=== PATIENT | male | born 1950 | race Caucasian/White ===

== ENCOUNTER 2017-05-01 14:17 | Emergency (ER) | payer MEDICARE ==
[2017-05-01] MEDS ORDERED: SODIUM CHLORIDE 0.9% 1,000 ML IV STA (14:28)
[2017-05-01] MEDS ORDERED: RX INFO: IV CONTRAST WAS GIVEN 1 EACH MISC MISCELLANE PRN (14:28)
[2017-05-01] MEDS ORDERED: DIPH,PERTUS(ACELL)TETVAC-LF 0.5 ML VIAL IM ONE (14:28)
[2017-05-01 14:31] VITALS: RESP 18
[2017-05-01 14:38] LABS: Glucose,Whole Blood 120 mg/dL (75-99)
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
[2017-05-01 14:46] LABS: Basophils # (A) 0.1 k/uL (0-0.2); Basophils % (A) 1 %; CH 29.1; CHCM 33.6; Eosinophils # (A) 0.1 k/uL (0-0.7); Eosinophils % (A) 2 %; HCT 44.5 % (39.0-53.0); HDW 2.56; HGB 14.9 gm/dL (13.0-17.5); Luc # (Auto) 0.24; Luc % (Auto) 3; Lymphocytes # (A) 1.8 k/uL (1.0-4.8); Lymphocytes % (A) 19 %; MCH 29.2 pg (25.0-35.0); MCHC 33.6 g/dL (31.0-37.0); MCV 86.9 fL (80.0-100.0); Mean Platelet Volume 6.6; Monocytes # (A) 0.5 k/uL (0-1.0); Monocytes % (A) 6 %; Neutrophils # (A) 6.7 k/uL (1.3-7.7); Neutrophils % (A) 71 %; RBC 5.12 m/uL (4.30-5.90); RDW 12.9 % (11.5-15.5); WBC 9.4 k/uL (3.8-10.6); WBC (Perox) 9.35
--- NOTE | 2017-05-01 14:51 | XR ---
EXAMINATION TYPE: XR chest 1V portable DATE OF EXAM: 05/01/2017 COMPARISON: NONE HISTORY: Pain TECHNIQUE: Single frontal view of the chest is obtained. FINDINGS: Mediastinum is widened recommend CT of the chest. Technique suboptimal for assessment of o sseous structures. Heart is prominent in size. No obvious pneumothorax. Left costophrenic angle not e ntirely included on exam. ER notified by telephone. IMPRESSION: 1. Limited exam with widened mediastinum recommend stat CT chest.
--- NOTE | 2017-05-01 14:52 | XR ---
EXAMINATION TYPE: XR pelvis AP view DATE OF EXAM: 05/01/2017 COMPARISON: NONE HISTORY: Pain The osseous structures are intact and arthropathy of the portions of the iliac wing are secured by ov erlying artifact. No acute fracture is seen. Visualized bowel gas pattern is nonspecific. IMPRESSION: 1. No acute fracture.
[2017-05-01 14:58] LABS: INR 1.1 (<1.1); Partial Thromboplastin Time 25.9 sec (22.0-30.0); Prothrombin Time 10.8 sec (9.0-12.0)
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
[2017-05-01 15:13] LABS: Creatine Kinase 320 U/L (55-170)
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
[2017-05-01 15:26] LABS: Troponin I <0.012 ng/mL (0.000-0.034)
[2017-05-01 15:33] LABS: Creatine Kinase MB 2.7 ng/mL (0.0-2.4)
[2017-05-01 15:49] LABS: ALT 36 U/L (21-72); AST 32 U/L (17-59); Alcohol <10 mg/dL; Alkaline Phosphatase 90 U/L (38-126); Anion Gap 10 mmol/L; Blood Urea Nitrogen 22 mg/dL (9-20); Calcium 9.7 mg/dL (8.4-10.2); Carbon Dioxide 23 mmol/L (22-30); Chloride 108 mmol/L (98-107); Glucose 123 mg/dL (74-99); Non-African American GFR(MDRD) >60 (>60 ml/min/1.73 sqM); Sodium 141 mmol/L (137-145); Total Bilirubin 0.5 mg/dL (0.2-1.3); Total Protein 7.2 g/dL (6.3-8.2)
--- NOTE | 2017-05-01 15:56 | XR ---
EXAMINATION TYPE: XR shoulder complete LT DATE OF EXAM: 05/01/2017 COMPARISON: NONE HISTORY: Pain TECHNIQUE: Three views are submitted. FINDINGS: The osseous structures are intact. There is no acute fracture or dislocation. AC joint arthropathy n oted.. IMPRESSION: 1. No acute process.
[2017-05-01] MEDS ORDERED: MORPHINE SULFATE 4 MG/ML SYRINGE IVP STA (16:10)
[2017-05-01] MEDS ORDERED: ONDANSETRON 4 MG/2 ML VIAL IVP STA (16:10)
[2017-05-01 16:27] LABS: Appearance,Urine Clear (Clear); Bilirubin,Urine Negative (Negative); Glucose,Urine (UA) Negative (Negative); Ketones,Urine Negative (Negative); Leukocyte Esterase,Urine Negative (Negative); Nitrite,Urine Negative (Negative); PH, Urine 5.5 (5.0-8.0); Protein,Urine Negative (Negative); Specific Gravity,Urine 1.022 (1.001-1.035); UA Billing (MACRO vs. MICRO) CHEM; Urobilinogen,Urine <2.0 mg/dL (<2.0)
[2017-05-01 17:03] VITALS: BP 154/78; PULSE 69; TEMP 99.2
== END 2017-05-01 17:01 | disposition home or self-care (01) ==
LOC: EC 14:17
DX: S06.0X0A Concussion without loss of consciousness, initial encounter (principal); S01.81XA Laceration without foreign body of other part of head, initial encounter; I10 Essential (primary) hypertension; Z79.899 Other long term (current) drug therapy; V94.9XXA Unspecified water transport accident, initial encounter
CPT/HCPCS: 99285; 12011; 90471; 96374; 96375; 96361 ×2; 36415; 93005; 86900; 86901; 80053; 82550; 82553; 84484; 85025; 85610; 85730; 86850; 81003; 80306; 80320; 71010; 72170; 73030; 72125; 70450; 71260; 74177; 90715; J2270; J2405; Q9967

== ENCOUNTER → 2020-10-30 | Outpatient (CLI) | payer MEDICARE ==
--- NOTE | 2020-10-31 00:03 | MR ---
EXAMINATION TYPE: MR knee RT wo con DATE OF EXAM: 10/30/2020 COMPARISON: None HISTORY: Right knee pain Multiplanar multiecho imaging of the right knee was performed with no contrast. There is some mild increased signal on the proton density images in the subchondral medial femoral co ndyle. The collateral ligaments are intact. There is vertical defect through the posterior horn of th e medial meniscus. There is some thinning of the medial meniscus posterior horn. The lateral meniscus is intact. There is a mild to moderate knee joint effusion. The anterior and posterior cruciate ligaments are intact. Patella is intact. There is minor spurring on the patella. There is some narrowing of the medial joint space of the knee. IMPRESSION: Osteoarthritic narrowing of the medial joint space of the left knee. There is complex vertical tear t hrough the posterior horn of the medial meniscus. No fracture seen. Subchondral edema on both sides o f the medial joint space and more involvement of the medial femoral condyle.
== END | disposition home or self-care (01) ==
LOC: RADMRIMAIN 11:08
PROVIDERS: ATTEND Orthopaedic Surgery
DX: M17.12 Unilateral primary osteoarthritis, left knee (principal); M25.862 Other specified joint disorders, left knee; S83.241A Other tear of medial meniscus, current injury, right knee, initial encounter

== ENCOUNTER → 2020-12-02 | Outpatient (CLI) | payer MEDICARE ==
[2020-12-02 12:12] LABS: Basophils # (A) 0.1 k/uL (0-0.2); Basophils % (A) 1 %; Eosinophils # (A) 0.2 k/uL (0-0.7); Eosinophils % (A) 3 %; HCT 43.1 % (39.0-53.0); HGB 14.6 gm/dL (13.0-17.5); Lymphocytes % (A) 28 %; MCH 28.9 pg (25.0-35.0); MCHC 33.8 g/dL (31.0-37.0); MCV 85.7 fL (80.0-100.0); Monocytes # (A) 0.4 k/uL (0-1.0); Monocytes % (A) 6 %; Neutrophils # (A) 4.3 k/uL (1.3-7.7); Neutrophils % (A) 60 %; Platelet Count 234 k/uL (150-450); RBC 5.03 m/uL (4.30-5.90); RDW 13.1 % (11.5-15.5); WBC 7.1 k/uL (3.8-10.6)
[2020-12-02 20:59] LABS: Anion Gap 8.9 mmol/L (4.00-12.00); Carbon Dioxide 25.1 mmol/L (21.6-31.8); Potassium 4.2 mmol/L (3.5-5.5)
== END | disposition home or self-care (01) ==
LOC: LABWHC1 10:35
PROVIDERS: ATTEND Orthopaedic Surgery
DX: Z01.812 Encounter for preprocedural laboratory examination (principal); M23.91 Unspecified internal derangement of right knee
CPT/HCPCS: 36415; 80051; 85025; 93005

== ENCOUNTER 2020-12-17 10:03 | Day surgery (SDC) | payer MEDICARE ==
[2020-12-14 15:54] VITALS: BMI 37.6
--- NOTE | 2020-12-16 20:41 | HP ---
HISTORY AND PHYSICAL DATE OF SURGERY: 12/17/2020 Rylan Cunningham is a 70-year-old gentleman seen with progressive right knee pain. We discussed treatment options with him. He elected to proceed with arthroscopy. Consent regarding procedure was obtained. PAST MEDICAL HISTORY: Hypertension. PAST SURGICAL HISTORY: Noncontributory. DAILY MEDICATIONS: Losartan. ALLERGIES: NONE. SOCIAL HISTORY: He denies tobacco use. PHYSICAL EVALUATION OF THE RIGHT KNEE: Range of motion 0 to 130. Mild effusion. Tenderness medial joint line. Positive medial Raiza's. Ligaments stable. Hip rotation without pain. Distal neurovascular exam is intact. RADIOGRAPHS: Right knee radiographs revealed mild osteoarthritic changes. MRI of right knee revealed medial meniscal tear. IMPRESSION: 1. Internal derangement of right knee with medial meniscal tear. 2. Right knee osteoarthritis. 3. Hypertension. PLAN: Right knee arthroscopy with partial meniscectomy, partial synovectomy and debridement. MMODL / IJN: [id number] /
[~2020-12-17 10:03] MED LIST: DEXAMETHASONE SOD PHOSPHATE 4 MG/ML 1 ML VIAL IV ONE; HYDROmorphone 0.5 MG/0.5 ML SYRINGE IVP PRN; LACTATED RINGERS 1,000 ML IV SCH; LIDOCAINE 1% (10MG/ML) FOR IV START INTRADERMA PRN; ONDANSETRON 4 MG/2 ML VIAL IVP ONE; ceFAZolin 3 GM in SODIUM CHLORIDE 0.9% 100 ML IVPB PRN
[2020-12-17] MEDS ORDERED: METOPROLOL TARTRATE 5 MG/5 ML VIAL IVP ONE (11:38)
[2020-12-17] MEDS ORDERED: LIDOCAINE 1% INJ 10MG/ML (20 ML MDV) ONE (11:38)
[2020-12-17] MEDS ORDERED: PROPOFOL 10 MG/ML 20 ML VIAL IV ONE (11:38)
[2020-12-17] MEDS ORDERED: fentaNYL (PF) 50 MCG/ML 2 ML AMP ONE (11:38)
[2020-12-17] MEDS ORDERED: MIDAZOLAM 2 MG/2 ML VIAL ONE (11:38)
[2020-12-17] MEDS ORDERED: SUCCINYLCHOLINE CHLORIDE VIAL 200 MG/10 ML VIAL IV ONE (11:38)
[2020-12-17] MEDS ORDERED: BUPIVACAINE (PF) 0.25% 30 ML VIAL INTRAARTIC ONE (12:03)
--- NOTE | 2020-12-17 12:47 | P.OP ---
Date of Procedure: 12/17/20 Preoperative Diagnosis: Internal derangement right knee Postoperative Diagnosis: 1. Tear medial meniscus right knee 2. Grade 2 chondromalacia medial femoral condyle right knee 3. Medial plica right knee 4. Reactive synovitis medial, lateral and suprapatellar compartments right knee Procedure(s) Performed: 1. Arthroscopic partial medial meniscectomy right knee 2. Arthroscopic chondroplasty medial femoral condyle right knee 3. Arthroscopic partial synovectomy medial, lateral and suprapatellar compartments right knee 4. Arthroscopic resection medial plica right knee Anesthesia: SALVADORA, local Surgeon: Ramo Johansen Estimated Blood Loss (ml): 7 Pathology: none sent Condition: stable Disposition: PACU Indications for Procedure: 70-year-old gentleman seen with progressive right knee pain. After having treatment options discussed, he elected to proceed with arthroscopy. Operative Findings: See description of procedure Description of Procedure: Patient was taken to the operative suite. Patient underwent a general anesthetic by the department of anesthesia. Patient was given preoperative antibiotics. The right lower extremity was placed in a well-padded arthroscopic leg salas. The right leg was prepped and draped in the normal sterile orthopedic fashion. A lateral parapatellar and suprapatellar incision was made. Trochars were inserted. Arthroscopy was initiated. Suprapatellar pouch revealed diffuse thick reactive synovitis. The patellofemoral joint appeared to articulate congruently. There was grade 1/2 chondromalacia. The scope was guided into the medial gutter. There was a medial plica which did impinge along the medial femoral condyle with range of motion. The scope was then guided into the medial compartment. A medial parapatellar incision was made. Trocar inserted followed by probe. There was a complex tear medial meniscus. There were grade 2 chondromalacia changes of the medial femoral condyle. There was thick reactive synovitis anteriorly. I performed a partial medial meniscectomy down to stable tissue. I performed a chondroplasty of the medial femoral condyle getting down to stable tissue. I performed a partial synovectomy decompressing the reactive synovitis. The residual meniscus was found to be stable. The residual osteochondral surface was stable. There was good decompression of the synovitis. Scope and probe were then guided into the intercondylar notch. Cruciates were identified, probed and found to be stable. The scope and probe were then guided into lateral compartment. To some mild superficial fraying of the midbody lateral meniscus. There was thick reactive synovitis anteriorly. There was no significant chondromalacia present. I introduced a motorized shaver and debrided out that mild fraying of the lateral meniscus. I now performed a partial synovectomy decompressing the reactive synovitis. The shaver was removed. There was good decompression of the synovitis. The scope was in guided back into the suprapatellar compartment. I introduced a motorized shaver into the super compartment. I resected that medial plica. I performed a partial synovectomy. I debrided out any remnants of meniscus I encountered. The shaver was removed. There was complete resection of plica. There was good decompression of synovitis. I took one more look around the entire knee, no residual debris. Instruments were now removed from the joint. The joint was infiltrated with .25% Marcaine. Steri-Strips were applied to the portal sites. Sterile dressings were applied. The patient was placed into a PADMINI hose. No tourniquet was utilized. The patient was awakened, transferred to a bed and taken to recovery stable satisfactory condition.
[2020-12-17 12:54] VITALS: TEMP 97
[2020-12-17] MEDS ORDERED: LACTATED RINGERS 1,000 ML IV ONE (13:00)
[2020-12-17] MEDS ORDERED: HYDROcodone/APAP 5-325MG 1 EACH TAB ONE (14:08)
[2020-12-17] MEDS ORDERED: HYDROcodone/APAP 5-325MG 1 EACH TAB PO ONE (14:09)
[2020-12-17 14:12] VITALS: PULSE 56; RESP 18
[2020-12-17 14:35] VITALS: BP 176/84
== END 2020-12-17 15:04 | disposition home or self-care (01) ==
LOC: OR 10:03
PROVIDERS: ATTEND Orthopaedic Surgery
DX: M23.203 Derangement of unspecified medial meniscus due to old tear or injury, right knee (principal); M94.261 Chondromalacia, right knee; M67.51 Plica syndrome, right knee; M65.861 Other synovitis and tenosynovitis, right lower leg; M17.11 Unilateral primary osteoarthritis, right knee; I10 Essential (primary) hypertension; N40.0 Benign prostatic hyperplasia without lower urinary tract symptoms; Z79.899 Other long term (current) drug therapy; Z79.82 Long term (current) use of aspirin; Z98.890 Other specified postprocedural states
CPT/HCPCS: 29881; J2250; J0330; J1100; J0690; J2405; J2001; J3010; J2704; J1170

== ENCOUNTER 2022-03-24 08:29 | Emergency (ER) | payer MEDICARE ==
[2022-03-24 08:52] VITALS: TEMP 97.7
[2022-03-24] MEDS ORDERED: ONDANSETRON 4 MG/2 ML VIAL IVP STA (09:08)
[2022-03-24] MEDS ORDERED: SODIUM CHLORIDE 0.9% 500 ML 500 ML IV STA (09:08)
[2022-03-24] MEDS ORDERED: METOCLOPRAMIDE 5 MG/ML 2 ML VIAL IVP STA (09:09)
--- NOTE | 2022-03-24 09:12 | ED ---
General Adult HPI - General Chief complaint: Nausea/Vomiting/Diarrhea Stated complaint: NVD Time Seen by Provider: 03/24/22 09:00 Source: patient, RN notes reviewed, old records reviewed Mode of arrival: ambulatory Limitations: no limitations - History of Present Illness Initial comments: 71-year-old male presents to the emergency room with complaints of nausea and vomiting and feeling foggy this morning. Patient states that he had a fitful sleep last night, and did have one episode of vomiting today. His did give him Pepto-Bismol but he states vomited it up. He states did get diaphoretic prior to vomiting. Denies any shortness of breath or chest pain. Denies any back pain. Does have a history of hypertension and [id number] diabetes. -: days(s) (1) Severity scale (1-10): 0 Associated Symptoms: diaphoresis, nausea/vomiting, other (diarrhea) Treatments Prior to Arrival: other (pepto bismol) - Related Data Home Medications Medication Instructions Recorded Confirmed Cholecalciferol [Vitamin D3 (25 25 mcg PO DAILY 12/14/20 03/24/22 Mcg = 1000 Iu)] Tamsulosin [Flomax] 0.4 mg PO HS 12/14/20 03/24/22 Cromium 1 tab PO DAILY 03/24/22 03/24/22 L.acidoph,Paracasei, B.lactis 1 cap PO DAILY 03/24/22 03/24/22 [Probiotic] Losartan Potassium 100 mg PO DAILY 03/24/22 03/24/22 Previous Rx's Medication Instructions Recorded Ondansetron Odt [Zofran Odt] 4 mg PO Q8HR PRN #10 tab 03/24/22 Allergies Allergy/AdvReac Type Severity Reaction Status Date / Time No Known Allergies Allergy Verified 03/24/22 12:10 Review of Systems ROS Statement: Those systems with pertinent positive or pertinent negative responses have been documented in the HPI. ROS Other: All systems not noted in ROS Statement are negative. Past Medical History Past Medical History: Diabetes Mellitus, Hypertension History of Any Multi-Drug Resistant Organisms: None Reported Past Surgical History: Orthopedic Surgery Past Psychological History: No Psychological Hx Reported Smoking Status: Never smoker Past Alcohol Use History: None Reported Past Drug Use History: None Reported General Exam Limitations: no limitations General appearance: alert, in no apparent distress Head exam: Present: atraumatic Eye exam: Absent: scleral icterus, conjunctival injection Neck exam: Present: normal inspection, full ROM. Absent: tenderness, meningism us, lymphadenopathy Respiratory exam: Present: normal lung sounds bilaterally. Absent: respiratory distress, accessory muscle use Cardiovascular Exam: Present: regular rate, normal rhythm, normal heart sounds. Absent: JVD GI/Abdominal exam: Present: soft. Absent: distended Extremities exam: Present: full ROM, normal capillary refill. Absent: pedal edema Back exam: Present: normal inspection, full ROM. Absent: tenderness, CVA tenderness (R), CVA tenderness (L), rash noted Neurological exam: Present: alert, oriented X3 Psychiatric exam: Present: normal affect, normal mood Skin exam: Present: warm, dry, normal color. Absent: cyanosis, diaphoretic, petechiae, pallor Course Vital Signs 03/24/22 03/24/22 03/24/22 08:46 10:51 11:00 Temperature 97.7 F Pulse Rate 63 66 68 Respiratory 18 16 16 Rate Blood Pressure 183/84 159/89 154/92 O2 Sat by Pulse 97 94 L 97 Oximetry 03/24/22 13:36 Temperature Pulse Rate 84 Respiratory 16 Rate Blood Pressure 152/87 O2 Sat by Pulse 98 Oximetry EKG Findings - EKG Results: EKG shows: bradycardia (Ventricular rate of 56, MI interval 0.217, QRS 0.122, QTC 0.431) Medical Decision Making - Medical Decision Making Chest x-ray shows no acute cardiopulmonary process. EKG shows no ST elevation or acute changes. Troponin is negative at 0.012. Labs show no evidence of leukocytosis and hemoglobin and hematocrit are stable. Electrolytes are unremarkable. Influenza coronavirus swab is negative. Patient was given Reglan, Zofran and IV fluids and states feeling much better. He has no abdominal pain. He denies any hematochezia or hematemesis. At this time I am unsure as to what the cause of the patient's nausea and vomiting was however since it is resolved and may be related to a viral illness. He was given strict return parameters to return to the emergency room with any increased abdominal pain, persistent nausea vomiting or fevers. He is agreeable to being discharged home and following up with his primary care doctor here. Case discussed with Dr. Maher - Lab Data Result diagrams: 03/24/22 09:28 03/24/22 09:28 Lab Results 03/24/22 03/24/22 03/24/22 Range/Units 09:28 09: 09:28 WBC 9.5 (3.8-10.6) k/uL RBC 5.25 (4.30-5.90) m/uL Hgb 14.9 (13.0-17.5) gm/dL Hct 46.2 (39.0-53.0) % MCV 87.9 (80.0-100.0) fL MCH 28.3 (25.0-35.0) pg MCHC 32.2 (31.0-37.0) g/dL RDW 12.4 (11.5-15.5) % Plt Count 221 (150-450) k/uL MPV 7.1 Neutrophils % 82 % Lymphocytes % 11 % Monocytes % 4 % Eosinophils % 1 % Basophils % 1 % Neutrophils # 7.8 H (1.3-7.7) k/uL Lymphocytes # 1.1 (1.0-4.8) k/uL Monocytes # 0.4 (0-1.0) k/uL Eosinophils # 0.1 (0-0.7) k/uL Basophils # 0.1 (0-0.2) k/uL Sodium 138 (137-145) mmol/L Potassium 4.6 (3.5-5.1) mmol/L Chloride 104 (98-107) mmol/L Carbon Dioxide 26 (22-30) mmol/L Anion Gap 8 mmol/L BUN 21 H (9-20) mg/dL Creatinine 0.87 (0.66-1.25) mg/dL Est GFR (CKD-EPI)AfAm >90 (>60 ml/min/1.73 sqM) Est GFR (CKD-EPI)NonAf 86 (>60 ml/min/1.73 sqM) Glucose 216 H (74-99) mg/dL Calcium 9.2 (8.4-10.2) mg/dL Total Bilirubin 0.7 (0.2-1.3) mg/dL AST 30 (17-59) U/L ALT 28 (4-49) U/L Alkaline Phosphatase 80 (38-126) U/L Troponin I (0.000-0.034) ng/mL Total Protein 7.8 (6.3-8.2) g/dL Albumin 4.4 (3.5-5.0) g/dL Amylase 78 (30-110) U/L Lipase 53 (23-300) U/L Influenza Type A (PCR) Not Detected (Not Detectd) Influenza Type B (PCR) Not Detected (Not Detectd) RSV (PCR) Not Detected (Not Detectd) SARS-CoV-2 (PCR) Not Detected (Not Detectd) 03/24/22 Range/Units 11:34 WBC (3.8-10.6) k/uL RBC (4.30-5.90) m/uL Hgb (13.0-17.5) gm/dL Hct (39.0-53.0) % MCV (80.0-100.0) fL MCH (25.0-35.0) pg MCHC (31.0-37.0) g/dL RDW (11.5-15.5) % Plt Count (150-450) k/uL MPV Neutrophils % % Lymphocytes % % Monocytes % % Eosinophils % % Basophils % % Neutrophils # (1.3-7.7) k/uL Lymphocytes # (1.0-4.8) k/uL Monocytes # (0-1.0) k/uL Eosinophils # (0-0.7) k/uL Basophils # (0-0.2) k/uL Sodium (137-145) mmol/L Potassium (3.5-5.1) mmol/L Chloride (98-107) mmol/L Carbon Dioxide (22-30) mmol/L Anion Gap mmol/L BUN (9-20) mg/dL Creatinine (0.66-1.25) mg/dL Est GFR (CKD-EPI)AfAm (>60 ml/min/1.73 sqM) Est GFR (CKD-EPI)NonAf (>60 ml/min/1.73 sqM) Glucose (74-99) mg/dL Calcium (8.4-10.2) mg/dL Total Bilirubin (0.2-1.3) mg/dL AST (17-59) U/L ALT (4-49) U/L Alkaline Phosphatase (38-126) U/L Troponin I <0.012 (0.000-0.034) ng/mL Total Protein (6.3-8.2) g/dL Albumin (3.5-5.0) g/dL Amylase (30-110) U/L Lipase (23-300) U/L Influenza Type A (PCR) (Not Detectd) Influenza Type B (PCR) (Not Detectd) RSV (PCR) (Not Detectd) SARS-CoV-2 (PCR) (Not Detectd) Disposition Clinical Impression: Nausea & vomiting Disposition: HOME SELF-CARE Condition: Good Instructions (If sedation given, give patient instructions): Acute Nausea and Vomiting (ED) Additional Instructions: Increase your fluid intake. Follow-up with primary care doctor this week. Return to the emergency room with any new or concerning symptoms including chest pain, difficulty breathing, fevers or persistent nausea vomiting Prescriptions: Ondansetron Odt [Zofran Odt] 4 mg PO Q8HR PRN #10 tab PRN Reason: Nausea Is patient prescribed a controlled substance at d/c from ED?: No Referrals: Saad Rene MD [Primary Care Provider] - 1-2 days
[2022-03-24 09:45] LABS: Basophils # (A) 0.1 k/uL (0-0.2); Basophils % (A) 1 %; Eosinophils # (A) 0.1 k/uL (0-0.7); Eosinophils % (A) 1 %; HCT 46.2 % (39.0-53.0); HGB 14.9 gm/dL (13.0-17.5); Lymphocytes # (A) 1.1 k/uL (1.0-4.8); Lymphocytes % (A) 11 %; MCH 28.3 pg (25.0-35.0); MCHC 32.2 g/dL (31.0-37.0); MCV 87.9 fL (80.0-100.0); Mean Platelet Volume 7.1; Monocytes # (A) 0.4 k/uL (0-1.0); Monocytes % (A) 4 %; Neutrophils # (A) 7.8 k/uL (1.3-7.7); Neutrophils % (A) 82 %; Platelet Count 221 k/uL (150-450); RBC 5.25 m/uL (4.30-5.90); RDW 12.4 % (11.5-15.5); WBC 9.5 k/uL (3.8-10.6)
--- NOTE | 2022-03-24 10:02 | XR ---
EXAMINATION TYPE: XR chest 2V DATE OF EXAM: 03/24/2022 COMPARISON: NONE TECHNIQUE: PA and lateral views submitted. HISTORY: Pain FINDINGS: The lungs are clear and there is no pneumothorax, pleural effusion, or focal pneumonia. Heart size normal. No overt failure. Hypertrophic and degenerative change of the spine. Atherosclerotic change a em. IMPRESSION: 1. No acute process.
[2022-03-24 10:08] LABS: ALT 28 U/L (4-49); AST 30 U/L (17-59); African American GFR (CKD) >90 (>60 ml/min/1.73 sqM); Albumin 4.4 g/dL (3.5-5.0); Alkaline Phosphatase 80 U/L (38-126); Amylase 78 U/L (30-110); Anion Gap 8 mmol/L; Blood Urea Nitrogen 21 mg/dL (9-20); Calcium 9.2 mg/dL (8.4-10.2); Carbon Dioxide 26 mmol/L (22-30); Chloride 104 mmol/L (98-107); Glucose 216 mg/dL (74-99); Lipase 53 U/L (23-300); Non-African American GFR(CKD) 86 (>60 ml/min/1.73 sqM); Potassium 4.6 mmol/L (3.5-5.1); Sodium 138 mmol/L (137-145); Total Bilirubin 0.7 mg/dL (0.2-1.3); Total Protein 7.8 g/dL (6.3-8.2)
[2022-03-24 11:03] VITALS: RESP 16
[2022-03-24 13:37] VITALS: BP 152/87; PULSE 84
== END 2022-03-24 13:37 | disposition home or self-care (01) ==
LOC: EC 08:29
DX: R11.2 Nausea with vomiting, unspecified (principal); E11.9 Type 2 diabetes mellitus without complications; I10 Essential (primary) hypertension; Z20.822 Contact with and (suspected) exposure to COVID-19
CPT/HCPCS: 36415; 93005; 80053; 82150; 83690; 84484; 85025; 87636; 71046; 99284; 96374; 96375; J2765; J2405

== ENCOUNTER 2023-11-20 09:49 | Inpatient (IN) | payer MEDICARE ==
[2023-11-20] MEDS ORDERED: NITROGLYCERIN OINT 1 INCH/GM PACKET TOPICAL STA (09:59)
[2023-11-20] MEDS ORDERED: ASPIRIN 81 MG PO STA (09:59)
--- NOTE | 2023-11-20 10:01 | ED ---
General Adult HPI - General Chief complaint: Chest Pain Stated complaint: Chest Pain Time Seen by Provider: 11/20/23 09:56 Source: patient, family, RN notes reviewed Mode of arrival: ambulatory Limitations: no limitations - History of Present Illness Initial comments: Patient is a pleasant 72-year-old male presenting to the emergency department with concerns of chest discomfort. Onset of symptoms was 2 or 3 weeks ago. Symptoms are exertional. Patient has pressure in his chest currently 3/10. Patient states discomfort sometimes gets up to 5/10. Patient does have associated exertional dyspnea. No nausea. No diaphoresis. No history of similar symptoms previously. No leg pain or leg swelling. - Related Data Home Medications Medication Instructions Recorded Confirmed Cholecalciferol [Vitamin D3 (25 25 mcg PO DAILY 12/14/20 03/24/22 Mcg = 1000 Iu)] Tamsulosin [Flomax] 0.4 mg PO HS 12/14/20 03/24/22 Cromium 1 tab PO DAILY 03/24/22 03/24/22 L.acidoph,Paracasei, B.lactis 1 cap PO DAILY 03/24/22 03/24/22 [Probiotic] Losartan Potassium 100 mg PO DAILY 03/24/22 03/24/22 Previous Rx's Medication Instructions Recorded Ondansetron Odt [Zofran Odt] 4 mg PO Q8HR PRN #10 tab 03/24/22 Allergies Allergy/AdvReac Type Severity Reaction Status Date / Time No Known Allergies Allergy Verified 11/20/23 09:54 Review of Systems ROS Statement: Those systems with pertinent positive or pertinent negative responses have been documented in the HPI. ROS Other: All systems not noted in ROS Statement are negative. Constitutional: Denies: fever Eyes: Denies: eye pain ENT: Denies: ear pain Respiratory: Reports: as per HPI Cardiovascular: Reports: as per HPI, chest pain, dyspnea on exertion Endocrine: Denies: fatigue Gastrointestinal: Denies: abdominal pain Genitourinary: Denies: dysuria Musculoskeletal: Denies: back pain Past Medical History Past Medical History: Diabetes Mellitus, Hypertension History of Any Multi-Drug Resistant Organisms: None Reported Past Surgical History: Orthopedic Surgery Past Psychological History: No Psychological Hx Reported Smoking Status: Never smoker Past Alcohol Use History: None Reported Past Drug Use History: None Reported General Exam Limitations: no limitations General appearance: alert, in no apparent distress Head exam: Present: normocephalic Eye exam: Present: normal appearance Neck exam: Present: normal inspection Respiratory exam: Present: normal lung sounds bilaterally. Absent: chest wall tenderness Cardiovascular Exam: Present: regular rate, normal rhythm Expanded Peripheral pulses: 2+: Radial (R), Radial (L), Dorsalis Pedis (R), Dorsalis Pedis (L) GI/Abdominal exam: Present: soft. Absent: tenderness Extremities exam: Present: normal inspection. Absent: pedal edema, calf tenderness Neurological exam: Present: alert Psychiatric exam: Present: normal affect, normal mood Skin exam: Present: normal color Course Vital Signs 11/20/23 11/20/23 09:52 10:44 Temperature 98 F Pulse Rate 78 82 Respiratory 18 18 Rate Blood Pressure 201/91 167/95 O2 Sat by Pulse 98 95 Oximetry EKG Findings - EKG Results: EKG: interpreted by TANIA ((Cohagen. For screening AV block with a AK of 2:15. Nonspecific intraventricular conduction delay.), sinus rhythm, normal ST/T Medical Decision Making - Medical Decision Making Was pt. sent in by a medical professional or institution (, PA, HEALTH PROMOTION EDUCATOR, urgent care, hospital, or fci...) When possible be specific @ -No Did you speak to anyone other than the patient for history (EMS, parent, family, police, friend...)? What history was obtained from this source @ - is present and helps confirm patient's history of symptoms and onset. Did you review nursing and triage notes (agree or disagree)? Why? @ -I reviewed and agree with nursing and triage notes Were old charts reviewed (outside hosp., previous admission, EMS record, old EKG, old radiological studies, urgent care reports/EKG's, fci records)? Report findings @ -Previous chest x-ray reviewed. Differential Diagnosis (chest pain, altered mental status, abdominal pain women, abdominal pain men, vaginal bleeding, weakness, fever, dyspnea, syncope, headache, dizziness, GI bleed, back pain, seizure, CVA, palpatations, mental health, musculoskeletal)? @ -Differential Chest Pain: Stable Angina, Unstable Angina, STEMI, NSTEMI Aortic Dissection, Pneumothorax, Musculoskeletal, Esophageal Spasm GERD, Cholecystitis, Pancreatitis, Zoster, this is not meant to be an all-inclusive list. EKG interpreted by me (3pts min.). @ -As above X-rays interpreted by me (1pt min.). @ -Chest x-ray shows no acute process CT interpreted by me (1pt min.). @ -None done U/S interpreted by me (1pt. min.). @ -None done What testing was considered but not performed or refused? (CT, X-rays, U/S, labs)? Why? @ -None What meds were considered but not given or refused? Why? @ -None Did you discuss the management of the patient with other professionals (professionals i.e. , PA, HEALTH PROMOTION EDUCATOR, lab, RT, psych nurse, social service agency director, muffle operator, teacher, commissary officer, insurance case manager)? Give summary @ -[facility] physician paged for admission covering Dr. Rene Was smoking cessation discussed for >3mins.? @ -No Was critical care preformed (if so, how long)? @ -No Were there social determinants of health that impacted care today? How? (Homelessness, low income, unemployed, alcoholism, drug addiction, transportation, low edu. Level, literacy, decrease access to med. care, residential, rehab)? @ -No Was there de-escalation of care discussed even if they declined (Discuss DNR or withdrawal of care, Hospice)? DNR status @ -No What co-morbidities impacted this encounter? (DM, HTN, Smoking, COPD, CAD, Cancer, CVA, ARF, Chemo, Hep., AIDS, mental health diagnosis, sleep apnea, morbid obesity)? @ -None Was patient admitted / discharged? Hospital course, mention meds given and route, prescriptions, significant lab abnormalities, going to OR and other pertinent info. @ -Patient reevaluated with minimal improvement with Nitropaste. Patient and family updated on results and plan.. Patient will be admitted with cardiac consult. Admission orders placed. Undiagnosed new problem with uncertain prognosis? @ -No Drug Therapy requiring intensive monitoring for toxicity (Heparin, Nitro, Insulin, Cardizem)? @ -No Were any procedures done? @ -No Diagnosis/symptom? @ -Chest pain Acute, or Chronic, or Acute on Chronic? @ -Acute Uncomplicated (without systemic symptoms) or Complicated (systemic symptoms)? @ -default Side effects of treatment? @ -No Exacerbation, Progression, or Severe Exacerbation? @ -No Poses a threat to life or bodily function? How? (Chest pain, [place], [place], pneumonia, PE, COPD, DKA, ARF, appy, cholecystitis, CVA, Diverticulitis, Homicidal, Suicid al, threat to staff... and all critical care pts) @ -Potential threat to loss of cardiac function - Lab Data Result diagrams: 11/20/23 10:10 11/20/23 10:10 Lab Results 11/20/23 11/20/23 11/20/23 Range/Units 10:10 10:10 10:10 WBC 8.1 (3.8-10.6) k/uL RBC 5.35 (4.30-5.90) m/uL Hgb 15.7 (13.0-17.5) gm/dL Hct 46.4 (39.0-53.0) % MCV 86.8 (80.0-100.0) fL MCH 29.4 (25.0-35.0) pg MCHC 33.8 (31.0-37.0) g/dL RDW 12.9 (11.5-15.5) % Plt Count 211 (150-450) k/uL MPV 7.4 Neutrophils % 65 % Lymphocytes % 23 % Monocytes % 5 % Eosinophils % 3 % Basophils % 1 % Neutrophils # 5.3 (1.3-7.7) k/uL Lymphocytes # 1.9 (1.0-4.8) k/uL Monocytes # 0.4 (0-1.0) k/uL Eosinophils # 0.2 (0-0.7) k/uL Basophils # 0.1 (0-0.2) k/uL PT 11.0 (10.0-12.5) sec INR 1.0 (<1.2) APTT 29.9 (22.0-30.0) sec D-Dimer 0.63 H (<0.60) mg/L FEU Sodium 136 L (137-145) mmol/L Potassium 4.0 (3.5-5.1) mmol/L Chloride 99 (98-107) mmol/L Carbon Dioxide 24 (22-30) mmol/L Anion Gap 13 mmol/L BUN 21 H (9-20) mg/dL Creatinine 0.83 (0.66-1.25) mg/dL Est GFR (CKD-EPI)AfAm >90 (>60 ml/min/1.73 sqM) Est GFR (CKD-EPI)NonAf 87 (>60 ml/min/1.73 sqM) Glucose 348 H (74-99) mg/dL Calcium 9.2 (8.4-10.2) mg/dL Magnesium 1.8 (1.6-2.3) mg/dL Total Bilirubin 0.5 (0.2-1.3) mg/dL AST 29 (17-59) U/L ALT 25 (4-49) U/L Alkaline Phosphatase 114 (38-126) U/L Troponin I (0.000-0.034) ng/mL Total Protein 7.6 (6.3-8.2) g/dL Albumin 4.4 (3.5-5.0) g/dL 11/20/23 Range/Units 10:10 WBC (3.8-10.6) k/uL RBC (4.30-5.90) m/uL Hgb (13.0-17.5) gm/dL Hct (39.0-53.0) % MCV (80.0-100.0) fL MCH (25.0-35.0) pg MCHC (31.0-37.0) g/dL RDW (11.5-15.5) % Plt Count (150-450) k/uL MPV Neutrophils % % Lymphocytes % % Monocytes % % Eosinophils % % Basophils % % Neutrophils # (1.3-7.7) k/uL Lymphocytes # (1.0-4.8) k/uL Monocytes # (0-1.0) k/uL Eosinophils # (0-0.7) k/uL Basophils # (0-0.2) k/uL PT (10.0-12.5) sec INR (<1.2) APTT (22.0-30.0) sec D-Dimer (<0.60) mg/L FEU Sodium (137-145) mmol/L Potassium (3.5-5.1) mmol/L Chloride (98-107) mmol/L Carbon Dioxide (22-30) mmol/L Anion Gap mmol/L BUN (9-20) mg/dL Creatinine (0.66-1.25) mg/dL Est GFR (CKD-EPI)AfAm (>60 ml/min/1.73 sqM) Est GFR (CKD-EPI)NonAf (>60 ml/min/1.73 sqM) Glucose (74-99) mg/dL Calcium (8.4-10.2) mg/dL Magnesium (1.6-2.3) mg/dL Total Bilirubin (0.2-1.3) mg/dL AST (17-59) U/L ALT (4-49) U/L Alkaline Phosphatase (38-126) U/L Troponin I <0.012 (0.000-0.034) ng/mL Total Protein (6.3-8.2) g/dL Albumin (3.5-5.0) g/dL Disposition Clinical Impression: Chest pain Disposition: ADMITTED IP TO THIS HOSP Is patient prescribed a controlled substance at d/c from ED?: No Referrals: Saad Rene [Primary Care Provider] - 1-2 days Time of Disposition: 11:10
[2023-11-20 10:18] LABS: Basophils # (A) 0.1 k/uL (0-0.2); Basophils % (A) 1 %; Eosinophils # (A) 0.2 k/uL (0-0.7); Eosinophils % (A) 3 %; HCT 46.4 % (39.0-53.0); HGB 15.7 gm/dL (13.0-17.5); Lymphocytes # (A) 1.9 k/uL (1.0-4.8); Lymphocytes % (A) 23 %; MCH 29.4 pg (25.0-35.0); MCHC 33.8 g/dL (31.0-37.0); MCV 86.8 fL (80.0-100.0); Mean Platelet Volume 7.4; Monocytes # (A) 0.4 k/uL (0-1.0); Monocytes % (A) 5 %; Neutrophils # (A) 5.3 k/uL (1.3-7.7); Neutrophils % (A) 65 %; Platelet Count 211 k/uL (150-450); RBC 5.35 m/uL (4.30-5.90); RDW 12.9 % (11.5-15.5); WBC 8.1 k/uL (3.8-10.6)
[2023-11-20 10:32] LABS: ALT 25 U/L (4-49); AST 29 U/L (17-59); African American GFR (CKD) >90 (>60 ml/min/1.73 sqM); Albumin 4.4 g/dL (3.5-5.0); Alkaline Phosphatase 114 U/L (38-126); Anion Gap 13 mmol/L; Blood Urea Nitrogen 21 mg/dL (9-20); Calcium 9.2 mg/dL (8.4-10.2); Carbon Dioxide 24 mmol/L (22-30); Chloride 99 mmol/L (98-107); Glucose 348 mg/dL (74-99); Magnesium 1.8 mg/dL (1.6-2.3); Non-African American GFR(CKD) 87 (>60 ml/min/1.73 sqM); Sodium 136 mmol/L (137-145); Total Bilirubin 0.5 mg/dL (0.2-1.3); Total Protein 7.6 g/dL (6.3-8.2)
[2023-11-20 10:36] LABS: Partial Thromboplastin Time 29.9 sec (22.0-30.0)
[2023-11-20] MEDS ORDERED: NITROGLYCERIN SL TABS 0.4 MG TAB SUBLINGUAL PRN (11:10)
--- NOTE | 2023-11-20 11:15 | XR ---
EXAMINATION TYPE: XR chest 2V DATE OF EXAM: 11/20/2023 COMPARISON: 03/24/2022 INDICATION: Chest pain short of breath TECHNIQUE: Frontal and lateral views of the chest are obtained. FINDINGS: The heart size is normal. The pulmonary vasculature is normal. The lungs are clear. IMPRESSION: 1. No acute pulmonary process.
[2023-11-20] MEDS ORDERED: NITROGLYCERIN OINT 1 INCH/GM PACKET TOPICAL SCH (12:00)
--- NOTE | 2023-11-20 12:14 | P.HPIM ---
History of Present Illness This is a pleasant 72 years old male with past medical history of multiple medical problems including hypertension Presents because of chest pain for the last 3 weeks has started when he was helping his friend building his house and he noticed that he got chest pain and more shortness of breath as he come down from the bladder. This was gradually getting worse especially over the last week so he decided to come to the hospital today. His complaining from left side chest pain, nonradiating but sometimes associated with numbness in the left shoulder he rated about 5/10 in severity felt like something sitting on his chest, worse with exertion going on later and decreased by rest to the degree it goes away completely No change in urine or bowel habits, no fever, no headache dizziness weakness or numbness, no coughing. No previous history of heart disease His PCP is Dr. Johnson He denies smoking alcohol or illicit drugs. Blood pressure was elevated 201/91 on admission, currently 124/87 after he was started on nitroglycerin in the emergency room. While this including CBC, BMP LFT and INR were unremarkable D-dimer is slightly elevated at 0.63 but when adjusted for age it is within the reference range Troponin is negative less than 0.012. Chest x-rays negative for acute process Normal sinus rhythm at [address]-T changes and a QTC 408. Review of Systems Review of systems CONSTITUTIONAL: No fever, no malaise, no fatigue. HEENT: No recent visual problems or hearing problems. Denied any sore throat. CARDIOVASCULAR: No orthopnea, PND, no palpitations, no syncope. PULMONARY: No shortness of breath, no cough, no hemoptysis. GASTROINTESTINAL: No diarrhea, no nausea, no vomiting, no abdominal pain. Normoactive bowel sounds. NEUROLOGICAL: No headaches, no weakness, no numbness. HEMATOLOGICAL: Denies any bleeding or petechiae. GENITOURINARY: Denies any burning micturition, frequency, or urgency. MUSCULOSKELETAL/RHEUMATOLOGICAL: Denies any joint pain, swelling, or any muscle pain. ENDOCRINE: Denies any polyuria or polydipsia. Past Medical History Past Medical History: Diabetes Mellitus, Hypertension History of Any Multi-Drug Resistant Organisms: None Reported Past Surgical History: Orthopedic Surgery Past Psychological History: No Psychological Hx Reported Smoking Status: Never smoker Past Alcohol Use History: None Reported Past Drug Use History: None Reported Medications and Allergies Home Medications Medication Instructions Recorded Confirmed Type Tamsulosin [Flomax] 0.4 mg PO BID 12/14/20 11/20/23 History Losartan [Cozaar] 50 mg PO DAILY 11/20/23 11/20/23 History Naproxen Sodium [Aleve] 220 mg PO BID 11/20/23 11/20/23 History diphenhydrAMINE [Benadryl] 50 mg PO HS 11/20/23 11/20/23 History Allergies Allergy/AdvReac Type Severity Reaction Status Date / Time No Known Allergies Allergy Verified 11/20/23 11:32 Physical Exam Vitals: Vital Signs Temp Pulse Resp BP Pulse Ox 11/20/23 11:55 97.9 F 88 18 124/87 97 11/20/23 10:44 82 18 167/95 95 11/20/23 09:52 98 F 78 18 201/91 98 Intake and Output 11/19/23 11/20/23 11/20/23 22:59 06:59 14:59 Other: Weight 113.398 kg GENERAL: The patient is alert and oriented x3, not in any acute distress. Well developed, well nourished. HEENT: Pupils are round and equally reacting to light. EOMI. No scleral icterus. No conjunctival pallor. Normocephalic, atraumatic. No pharyngeal erythema. No thyromegaly. CARDIOVASCULAR: S1 and S2 present. No murmurs, rubs, or gallops. PULMONARY: Chest is clear to auscultation, no wheezing , no crackles. ABDOMEN: Soft, nontender, nondistended, normoactive bowel sounds. No palpable organomegaly. MUSCULOSKELETAL: No joint swelling or deformity. EXTREMITIES: No cyanosis, clubbing, or pedal edema. NEUROLOGICAL: Gross neurological examination did not reveal any focal deficits. SKIN: No rashes. no petechiae. Results CBC & Chem 7: 11/20/23 10:10 11/20/23 10:10 Labs: Abnormal Lab Results - Last 24 Hours (Table) 11/20/23 11/20/23 Range/Units 10:10 10:10 D-Dimer 0.63 H (<0.60) mg/L FEU Sodium 136 L (137-145) mmol/L BUN 21 H (9-20) mg/dL Glucose 348 H (74-99) mg/dL Assessment and Plan Assessment: Chest pain, rule out cardiac causes, could be an unstable angina Uncontrolled hypertension on admission Obesity with BMI of 36.9 Diabetes mellitus, history of Plan: Continue with aspirin Continue with nitroglycerin Check echocardiogram Resume losartan and monitor blood pressure Cardiology consult Labs and medication were reviewed.. Continue same treatment. Continue with symptomatic treatment. Resume home medication. Monitor labs and vitals. DVT and GI prophylaxis. Further recommendations as per clinical course of the p atient DVT prophylaxis: Subcutaneous heparin GI Prophylaxis: Pepcid Prognosis is guarded
[2023-11-20] MEDS ORDERED: HEPARIN SODIUM 1,000 UN/ML (10ML VL) IV ONE (14:28)
[2023-11-20 14:56] LABS: Basophils # (A) 0.1 k/uL (0-0.2); Basophils % (A) 1 %; Eosinophils # (A) 0.2 k/uL (0-0.7); Eosinophils % (A) 2 %; HCT 43.3 % (39.0-53.0); HGB 14.5 gm/dL (13.0-17.5); Lymphocytes # (A) 2.2 k/uL (1.0-4.8); Lymphocytes % (A) 26 %; MCHC 33.5 g/dL (31.0-37.0); MCV 86.5 fL (80.0-100.0); Mean Platelet Volume 7.5; Monocytes # (A) 0.7 k/uL (0-1.0); Monocytes % (A) 9 %; Neutrophils % (A) 59 %; Platelet Count 216 k/uL (150-450); RDW 12.8 % (11.5-15.5); WBC 8.4 k/uL (3.8-10.6)
--- NOTE | 2023-11-20 15:03 | P.CRDCN ---
History of Present Illness Consult date: 11/20/23 History of present illness: HISTORY OF PRESENTING ILLNESS 72-year-old male with no significant past medical history other than hypertension and BPH. He is on losartan and Flomax for this. He reports that for last 2-3 weeks he has been having on and off substernal chest heaviness like sensation along with shortness of breath. This morning he was working in his basement with his arms overhead when he started spitting substernal chest pain w hich was more in intensity and was not getting better with rest. Next He presented to the ER and he received sublingual nitroglycerin. After 1 hour also pneumonitis with this pain eased off. Currently he is pain-free. His initial troponin was negative, repeat troponin elevated at 0.08. His ECG shows normal sinus rhythm with no significant ST-T wave changes His d-dimer was elevated at 0.6. BP on admission 201/91, heart rate 78. Repeat blood pressure 132/76, heart rate 85 REVIEW OF SYSTEMS 14 point review of system is negative except what is mentioned above in HPI. PHYSICAL EXAMINATION Vital signs reviewed. Head: Normocephalic. Eyes: Sclerae nonicteric. Neck: Brisk carotid upstroke, no jugular venous distention. Lungs: Clear to auscultation. Heart: Regular rate and rhythm, S1-S2, no S3, no murmur or rub. Abdomen: Soft nontender, positive bowel sounds no organomegaly. Extremities: No edema, intact distal pulses. Neuro: Alert, oritented, no focal deficits ASSESSMENT Nstemi Substernal chest pain with exertion, relieved with nitroglycerin Essential hypertension BPH No reported smoking or alcohol use Obesity PLAN Start IV heparin drip. Start aspirin 81 mg, atorvastatin 40 mg Continue losartan 25 mg Obtain echocardiogram Obtain CTA PE protocol due to elevated d-dimer If CT negative and troponin trends further up, we will perform cardiac catheterization tomorrow. Nothing by mouth after midnight Past Medical History Past Medical History: Diabetes Mellitus, Hypertension History of Any Multi-Drug Resistant Organisms: None Reported Past Surgical History: Orthopedic Surgery Past Psychological History: No Psychological Hx Reported Smoking Status: Never smoker Past Alcohol Use History: None Reported Past Drug Use History: None Reported Medications and Allergies Home Medications Medication Instructions Recorded Confirmed Type Tamsulosin [Flomax] 0.4 mg PO BID 12/14/20 11/20/23 History Losartan [Cozaar] 50 mg PO DAILY 11/20/23 11/20/23 History Naproxen Sodium [Aleve] 220 mg PO BID 11/20/23 11/20/23 History diphenhydrAMINE [Benadryl] 50 mg PO HS 11/20/23 11/20/23 History Allergies Allergy/AdvReac Type Severity Reaction Status Date / Time No Known Allergies Allergy Verified 11/20/23 11:32 Physical Exam Vitals: Vital Signs Temp Pulse Pulse Resp BP BP Pulse Ox 11/20/23 12:52 99.1 F 85 16 132/76 95 11/20/23 11:55 97.9 F 88 18 124/87 97 11/20/23 10:44 82 18 167/95 95 11/20/23 09:52 98 F 78 18 201/91 98 Intake and Output 11/20/23 11/20/23 11/20/23 06:59 14:59 22:59 Other: Weight 113.398 kg Results 11/20/23 14:33 11/20/23 10:10 Cardiac Enzymes 11/20/23 11/20/23 11/20/23 Range/Units 10:10 10:10 12:37 AST 29 (17-59) U/L Troponin I <0.012 0.081 H* (0.000-0.034) ng/mL Coagulation 11/20/23 Range/Units 10:10 PT 11.0 (10.0-12.5) sec APTT 29.9 (22.0-30.0) sec CBC 11/20/23 11/20/23 Range/Units 10:10 14:33 WBC 8.1 8.4 (3.8-10.6) k/uL RBC 5.35 5.00 (4.30-5.90) m/uL Hgb 15.7 14.5 (13.0-17.5) gm/dL Hct 46.4 43.3 (39.0-53.0) % Plt Count 211 216 (150-450) k/uL Comprehensive Metabolic Panel 11/20/23 Range/Units 10:10 Sodium 136 L (137-145) mmol/L Potassium 4.0 (3.5-5.1) mmol/L Chloride 99 (98-107) mmol/L Carbon Dioxide 24 (22-30) mmol/L BUN 21 H (9-20) mg/dL Creatinine 0.83 (0.66-1.25) mg/dL Glucose 348 H (74-99) mg/dL Calcium 9.2 (8.4-10.2) mg/dL AST 29 (17-59) U/L ALT 25 (4-49) U/L Alkaline Phosphatase 114 (38-126) U/L Total Protein 7.6 (6.3-8.2) g/dL Albumin 4.4 (3.5-5.0) g/dL Current Medications Generic Name Dose Route Start Last Admin Trade Name Freq PRN Reason Stop Dose Admin Aspirin 81 mg 11/20/23 14:30 Aspirin 81 Mg PO DAILY [facility] Atorvastatin Calcium 40 mg 11/20/23 21:00 Atorvastatin 40 Mg Tab PO HS [facility] Famotidine 20 mg 11/20/23 21:00 Famotidine 20 Mg/2 Ml Vial IV Q12HR [facility] Heparin Sodium (Porcine) 0 unit 11/20/23 14:28 Heparin Sodium 1,000 Un/Ml (10ml Vl) IV PER PROTOCOL PRN Low PTT Protocol Heparin Sodium/Sodium Chloride 250 mls @ 10 mls/hr 11/20/23 14:30 25,000 unit/ Sodium Chloride IV .Q24H [facility] Protocol 8.8185 UNITS/KG/HR Losartan Potassium 50 mg 11/21/23 09:00 Losartan 50 Mg Tab PO DAILY [facility] Nitroglycerin 0.4 mg 11/20/23 11:10 Nitroglycerin Sl Tabs 0.4 Mg Tab SUBLINGUAL Q5M PRN Chest Pain Sodium Chloride 10 ml 11/20/23 21:00 Sodium Chloride 0.9% Flush 10 Ml Syringe IV BID [facility] Tamsulosin HCl 0.4 mg 11/20/23 21:00 Tamsulosin 0.4 Mg Cap.Er.24h PO BID [facility] Intake and Output 11/20/23 11/20/23 11/20/23 06:59 14:59 22:59 Other: Weight 113.398 kg Patient Weight 11/21/23 06:59 Weight 113.398 kg 11/20/23 14:33 11/20/23 10:10
[2023-11-20 15:17] LABS: Partial Thromboplastin Time 29.5 sec (22.0-30.0); Prothrombin Time 11.3 sec (10.0-12.5)
[2023-11-20] MEDS: HEPARIN SOD,PORK IN 0.45% NACL 25,000 UNIT in 0.45% NACL 1 250ML.BAG IV SCH (15:31)
[2023-11-20] MEDS: ASPIRIN 81 MG PO SCH (15:51)
[2023-11-20 16:57] LABS: Glucose,Whole Blood 168 mg/dL (70-110)
--- NOTE | 2023-11-20 16:57 | CT ---
EXAMINATION TYPE: CT angio chest CT DLP: 648.6 mGycm, Automated exposure control for dose reduction was used. DATE OF EXAM: 11/20/2023 4:29 PM COMPARISON: Chest radiograph from same day. CLINICAL INDICATION:Male, 72 years old with history of Shortness of breath; sob, high dimer TECHNIQUE/CONTRAST: CTA scan of the thorax is performed with IV Contrast, patient injected with 100 cc mL of Isovue 300, MIP images are created and reviewed these are created on a separate workstation.. FINDINGS: Pulmonary Artery: There is no evidence for a filling defect within the pulmonary vasculature to sugge st acute pulmonary embolism. The pulmonary artery is of normal size. Lungs/Pleura: No evidence of focal consolidation, pleural effusion or pneumothorax. Airway: Large airways are patent. Heart: Heart is within normal limits for size. Vasculature: No evidence of aortic aneurysm. Mediastinum: No gross evidence of adenopathy. 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 Musculoskeletal: Moderate degenerative disc disease changes are present throughout the thoracolumbar spine. Soft Tissues: Unremarkable. Lower neck: No significant findings. Upper Abdomen: No significant findings. IMPRESSION: No evidence of pulmonary embolism.
--- NOTE | 2023-11-20 17:05 | CA ---
Transthoracic Echo Report Name: Rylan Cunningham Age: 72 Gender: M : 1950 Exam Date: 11/20/2023 14:30 Exam Location: [facility] Ht (in): 69 Wt (lb): 250 Ordering Physician: Milton Schulz MD Attending/Referring Phys: [id number], Zeus Certified Orthoptist Teena Garcia, EMMA Procedure CPT: Indications: Rule out heart disease Cardiac Hx: Technical Quality: Good Contrast 1: Total Dose (mL): Contrast 2: Total Dose (mL): MEASUREMENTS (Male / Female) Normal Values 2D ECHO LV Diastolic Diameter PLAX 4.3 cm 4.2 - 5.9 / 3.9 - 5.3 cm LV Systolic Diameter PLAX 3.3 cm IVS Diastolic Thickness 1.5 cm 0.6 - 1.0 / 0.6 - 0.9 cm LVPW Diastolic Thickness 1.6 cm 0.6 - 1.0 / 0.6 - 0.9 cm LV Relative Wall Thickness 0.7 RV Internal Dim ED PLAX 3.8 cm LA Systolic Diameter LX 3.3 cm 3.0 - 4.0 / 2.7 - 3.8 cm LV Diastolic Volume MOD BP 59.3 cm??? 67 - 155 / 56 - 104 cm??? LV Systolic Volume MOD BP 26.8 cm??? / 19 - 49 cm??? LV Ejection Fraction MOD BP 54.8 % >= 55 % LV Cardiac Index MOD BP 1031.3 cm???/min???m??? LV Diastolic Volume MOD 4C 71.3 cm??? LV Systolic Volume MOD 4C 31.3 cm??? LV Ejection Fraction MOD 4C 56.1 % LV Cardiac Index MOD 4C 1268.5 cm???/min???m??? LV Diastolic Length 4C 8.5 cm LV Systolic Length 4C 3.9 cm LV Diastolic Volume MOD 2C 47.6 cm??? LV Systolic Volume MOD 2C 18.2 cm??? LV Ejection Fraction MOD 2C 61.8 % LV Cardiac Index MOD 2C 933.2 cm???/min???m??? LV Diastolic Length 2C 8.0 cm LV Systolic Length 2C 3.0 cm LA Volume 49.6 cm??? 18 - 58 / 22 - 52 cm??? LA Volume Index 20.7 cm???/m??? 16 - 28 cm???/m??? M-MODE Aortic Root Diameter MM 3.7 cm MV E Point Septal Separation 0.7 cm AV Cusp Separation MM 2.4 cm DOPPLER AV Peak Velocity 148.3 cm/s AV Peak Gradient 8.8 mmHg LVOT Peak Velocity 139.8 cm/s LVOT Peak Gradient 7.8 mmHg MV Area PHT 3.0 cm??? Mitral E Point Velocity 56.8 cm/s Mitral A Point Velocity 78.7 cm/s Mitral E to A Ratio 0.7 MV Deceleration Time 249.3 ms TR Peak Velocity 225.6 cm/s TR Peak Gradient 20.4 mmHg Right Ventricular Systolic Press 25.0 mmHg FINDINGS Left Ventricle Left ventricular ejection fraction is estimated at 55-60 %. Severe LVH concentric, complete obliteration of LV cavity with increased intracavity gradients. No obvious evidence of obstruction however. Peak LVOT gradient 8 mmHg. Mild apical hypokinesia. Right Ventricle Normal LV size and systolic function Right Atrium Normal right atrial size. Left Atrium Mildly increased left atrial area. Mitral Valve Structurally normal mitral valve. No mitral stenosis, regurgitation or prolapse. Aortic Valve Trileaflet aortic valve. No aortic valve stenosis or regurgitation. Aortic valve sclerosis. Tricuspid Valve Structurally normal tricuspid valve. Mild tricuspid regurgitation. Pulmonic Valve Structurally normal pulmonic valve. No pulmonic regurgitation. Pericardium No pericardial effusion. Aorta Normal size aortic root and proximal ascending aorta. CONCLUSIONS Normal LV size, severe concentric LVH LVEF estimated at 55% Normal LV size and systolic function. Mild apical hypokinesia Increased intraventricular gradients with no evidence of obstruction No obvious valvular pathology Thickened aortic valve with no stenosis Previewed by: Dr Karel Odom (Electronically Signed) Final Date: 20 November 2023 17:04
[2023-11-20 20:12] LABS: Glucose,Whole Blood 133 mg/dL (70-110)
[2023-11-20] MEDS ORDERED: ALPRAZolam 0.25 MG TAB PO PRN (20:21)
[2023-11-20] MEDS: TAMSULOSIN 0.4 MG CAP.ER.24H PO SCH (20:45)
[2023-11-20] MEDS: ATORVASTATIN 40 MG TAB PO SCH (20:45)
[2023-11-20] MEDS: FAMOTIDINE 20 MG/2 ML VIAL IV SCH (20:45)
[2023-11-20] MEDS ORDERED: HEPARIN SODIUM,PORCINE 5,000 UNIT/ML 1 ML VIAL SQ SCH (21:00)
[2023-11-21] MEDS: HEPARIN SODIUM 1,000 UN/ML (10ML VL) IV PRN (03:39)
[2023-11-21] MEDS ORDERED: SODIUM CHLORIDE 0.9% 1,000 ML in EMPTY BAG 1 BAG IV SCH (05:00)
[2023-11-21] MEDS: ASPIRIN 81 MG PO SCH (05:20)
[2023-11-21] MEDS: LOSARTAN 50 MG TAB PO SCH (05:20)
[2023-11-21] MEDS: FAMOTIDINE 20 MG/2 ML VIAL IV SCH ×2 (05:20→21:33)
[2023-11-21] MEDS: TAMSULOSIN 0.4 MG CAP.ER.24H PO SCH ×2 (05:21→21:32)
[2023-11-21 06:06] LABS: Glucose,Whole Blood 159 mg/dL (70-110)
[2023-11-21] MEDS ORDERED: HEPARIN SODIUM,PORCINE 10,000 UNIT in SODIUM CHLORIDE 0.9% 1,000 ML IRRIGATION PRN (07:00)
[2023-11-21] MEDS ORDERED: HEPARIN SODIUM,PORCINE (1 ML) 2,500 UNIT in SODIUM CHLORIDE 0.9% 250 ML IRRIGATION PRN (07:00)
[2023-11-21] MEDS ORDERED: IV FLUID CONTINUATION 1,000 ML IV ONE (07:20)
[2023-11-21] MEDS ORDERED: VERAPAMIL 2.5 MG/ML 2 ML AMP ONE (07:28)
[2023-11-21] MEDS ORDERED: LIDOCAINE 1% INJ 10MG/ML (20 ML MDV) ONE (07:28)
[2023-11-21 07:31] LABS: Basophils # (A) 0.1 k/uL (0-0.2); Basophils % (A) 1 %; Eosinophils # (A) 0.2 k/uL (0-0.7); Eosinophils % (A) 2 %; HCT 43.7 % (39.0-53.0); HGB 14.6 gm/dL (13.0-17.5); Lymphocytes # (A) 2.1 k/uL (1.0-4.8); Lymphocytes % (A) 21 %; MCH 28.9 pg (25.0-35.0); MCHC 33.3 g/dL (31.0-37.0); MCV 86.5 fL (80.0-100.0); Mean Platelet Volume 7.3; Monocytes # (A) 0.7 k/uL (0-1.0); Monocytes % (A) 8 %; Neutrophils # (A) 6.4 k/uL (1.3-7.7); Neutrophils % (A) 66 %; Platelet Count 207 k/uL (150-450); RBC 5.05 m/uL (4.30-5.90); RDW 12.9 % (11.5-15.5); WBC 9.7 k/uL (3.8-10.6)
[2023-11-21 07:39] LABS: INR 1.1 (<1.2); Prothrombin Time 11.6 sec (10.0-12.5)
[2023-11-21] MEDS ORDERED: fentaNYL (PF) 50 MCG/ML 2 ML AMP ONE (07:42)
[2023-11-21] MEDS ORDERED: MIDAZOLAM 2 MG/2 ML VIAL IVP ONE (07:53)
[2023-11-21] MEDS ORDERED: fentaNYL (PF) 50 MCG/ML 2 ML AMP IVP ONE (07:53)
[2023-11-21] MEDS ORDERED: HEPARIN SODIUM 1,000 UN/ML (10ML VL) ONE (07:54)
[2023-11-21] MEDS ORDERED: LIDOCAINE 1% INJ 10MG/ML (20 ML MDV) SQ ONE (07:54)
[2023-11-21] MEDS ORDERED: VERAPAMIL SYRINGE (5 MG/10 ML) INTRAARTER ONE (07:55)
[2023-11-21] MEDS ORDERED: HEPARIN SODIUM 1,000 UN/ML (10ML VL) IV ONE (07:59)
[2023-11-21] MEDS ORDERED: IOPAMIDOL-370 100ML BTL INJ ONE (08:28)
[2023-11-21] MEDS ORDERED: SODIUM CHLORIDE 0.9% 1,000 ML IV SCH (08:30)
[2023-11-21] MEDS ORDERED: RX INFO: IV CONTRAST WAS GIVEN 1 EACH MISC MISCELLANE PRN (08:30)
--- NOTE | 2023-11-21 08:43 | P.CARDCATH ---
Date of Procedure: 11/21/23 Description of Procedure: DIAGNOSTIC CORONARY ANGIOGRAPHY and LEFT HEART CATH REPORT PROCEDURES PERFORMED: Left heart catheterization Selective coronary angiography Moderate conscious sedation 19 mins Right radial access INDICATION: NSTEMI Patient patient presented to the hospital because of few weeks of substernal chest pressure which would get worse with activity. His symptoms of chest pressure did get better with sublingual nitro glycerin. On admission he had evidence of elevated troponin. His ECG did not show significant ST-T wave changes that are diagnostic for ischemia. His echocardiogram showed a preserved EF of 50% with no obvious regional wall motion abnormality at rest. Because of his elevated troponins, and nstemi, he was scheduled for outpatient catheterization. CONSENT: I have discussed the risks, benefits and alternative therapies for the above-mentioned procedure, sedation/analgesia and necessary blood product administration (if indicated, as they pertain to this patient). The patient has indicated understanding and acceptance of the risks and procedures discussed. Conscious Sedation: Patient's ECG, heart rate, blood pressure, pulse oximetry was monitored throughout the duration of procedure under my direct supervision. [1] mg Versed and [50] mg Fentanyl were used for induction of moderate conscious sedation. Total duration of moderate concious sedation 19 minutes. PROCEDURE: After explaining the risks, benefits and alternatives of the above mentioned procedures in detail to the patient, informed consent was obtained. Patient was taken to the catheterization lab, prepped and draped in usual sterile fashion using universal precuations. Barbow and arianna test were performed to confirm adequate perfusion to fingers. Ultrasound was used to identify the radial artery. 1% lidocaine was infiltrated over the right radial artery. A 6-Grenadian sheath was placed and secured in the right radial artery using modified Seldinger technique. The sheath was flushed and 5 mg verapamil was administered intra-arterially. J tipped wire was advanced under fluoroscopic guidance. Once the wire tip reached aortic root [5000] units of IV heparin was given. Over the wire JL4 diagnostic catheter was advanced. Wire was removed, catheter was flushed and manipulated under fluoroscopy to selectively engaged the left coronary ostium. Left coronary angioplasty was performed in different angiographic projections. This catheter was exchanged for a JR4 diagnostic catheter over the wire. The catheter was flushed and manipulated to cross the aortic valve. LV pressures were obtained. Pullback was performed across aortic valve and catheter was manipulated to selectively engage the right coronary ostium under fluoroscopic guidance. Right coronary angiography was performed in different angiographic projections. Catheter was removed over the wire. Radial sheath was flushed. decision was made to proceed with ifr assessment of LAD. If ifr is negative, we will plan for RCA intervention, if ifr is positive, we will plan for CABG HEMODYNAMICS: Aortic Pressure: 140/70 mmHg. LV pressure:143/7 mmHg. LVEDP 14 mmHg. SELECTIVE CORONARY ARTERIOGRAPHY: LEFT MAIN: The left main is a large caliber vessel which bifurcates into the LAD and circumflex. Left main appears angiographically normal. LEFT ANTERIOR DESCENDING CORONARY ARTERY: Proximal RCA has 70-80% calcific disease. Mid LAD has 60-70% disease. iFR performed by Dr Salinas was positive at 0.3. LEFT CIRCUMFLEX CORONARY ARTERY: It is nondominant vessel. large caliber vessel, 5 mm, gives rise to a large caliber OM1 mild disease 10-20%. LCx continues to form large caliber OM2 20-30% luminal irregularities diffuse . RIGHT CORONARY ARTERY: Dominant vessel. large caliber. Prox RCA 50% diffuse calcific disease Mid RCA has 80-90% caclific disease. KELL 3. Distal RCA mild diffuse disease, bifurcates in PDA and PL branch IMPRESSION: 80% Diffuse calcific Prox LAD disease , IFR positive 80-90% calcific mid RCA disease Type II DM, a1c 7.7 NSTEMI Normal LVEF by echo Normal LVEDP PLAN: surgical consult IV heparin to be resumed at previous rate and protocol after 4 hr Performing Physician Karel Odom MD
[2023-11-21] MEDS ORDERED: ASPIRIN 325 MG TAB PO SCH (09:00)
--- NOTE | 2023-11-21 11:07 | P.GSCN ---
History of Present Illness Consult date: 11/21/23 Reason for Consult: Coronary artery disease Requesting physician: Karel Odom History of present illness: This is a 72-year-old gentleman who follows on an outpatient basis per his primary care service with Dr. Nash. His past medical history significant for hypertension, diabetes mellitus type 2 currently on no diabetic medication with a hemoglobin A1c of 7.7%, he is a lifetime nonsmoker, benign prostatic hype rtrophy, obesity with a BMI of 36.9 kg/m and a family history of early onset coronary artery disease with his mother having a marker L infarction in her late 50s. Recently, the patient has had complaints of chest heaviness associated with shortness of breath over the past 2-3 weeks. He denies any complaints of nausea, vomiting, cough, headache, hemoptysis, hematemesis, diaphoresis, visual disturbances, lightheadedness, presyncope or syncope. He presented to the emergency department here at [facility] on 11/20/2023 with complaints of chest heaviness and shortness of breath which was not relieved with rest. The patient reports his previous episodes of chest heaviness have been relieved with rest. A 12-lead EKG was completed on admission which showed normal sinus rhythm with no significant STT wave changes and a heart rate of 73 bpm. Initial laboratory results showed a WBC count of 8.1, hemoglobin 15.7, hematocrit 46.4, platelets 211, PT 11.0, INR 1.0, PTT 29.9, d-dimer 0.63, sodium 136, potassium 4.0, chloride 99, CO2 24, BUN 21, creatinine 0.83, glucose 348, c alcium 9.2, magnesium 1.8, AST 29, ALT 25, initial troponin was less than 0.012 with 2 subsequent troponin showing 0.081 and 0.247 ruling him in for a non-ST elevated myocardial infarction. Cardiology was consulted and a transthoracic 2- D echocardiogram was completed which demonstrated a normal left ventricular size, severe concentric left ventricular hypertrophy, an ejection fraction estimated at 55%, mild apical hypokinesis, and mild tricuspid valve regurgitation. Due to the patient's d-dimer being elevated a CTA of the chest was completed which showed no evidence for pulmonary embolism. Subsequently, due to the patient's presenting symptoms and elevated troponins he was recommended to undergo a heart catheterization which was completed today by Dr. Odom. The cardiac catheterization revealed proximal LAD with a 70-80% calcific disease, mid LAD 60-70% disease and an iFR positive at 0.3, a 10-20% stenosis to his obtuse marginal #1 coronary artery, a 20-30% stenosis to his obtuse marginal #2 coronary artery, a 50% stenosis to his proximal right coronary artery with diffuse calcific disease, an 80-90% stenosis to his mid right coronary artery with calcific disease, and mild diffuse disease to his PDA and PL branch. Due to the patient's presenting symptoms, and findings on the cardiac catheterization a consult was placed to her to thoracic surgery for further evaluation and tr eatment recommendations including myocardial revascularization surgery. Review of Systems A 14 point review of systems was completed and was negative except as mentioned in the HPI. Past Medical History Past Medical History: Diabetes Mellitus, Hypertension History of Any Multi-Drug Resistant Organisms: None Reported Past Surgical History: Orthopedic Surgery Additional Past Surgical History / Comment(s): Bilateral knee surgeries for foreign meniscus Past Anesthesia/Blood Transfusion Reactions: No Reported Reaction Past Psychological History: No Psychological Hx Reported Smoking Status: Never smoker Past Alcohol Use History: None Reported Past Drug Use History: None Reported - Past Family History Mother Family Medical History: Coronary Artery Disease (CAD), Diabetes Mellitus Additional Family Medical History / Comment(s): Myocardial infarction in her late 50s and coronary artery bypass grafting in her early 60s Father Family Medical History: Cancer (Past away at age 65 due to colon cancer) Medications and Allergies Home Medications Medication Instructions Recorded Confirmed Type Tamsulosin [Flomax] 0.4 mg PO BID 12/14/20 11/20/23 History Losartan [Cozaar] 50 mg PO DAILY 11/20/23 11/20/23 History Naproxen Sodium [Aleve] 220 mg PO BID 11/20/23 11/20/23 History diphenhydrAMINE [Benadryl] 50 mg PO HS 11/20/23 11/20/23 History Allergies Allergy/AdvReac Type Severity Reaction Status Date / Time No Known Allergies Allergy Verified 11/20/23 11:32 Surgical - Exam Vital Signs Temp Pulse Resp BP Pulse Ox 98 F 78 18 201/91 98 11/20/23 09:52 11/20/23 09:52 11/20/23 09:52 11/20/23 09:52 11/20/23 09:52 - General well developed, well nourished, no distress, no pain, obese - Eyes PERRL, normal ocular movement, no pale, no icteric - ENT normal pinna, normal nares, normal mucosa, no hearing loss, no congestion - Neck Neck is supple, no lymphadenopathy. no masses, no bruits, trachea midline, no venous distension - Respiratory Lungs essentially clear throughout, no wheezes, rhonchi or crackles. Respirations are symmetrical and nonlabored. - Cardiovascular Regular rhythm and rate. S1 and S2 present, negative for S3, gallop or murmur. No peripheral edema. - Abdomen Abdomen is soft, nontender and nondistended. Active bowel sounds present in all 4 abdominal quadrants. No guarding or rigidity. No organomegaly appreciated. - Genitourinary Deferred - Rectum Deferred - Integumentary Skin is warm and dry. No clubbing or cyanosis is present. no rash, no growths, no abnormal pigmentation - Neurologic No focal deficits. normal coordination, normal sensation - Musculoskeletal Moves all 4 extremities with equal strength bilateral. normal gait, normal posture - Psychiatric oriented to time, oriented to person, oriented to place, speech is normal, memory intact Results - Labs 11/21/23 07:01 11/20/23 10:10 Abnormal Lab Results - Last 24 Hours (Table) 11/20/23 11/20/23 11/20/23 Range/Units 10:10 10:10 12:37 APTT (22.0-30.0) sec D-Dimer 0.63 H (<0.60) mg/L FEU Sodium 136 L (137-145) mmol/L BUN 21 H (9-20) mg/dL Glucose 348 H (74-99) mg/dL POC Glucose (mg/dL) (70-110) mg/dL Hemoglobin A1c (<=6.0) % Troponin I 0.081 H* (0.000-0.034) ng/mL 11/20/23 11/20/23 11/20/23 Range/Units 12:37 14:33 16:55 APTT (22.0-30.0) sec D-Dimer (<0.60) mg/L FEU Sodium (137-145) mmol/L BUN (9-20) mg/dL Glucose (74-99) mg/dL POC Glucose (mg/dL) 168 H (70-110) mg/dL Hemoglobin A1c 7.7 H (<=6.0) % Troponin I 0.247 H* (0.000-0.034) ng/mL 11/20/23 11/20/23 11/21/23 Range/Units 19:54 20:10 06:04 APTT 38.7 H (22.0-30.0) sec D-Dimer (<0.60) mg/L FEU Sodium (137-145) mmol/L BUN (9-20) mg/dL Glucose (74-99) mg/dL POC Glucose (mg/dL) 133 H 159 H (70-110) mg/dL Hemoglobin A1c (<=6.0) % Troponin I (0.000-0.034) ng/mL Diabetes panel 11/20/23 11/20/23 Range/Units 10:10 12:37 Sodium 136 L (137-145) mmol/L Potassium 4.0 (3.5-5.1) mmol/L Chloride 99 (98-107) mmol/L Carbon Dioxide 24 (22-30) mmol/L BUN 21 H (9-20) mg/dL Creatinine 0.83 (0.66-1.25) mg/dL Glucose 348 H (74-99) mg/dL Hemoglobin A1c 7.7 H (<=6.0) % Calcium 9.2 (8.4-10.2) mg/dL AST 29 (17-59) U/L ALT 25 (4-49) U/L Alkaline Phosphatase 114 (38-126) U/L Total Protein 7.6 (6.3-8.2) g/dL Albumin 4.4 (3.5-5.0) g/dL Calcium panel 11/20/23 Range/Units 10:10 Calcium 9.2 (8.4-10.2) mg/dL Albumin 4.4 (3.5-5.0) g/dL Pituitary panel 11/20/23 Range/Units 10:10 Sodium 136 L (137-145) mmol/L Potassium 4.0 (3.5-5.1) mmol/L Chloride 99 (98-107) mmol/L Carbon Dioxide 24 (22-30) mmol/L BUN 21 H (9-20) mg/dL Creatinine 0.83 (0.66-1.25) mg/dL Glucose 348 H (74-99) mg/dL Calcium 9.2 (8.4-10.2) mg/dL Adrenal panel 11/20/23 Range/Units 10:10 Sodium 136 L (137-145) mmol/L Potassium 4.0 (3.5-5.1) mmol/L Chloride 99 (98-107) mmol/L Carbon Dioxide 24 (22-30) mmol/L BUN 21 H (9-20) mg/dL Creatinine 0.83 (0.66-1.25) mg/dL Glucose 348 H (74-99) mg/dL Calcium 9.2 (8.4-10.2) mg/dL Total Bilirubin 0.5 (0.2-1.3) mg/dL AST 29 (17-59) U/L ALT 25 (4-49) U/L Alkaline Phosphatase 114 (38-126) U/L Total Protein 7.6 (6.3-8.2) g/dL Albumin 4.4 (3.5-5.0) g/dL - Imaging CT scan - chest: report reviewed EKG: image reviewed Assessment and Plan Assessment: Coronary artery disease Hypertension Diabetes mellitus type 2, currently on no treatment and a hemoglobin A1c of 7.7% Benign prostatic hypertrophy Lifetime nonsmoker Obesity with a BMI of 36.9 kg/m Early onset family history of coronary artery disease with his mother having a myocardial infarction in her late 50s Plan: The patient was seen and examined at his bedside with the patient's present at his bedside on the third floor cardiac stepdown unit. His chart diagnostics reviewed. This case was discussed in detail with Dr. Quintanilla from cardiothoracic surgery. The patient is wanting to speak with an gas substation operator and Dr. Quintanilla prior to proceeding with any preoperative testing. The usual course of myocardial revascularization surgery was discussed with the patient. The patient and his family's questions were answered to the best of my ability. Continue to maximize medical management with aspirin, statin and beta jesse. Diabetic management per primary care service, hemoglobin A1c 7.7%. More recommendations to follow based on patient's course, and once Dr. Quintanilla has seen and discussed with the patient treatment recommendations. Thank you Dr. Odom for this consult and we'll look for to working with you in the care of this patient. I have personally seen and examined the patient, performed the documentation and the assessment and plan as written. 30 minutes spent on the visit . Jorge Alberto ARTEAGA Attending Addendum: The patient is a 72 year-old male with a hx htn, hld, dm, bph and strong fam hx of CAD who presents with anginal symptoms that have progressed over the last 2-3 weeks. Coronary angio reveals proximal and diffusely diseased LAD, moderate disease in the Cx and a tight stenosis of his mid RCA. Echo reveals good EF without valvular abnormalities. He is a good cassandra date for OP CABG x 2. We will proceed with surgery this admission. I spent 45 minutes reviewing the data and discussing the findings with the care team and patient. Time with Patient: Greater than 30
[2023-11-21 11:10] LABS: Chol/HDL Ratio 4.68 Ratio
[2023-11-21 12:00] LABS: Glucose,Whole Blood 164 mg/dL (70-110)
[2023-11-21] MEDS: METOPROLOL TARTRATE 25 MG TAB PO SCH ×2 (12:18→21:41)
--- NOTE | 2023-11-21 12:48 | P.PCN ---
Description of Procedure: PROCEDURES PERFORMED: Left coronary angiography, iFR LAD INDICATION: Non-STEMI, multivessel CAD PROCEDURE: After the risks, benefits and alternatives of the above mentioned procedure explained in detail with the patient, informed consent was obtained. Patient was taken to the catheterization lab and prepped and draped in usual fas hion. A 6-Canadian sheath had been placed in the right radial artery. Given multivessel disease and patient is diabetic with proximal LAD stenosis, discussed functional assessment of LAD and if abnormal recommendations for bypass evaluation. Therefore a 6-Canadian CLS 4.0 guide catheter was used to engage the left main. Heparin was given. A 0.014 pressure wire was advanced in the proximal left main and normalize. He was then advanced 1 cm distal to the proximal LAD lesion was grossly abnormal at 0.36. There is no drift with pullback. The right radial sheath was removed and a TR band was placed with hemostasis achieved. The patient tolerated the procedure well. Patient was transported back to the post catheterization holding area in stable condition. Conscious Sedation: Patient was monitored under the direct supervision of myself for conscious sedation using Versed and fentanyl for a total duration of 8 minutes SELECTIVE CORONARY ARTERIOGRAPHY: LEFT MAIN: The left main is a large caliber vessel which bifurcates into the LAD and circumflex. There is no significant stenosis. LEFT ANTERIOR DESCENDING CORONARY ARTERY: LAD is a large caliber vessel which wraps around to the apex. There is a proximal LAD 80% stenosis and otherwise mild disease of the mid and distal LAD. LEFT CIRCUMFLEX CORONARY ARTERY: Left circumflex is a moderate caliber vessel mild luminal irregularities. RIGHT CORONARY ARTERY: The right coronary artery is a large caliber vessel which gives off a PDA and PLV branch and is the dominant vessel. There is a mid RCA 90% stenosis. FINAL IMPRESSION: 1. CAD as described above including 80% proximal LAD and 90% mid RCA stenosis 2. Abnormal iFR LAD at 0.36 PLAN: 1. Aggressive risk factor modification per most recent ACC/AHA guidelines. 2. Given proximal LAD disease and a diabetic recommend surgical evaluation. If deemed high risk or due to patient preference, stenting may be considered.
--- NOTE | 2023-11-21 13:25 | P.PN ---
Subjective Progress Note Date: 11/21/23 HISTORY OF PRESENTING ILLNESS 72-year-old male with no significant past medical history other than hypertension and BPH. He is on losartan and Flomax for this. He reports that for last 2-3 weeks he has been having on and off substernal chest heaviness like sensation along with shortness of breath. This morning he was working in his basement with his arms overhead when he started spitting substernal chest pain which was more in intensity and was not getting better with rest. Next He presented to the ER and he received sublingual nitroglycerin. After 1 hour also pneumonitis with this pain eased off. Currently he is pain-free. His initial troponin was negative, repeat troponin elevated at 0.08. His ECG shows normal sinus rhythm with no significant ST-T wave changes His d-dimer was elevated at 0.6. BP on admission 201/91, heart rate 78. Repeat blood pressure 132/76, heart rate 85 1/2 Today, patient underwent cardiac catheterization with Dr. Odom which revealed 80% proximal LAD, 90% mid RCA stenosis, followed by same with Dr. Brad angulo nding abnormal eye FR of the LAD of 0.36. Patient is to have cardiothoracic evaluation for possible CABG But if patient is deemed to be high risk or due to patient preference, stenting may be considered. Patient denies having any chest pain, no shortness of breath, no headache. Blood pressure elevated at 171/98, heart rate in the 60s, pulse ox 94% on room air. Triglycerides 247, cholesterol 218, LDL 122, HDL 46. CBC normal with hemoglobin of 14.6. Echocardiogram reveals normal LV size, severe concentric left hypertrophy, EF estimated at 55%. Mild apical hypokinesia. No obvious valvular pathology. Thickened aortic valve with no stenosis. PHYSICAL EXAMINATION Vital signs reviewed. Head: Normocephalic. Eyes: Sclerae nonicteric. Lungs: Clear to auscultation. Heart: Regular rate and rhythm, S1-S2, no S3, no murmur or rub. Extremities: No edema, intact distal pulses. Neuro: Alert, oritented, no focal deficits ASSESSMENT Nstemi Substernal chest pain with exertion, relieved with nitroglycerin Essential hypertension BPH No reported smoking or alcohol use Obesity PLAN Continue aspirin 81 mg, atorvastatin 40 mg, losartan 25 mg Add Lopressor 25 mg twice daily Cardiothoracic surgery evaluation for CABG Further recommendations as patient progresses. Nurse practitioner note has been reviewed, I agree with the documented findings and plan of care. Patient was seen and examined. Objective - Vital Signs Vital signs: Vital Signs Temp 98 F 11/21/23 02:00 Pulse 84 11/21/23 05:00 Resp 20 11/21/23 05:00 BP 155/84 11/21/23 05:00 Pulse Ox 96 11/21/23 05:00 FiO2 Intake & Output 11/20/23 11/21/23 11/21/23 18:59 06:59 18:59 Intake Total 240 361.5 50 Balance 240 361.5 50 Weight 113.398 kg Intake: IV 50 Intake, IV Titration 121.5 Amount Heparin Sod,Pork in 0.45% 121.5 NaCl 25,000 unit In 0.45 % NaCl 1 250ml.bag @ 8. 8185 UNITS/KG/HR 10 mls/ hr IV .Q24H JESSI Rx#: [id number] Oral 240 240 Other: # Voids 1 - Labs CBC & Chem 7: 11/21/23 07:01 11/20/23 10:10 Labs: Abnormal Lab Results - Last 24 Hours (Table) 11/20/23 11/20/23 11/20/23 Range/Units 10:10 10:10 12:37 APTT (22.0-30.0) sec D-Dimer 0.63 H (<0.60) mg/L FEU Sodium 136 L (137-145) mmol/L BUN 21 H (9-20) mg/dL Glucose 348 H (74-99) mg/dL POC Glucose (mg/dL) (70-110) mg/dL Hemoglobin A1c (<=6.0) % Troponin I 0.081 H* (0.000-0.034) ng/mL 11/20/23 11/20/23 11/20/23 Range/Units 12:37 14:33 16:55 APTT (22.0-30.0) sec D-Dimer (<0.60) mg/L FEU Sodium (137-145) mmol/L BUN (9-20) mg/dL Glucose (74-99) mg/dL POC Glucose (mg/dL) 168 H (70-110) mg/dL Hemoglobin A1c 7.7 H (<=6.0) % Troponin I 0.247 H* (0.000-0.034) ng/mL 11/20/23 11/20/23 11/21/23 Range/Units 19:54 20:10 06:04 APTT 38.7 H (22.0-30.0) sec D-Dimer (<0.60) mg/L FEU Sodium (137-145) mmol/L BUN (9-20) mg/dL Glucose (74-99) mg/dL POC Glucose (mg/dL) 133 H 159 H (70-110) mg/dL Hemoglobin A1c (<=6.0) % Troponin I (0.000-0.034) ng/mL
[2023-11-21] MEDS: HEPARIN SOD,PORK IN 0.45% NACL 25,000 UNIT in 0.45% NACL 1 250ML.BAG IV SCH (15:43)
[2023-11-21 16:44] LABS: Glucose,Whole Blood 139 mg/dL (70-110)
[2023-11-21 17:38] LABS: Appearance,Urine Clear (Clear); Bilirubin,Urine Negative (Negative); Blood,Urine Negative (Negative); Color,Urine Colorless; Glucose,Urine (UA) Negative (Negative); Ketones,Urine Negative (Negative); Leukocyte Esterase,Urine Negative (Negative); Nitrite,Urine Negative (Negative); Protein,Urine Negative (Negative); Specific Gravity,Urine 1.009 (1.001-1.035); Urobilinogen,Urine <2.0 mg/dL (<2.0)
[2023-11-21 20:22] LABS: Glucose,Whole Blood 176 mg/dL (70-110)
--- NOTE | 2023-11-21 20:24 | US ---
EXAMINATION TYPE: US arterial LE single level DATE OF EXAM: 11/21/2023 8:15 PM CLINICAL INDICATION: Male, 72 years old with history of Ankle Brachial Index (KENROY) ; Open heart cassandra date. History of: Smoker: Never Hypertension: Yes Diabetic: Pre Hyperlipidemia: Yes TIA/CVA: No Previous Vascular Surgery: No CAD: No KS: No Vascular Ulcers: No Claudication: No Gangrene: No Right Brachial Pressure: Deferred due to rt radial approach heart cath this morning Left Brachial Pressure: 168 Ankle-Brachial Indices: Right: 1.22 Left: 1.21 Toe Brachial Indices: Right: 0.68 Left: 0.73 IMPRESSION: 1. Ankle brachial indices within normal limits bilaterally. 2. Toe brachial indices suggest moderate disease.
--- NOTE | 2023-11-21 20:30 | US ---
EXAMINATION TYPE: US vein mapping BILAT DATE OF EXAM: 11/21/2023 4:45 PM COMPARISON: NONE CLINICAL INDICATION: Male, 72 years old with history of PreOp Cardiac Surgery; Pre op cardiac surgery SIDE PERFORMED: Bilateral TECHNIQUE: Lower extremity saphenous vein is examined and measured utilizing real time linear array sonography. Patient History: Smoker: no Previous DVT: no Hypertension: yes Diabetes: yes Paralysis: no Varicosities: no Edema: no DUPLEX FINDINGS: Greater Saphenous: Color flow seen Lesser Saphenous: Color flow seen Measurements in mm: Right Greater Saphenous: Groin: 7.2 x 7.2 mm High Thigh: 3.1 x 3.8 mm Mid Thigh: 3.4 x 4.4 mm Above Knee: 3.8 x 4.2 mm Knee: 4.3 x 4.5 mm Below Knee: 2.4 x 3.2 mm Mid Calf: 2.4 x 2.7 mm At Ankle: 1.8 x 2.1 mm Left Greater Saphenous: Groin: 5.8 x 5.7 mm High Thigh: 4.8 x 4.6 mm Mid Thigh: 3.4 x 4.3 mm Above Knee: 3.4 x 4.3 mm Knee: 3.6 x 4.5 mm Below Knee: 2.4 x 3.0 mm Mid Calf: 2.5 x 3.0 mm At Ankle: 3.2 x 4.1 mm IMPRESSION: 1. Bilateral GSV measurements listed above. 2. Performing surgeon to determine viability as conduit.
--- NOTE | 2023-11-21 20:31 | US ---
EXAMINATION TYPE: US carotid duplex BILAT DATE OF EXAM: 11/21/2023 COMPARISON: NONE CLINICAL INDICATION: Male, 72 years old with history of PreOp Cardiac Surgery; Pre op cardiac surgery TECHNIQUE: Carotid duplex ultrasound examination. Indirect Doppler criteria was utilized. FINDINGS: EXAM MEASUREMENTS: RIGHT: Peak Systolic Velocity (PSV) cm/sec ----- Right CCA: 75.7 ----- Right ICA: 85.6 ----- Right ECA: 124.2 ICA/CCA ratio: 1.1 RIGHT: End Diastole cm/sec ----- Right CCA: 18.6 ----- Right ICA: 31.8 ----- Right ECA: 9.5 LEFT: Peak Systolic Velocity (PSV) cm/sec ----- Left CCA: 125.8 ----- Left ICA: 122.6 ----- Left ECA: 91.8 ICA/CCA ratio: 1.0 LEFT: End Diastole cm/sec ----- Left CCA: 19.2 ----- Left ICA: 17.6 ----- Left ECA: 11.5 VERTEBRALS (direction of flow): Right Vertebral: unable to visualize Left Vertebral: Antegrade Rhythm: Normal [facility] NOTES: Mild plaque bilateral bifurcations. no evidence of increased velocities IMPRESSION: Less than 50% stenosis of the bilateral carotid bifurcations. Criteria for Assigning % of Stenosis / Diameter reduction (Estimation based on the indirect measurements of the internal carotid artery velocities (ICA PSV). 1. Normal (no stenosis)=ICA PSV < 125 cm/s: ratio < 2.0: ICA EDV<40 cm/s. 2. Less than 50% stenosis=ICA PSV < 125 cm/s: ratio < 2.0: ICA EDV<40 cm/s. 3. 50 to 69% stenosis=ICA PSV of 125 to 230 cm/s: ration 2.0 ? 4.0: ICA EDV 40-100 cm/s. 4. Greater than 70% stenosis to near occlusion= ICA PSV > 230 cm/s: ratio > 4.0: ICA EDV > 100 cm/s. 5. Near occlusion= ICA PSV velocities may be low or undetectable: variable ratio and ICA EDV. 6. Total occlusion=unable to detect flow.
[2023-11-21] MEDS ORDERED: TEMAZEPAM 7.5 MG CAP PO PRN (21:04)
[2023-11-21] MEDS: MUPIROCIN 2% OINT 22 GM TUBE NASAL SCH (21:32)
[2023-11-21] MEDS: ATORVASTATIN 40 MG TAB PO SCH (21:32)
--- NOTE | 2023-11-22 00:37 | P.PN ---
Subjective This is a pleasant 72 years old male with past medical history of multiple medical problems including hypertension Presents because of chest pain for the last 3 weeks has started when he was helping his friend building his house and he noticed that he got chest pain and more shortness of breath as he come down from the bladder. This was gradually getting worse especially over the last week so he decided to come to the hospital today. His complaining from left side chest pain, nonradiating but sometimes associated with numbness in the left shoulder he rated about 5/10 in severity felt like something sitting on his chest, worse with exertion going on later and decreased by rest to the degree it goes away completely No change in urine or bowel habits, no fever, no headache dizziness weakness or numbness, no coughing. No previous history of heart disease His PCP is Dr. Johnson He denies smoking alcohol or illicit drugs. Blood pressure was elevated 201/91 on admission, currently 124/87 after he was started on nitroglycerin in the emergency room. While this including CBC, BMP LFT and INR were unremarkable D-dimer is slightly elevated at 0.63 but when adjusted for age it is within the reference range Troponin is negative less than 0.012. Chest x-rays negative for acute process Normal sinus rhythm at [address]-T changes and a QTC 408. 11/21/2023 Patient with no chest pain. He is status post cardiac cath today showing 80% blockage of LAD and 90% of the RCA Patient continued on aspirin and cardiothoracic surgery were consulted for possible bypass surgery Patient looks anxious. Medication provided for him to help him relaxed and asleep. Workup in progress. Objective - Vital Signs Vital signs: Vital Signs Temp 97.9 F 11/21/23 08:55 Pulse 71 11/21/23 12:35 Resp 16 11/21/23 12:35 BP 173/91 11/21/23 12:35 Pulse Ox 96 11/21/23 12:35 FiO2 Intake & Output 11/20/23 11/21/23 11/21/23 18:59 06:59 18:59 Intake Total 240 361.5 50 Balance 240 361.5 50 Weight 113.398 kg Intake: IV 50 Intake, IV Titration 121.5 Amount Heparin Sod,Pork in 0.45% 121.5 NaCl 25,000 unit In 0.45 % NaCl 1 250ml.bag @ 8. 8185 UNITS/KG/HR 10 mls/ hr IV .Q24H JESSI Rx#: [id number] Oral 240 240 Other: # Voids 1 - Exam -GENERAL: The patient is alert and oriented x3, not in any acute distress. obese. HEENT: Pupils are round and equally reacting to light. EOMI. No scleral icterus. No conjunctival pallor. Normocephalic, atraumatic. No pharyngeal erythema. No thyromegaly. CARDIOVASCULAR: S1 and S2 present. No murmurs, rubs, or gallops. PULMONARY: Chest is clear to auscultation, no wheezing , no crackles. ABDOMEN: Soft, nontender, nondistended, normoactive bowel sounds. No palpable organomegaly. MUSCULOSKELETAL: No joint swelling or deformity. EXTREMITIES: No cyanosis, clubbing, or pedal edema. NEUROLOGICAL: Gross neurological examination did not reveal any focal deficits. SKIN: No rashes. no petechiae. - Labs CBC & Chem 7: 11/21/23 07:01 11/20/23 10:10 Labs: Abnormal Lab Results - Last 24 Hours (Table) 11/20/23 11/20/23 11/20/23 Range/Units 12:37 14:33 16:55 APTT (22.0-30.0) sec POC Glucose (mg/dL) 168 H (70-110) mg/dL Hemoglobin A1c 7.7 H (<=6.0) % Troponin I 0.247 H* (0.000-0.034) ng/mL Triglycerides (0.00-149.00) mg/dL Cholesterol (0.00-200.00) mg/dL VLDL Cholesterol, Calc (5.00-40.00) mg/dL 11/20/23 11/20/23 11/21/23 Range/Units 19:54 20:10 06:04 APTT 38.7 H (22.0-30.0) sec POC Glucose (mg/dL) 133 H 159 H (70-110) mg/dL Hemoglobin A1c (<=6.0) % Troponin I (0.000-0.034) ng/mL Triglycerides (0.00-149.00) mg/dL Cholesterol (0.00-200.00) mg/dL VLDL Cholesterol, Calc (5.00-40.00) mg/dL 11/21/23 11/21/23 Range/Units 07:01 11:59 APTT (22.0-30.0) sec POC Glucose (mg/dL) 164 H (70-110) mg/dL Hemoglobin A1c (<=6.0) % Troponin I (0.000-0.034) ng/mL Triglycerides 247.00 H (0.00-149.00) mg/dL Cholesterol 218.00 H (0.00-200.00) mg/dL VLDL Cholesterol, Calc 49.40 H (5.00-40.00) mg/dL Assessment and Plan Assessment: Significant coronary artery disease with 80% stenosis of LAD and 90% of RCA been evaluated for possible CABG Uncontrolled hypertension on admission Obesity with BMI of 36.9 Diabetes mellitus, history of Plan: Continue with aspirin Continue with nitroglycerin Check echocardiogram Resume losartan and monitor blood pressure Cardiology consult Cardiothoracic surgery team consult Labs and medication were reviewed.. Continue same treatment. Continue with symptomatic treatment. Resume home medication. Monitor labs and vitals. DVT and GI prophylaxis. Further recommendations as per clinical course of the patient DVT prophylaxis: Subcutaneous heparin GI Prophylaxis: Pepcid Prognosis is guarded
[2023-11-22] MEDS: HEPARIN SODIUM 1,000 UN/ML (10ML VL) IV PRN (01:17)
[2023-11-22 06:01] LABS: Glucose,Whole Blood 151 mg/dL (70-110)
[2023-11-22 06:34] LABS: Basophils # (A) 0.1 k/uL (0-0.2); Basophils % (A) 1 %; Eosinophils # (A) 0.2 k/uL (0-0.7); Eosinophils % (A) 3 %; HCT 42.6 % (39.0-53.0); HGB 14.2 gm/dL (13.0-17.5); Lymphocytes % (A) 26 %; MCH 28.9 pg (25.0-35.0); MCHC 33.3 g/dL (31.0-37.0); MCV 86.9 fL (80.0-100.0); Mean Platelet Volume 6.8; Monocytes # (A) 0.5 k/uL (0-1.0); Monocytes % (A) 6 %; Neutrophils # (A) 4.8 k/uL (1.3-7.7); Neutrophils % (A) 62 %; Platelet Count 198 k/uL (150-450); RDW 12.6 % (11.5-15.5); WBC 7.8 k/uL (3.8-10.6)
[2023-11-22 06:59] LABS: ALT 23 U/L (4-49); AST 29 U/L (17-59); African American GFR (CKD) >90 (>60 ml/min/1.73 sqM); Albumin 4.1 g/dL (3.5-5.0); Alkaline Phosphatase 78 U/L (38-126); Anion Gap 10 mmol/L; Blood Urea Nitrogen 17 mg/dL (9-20); Calcium 9.4 mg/dL (8.4-10.2); Carbon Dioxide 25 mmol/L (22-30); Chloride 104 mmol/L (98-107); Glucose 170 mg/dL (74-99); Non-African American GFR(CKD) 89 (>60 ml/min/1.73 sqM); Potassium 4.2 mmol/L (3.5-5.1); Sodium 139 mmol/L (137-145); Total Bilirubin 0.8 mg/dL (0.2-1.3); Total Protein 7.1 g/dL (6.3-8.2)
[2023-11-22] MEDS ORDERED: DEXTROSE 50% SYRINGE 50 ML IVP PRN ×2 (07:58)
--- NOTE | 2023-11-22 08:40 | P.PN ---
Subjective Progress Note Date: 11/22/23 Principal diagnosis: Coronary artery disease, non-ST elevated myocardial infarction this admission. Past medical history significant for hypertension, diabetes mellitus type 2 cur rently on no diabetic treatment with a hemoglobin A1c of 7.7%, he is a lifetime nonsmoker, benign prostatic hypertrophy, obesity with a BMI of 36.9 kg/m and a family history of early onset coronary artery disease with his mother having a myocardial infarction in her late 50s. The patient was seen and examined in follow-up today 11/22/2023 at his bedside on the third floor cardiac stepdown unit. He is currently sitting up to bedside edge, and eating his breakfast, he is awake, alert, oriented 3 and is in no acute apparent distress. He denies any further complaints of chest pressure or shortness of breath. He also denies any nausea or vomiting. He remains on heparin drip per protocol. A 5 m walk test was completed last evening by cardiac rehab, time 1: 6.07 seconds, time 2: 4.99 seconds, time 3: 5.15 seconds. A bedside FEV1 was completed last evening by respiratory therapy which d emonstrated a predicted value of 86% with a base volume of 2.53 L. Oxygen saturation are 95% on room air and he is achieving 3500 mL on his incentive spirometry with encouragement. As part of his preoperative testing is hemoglobin A1c was 7.7% and his blood sugars have been ranging from 139-176 in the last 24 hours. A carotid duplex study was completed yesterday which showed less than 50% stenosis of his bilateral carotid bifurcations. An STS risk score was calculated in discussed with the patient. The patient is tentatively scheduled for myocardial revascularization surgery on 11/24/2023 with left internal mammary artery, endoscopic vein harvest, exclusion left atrial appendage and intraoperative transesophageal echocardiogram be completed by Dr. Quintanilla. Preoperative testing is in progress and preoperative teaching has been reinforced with the patient. Repeat troponin was completed this morning which shows the troponin trending down and is 0.149. Objective - Vital Signs Vital signs: Vital Signs Temp 97.8 F 11/22/23 04:00 Pulse 68 11/22/23 04:00 Resp 16 11/22/23 04:00 BP 164/82 11/22/23 04:00 Pulse Ox 94 L 11/22/23 04:00 FiO2 Intake & Output 11/21/23 11/22/23 11/22/23 18:59 06:59 18:59 Intake Total 400.5 117.367 Output Total 200 401 Balance 200.5 -283.633 Intake: IV 50 Intake, IV Titration 128.5 117.367 Amount Heparin Sod,Pork in 0.45% 128.5 117.367 NaCl 25,000 unit In 0.45 % NaCl 1 250ml.bag @ 8. 8185 UNITS/KG/HR 10 mls/ hr IV .Q24H JESSI Rx#: [id number] Oral 222 Output: Urine 200 400 Stool 1 Other: # Voids 1 - Exam CONSTITUTIONAL: Sitting up to the bedside chair in the intensive care unit, appears comfortable, cooperative, no apparent acute distress. HEENT: Neck is supple, no JVD, no lymphadenopathy. RESPIRATORY: Lungs sounds essentially clear throughout, diminished to his bilateral bases. Respirations are symmetrical and nonlabored. Currently on room air with oxygen saturations 95%. Able to achieve 3500 mL on his incentive spirometry. Strong cough. CARDIOVASCULAR: Regular rhythm and rate. S1 and S2 present, negative for S3, gallop or murmur. Palpable peripheral pulses bilaterally. GASTROINTESTINAL: Abdomen soft, nontender, nondistended. Obese. Active bowel sounds present 4 quadrants. Tolerating diet. Passing flatus. No guarding or rigidity. GENITOURINARY: Continues to void. INTEGUMENTARY: Skin is warm and dry with no evidence of clubbing or cyanosis. NEUROLOGIC: Cranial nerves II through XII intact. No focal deficits. MUSKULOSKELETAL: Able to move all extremities, strength equal bilaterally. PSYCHIATRIC: Alert and oriented to person place and time, appropriate affect, intact judgment and insight. - Allied health notes Allied health notes reviewed: nursing - Labs CBC & Chem 7: 11/22/23 06:18 11/22/23 06:18 Labs: Abnormal Lab Results - Last 24 Hours (Table) 11/21/23 11/21/23 11/21/23 Range/Units 07:01 11:59 16:42 APTT (22.0-30.0) sec Glucose (74-99) mg/dL POC Glucose (mg/dL) 164 H 139 H (70-110) mg/dL Troponin I (0.000-0.034) ng/mL Triglycerides 247.00 H (0.00-149.00) mg/dL Cholesterol 218.00 H (0.00-200.00) mg/dL VLDL Cholesterol, Calc 49.40 H (5.00-40.00) mg/dL 11/21/23 11/21/23 11/22/23 Range/Units 20:21 21:23 05:59 APTT 38.1 H (22.0-30.0) sec Glucose (74-99) mg/dL POC Glucose (mg/dL) 176 H 151 H (70-110) mg/dL Troponin I (0.000-0.034) ng/mL Triglycerides (0.00-149.00) mg/dL Cholesterol (0.00-200.00) mg/dL VLDL Cholesterol, Calc (5.00-40.00) mg/dL 11/22/23 11/22/23 11/22/23 Range/Units 06:18 06:18 06:18 APTT 56.9 H (22.0-30.0) sec Glucose 170 H (74-99) mg/dL POC Glucose (mg/dL) (70-110) mg/dL Troponin I 0.149 H* (0.000-0.034) ng/mL Triglycerides (0.00-149.00) mg/dL Cholesterol (0.00-200.00) mg/dL VLDL Cholesterol, Calc (5.00-40.00) mg/dL 11/22/23 Range/Units 07:20 APTT 54.9 H (22.0-30.0) sec Glucose (74-99) mg/dL POC Glucose (mg/dL) (70-110) mg/dL Troponin I (0.000-0.034) ng/mL Triglycerides (0.00-149.00) mg/dL Cholesterol (0.00-200.00) mg/dL VLDL Cholesterol, Calc (5.00-40.00) mg/dL Assessment and Plan Assessment: Coronary artery disease Hypertension Hyperlipidemia, cholesterol 218 and triglycerides 247 Diabetes mellitus type 2, currently on no treatment and a hemoglobin A1c of 7.7% Benign prostatic hypertrophy Lifetime nonsmoker Obesity with a BMI of 36.9 kg/m Early onset family history of coronary artery disease with his mother having a myocardial infarction in her late 50s Plan: Preoperative teaching has been reinforced with the patient. A 5 m walk test was completed last evening by cardiac rehab, time 1: 6.07 seconds, time 2: 4.99 seconds, time 3: 5.15 seconds. An STS risk score has been calculated and discussed with the patient. The patient was started on a insulin sliding scale with Accu-Cheks before meals and at bedtime. Preoperative hemoglobin A1c 7.7%. Continue to maximize medical management with aspirin, statin and beta jesse. Medical management and other comorbidities per primary care service and cardiology service. The patient is currently scheduled for myocardial revascularization surgery on 11/24/2023 with left internal mammary artery, endoscopic vein harvest, exclusion left atrial appendage and intraoperative transesophageal echocardiogram be completed by Dr. Leonard Quintanilla. Heparin drip management per cardiology recommendations. More recommendations to follow based on patient's clinical course. Time with Patient: Greater than 30
[2023-11-22] MEDS: TAMSULOSIN 0.4 MG CAP.ER.24H PO SCH ×2 (09:14→19:30)
[2023-11-22] MEDS: FAMOTIDINE 20 MG/2 ML VIAL IV SCH ×2 (09:14→20:28)
[2023-11-22] MEDS: MUPIROCIN 2% OINT 22 GM TUBE NASAL SCH ×2 (09:14→20:28)
[2023-11-22] MEDS: METOPROLOL TARTRATE 25 MG TAB PO SCH (09:14)
[2023-11-22] MEDS: LOSARTAN 50 MG TAB PO SCH ×2 (09:14→19:30)
[2023-11-22] MEDS: ASPIRIN 81 MG PO SCH (09:18)
[2023-11-22 10:03] LABS: Hepatitis A Antibody IgM Nonreactive; Hepatitis B Core IgM Nonreactive; Hepatitis B Surface Antigen Nonreactive; Hepatitis C IgG Antibody Nonreactive
[2023-11-22 11:25] LABS: Glucose,Whole Blood 296 mg/dL (70-110)
[2023-11-22] MEDS ORDERED: MD COMMUNICATION TO PHARMACY 1 EACH MISC PO ONE (12:04)
[2023-11-22 12:51] LABS: Chol/HDL Ratio 3.92 Ratio; LDL Cholesterol,Calculated 105.8 mg/dL (0.0-131.0)
[2023-11-22] MEDS: INSULIN ASPART (NovoLOG) 100 UNIT/ML VIAL SQ SCH ×3 (13:47→20:22)
[2023-11-22] MEDS: HEPARIN SOD,PORK IN 0.45% NACL 25,000 UNIT in 0.45% NACL 1 250ML.BAG IV SCH (13:48)
--- NOTE | 2023-11-22 14:20 | P.PN ---
Subjective Progress Note Date: 11/22/23 HISTORY OF PRESENTING ILLNESS 72-year-old male with no significant past medical history other than hypertension and BPH. He is on losartan and Flomax for this. He reports that for last 2-3 weeks he has been having on and off substernal chest heaviness like sensation along with shortness of breath. This morning he was working in his basement with his arms overhead when he started spitting substernal chest pain which was more in intensity and was not getting better with rest. Next He presented to the ER and he received sublingual nitroglycerin. After 1 hour also pneumonitis with this pain eased off. Currently he is pain-free. His initial troponin was negative, repeat troponin elevated at 0.08. His ECG shows normal sinus rhythm with no significant ST-T wave changes His d-dimer was elevated at 0.6. BP on admission 201/91, heart rate 78. Repeat blood pressure 132/76, heart rate 85 1 Today, patient underwent cardiac catheterization with Dr. Odom which revealed 80% proximal LAD, 90% mid RCA stenosis, followed by same with Dr. Brad angulo nding abnormal eye FR of the LAD of 0.36. Patient is to have cardiothoracic evaluation for possible CABG But if patient is deemed to be high risk or due to patient preference, stenting may be considered. Patient denies having any chest pain, no shortness of breath, no headache. Blood pressure elevated at 171/98, heart rate in the 60s, pulse ox 94% on room air. Triglycerides 247, cholesterol 218, LDL 122, HDL 46. CBC normal with hemoglobin of 14.6. Echocardiogram reveals normal LV size, severe concentric left hypertrophy, EF estimated at 55%. Mild apical hypokinesia. No obvious valvular pathology. Thickened aortic valve with no stenosis. 1/3 The patient has been seen by cardiothoracic surgery and Which is scheduled for Monday. Patient is quite anxious about undergoing procedure. He states he did have a little bit of left-sided chest tightness this morning. Heart rate is in the 60s and 70s, blood pressure 151/83. PHYSICAL EXAMINATION Vital signs reviewed. Head: Normocephalic. Eyes: Sclerae nonicteric. Lungs: Clear to auscultation. Heart: Regular rate and rhythm, S1-S2, no S3, no murmur or rub. Extremities: No edema, intact distal pulses. Neuro: Alert, oritented, no focal deficits ASSESSMENT Nstemi Substernal chest pain with exertion, relieved with nitroglycerin Essential hypertension BPH No reported smoking or alcohol use Obesity PLAN Continue aspirin 81 mg, atorvastatin 40 mg Increase frequency of losartan to 50 mg twice daily Increase Lopressor to 50 mg twice daily CABG scheduled for Monday Further recommendations as patient progresses. Nurse practitioner note has been reviewed, I agree with the documented findings and plan of care. Patient was seen and examined. Objective - Vital Signs Vital signs: Vital Signs Temp 97.9 F 11/22/23 08:00 Pulse 72 11/22/23 08:00 Resp 16 11/22/23 08:00 BP 151/83 11/22/23 08:00 Pulse Ox 94 L 11/22/23 08:00 FiO2 Intake & Output 11/21/23 11/22/23 11/22/23 18:59 06:59 18:59 Intake Total 400.5 117.367 118 Output Total 200 401 Balance 200.5 -283.633 118 Intake: IV 50 Intake, IV Titration 128.5 117.367 Amount Heparin Sod,Pork in 0.45% 128.5 117.367 NaCl 25,000 unit In 0.45 % NaCl 1 250ml.bag @ 8. 8185 UNITS/KG/HR 10 mls/ hr IV .Q24H [facility] Rx#: [id number] Oral 222 118 Output: Urine 200 400 Stool 1 Other: # Voids 1 - Labs CBC & Chem 7: 11/22/23 06:18 11/22/23 06:18 Labs: Abnormal Lab Results - Last 24 Hours (Table) 11/21/23 11/21/23 11/21/23 Range/Units 07:01 11:59 16:42 APTT (22.0-30.0) sec Glucose (74-99) mg/dL POC Glucose (mg/dL) 164 H 139 H (70-110) mg/dL Troponin I (0.000-0.034) ng/mL Triglycerides 247.00 H (0.00-149.00) mg/dL Cholesterol 218.00 H (0.00-200.00) mg/dL VLDL Cholesterol, Calc 49.40 H (5.00-40.00) mg/dL 11/21/23 11/21/23 11/22/23 Range/Units 20:21 21:23 05:59 APTT 38.1 H (22.0-30.0) sec Glucose (74-99) mg/dL POC Glucose (mg/dL) 176 H 151 H (70-110) mg/dL Troponin I (0.000-0.034) ng/mL Triglycerides (0.00-149.00) mg/dL Cholesterol (0.00-200.00) mg/dL VLDL Cholesterol, Calc (5.00-40.00) mg/dL 11/22/23 11/22/23 11/22/23 Range/Units 06:18 06:18 06:18 APTT 56.9 H (22.0-30.0) sec Glucose 170 H (74-99) mg/dL POC Glucose (mg/dL) (70-110) mg/dL Troponin I 0.149 H* (0.000-0.034) ng/mL Triglycerides (0.00-149.00) mg/dL Cholesterol (0.00-200.00) mg/dL VLDL Cholesterol, Calc (5.00-40.00) mg/dL 11/22/23 Range/Units 07:20 APTT 54.9 H (22.0-30.0) sec Glucose (74-99) mg/dL POC Glucose (mg/dL) (70-110) mg/dL Troponin I (0.000-0.034) ng/mL Triglycerides (0.00-149.00) mg/dL Cholesterol (0.00-200.00) mg/dL VLDL Cholesterol, Calc (5.00-40.00) mg/dL
--- NOTE | 2023-11-22 15:04 | P.CNPUL ---
History of Present Illness Consult date: 11/22/23 Requesting physician: Leonard Quintanilla Reason for consult: other (Mechanical ventilator/critical care management) Chief complaint: Chest pain History of present illness: This is a very pleasant 72-year-old male patient with history of diabetes mellitus, hypertension who presented here to the emergency room on 11/20/2023 with complaints of chest discomfort. He had been having symptoms on and off 2-3 weeks prior. Mostly exertional. EGD revealed some mild ST segment abnormalities. Initial troponin was negative subsequent troponins were 0.08, 0.24, 0.14. Chest x-ray revealed no acute pulmonary process. Echocardiogram revealed preserved left ventricular systolic function with ejection fraction 55- 60%. CT angiogram revealed no evidence of pulmonary embolism. Lung noble were clear. He did undergo cardiac catheterization on 11/21/2023 which revealed 80% diffuse calcified proximal LAD disease and 80-90% calcified mid RCA disease. He was recommended coronary artery bypass grafting. We are seeing the patient today in consultation. He is a lifelong nonsmoker. Pulmonary function testing reveals an FEV1 value 2.53 L or 86% of predicted. He currently denies any shortness of breath, cough or congestion. Maintaining good O2 saturations in the mid 90s on room air. I count 7.8. Hemoglobin 14.2. Platelets 198. Sodium 139. Potassium 4.2. Bicarb 25. BUN 17. Creatinine 0.78. Glucose 170. Cholesterol 188. Triglycerides 171. LDL 106. HDL 48. Hepatitis screen negative. He's been afebrile. Hemodynamically stable. He is able to pull 3 L on the incentive spirometer. He has remained quite active throughout his career and into shelter. He is up ambulating in his room. He denies any chest discomfort currently. The plan is for bypass grafting on 11/24/2023. He re marco antonio on a heparin drip. Review of Systems REVIEW OF SYSTEMS: CONSTITUTIONAL: Denies any recent significant weight loss or weight gain. EYES: Denies change in vision. EARS, NOSE, MOUTH, THROAT: Denies headaches, denies sore throat. CARDIOVASCULAR: Positive for chest pain, palpitations or syncopal episodes. RESPIRATORY: Denies shortness of breath, cough, congestion or hemoptysis. GASTROINTESTINAL: Denies change in appetite, denies abdominal pain GENITOURINARY: Denies hematuria, denies infections. MUSKULOSKELETAL: Denies pain, denies swelling. INTEGUMENTARY: Denies rash, denies eczema. NEUROLOGICAL: Denies recent memory loss, no recent seizure activity. PSYCHIATRIC: Denies anxiety, denies depression. HEMATOLOGIC/LYMPHATIC: Denies anemia, denies enlarged lymph nodes. Past Medical History Past Medical History: Diabetes Mellitus, Hypertension History of Any Multi-Drug Resistant Organisms: None Reported Past Surgical History: Orthopedic Surgery Additional Past Surgical History / Comment(s): Bilateral knee surgeries for foreign meniscus Past Anesthesia/Blood Transfusion Reactions: No Reported Reaction Past Psychological History: No Psychological Hx Reported Smoking Status: Never smoker Past Alcohol Use History: None Reported Past Drug Use History: None Reported - Past Family History Mother Family Medical History: Coronary Artery Disease (CAD), Diabetes Mellitus Additional Family Medical History / Comment(s): Myocardial infarction in her late 50s and coronary artery bypass grafting in her early 60s Father Family Medical History: Cancer (Past away at age 65 due to colon cancer) Medications and Allergies Home Medications Medication Instructions Recorded Confirmed Type Tamsulosin [Flomax] 0.4 mg PO BID 12/14/20 11/20/23 History Losartan [Cozaar] 50 mg PO DAILY 11/20/23 11/20/23 History Naproxen Sodium [Aleve] 220 mg PO BID 11/20/23 11/20/23 History diphenhydrAMINE [Benadryl] 50 mg PO HS 11/20/23 11/20/23 History Allergies Allergy/AdvReac Type Severity Reaction Status Date / Time No Known Allergies Allergy Verified 11/20/23 11:32 Physical Exam Vitals: Vital Signs Temp Pulse Resp BP Pulse Ox 11/22/23 14:00 76 11/22/23 12:00 76 18 138/73 95 11/22/23 08:00 97.9 F 72 16 151/83 94 L 11/22/23 04:00 97.8 F 68 16 164/82 94 L 11/22/23 00:00 63 16 167/85 95 11/21/23 20:40 97.5 F L 66 16 177/89 96 11/21/23 15:00 60 16 163/93 96 Intake and Output 11/21/23 11/22/23 11/22/23 22:59 06:59 14:59 Intake Total 222 117.367 236 Output Total 201 400 Balance 21 -282.633 236 Intake: Intake, IV Titration 117.367 Amount Heparin Sod,Pork in 0.45% 117.367 NaCl 25,000 unit In 0.45 % NaCl 1 250ml.bag @ 8. 8185 UNITS/KG/HR 10 mls/ hr IV .Q24H [facility] Rx#: [id number] Oral 222 236 Output: Urine 200 400 Stool 1 Other: # Voids 1 GENERAL EXAM: Alert, active, very pleasant 72-year-old male, on room air, currently comfortable in no apparent distress. HEAD: Normocephalic. EYES: Normal reaction of pupils, equal size. NOSE: Clear with pink turbinates. THROAT: No erythema or exudates. NECK: No masses, no JVD. CHEST: No chest wall deformity. LUNGS: Equal air entry with no crackles, wheeze, rhonchi or dullness. CVS: S1 and S2 normal with no audible murmur, regular rhythm. ABDOMEN: No hepatosplenomegaly, normal bowel sounds, no guarding or rigidity. SPINE: No scoliosis or deformity SKIN: No rashes CENTRAL NERVOUS SYSTEM: No focal deficits, tone is normal in all 4 extremities. EXTREMITIES: There is no peripheral edema. No clubbing, no cyanosis. Peripheral pulses are intact. Results - Laboratory Findings CBC and BMP: 11/22/23 06:18 11/22/23 06:18 PT/INR, D-dimer PT 11.6 sec (10.0-12.5) 11/21/23 07:01 INR 1.1 (<1.2) 11/21/23 07:01 D-Dimer 0.63 mg/L FEU (<0.60) H 11/20/23 10:10 Abnormal lab findings: Abnormal Labs 11/20/23 11/20/23 11/20/23 10:10 10:10 12:37 APTT D-Dimer 0.63 H Sodium 136 L BUN 21 H Glucose 348 H POC Glucose (mg/dL) Hemoglobin A1c Troponin I 0.081 H* Triglycerides Cholesterol VLDL Cholesterol, Calc 11/20/23 11/20/23 11/20/23 12:37 14:33 16:55 APTT D-Dimer Sodium BUN Glucose POC Glucose (mg/dL) 168 H Hemoglobin A1c 7.7 H Troponin I 0.247 H* Triglycerides Cholesterol VLDL Cholesterol, Calc 11/20/23 11/20/23 11/21/23 19:54 20:10 06:04 APTT 38.7 H D-Dimer Sodium BUN Glucose POC Glucose (mg/dL) 133 H 159 H Hemoglobin A1c Troponin I Triglycerides Cholesterol VLDL Cholesterol, Calc 11/21/23 11/21/23 11/21/23 07:01 11:59 16:42 APTT D-Dimer Sodium BUN Glucose POC Glucose (mg/dL) 164 H 139 H Hemoglobin A1c Troponin I Triglycerides 247.00 H Cholesterol 218.00 H VLDL Cholesterol, Calc 49.40 H 11/21/23 11/21/23 11/22/23 20:21 21:23 05:59 APTT 38.1 H D-Dimer Sodium BUN Glucose POC Glucose (mg/dL) 176 H 151 H Hemoglobin A1c Troponin I Triglycerides Cholesterol VLDL Cholesterol, Calc 11/22/23 11/22/23 11/22/23 06:18 06:18 06:18 APTT 56.9 H D-Dimer Sodium BUN Glucose 170 H POC Glucose (mg/dL) Hemoglobin A1c Troponin I 0.149 H* Triglycerides 171.00 H Cholesterol VLDL Cholesterol, Calc 11/22/23 11/22/23 07:20 11:23 APTT 54.9 H D-Dimer Sodium BUN Glucose POC Glucose (mg/dL) 296 H Hemoglobin A1c Troponin I Triglycerides Cholesterol VLDL Cholesterol, Calc - Diagnostic Findings Chest x-ray: image reviewed CT scan - chest: image reviewed Assessment and Plan Assessment: Non-ST segment elevation myocardial infarction in a patient found to have 80% di ffuse proximal LAD disease and 80-90% mid RCA disease. Plan is for revascularization on 11/24/2023 History of diabetes mellitus History of hypertension Hyperlipidemia Benign prostatic hyperplasia Obesity with a BMI of 36.9 kg per metered squared Family history of early coronary artery disease Lifelong nonsmoker Plan: The patient was seen and evaluated Chest x-ray, CT angiogram, labs and medications reviewed Patient is a lifelong nonsmoker FEV1 value 2.53 L or 86% of predicted Working very well with the incentive spirometer pulling 3 L Continues on a heparin drip, low-dose aspirin, statin Plan is for revascularization surgery on 11/24/2023 We will plan for early extubation protocol as tolerated We will continue to follow and make further recommendations based on his clinical status I have personally seen and examined the patient, performed the documentation and the assessment and plan as written. Number of minutes spent on the visit: 20.
[2023-11-22 16:34] LABS: Glucose,Whole Blood 127 mg/dL (70-110)
[2023-11-22] MEDS: METOPROLOL TARTRATE 50 MG TAB PO SCH (19:30)
[2023-11-22] MEDS: ATORVASTATIN 40 MG TAB PO SCH (19:31)
[2023-11-22 20:09] LABS: Glucose,Whole Blood 134 mg/dL (70-110)
[2023-11-22] MEDS: ALPRAZolam 0.5 MG TAB PO PRN (20:27)
[2023-11-22] MEDS ORDERED: TEMAZEPAM 7.5 MG CAP PO ONE (22:44)
--- NOTE | 2023-11-22 22:45 | P.PN ---
Subjective This is a pleasant 72 years old male with past medical history of multiple medical problems including hypertension Presents because of chest pain for the last 3 weeks has started when he was helping his friend building his house and he noticed that he got chest pain and more shortness of breath as he come down from the bladder. This was gradually getting worse especially over the last week so he decided to come to the hospital today. His complaining from left side chest pain, nonradiating but sometimes associated with numbness in the left shoulder he rated about 5/10 in severity felt like something sitting on his chest, worse with exertion going on later and decreased by rest to the degree it goes away completely No change in urine or bowel habits, no fever, no headache dizziness weakness or numbness, no coughing. No previous history of heart disease His PCP is Dr. Johnson He denies smoking alcohol or illicit drugs. Blood pressure was elevated 201/91 on admission, currently 124/87 after he was started on nitroglycerin in the emergency room. While this including CBC, BMP LFT and INR were unremarkable D-dimer is slightly elevated at 0.63 but when adjusted for age it is within the reference range Troponin is negative less than 0.012. Chest x-rays negative for acute process Normal sinus rhythm at [address]-T changes and a QTC 408. 11/21/2023 Patient with no chest pain. He is status post cardiac cath today showing 80% blockage of LAD and 90% of the RCA Patient continued on aspirin and cardiothoracic surgery were consulted for possible bypass surgery Patient looks anxious. Medication provided for him to help him relaxed and asleep. Workup in progress. 11/22/2023 Cardiothoracic surgery team were consulted for severe coronary artery disease Patient with no active chest pain currently Here looks anxious for, through surgery Patient questions were answered to his satisfaction. He requests more Restoril for insomnia Objective - Vital Signs Vital signs: Vital Signs Temp 97.9 F 11/22/23 08:00 Pulse 76 11/22/23 14:00 Resp 18 11/22/23 12:00 BP 138/73 11/22/23 12:00 Pulse Ox 96 11/22/23 16:03 FiO2 Intake & Output 11/21/23 11/22/23 11/22/23 18:59 06:59 18:59 Intake Total 400.5 117.367 236 Output Total 200 401 Balance 200.5 -283.633 236 Intake: IV 50 Intake, IV Titration 128.5 117.367 Amount Heparin Sod,Pork in 0.45% 128.5 117.367 NaCl 25,000 unit In 0.45 % NaCl 1 250ml.bag @ 8. 8185 UNITS/KG/HR 10 mls/ hr IV .Q24H [facility] Rx#: [id number] Oral 222 236 Output: Urine 200 400 Stool 1 Other: # Voids 1 - Exam -GENERAL: The patient is alert and oriented x3, not in any acute distress. obese. HEENT: Pupils are round and equally reacting to light. EOMI. No scleral icterus. No conjunctival pallor. Normocephalic, atraumatic. No pharyngeal erythema. No thyromegaly. CARDIOVASCULAR: S1 and S2 present. No murmurs, rubs, or gallops. PULMONARY: Chest is clear to auscultation, no wheezing , no crackles. ABDOMEN: Soft, nontender, nondistended, normoactive bowel sounds. No palpable organomegaly. MUSCULOSKELETAL: No joint swelling or deformity. EXTREMITIES: No cyanosis, clubbing, or pedal edema. NEUROLOGICAL: Gross neurological examination did not reveal any focal deficits. SKIN: No rashes. no petechiae. - Labs CBC & Chem 7: 11/22/23 06:18 11/22/23 06:18 Labs: Abnormal Lab Results - Last 24 Hours (Table) 11/21/23 11/21/23 11/21/23 Range/Units 16:42 20:21 21:23 APTT 38.1 H (22.0-30.0) sec Glucose (74-99) mg/dL POC Glucose (mg/dL) 139 H 176 H (70-110) mg/dL Troponin I (0.000-0.034) ng/mL Triglycerides (0.00-149.00) mg/dL 11/22/23 11/22/23 11/22/23 Range/Units 05:59 06:18 06:18 APTT 56.9 H (22.0-30.0) sec Glucose 170 H (74-99) mg/dL POC Glucose (mg/dL) 151 H (70-110) mg/dL Troponin I (0.000-0.034) ng/mL Triglycerides 171.00 H (0.00-149.00) mg/dL 11/22/23 11/22/23 11/22/23 Range/Units 06:18 07:20 11:23 APTT 54.9 H (22.0-30.0) sec Glucose (74-99) mg/dL POC Glucose (mg/dL) 296 H (70-110) mg/dL Troponin I 0.149 H* (0.000-0.034) ng/mL Triglycerides (0.00-149.00) mg/dL Assessment and Plan Assessment: Significant coronary artery disease with 80% stenosis of LAD and 90% of RCA been evaluated for possible CABG Uncontrolled hypertension on admission Obesity with BMI of 36.9 Diabetes mellitus, history of Plan: Continue with aspirin Continue with nitroglycerin Continue monitoring blood pressure Cardiology consult Cardiothoracic surgery team consult Labs and medication were reviewed.. Continue same treatment. Continue with symptomatic treatment. Resume home medication. Monitor labs and vitals. DVT and GI prophylaxis. Further recommendations as per clinical course of the patient DVT prophylaxis: Subcutaneous heparin GI Prophylaxis: Pepcid Prognosis is guarded
[2023-11-23] MEDS ORDERED: TEMAZEPAM 7.5 MG CAP PO PRN (01:00)
[2023-11-23 06:07] LABS: Glucose,Whole Blood 154 mg/dL (70-110)
[2023-11-23] MEDS: INSULIN ASPART (NovoLOG) 100 UNIT/ML VIAL SQ SCH ×4 (06:15→20:40)
[2023-11-23] MEDS: METOPROLOL TARTRATE 50 MG TAB PO SCH (08:36)
[2023-11-23] MEDS: TAMSULOSIN 0.4 MG CAP.ER.24H PO SCH ×2 (08:36→21:04)
[2023-11-23] MEDS: MUPIROCIN 2% OINT 22 GM TUBE NASAL SCH ×2 (08:36→21:05)
[2023-11-23] MEDS: LOSARTAN 50 MG TAB PO SCH ×2 (08:36→21:04)
[2023-11-23] MEDS: FAMOTIDINE 20 MG/2 ML VIAL IV SCH ×2 (08:36→21:04)
[2023-11-23] MEDS: ASPIRIN 81 MG PO SCH (08:38)
[2023-11-23 08:55] LABS: Basophils # (A) 0.1 k/uL (0-0.2); Basophils % (A) 1 %; Eosinophils # (A) 0.2 k/uL (0-0.7); Eosinophils % (A) 3 %; HCT 44.5 % (39.0-53.0); Lymphocytes % (A) 25 %; MCH 28.9 pg (25.0-35.0); MCHC 33.7 g/dL (31.0-37.0); MCV 85.8 fL (80.0-100.0); Mean Platelet Volume 7.5; Monocytes # (A) 0.6 k/uL (0-1.0); Monocytes % (A) 7 %; Neutrophils # (A) 4.9 k/uL (1.3-7.7); Neutrophils % (A) 61 %; Platelet Count 194 k/uL (150-450); RBC 5.19 m/uL (4.30-5.90); RDW 12.8 % (11.5-15.5); WBC 7.9 k/uL (3.8-10.6)
[2023-11-23 09:00] LABS: INR 1.1 (<1.2); Partial Thromboplastin Time 47.1 sec (22.0-30.0); Prothrombin Time 11.6 sec (10.0-12.5)
[2023-11-23] MEDS ORDERED: METOPROLOL TARTRATE 25 MG TAB PO STA (09:05)
[2023-11-23 09:15] LABS: ALT 24 U/L (4-49); AST 29 U/L (17-59); African American GFR (CKD) >90 (>60 ml/min/1.73 sqM); Albumin 4.4 g/dL (3.5-5.0); Alkaline Phosphatase 85 U/L (38-126); Anion Gap 10 mmol/L; Blood Urea Nitrogen 18 mg/dL (9-20); Calcium 9.9 mg/dL (8.4-10.2); Carbon Dioxide 27 mmol/L (22-30); Chloride 103 mmol/L (98-107); Glucose 168 mg/dL (74-99); Non-African American GFR(CKD) 83 (>60 ml/min/1.73 sqM); Potassium 4.1 mmol/L (3.5-5.1); Sodium 140 mmol/L (137-145); Total Bilirubin 0.9 mg/dL (0.2-1.3); Total Protein 7.7 g/dL (6.3-8.2)
[2023-11-23] MEDS ORDERED: DEXTROSE 50% SYRINGE 50 ML IVP PRN ×2 (09:18)
--- NOTE | 2023-11-23 09:45 | P.PN ---
Subjective Progress Note Date: 11/23/23 Principal diagnosis: Coronary artery disease, non-ST elevated myocardial infarction this admission. Past medical history significant for hypertension, diabetes mellitus type 2 cur rently on no diabetic treatment with a hemoglobin A1c of 7.7%, he is a lifetime nonsmoker, benign prostatic hypertrophy, obesity with a BMI of 36.9 kg/m and a family history of early onset coronary artery disease with his mother having a myocardial infarction in her late 50s. The patient was seen and examined in follow-up today 11/23/2023 at his bedside on the third floor cardiac stepdown unit. Patient is currently sitting up to bedside chair, is eating his breakfast, is awake, alert, oriented 3 and is in no acute apparent distress. He denies any complaints of shortness of breath at this time, although is stating that he has had some slight chest heaviness this morning. Heparin drip remains infusing per protocol. Remote telemetry is showing normal sinus rhythm heart rate 70 bpm. Oxygen saturations are 97% on room air and he is achieving around 3500 mL on his incentive spirometry with encouragement. The patient reports he has been up ambulating in the cardiac step down in the hallway and tolerating well. He is scheduled for off-pump myocardial revascularization surgery with left internal mammary artery, endoscopic vein harvest, intraoperative transesophageal echocardiogram and exclusion of left atrial appendage to be completed by Dr. Quintanilla tomorrow 11/24/2023. Preoperative teaching has been reinforced with the patient. STS risk score has been discussed with the patient. Laboratory results were reviewed. Objective - Vital Signs Vital signs: Vital Signs Temp 98.0 F 11/23/23 08:00 Pulse 80 11/23/23 08:00 Resp 14 11/23/23 08:00 BP 164/83 11/23/23 08:00 Pulse Ox 97 11/23/23 08:00 FiO2 Intake & Output 11/22/23 11/23/23 11/23/23 18:59 06:59 18:59 Intake Total 354 720 Output Total 500 Balance 354 220 Intake: Oral 354 720 Output: Urine 500 Other: # Voids 2 - Exam CONSTITUTIONAL: Sitting up to the bedside chair on the third floor cardiac stepdown unit, appears comfortable, cooperative, no apparent acute distress. HEENT: Neck is supple, no JVD, no lymphadenopathy. RESPIRATORY: Lungs sounds essentially clear throughout, diminished to his bilateral bases. Respirations are symmetrical and nonlabored. Currently on room air with oxygen saturations 97%. Able to achieve 3500 mL on his incentive spirometry. Strong cough. CARDIOVASCULAR: Regular rhythm and rate. S1 and S2 present, negative for S3, gallop or murmur. Palpable peripheral pulses bilaterally. GASTROINTESTINAL: Abdomen soft, nontender, nondistended. Obese. Active bowel sounds present 4 quadrants. Tolerating diet. Passing flatus. No guarding or rigidity. GENITOURINARY: Continues to void. INTEGUMENTARY: Skin is warm and dry with no evidence of clubbing or cyanosis. NEUROLOGIC: Cranial nerves II through XII intact. No focal deficits. MUSKULOSKELETAL: Able to move all extremities, strength equal bilaterally. PSYCHIATRIC: Alert and oriented to person place and time, appropriate affect, intact judgment and insight. - Allied health notes Allied health notes reviewed: nursing - Labs CBC & Chem 7: 11/23/23 08:11 11/22/23 06:18 Labs: Abnormal Lab Results - Last 24 Hours (Table) 11/22/23 11/22/23 11/22/23 Range/Units 06:18 11:23 16:32 APTT (22.0-30.0) sec POC Glucose (mg/dL) 296 H 127 H (70-110) mg/dL Triglycerides 171.00 H (0.00-149.00) mg/dL 11/22/23 11/23/23 11/23/23 Range/Units 20:08 06:06 08:11 APTT 47.1 H (22.0-30.0) sec POC Glucose (mg/dL) 134 H 154 H (70-110) mg/dL Triglycerides (0.00-149.00) mg/dL Assessment and Plan Assessment: Coronary artery disease Hypertension Hyperlipidemia, cholesterol 218 and triglycerides 247 Diabetes mellitus type 2, currently on no treatment as an outpatient, preoperative hemoglobin A1c of 7.7% Benign prostatic hypertrophy Lifetime nonsmoker Obesity with a BMI of 36.9 kg/m Early onset family history of coronary artery disease with his mother having a myocardial infarction in her late 50s Plan: Continue to reinforce preoperative teaching. A 5 m walk test has been completed with the patient by cardiac rehab, time 1: 6.07 seconds, time 2: 4.99 seconds, time 3: 5.15 seconds. An STS risk score has been calculated and discussed with the patient. Continue insulin sliding scale with Accu-Cheks before meals and at bedtime. Preoperative hemoglobin A1c 7.7%. Internal medicine to manage diabetes. Continue to maximize medical management with aspirin, statin and beta jesse. Medical management and other comorbidities per primary care service and cardiology service. The patient is currently scheduled for myocardial revascularization surgery tomorrow 11/24/2023 with left internal mammary artery, endoscopic vein harvest, exclusion left atrial appendage and intraoperative transesophageal echocardiogram be completed by Dr. Leonard Quintanilla. Heparin drip management per cardiology recommendations. Nothing by mouth after midnight. More recommendations to follow based on patient's clinical course. Time with Patient: Greater than 30
[2023-11-23 11:27] VITALS: BMI 36.9
[2023-11-23 11:35] LABS: Glucose,Whole Blood 172 mg/dL (70-110)
--- NOTE | 2023-11-23 12:49 | P.PN ---
Subjective Progress Note Date: 11/23/23 HISTORY OF PRESENTING ILLNESS 72-year-old male with no significant past medical history other than hypertension and BPH. He is on losartan and Flomax for this. He reports that for last 2-3 weeks he has been having on and off substernal chest heaviness like sensation along with shortness of breath. This morning he was working in his basement with his arms overhead when he started spitting substernal chest pain which was more in intensity and was not getting better with rest. Next He presented to the ER and he received sublingual nitroglycerin. After 1 hour also pneumonitis with this pain eased off. Currently he is pain-free. His initial troponin was negative, repeat troponin elevated at 0.08. His ECG shows normal sinus rhythm with no significant ST-T wave changes His d-dimer was elevated at 0.6. BP on admission 201/91, heart rate 78. Repeat blood pressure 132/76, heart rate 85 11/21 Today, patient underwent cardiac catheterization with Dr. Odom which revealed 80% proximal LAD, 90% mid RCA stenosis, followed by same with Dr. Brad angulo nding abnormal eye FR of the LAD of 0.36. Patient is to have cardiothoracic evaluation for possible CABG But if patient is deemed to be high risk or due to patient preference, stenting may be considered. Patient denies having any chest pain, no shortness of breath, no headache. Blood pressure elevated at 171/98, heart rate in the 60s, pulse ox 94% on room air. Triglycerides 247, cholesterol 218, LDL 122, HDL 46. CBC normal with hemoglobin of 14.6. Echocardiogram reveals normal LV size, severe concentric left hypertrophy, EF estimated at 55%. Mild apical hypokinesia. No obvious valvular pathology. Thickened aortic valve with no stenosis. 1/ The patient has been seen by cardiothoracic surgery and CABG is scheduled for Monday. Patient is quite anxious about undergoing procedure. He states he did have a little bit of left-sided chest tightness this morning. Heart rate is in the 60s and 70s, blood pressure 151/83. 11/23 CBC unremarkable. Electrolytes and renal function normal. Liver function tests are normal. Blood pressure readings remain elevated 164/83, heart rate in the 80s. PHYSICAL EXAMINATION Vital signs reviewed. Head: Normocephalic. Eyes: Sclerae nonicteric. Lungs: Clear to auscultation. Heart: Regular rate and rhythm, S1-S2, no S3, no murmur or rub. Extremities: No edema, intact distal pulses. Neuro: Alert, oritented, no focal deficits ASSESSMENT Nstemi Substernal chest pain with exertion, relieved with nitroglycerin Essential hypertension BPH No reported smoking or alcohol use Obesity PLAN Continue aspirin 81 mg, atorvastatin 40 mg Continued losartan 50 mg twice daily Increase Lopressor to 50 mg twice daily CABG scheduled for Monday Nurse practitioner note has been reviewed, I agree with the documented findings and plan of care. Patient was seen and examined. Objective - Vital Signs Vital signs: Vital Signs Temp 98.0 F 11/23/23 08:00 Pulse 80 11/23/23 08:00 Resp 14 11/23/23 08:00 BP 164/83 11/23/23 08:00 Pulse Ox 97 11/23/23 08:00 FiO2 Intake & Output 11/22/23 11/23/23 11/23/23 18:59 06:59 18:59 Intake Total 354 720 Output Total 500 Balance 354 220 Intake: Oral 354 720 Output: Urine 500 Other: # Voids 2 - Labs CBC & Chem 7: 11/23/23 08:11 11/23/23 08:11 Labs: Abnormal Lab Results - Last 24 Hours (Table) 11/22/23 11/22/23 11/22/23 Range/Units 06:18 11:23 16:32 APTT (22.0-30.0) sec POC Glucose (mg/dL) 296 H 127 H (70-110) mg/dL Triglycerides 171.00 H (0.00-149.00) mg/dL 11/22/23 11/23/23 11/23/23 Range/Units 20:08 06:06 08:11 APTT 47.1 H (22.0-30.0) sec POC Glucose (mg/dL) 134 H 154 H (70-110) mg/dL Triglycerides (0.00-149.00) mg/dL
--- NOTE | 2023-11-23 14:47 | P.PN ---
Subjective Progress Note Date: 11/23/23 Principal diagnosis: Acute non-ST elevation myocardial infarction and coronary arteriosclerosis This is a very pleasant 72-year-old male patient with history of diabetes mellitus, hypertension who presented here to the emergency room on 11/20/2023 with complaints of chest discomfort. He had been having symptoms on and off 2-3 weeks prior. Mostly exertional. EGD revealed some mild ST segment abnormalities. Initial troponin was negative subsequent troponins were 0.08, 0.24, 0.14. Chest x-ray revealed no acute pulmonary process. Echocardiogram revealed preserved left ventricular systolic function with ejection fraction 55- 60%. CT angiogram revealed no evidence of pulmonary embolism. Lung noble were clear. He did undergo cardiac catheterization on 11/21/2023 which revealed 80% diffuse calcified proximal LAD disease and 80-90% calcified mid RCA disease. He was recommended coronary artery bypass grafting. We are seeing the patient today in consultation. He is a lifelong nonsmoker. Pulmonary function testing reveals an FEV1 value 2.53 L or 86% of predicted. He currently denies any shortness of breath, cough or congestion. Maintaining good O2 saturations in the mid 90s on room air. I count 7.8. Hemoglobin 14.2. Platelets 198. Sodium 139. Potassium 4.2. Bicarb 25. BUN 17. Creatinine 0.78. Glucose 170. Cholesterol 188. Triglycerides 171. LDL 106. HDL 48. Hepatitis screen negative. He's been afebrile. Hemodynamically stable. He is able to pull 3 L on the incentive spirometer. He has remained quite active throughout his career and into [employer]. He is up ambulating in his room. He denies any chest discomfort currently. The plan is for bypass grafting on 11/24/2023. He remains on a heparin drip. Reevaluated today on 11/23/23, patient is doing great, asymptomatic, patient is ambulating in his own room, he is on room air, denies any shortness of breath or chest pain, remains on heparin, he is in sinus rhythm, hemodynamically stable, not in any distress and he is scheduled for off-pump myocardial revascularization surgery with left internal mammary artery, endoscopic vein harvest, intraoperative transesophageal echocardiogram and exclusion of left atrial appendage to be completed by Dr. Quintanilla tomorrow 11/24/2023. Objective - Vital Signs Vital signs: Vital Signs Temp 98.0 F 11/23/23 08:00 Pulse 80 11/23/23 08:00 Resp 14 11/23/23 08:00 BP 164/83 11/23/23 08:00 Pulse Ox 97 11/23/23 08:00 FiO2 Intake & Output 11/22/23 11/23/23 11/23/23 18:59 06:59 18:59 Intake Total 354 720 590 Output Total 500 1 Balance 354 220 589 Weight 113.398 kg Intake: Oral 354 720 590 Output: Urine 500 Stool 1 Other: Voiding Method Toilet # Voids 2 - Exam Physical Exam: Revealed 72-year-old white male extremely pleasant in no distress Head: Atraumatic, normocephalic. HEENT:[Neck is supple.] [No neck masses.] [No thyromegaly.] [No JVD.] Chest: [Clear throughout, no crackles, no rhonchi, no wheezes.] Cardiac Exam: [Normal S1 and S2, no S3 gallop, no murmur.] Abdomen: [Soft, nontender, no megaly, no rebound, no guarding, normal bowel s ounds.] Extremities: [No clubbing, no edema, no cyanosis.] Neurological Exam: [No focal neurologic deficit.] Alert and oriented 3. Psychiatric: Normal mood affect and normal mental status examination. Skin: No rashes - Labs CBC & Chem 7: 11/23/23 08:11 11/23/23 08:11 Labs: Abnormal Lab Results - Last 24 Hours (Table) 11/22/23 11/22/23 11/23/23 Range/Units 16:32 20:08 06:06 APTT (22.0-30.0) sec Glucose (74-99) mg/dL POC Glucose (mg/dL) 127 H 134 H 154 H (70-110) mg/dL Crossmatch 11/23/23 11/23/23 11/23/23 Range/Units 08:11 08:11 08:11 APTT 47.1 H (22.0-30.0) sec Glucose 168 H (74-99) mg/dL POC Glucose (mg/dL) (70-110) mg/dL Crossmatch See Detail 11/23/23 Range/Units 11:25 APTT (22.0-30.0) sec Glucose (74-99) mg/dL POC Glucose (mg/dL) 172 H (70-110) mg/dL Crossmatch Microbiology - Last 24 Hours (Table) 11/21/23 15:49 Nasal Screen MRSA/MSSA - Final Nasal Swab Assessment and Plan Assessment: Impression: Coronary artery disease, scheduled for myocardial revascularization in a.m. Benign essential hypertension Lifetime nonsmoker, nondrinker Type 2 diabetes without complications Family history of early onset coronary artery disease Recommendation: Continue incentive spirometry Continue ambulation Continue heparin drip for now Continue cardiac meds as ordered by cardiology We will reevaluate tomorrow after surgery. Time with Patient: Less than 30
--- NOTE | 2023-11-23 15:27 | P.PN ---
Subjective Progress Note Date: 11/23/23 Patient evaluated today standing at the bedside. No reports of chest pain or shortness of breath. He is scheduled to undergo coronary bypass tomorrow. Discussed with patient hemoglobin A1C of 7.7. states he has been told he was prediabetic in the past and has been on metformin in the past which caused alot of GI symptoms additonally he was started on a different oral medication which caused urinary frequency. He states he has been controlling his sugar with dietary changes. For now he will be continued on accuchecks ACHS will add in 2 am and scheduled insulin and monitor blood glucose closely. Will made adjustments as needed. All questions answered and reinforced using the IS. Today his CBC is unremarkable and his renal function and electrolytes are WNL. Review of Systems Constitutional: Denied any fatigue denied any fever. Cardio vascular: denied any chest pain, palpitations Gastrointestinal: denied any nausea, vomiting, diarrhea Pulmonary: Denied any shortness of breath cough Neurologic denied any new focal deficits All inpatient medications were reviewed and appropriate changes in these medications as dictated in the interval history and assessment and plan PHYSICAL EXAMINATION: GENERAL: The patient is alert and oriented x3, not in any acute distress. Well developed, well nourished. HEENT: Pupils are round and equally reacting to light. EOMI. No scleral icterus. No conjunctival pallor. Normocephalic, atraumatic. No pharyngeal erythema. No thyromegaly. CARDIOVASCULAR: S1 and S2 present. No murmurs, rubs, or gallops. PULMONARY: Chest is clear to auscultation, no wheezing or crackles. ABDOMEN: Soft, nontender, nondistended, normoactive bowel sounds. No palpable organomegaly. Obese. MUSCULOSKELETAL: No joint swelling or deformity. EXTREMITIES: No cyanosis, clubbing, or pedal edema. NEUROLOGICAL: Gross neurological examination did not reveal any focal deficits. SKIN: No rashes. Assessment Significant coronary artery disease with 80% stenosis of LAD and 90% of RCA patient scheduled to undergo coronary artery bypass grafting tomorrow on 11/24/2023 Uncontrolled hypertension on admission Hx hypertension Hx BPH Non smoker Obesity with BMI of 36.9 Diabetes Mellitus type 2 with hyperglycemia previously told he was pre diabetic GI prophylaxis DVT prophylaxis Full Code Plan Continues accuchecks ACHS 2am and scheduled insulin will adjust as needed once postoperative and tolerating diet consider adding levemir if blood glucose r emains elevated Continue aspirin, lipitor, losartan, lopressor and flomax Monitor labs PT/OT consultation postoperatively The impression and plan of care has been dictated by Deborah Yates, Nurse Practitioner as directed. Dr. Orlando MD I have performed a history and physical examination and medical decision making of this patient, discussed the same with the dictator, and agree with the dictators assessment and plan as written, documented as a scribe. Based on total visit time, I have performed more than 50% of this visit. Objective - Vital Signs Vital signs: Vital Signs Temp 98.0 F 11/23/23 08:00 Pulse 80 11/23/23 08:00 Resp 14 11/23/23 08:00 BP 164/83 11/23/23 08:00 Pulse Ox 97 11/23/23 08:00 FiO2 Intake & Output 11/22/23 11/23/23 11/23/23 18:59 06:59 18:59 Intake Total 354 720 590 Output Total 500 1 Balance 354 220 589 Weight 113.398 kg Intake: Oral 354 720 590 Output: Urine 500 Stool 1 Other: Voiding Method Toilet # Voids 2 - Labs CBC & Chem 7: 11/23/23 08:11 11/23/23 08:11 Labs: Abnormal Lab Results - Last 24 Hours (Table) 11/22/23 11/22/23 11/23/23 Range/Units 16:32 20:08 06:06 APTT (22.0-30.0) sec Glucose (74-99) mg/dL POC Glucose (mg/dL) 127 H 134 H 154 H (70-110) mg/dL Crossmatch 11/23/23 11/23/23 11/23/23 Range/Units 08:11 08:11 08:11 APTT 47.1 H (22.0-30.0) sec Glucose 168 H (74-99) mg/dL POC Glucose (mg/dL) (70-110) mg/dL Crossmatch See Detail 11/23/23 Range/Units 11:25 APTT (22.0-30.0) sec Glucose (74-99) mg/dL POC Glucose (mg/dL) 172 H (70-110) mg/dL Crossmatch Microbiology - Last 24 Hours (Table) 11/21/23 15:49 Nasal Screen MRSA/MSSA - Final Nasal Swab Assessment and Plan Time with Patient: Less than 30
[2023-11-23 16:33] LABS: Glucose,Whole Blood 123 mg/dL (70-110)
[2023-11-23] MEDS ORDERED: INSULIN ASPART (NovoLOG) 100 UNIT/ML VIAL SQ SCH (17:30)
[2023-11-23 20:05] LABS: Glucose,Whole Blood 134 mg/dL (70-110)
[2023-11-23] MEDS ORDERED: METOPROLOL TARTRATE 25 MG TAB PO SCH (21:00)
[2023-11-23] MEDS: HEPARIN SOD,PORK IN 0.45% NACL 25,000 UNIT in 0.45% NACL 1 250ML.BAG IV SCH (21:03)
[2023-11-23] MEDS: ATORVASTATIN 40 MG TAB PO SCH (21:04)
[2023-11-23] MEDS: ALPRAZolam 0.5 MG TAB PO PRN (21:04)
[2023-11-24 02:57] LABS: Glucose,Whole Blood 132 mg/dL (70-110)
[2023-11-24] MEDS: INSULIN ASPART (NovoLOG) 100 UNIT/ML VIAL SQ SCH (02:58)
[2023-11-24] MEDS ORDERED: ELECTROLYTE-A SOLUTION 1,000 ML with POTASSIUM CHLORIDE 40 MEQ, MAGNESIUM SULFATE 16 ME... IV ONE ×5 (05:00)
[2023-11-24] MEDS ORDERED: TRANEXAMIC ACID 2,000 MG in SODIUM CHLORIDE 0.9% 80 ML IV ONE (05:00)
[2023-11-24] MEDS ORDERED: METOPROLOL TARTRATE 12.5 MG TAB PO ONE (05:00)
[2023-11-24] MEDS ORDERED: NOREPINEPHRINE 4 MG in SODIUM CHLORIDE 0.9% 250 ML IV SCH (05:00)
[2023-11-24] MEDS ORDERED: CALCIUM CHLORIDE 100 MG/ML 10 ML SYRINGE IVP ONE (05:00)
[2023-11-24] MEDS ORDERED: MAGNESIUM SULFATE 16.24 MEQ in EMPTY SYRINGE 1 SYR IV ONE (05:00)
[2023-11-24] MEDS ORDERED: MANNITOL 25% 12.5 GM/50 ML VIAL IV ONE ×2 (05:00)
[2023-11-24] MEDS ORDERED: CHLORHEXIDINE GLUCONATE 15 ML CUP MUCOUS MEM ONE (05:00)
[2023-11-24] MEDS ORDERED: PROTAMINE SULFATE 10 MG/ML 25 ML VIAL IV ONE ×2 (05:00→07:28)
[2023-11-24] MEDS ORDERED: LACTATED RINGERS 1,000 ML IV SCH (05:00)
[2023-11-24] MEDS ORDERED: PHENYLEPHRINE 40 MG in SODIUM CHLORIDE 0.9% 250 ML IV ONE (05:00)
[2023-11-24] MEDS ORDERED: PAPAVERINE 360 MG in SODIUM CHLORIDE 0.9% 90 ML IV ONE ×2 (05:00→09:46)
[2023-11-24] MEDS ORDERED: PHENYLEPHRINE 10 MG/ML VIAL IV ONE (05:00)
[2023-11-24] MEDS ORDERED: INSULIN REGULAR 100 UNIT in SODIUM CHLORIDE 0.9% 100 ML IV SCH (05:00)
[2023-11-24] MEDS ORDERED: SODIUM BICARB 8.4% 50 ML SYR (1 MEQ/ML) IV ONE (05:00)
[2023-11-24] MEDS ORDERED: ATORVASTATIN 10 MG TAB PO ONE (05:00)
[2023-11-24] MEDS ORDERED: HEPARIN SODIUM 1,000 UN/ML (10ML VL) IV ONE (05:00)
[2023-11-24] MEDS ORDERED: CLEVIDIPINE BUTYRATE 25 MG in EMPTY BAG 1 BAG IV SCH (05:00)
[2023-11-24] MEDS ORDERED: ASPIRIN 325 MG TAB PO ONE (05:00)
[2023-11-24] MEDS ORDERED: HEPARIN SODIUM,PORCINE (1 ML) 5,000 UNIT in SODIUM CHLORIDE 0.9% 500 ML 500 ML IV ONE (05:00)
[2023-11-24] MEDS ORDERED: PROTAMINE SULFATE 250 MG in EMPTY BAG 1 BAG IV ONE (05:00)
[2023-11-24] MEDS ORDERED: ELECTROLYTE-A SOLUTION 1,000 ML with POTASSIUM CHLORIDE 100 MEQ, MAGNESIUM SULFATE 16 M... IV ONE ×5 (05:00)
[2023-11-24] MEDS ORDERED: ALBUMIN HUMAN 5% 500 ML in EMPTY BAG 1 BAG IVPB ONE ×6 (05:00)
[2023-11-24] MEDS ORDERED: ALBUMIN HUMAN 25% 50 ML in EMPTY BAG 1 BAG IVPB ONE (05:00)
[2023-11-24] MEDS ORDERED: NITROGLYCERIN-D5W PMX 50 MG in DEXTROSE/WATER 1 250ML.BAG IV SCH ×2 (05:00→11:56)
[2023-11-24] MEDS ORDERED: NITROGLYCERIN-D5W PMX 25 MG/250 ML BTL IV ONE (05:00)
[2023-11-24] MEDS ORDERED: ceFAZolin 1,000 MG in SODIUM CHLORIDE 0.9% IRRIGATIO 1,000 ML IRRIGATION ONE (05:00)
[2023-11-24] MEDS: FAMOTIDINE 20 MG/2 ML VIAL IV SCH (05:05)
[2023-11-24] MEDS: TAMSULOSIN 0.4 MG CAP.ER.24H PO SCH (05:05)
[2023-11-24] MEDS: LOSARTAN 50 MG TAB PO SCH (05:05)
[2023-11-24] MEDS: MUPIROCIN 2% OINT 22 GM TUBE NASAL SCH (05:07)
[2023-11-24 05:31] LABS: Glucose,Whole Blood 148 mg/dL (70-110)
[2023-11-24 06:12] LABS: Glucose,Whole Blood 143 mg/dL (70-110)
[2023-11-24] MEDS ORDERED: IV FLUID CONTINUATION 800 ML IV ONE (06:12)
[2023-11-24] MEDS ORDERED: fentaNYL (PF) 50 MCG/ML 50 ML VIAL ONE (07:28)
[2023-11-24] MEDS ORDERED: POTASSIUM CHLORIDE OPEN HEART 20 MEQ/50 ML BAG IVPB ONE (07:28)
[2023-11-24] MEDS ORDERED: VECURONIUM 10 MG VIAL IV ONE (07:28)
[2023-11-24] MEDS ORDERED: SUCCINYLCHOLINE CHLORIDE 200 MG/10 ML VIAL IV ONE (07:28)
[2023-11-24] MEDS ORDERED: MIDAZOLAM HCL 10 MG/10 ML VIAL ONE (07:28)
[2023-11-24] MEDS ORDERED: GLYCOPYRROLATE 0.2 MG/ML 2 ML VIAL ONE (07:28)
[2023-11-24] MEDS ORDERED: PHENYLEPHRINE-0.9% NACL SYG 1,000 MCG/10 ML SYRINGE ONE (07:28)
[2023-11-24] MEDS ORDERED: PROPOFOL 10 MG/ML 20 ML VIAL IV ONE (07:28)
[2023-11-24] MEDS ORDERED: HEPARIN SODIUM,PORCINE 10,000 UNIT/ML 1 ML VIAL ONE (07:28)
[2023-11-24] MEDS ORDERED: ALBUMIN HUMAN 5% (25gm) 500 ML VIAL IVPB ONE (07:28)
--- NOTE | 2023-11-24 07:45 | P.ANPRN ---
Procedure Note - Anesthesia - Invasive Line Right Arterial Line Time Out Performed: Yes Date of Procedure: 11/24/23 Time of Procedure: 07:09 Location of Patient: PreOp Preparation: Sterile Prep, Sterile Dressing Arterial Line Location: Radial Ultrasound Used: No Needle Guage: 20 Narrative: Right radial arterial line placed by SRNA Right Central Line Time Out Performed: Yes Date of Procedure: 11/24/23 Time of Procedure: 07:20 Location of Patient: PreOp Preparation: Sterile Prep, Sterile Dressing Central Line Location: Internal Jugular Ultrasound Used: Yes Purpose - Visualization and Identification of Vasculature: Yes Needle Guage: 18 Image Stored and Saved: Yes Narrative: RIJ cordis placed using Seldinger technique Right [place] Sean Time Out Performed: Yes Date of Procedure: 11/24/23 Time of Procedure: 07:29 Location of Patient: PreOp Preparation: Sterile Prep, Sterile Dressing [place] Sean Line Location: Internal Jugular Narrative: [place] had ports flushed and balloon tested. [place] advanced until RV and then PA waveforms obtained. Balloon deflated and catheter secured at 44 cm.
[2023-11-24] MEDS ORDERED: SODIUM CHLORIDE 0.9% 500 ML 500 ML with HEPARIN SODIUM,PORCINE (1 ML) 5,000 UNIT IV ONE ×2 (09:45)
[2023-11-24] MEDS ORDERED: ceFAZolin 1,000 MG in SODIUM CHLORIDE 0.9% 1,000 ML IRRIGATION ONE (09:47)
[2023-11-24] MEDS ORDERED: BENZOCAINE/MENTHOL LOZENG 1 EACH LOZENGE MUCOUS MEM PRN (11:56)
[2023-11-24] MEDS ORDERED: ONDANSETRON 4 MG/2 ML VIAL IVP PRN (11:56)
[2023-11-24] MEDS ORDERED: Potassium Replacement Protocol 1 EACH MISC MISCELLANE PRN (11:56)
[2023-11-24] MEDS ORDERED: Magnesium Replacement Protocol 1 EACH MISC MISCELLANE PRN (11:56)
[2023-11-24] MEDS ORDERED: DEXMEDETOMIDINE/0.9% NACL(PMX) 400 MCG in EMPTY BAG 1 BAG IV SCH (11:56)
[2023-11-24] MEDS ORDERED: AMIODARONE 360 MG in DEXTROSE 5% IN WATER 200 ML IV ONE ×2 (11:56)
[2023-11-24] MEDS ORDERED: IPRATROPIUM-ALBUTEROL 3 ML NEB INHALATION PRN (11:56)
[2023-11-24] MEDS ORDERED: hydrALAZINE HCL 20 MG/ML 1 ML VIAL IVP PRN ×2 (11:56→13:10)
[2023-11-24] MEDS ORDERED: METOCLOPRAMIDE 5 MG/ML 2 ML VIAL IVP PRN (11:56)
[2023-11-24] MEDS ORDERED: DEXTROSE 50% SYRINGE 50 ML IVP PRN ×2 (11:56)
[2023-11-24] MEDS ORDERED: CALCIUM GLUCONATE IN NACL 2 GM in SALINE 1 100ML.BAG IVPB PRN (11:56)
[2023-11-24] MEDS ORDERED: DEXTROSE 5% IN WATER 100 ML with AMIODARONE 150 MG IV PRN (11:56)
--- NOTE | 2023-11-24 12:26 | P.ANPRN ---
Procedure Note - Anesthesia - JUSTINA Intraop Pre Bypass JUSTINA Intraop - Anesthesia Indication: CAD Date of Procedure: 11/24/23 Pre-operative Diagnosis: CAD Post-operative Diagnosis: Same + PFO Surgeon: Leonard Quintanilla Left Ventricle: EF 60 Ejection Fraction: Normal Regional Wall Motion Abnormalities: None Left Ventricle Hypertrophy: No R. Ventricle Function: Normal Anatomy: Trileaflet Aortic Stenosis: None Aortic Regurgitation: None Mitral Stenosis: None Mitral Regurgitation: Mild Tricuspid Stenosis: None Tricuspid Regurgitation: None R. Atrial PFO: Yes (small PFO w/ L to R shunt) L. Atrial Dilation: No Aortic Dissection: No Aortic Calcification: None Plural Effusion: None - JUSTINA Intraop Post Bypass JUSTINA Intraop Post Bypass Procedure Performed: OP CABG x 2 Left Ventricle: EF 60% Ejection Fraction: Normal Regional Wall Motion Abnormalities: None R. Ventricle Function: Normal Aortic Valve: Unchanged Mitral Valve: Unchanged Tricuspid: Unchanged Pulmonic: Unchanged Aortic Dissection: No
[2023-11-24] MEDS: IPRATROPIUM-ALBUTEROL 3 ML NEB INHALATION SCH ×3 (12:28→21:37)
--- NOTE | 2023-11-24 12:31 | P.OP ---
Date of Procedure: 11/24/23 Preoperative Diagnosis: NSTEMI 2V CAD DM HTN HLD Postoperative Diagnosis: Same Procedure(s) Performed: 1. Off pump coronary artery bypass grafting x 2. Left internal thoracic artery (in-situ) to left anterior descending artery. Saphenous vein from aorta to distal right coronary artery. 2. Left atrial appendage ligation with #35mm AtriClip 3. Endoscopic left greater saphenous vein harvest 4. Graft flow measurements using the Medi-Stim flow meter system 5. Trans-esophageal echo Implants: #35 AtriClip Anesthesia: FLAUQITA Surgeon: Leonard Quintanilla Hair Machine Operator #1: Seymour Schofield Hair Machine Operator #2: Abhi Haines Estimated Blood Loss (ml): 250 IV fluids (ml): 1,000 Pathology: none sent Condition: stable Disposition: ICU Indications for Procedure: This patient is a 72 year-old male who presented with a two weeks history of progressive anginal symptoms. He underwent coronary cath which revealed severe proximal LAD disease along with diffusely diseased vessel down stream, and severe disease in the RCA/PDA with some mild to moderate disease in the Cx system. The patient was diagnosed with NSTEMI and CABG was recommended. His STS risk of morbidity and mortality was discussed with the patient and he was in agreement to proceed. Operative Findings: LAD 2.0mm good target distally. ALBERTO 2.2mm good conduit. ALBERTO to LAD Flow 32ml/min, P.I. 3.2 GSV 2.5mm good conduit. PDA too small for bypass. Distal RCA 2.0mm diseased but good target. SVG-RCA Flow 11ml/min, P.I. 7.9 Description of Procedure: The patient underwent central line, arterial line, and [place] catheter placement in the pre-operative suite by the anesthesia team. The patient was then brought to the operating room and placed in the supine position. General anesthesia was induced and the patient was prepped from the chin to the ankles in the usual sterile fashion. A time-out was performed and antibiotics were given. A midline incision was made on the chest and carried down to bone. A median sternotomy was performed. Hemostasis on the bone was achieved using electrocautery. The left pleura was entered and the left internal thoracic artery was harvested in a skeletonized fashion. Simultaneously a physician billing assistant harvested the left greater saphenous vein in an endoscopic fashion. The patient was systemically heparinized and the ZOEY was transected and placed in a papaverine jacuzzi. A left sided chest tube was placed. The pericardium was incised in a reverse T-fashion and a pericardial cradle was created. The right pleura was opened. Stay sutures were placed. #35mm AtriClip was placed on the left atrial appendage. With ACT > 250, the octopus sabilizer was placed on the distal LAD which was a good target. An ateriorotomy was made and 2.0mm shunt inserted. An end to side anastomosis between the ZOEY and LAD was performed using a running 7-0 prolene. The shunt was removed prior to tieing down the suture. Next stay sutures were placed on the diaphragm near the IVC and oblique sinus. The inferior wall was exposed and the posterior descending artery was too small for bypass. The distal right coronary artery was then stabilized and appeared to be diseased but a good target. Arteriorotomy was made and 2.0mm shunt was inserted. An end to side anastomosis between the saphenous vein and RCA was performed using a running 7-0 prolene again removing the shunt prior to tieing down the suture. Next, the heartstring device was used to create aortotomy. The saphenous vein was fastened to the ascending aorta using a running 5-0 prolene suture. The heartstring device was removed in its entirety. At this point, graft flows were measured which were excellent. There was some competitive flow noted in the RCA graft. At this point, protamine was given and hemostasis was secured. A 32F chest tube and 19F jazlyn were placed in the mediastinum and right pleura respectively. The pericardium was reapproximated partially and the sternum was closed with pioneer cables and layers of suture. The leg was closed in layers as well. The patient tolerated the procedure without any significant hypotension and was transferred to CVICU in critical condition on only nitro gtt.
[2023-11-24 12:44] LABS: Glucose,Whole Blood 129 mg/dL (70-110)
[2023-11-24 12:53] LABS: Basophils % (A) 0 %; Eosinophils # (A) 0.2 k/uL (0-0.7); Eosinophils % (A) 2 %; HCT 36.6 % (39.0-53.0); HGB 12.5 gm/dL (13.0-17.5); Lymphocytes # (A) 1.6 k/uL (1.0-4.8); Lymphocytes % (A) 14 %; MCH 29.3 pg (25.0-35.0); MCHC 34.1 g/dL (31.0-37.0); Monocytes # (A) 0.6 k/uL (0-1.0); Monocytes % (A) 5 %; Neutrophils # (A) 8.9 k/uL (1.3-7.7); Neutrophils % (A) 78 %; Platelet Count 148 k/uL (150-450); RBC 4.26 m/uL (4.30-5.90); RDW 12.6 % (11.5-15.5); WBC 11.4 k/uL (3.8-10.6)
[2023-11-24 13:06] LABS: INR 1.3 (<1.2); Partial Thromboplastin Time 30.1 sec (22.0-30.0); Prothrombin Time 13.3 sec (10.0-12.5)
--- NOTE | 2023-11-24 13:07 | XR ---
EXAMINATION TYPE: XR chest 1V portable DATE OF EXAM: 11/24/2023 COMPARISON: 11/20/2023 INDICATION: Postop cardiac surgery TECHNIQUE: Single frontal view of the chest is obtained. FINDINGS: The heart size is normal. The pulmonary vasculature is normal. The lungs are clear. Sternotomy wires are present from cardiac surgery. Endotracheal tube tip is above the thanh. Nasogastric tube tip is within the left upper quadrant of the abdomen. Left-sided chest tube is present. No pneumothorax is evident. [place]-Sean catheter is pres ent tip in the main pulmonary artery region. Mediastinal tube is present. There may be a right basila r chest tube present. IMPRESSION: 1. No acute pulmonary process. Multiple lines and catheters discussed above
[2023-11-24 13:08] LABS: Ionized Calcium 5.1 mg/dL (4.5-5.3)
[2023-11-24] MEDS: LACTATED RINGERS 1,000 ML IV SCH (13:08)
[2023-11-24] MEDS: INSULIN REGULAR 100 UNIT in SODIUM CHLORIDE 0.9% 100 ML IV SCH (13:09)
[2023-11-24 13:14] LABS: ABG Base Excess 0.7 mmol/L; ABG HCO3 26 mmol/L (21-25); ABG Oxygen Saturation 99.3 % (94-97); ABG PCO2 45 mmHg (35-45); ABG PH 7.37 (7.35-7.45); ABG PO2 193 mmHg (83-108); ABG TCO2 27 mmol/L (19-24)
[2023-11-24] MEDS: CLEVIDIPINE BUTYRATE 25 MG in EMPTY BAG 1 BAG IV SCH ×5 (13:14→21:30)
[2023-11-24 13:16] LABS: Allen Test Performed? no
[2023-11-24 13:18] LABS: ALT 20 U/L (4-49); AST 26 U/L (17-59); African American GFR (CKD) >90 (>60 ml/min/1.73 sqM); Albumin 3.4 g/dL (3.5-5.0); Alkaline Phosphatase 49 U/L (38-126); Anion Gap 9 mmol/L; Blood Urea Nitrogen 19 mg/dL (9-20); Calcium 8.8 mg/dL (8.4-10.2); Carbon Dioxide 24 mmol/L (22-30); Chloride 105 mmol/L (98-107); Glucose 122 mg/dL (74-99); Magnesium 1.7 mg/dL (1.6-2.3); Non-African American GFR(CKD) 88 (>60 ml/min/1.73 sqM); Potassium 3.7 mmol/L (3.5-5.1); Sodium 138 mmol/L (137-145); Total Bilirubin 0.8 mg/dL (0.2-1.3); Total Protein 5.8 g/dL (6.3-8.2)
[2023-11-24] MEDS ORDERED: POTASSIUM CHLORIDE 20 MEQ in WATER FOR INJECTION 1 100ML.BAG IVPB STA (13:23)
[2023-11-24] MEDS: AMIODARONE 450 MG in DEXTROSE 5% IN WATER 250 ML IV SCH ×2 (13:25)
--- NOTE | 2023-11-24 13:41 | P.PN ---
Subjective Progress Note Date: 11/24/23 Patient evaluated today standing at the bedside. No reports of chest pain or shortness of breath. He is scheduled to undergo coronary bypass tomorrow. Discussed with patient hemoglobin A1C of 7.7. states he has been told he was prediabetic in the past and has been on metformin in the past which caused alot of GI symptoms additonally he was started on a different oral medication which caused urinary frequency. He states he has been controlling his sugar with dietary changes. For now he will be continued on accuchecks ACHS will add in 2 am and scheduled insulin and monitor blood glucose closely. Will made adjustments as needed. All questions answered and reinforced using the IS. Today his CBC is unremarkable and his renal function and electrolytes are WNL. 11/24/2023 Patient scheduled to undergo coronary artery bypass today. On sliding scale and scheduled insulin. His blood glucose has trended down slightly overnight to the 130-140s. He will be monitored in the ICU post procedure today. Review of Systems Constitutional: Denied any fatigue denied any fever. Cardio vascular: denied any chest pain, palpitations Gastrointestinal: denied any nausea, vomiting, diarrhea Pulmonary: Denied any shortness of breath cough Neurologic denied any new focal deficits All inpatient medications were reviewed and appropriate changes in these medications as dictated in the interval history and assessment and plan PHYSICAL EXAMINATION: GENERAL: The patient is alert and oriented x3, not in any acute distress. Well developed, well nourished. HEENT: Pupils are round and equally reacting to light. EOMI. No scleral icterus. No conjunctival pallor. Normocephalic, atraumatic. No pharyngeal erythema. No thyromegaly. CARDIOVASCULAR: S1 and S2 present. No murmurs, rubs, or gallops. PULMONARY: Chest is clear to auscultation, no wheezing or crackles. ABDOMEN: Soft, nontender, nondistended, normoactive bowel sounds. No palpable organomegaly. Obese. MUSCULOSKELETAL: No joint swelling or deformity. EXTREMITIES: No cyanosis, clubbing, or pedal edema. NEUROLOGICAL: Gross neurological examination did not reveal any focal deficits. SKIN: No rashes. Assessment Significant coronary artery disease with 80% stenosis of LAD and 90% of RCA patient scheduled to undergo coronary artery bypass grafting today Uncontrolled hypertension on admission Hx hypertension Hx BPH Non smoker Obesity with BMI of 36.9 Diabetes Mellitus type 2 with hyperglycemia previously told he was pre diabetic GI prophylaxis DVT prophylaxis Full Code Plan Continues accuchecks ACHS 2am and scheduled insulin will adjust as needed once postoperative and tolerating diet consider adding levemir if blood glucose remains elevated Continue aspirin, lipitor, losartan, lopressor and flomax Monitor labs PT/OT consultation postoperatively The impression and plan of care has been dictated by Deborah Yates, Nurse Practitioner as directed. Dr. Orlando MD I have performed a history and physical examination and medical decision making of this patient, discussed the same with the dictator, and agree with the dictators assessment and plan as written, documented as a scribe. Based on total visit time, I have performed more than 50% of this visit. Objective - Vital Signs Vital signs: Vital Signs Temp 97.4 F L 11/24/23 06:08 Pulse 56 L 11/24/23 13:15 Resp 14 11/24/23 13:15 BP 144/80 11/24/23 06:08 Pulse Ox 100 11/24/23 13:15 FiO2 80 11/24/23 13:16 Intake & Output 11/23/23 11/24/23 11/24/23 18:59 06:59 18:59 Intake Total 590 200 3.966 Output Total 2 Balance 588 200 3.966 Weight 113.398 kg Intake: IV 200 3 Intake, IV Titration 0.966 Amount Clevidipine Butyrate 25 0.966 mg In Empty Bag 1 bag @ 1 MG/HR 2 mls/hr IV .Q24H JESSI Rx#:[id number] Oral 590 Output: Stool 2 Other: Voiding Method Toilet Toilet # Voids 4 1 ABP, PAP, CO, CI - Last Documented Arterial Blood Pressure 128/53 Pulmonary Artery Pressure 31/15 Cardiac Output 4.4 Cardiac Index 2 - Labs CBC & Chem 7: 11/24/23 12:41 11/24/23 12:41 Labs: Abnormal Lab Results - Last 24 Hours (Table) 11/23/23 11/23/23 11/23/23 Range/Units 08:11 16:31 20:04 WBC (3.8-10.6) k/uL RBC (4.30-5.90) m/uL Hgb (13.0-17.5) gm/dL Hct (39.0-53.0) % Plt Count (150-450) k/uL Neutrophils # (1.3-7.7) k/uL PT (10.0-12.5) sec INR (<1.2) APTT (22.0-30.0) sec ABG pO2 (83-108) mmHg ABG HCO3 (21-25) mmol/L ABG Total CO2 (19-24) mmol/L ABG O2 Saturation (94-97) % Glucose (74-99) mg/dL POC Glucose (mg/dL) 123 H 134 H (70-110) mg/dL Total Protein (6.3-8.2) g/dL Albumin (3.5-5.0) g/dL Crossmatch See Detail 11/24/23 11/24/23 11/24/23 Range/Units 02:55 05:30 06:11 WBC (3.8-10.6) k/uL RBC (4.30-5.90) m/uL Hgb (13.0-17.5) gm/dL Hct (39.0-53.0) % Plt Count (150-450) k/uL Neutrophils # (1.3-7.7) k/uL PT (10.0-12.5) sec INR (<1.2) APTT (22.0-30.0) sec ABG pO2 (83-108) mmHg ABG HCO3 (21-25) mmol/L ABG Total CO2 (19-24) mmol/L ABG O2 Saturation (94-97) % Glucose (74-99) mg/dL POC Glucose (mg/dL) 132 H 148 H 143 H (70-110) mg/dL Total Protein (6.3-8.2) g/dL Albumin (3.5-5.0) g/dL Crossmatch 11/24/23 11/24/23 11/24/23 Range/Units 12:41 12:41 12:41 WBC 11.4 H (3.8-10.6) k/uL RBC 4.26 L (4.30-5.90) m/uL Hgb 12.5 L (13.0-17.5) gm/dL Hct 36.6 L (39.0-53.0) % Plt Count 148 L (150-450) k/uL Neutrophils # 8.9 H (1.3-7.7) k/uL PT 13.3 H (10.0-12.5) sec INR 1.3 H (<1.2) APTT 30.1 H (22.0-30.0) sec ABG pO2 (83-108) mmHg ABG HCO3 (21-25) mmol/L ABG Total CO2 (19-24) mmol/L ABG O2 Saturation (94-97) % Glucose 122 H (74-99) mg/dL POC Glucose (mg/dL) (70-110) mg/dL Total Protein 5.8 L (6.3-8.2) g/dL Albumin 3.4 L (3.5-5.0) g/dL Crossmatch 11/24/23 11/24/23 Range/Units 12:42 13:13 WBC (3.8-10.6) k/uL RBC (4.30-5.90) m/uL Hgb (13.0-17.5) gm/dL Hct (39.0-53.0) % Plt Count (150-450) k/uL Neutrophils # (1.3-7.7) k/uL PT (10.0-12.5) sec INR (<1.2) APTT (22.0-30.0) sec ABG pO2 193 H (83-108) mmHg ABG HCO3 26 H (21-25) mmol/L ABG Total CO2 27 H (19-24) mmol/L ABG O2 Saturation 99.3 H (94-97) % Glucose (74-99) mg/dL POC Glucose (mg/dL) 129 H (70-110) mg/dL Total Protein (6.3-8.2) g/dL Albumin (3.5-5.0) g/dL Crossmatch Microbiology - Last 24 Hours (Table) 11/21/23 15:49 Nasal Screen MRSA/MSSA - Final Nasal Swab Assessment and Plan Time with Patient: Less than 30
[2023-11-24 14:03] LABS: Glucose,Whole Blood 130 mg/dL (70-110)
[2023-11-24] MEDS: ACETAMINOPHEN IV (For NPO) 1,000 MG in EMPTY BAG 1 BAG IVPB SCH ×2 (14:03→17:46)
[2023-11-24 15:00] LABS: Glucose,Whole Blood 147 mg/dL (70-110)
[2023-11-24 15:21] LABS: Basophils # (A) 0.1 k/uL (0-0.2); Basophils % (A) 0 %; Eosinophils # (A) 0.2 k/uL (0-0.7); Eosinophils % (A) 1 %; HCT 38.8 % (39.0-53.0); HGB 13.4 gm/dL (13.0-17.5); Lymphocytes % (A) 14 %; MCH 29.8 pg (25.0-35.0); MCHC 34.6 g/dL (31.0-37.0); MCV 86.2 fL (80.0-100.0); Mean Platelet Volume 7.1; Monocytes # (A) 0.8 k/uL (0-1.0); Monocytes % (A) 5 %; Neutrophils # (A) 11.1 k/uL (1.3-7.7); Neutrophils % (A) 78 %; Platelet Count 179 k/uL (150-450); RDW 12.8 % (11.5-15.5); WBC 14.3 k/uL (3.8-10.6)
[2023-11-24] MEDS: HEPARIN SODIUM,PORCINE 5,000 UNIT/ML 1 ML VIAL SQ SCH ×2 (15:51→23:52)
[2023-11-24 16:17] LABS: Glucose,Whole Blood 131 mg/dL (70-110)
[2023-11-24 16:56] LABS: Glucose,Whole Blood 156 mg/dL (70-110)
--- NOTE | 2023-11-24 16:59 | P.PN ---
Subjective Progress Note Date: 11/24/23 Principal diagnosis: Acute non-ST elevation myocardial infarction and coronary arteriosclerosis This is a very pleasant 72-year-old male patient with history of diabetes mellitus, hypertension who presented here to the emergency room on 11/20/2023 with complaints of chest discomfort. He had been having symptoms on and off 2-3 weeks prior. Mostly exertional. EGD revealed some mild ST segment abnormalities. Initial troponin was negative subsequent troponins were 0.08, 0.24, 0.14. Chest x-ray revealed no acute pulmonary process. Echocardiogram revealed preserved left ventricular systolic function with ejection fraction 55- 60%. CT angiogram revealed no evidence of pulmonary embolism. Lung noble were clear. He did undergo cardiac catheterization on 11/21/2023 which revealed 80% diffuse calcified proximal LAD disease and 80-90% calcified mid RCA disease. He was recommended coronary artery bypass grafting. We are seeing the patient today in consultation. He is a lifelong nonsmoker. Pulmonary function testing reveals an FEV1 value 2.53 L or 86% of predicted. He currently denies any shortness of breath, cough or congestion. Maintaining good O2 saturations in the mid 90s on room air. I count 7.8. Hemoglobin 14.2. Platelets 198. Sodium 139. Potassium 4.2. Bicarb 25. BUN 17. Creatinine 0.78. Glucose 170. Cholesterol 188. Triglycerides 171. LDL 106. HDL 48. Hepatitis screen negative. He's been afebrile. Hemodynamically stable. He is able to pull 3 L on the incentive spirometer. He has remained quite active throughout his career and into intermediate. He is up ambulating in his room. He denies any chest discomfort currently. The plan is for bypass grafting on 11/24/2023. He remains on a heparin drip. Reevaluated today on 11/23/23, patient is doing great, asymptomatic, patient is ambulating in his own room, he is on room air, denies any shortness of breath or chest pain, remains on heparin, he is in sinus rhythm, hemodynamically stable, not in any distress and he is scheduled for off-pump myocardial revascularization surgery with left internal mammary artery, endoscopic vein harvest, intraoperative transesophageal echocardiogram and exclusion of left atrial appendage to be completed by Dr. Quintanilla tomorrow 11/24/2023. Patient was seen today on 11/24/2023, patient is now status post off-pump coronary artery bypass grafting 2Left internal thoracic artery (in-situ) to left anterior descending artery. Saphenous vein from aorta to distal right coronary artery. , Patient also had left atrial appendage ligation, postoperatively patient was sent to the ICU he is now on mechanical ventilation, intubated, mechanically ventilated. Patient was on assist control rate of 14 tidal volume 550 FiO2 on the percent and PEEP of 10 ABG showed a pO2 of 193 pCO2 45 pH of 7.39. Since then his FiO2 was titrated down to 50%, and his PEEP is now down to 5, and he is on a pressure support of 8 with CPAP. Drips-merchant the patient is on clevidipine X at 4 mg/h he is on insulin 1 unit per hour patient is also on Precedex at 0.4 mcg/kg/h, and nitroglycerin at 10 units per minute patient seems to be calm, not in any distress, hemodynamics-merchant his cardiac output is 8.7 cardiac index is 3.9 blood pressure is 139/63. Chest x-ray showed mostly postoperative changes, endotracheal tube is above the thanh, [place]-Sean catheter is present in the main pulmonary artery region, left sided chest tube seems to be in proper positioning. Orogastric tube is also in proper position. Objective - Vital Signs Vital signs: Vital Signs Temp 98.6 F 11/24/23 16:00 Pulse 80 11/24/23 16:15 Resp 20 11/24/23 16:15 BP 144/80 11/24/23 06:08 Pulse Ox 96 11/24/23 16:15 FiO2 50 11/24/23 16:18 Intake & Output 11/23/23 11/24/23 11/24/23 18:59 06:59 18:59 Intake Total 590 200 558.450 Output Total 2 895 Balance 588 200 -336.550 Weight 113.398 kg Intake: IV 200 449 ACETAMINOPHEN IV (For NPO 100 ) 1,000 mg In Empty Bag 1 bag @ 400 mls/hr IVPB Q6HR JESSI Rx#:[id number] CO/CI 110 Lactated Ringers 1,000 ml 200 @ 50 mls/hr IV .Q20H JESSI Rx#:[id number] Pressure 36 Intake, IV Titration 109.450 Amount Clevidipine Butyrate 25 74.966 mg In Empty Bag 1 bag @ 1 MG/HR 2 mls/hr IV .Q24H JESSI Rx#:[id number] Dexmedetomidine/0.9% NaCl 9.828 (Pmx) 400 mcg In Empty Bag 1 bag @ Titrate IV . Q0M JESSI Rx#:[id number] Insulin Regular 100 unit 4.393 In Sodium Chloride 0.9% 100 ml @ Per Protocol IV .Q0M JESSI Rx#:[id number] Nitroglycerin-D5w Pmx 50 1.325 mg In Dextrose/Water 1 250ml.bag @ 5 MCG/MIN 1.5 mls/hr IV .Q24H JESSI Rx#: [id number] propofoL 1,000 mg In 18.938 Empty Bag 1 bag @ Titrate IV .Q0M JESSI Rx#: [id number] Oral 590 Output: Chest Tube Drainage 435 Bilateral Pleurals 360 Mediastinal 75 Urine 460 Stool 2 Other: Voiding Method Toilet Toilet Indwelling Catheter # Voids 4 1 ABP, PAP, CO, CI - Last Documented Arterial Blood Pressure 154/64 Pulmonary Artery Pressure 33/23 Cardiac Output 8.7 Cardiac Index 3.9 - Exam Physical Exam: Revealed 72-year-old white male intubated and mechanically ventilated. Head: Atraumatic, normocephalic. HEENT:[Neck is supple.] [No neck masses.] [No thyromegaly.] [No JVD.] Endotracheal tube, orogastric tube are intact. Chest: [Diminished breath sounds at the bases no crackles or rhonchi or wheezes Cardiac Exam: [Normal S1 and S2, no S3 gallop, no murmur.] Positive pericardial rub Abdomen: [Soft, nontender, no megaly, no rebound, no guarding, normal bowel sounds.] Extremities: [No clubbing, no edema, no cyanosis.] Neurological Exam: Patient is drowsy, he is on Precedex, Psychiatric: Patient is drowsy, he is on Precedex, following simple instructions only. Skin: No rashes - Labs CBC & Chem 7: 11/24/23 15:00 11/24/23 12:41 Labs: Abnormal Lab Results - Last 24 Hours (Table) 11/23/23 11/23/23 11/24/23 Range/Units 08:11 20:04 02:55 WBC (3.8-10.6) k/uL RBC (4.30-5.90) m/uL Hgb (13.0-17.5) gm/dL Hct (39.0-53.0) % Plt Count (150-450) k/uL Neutrophils # (1.3-7.7) k/uL PT (10.0-12.5) sec INR (<1.2) APTT (22.0-30.0) sec ABG pO2 (83-108) mmHg ABG HCO3 (21-25) mmol/L ABG Total CO2 (19-24) mmol/L ABG O2 Saturation (94-97) % Glucose (74-99) mg/dL POC Glucose (mg/dL) 134 H 132 H (70-110) mg/dL Total Protein (6.3-8.2) g/dL Albumin (3.5-5.0) g/dL Crossmatch See Detail 11/24/23 11/24/23 11/24/23 Range/Units 05:30 06:11 12:41 WBC 11.4 H (3.8-10.6) k/uL RBC 4.26 L (4.30-5.90) m/uL Hgb 12.5 L (13.0-17.5) gm/dL Hct 36.6 L (39.0-53.0) % Plt Count 148 L (150-450) k/uL Neutrophils # 8.9 H (1.3-7.7) k/uL PT (10.0-12.5) sec INR (<1.2) APTT (22.0-30.0) sec ABG pO2 (83-108) mmHg ABG HCO3 (21-25) mmol/L ABG Total CO2 (19-24) mmol/L ABG O2 Saturation (94-97) % Glucose (74-99) mg/dL POC Glucose (mg/dL) 148 H 143 H (70-110) mg/dL Total Protein (6.3-8.2) g/dL Albumin (3.5-5.0) g/dL Crossmatch 11/24/23 11/24/23 11/24/23 Range/Units 12:41 12:41 12:42 WBC (3.8-10.6) k/uL RBC (4.30-5.90) m/uL Hgb (13.0-17.5) gm/dL Hct (39.0-53.0) % Plt Count (150-450) k/uL Neutrophils # (1.3-7.7) k/uL PT 13.3 H (10.0-12.5) sec INR 1.3 H (<1.2) APTT 30.1 H (22.0-30.0) sec ABG pO2 (83-108) mmHg ABG HCO3 (21-25) mmol/L ABG Total CO2 (19-24) mmol/L ABG O2 Saturation (94-97) % Glucose 122 H (74-99) mg/dL POC Glucose (mg/dL) 129 H (70-110) mg/dL Total Protein 5.8 L (6.3-8.2) g/dL Albumin 3.4 L (3.5-5.0) g/dL Crossmatch 11/24/23 11/24/23 11/24/23 Range/Units 13:13 14:02 14:58 WBC (3.8-10.6) k/uL RBC (4.30-5.90) m/uL Hgb (13.0-17.5) gm/dL Hct (39.0-53.0) % Plt Count (150-450) k/uL Neutrophils # (1.3-7.7) k/uL PT (10.0-12.5) sec INR (<1.2) APTT (22.0-30.0) sec ABG pO2 193 H (83-108) mmHg ABG HCO3 26 H (21-25) mmol/L ABG Total CO2 27 H (19-24) mmol/L ABG O2 Saturation 99.3 H (94-97) % Glucose (74-99) mg/dL POC Glucose (mg/dL) 130 H 147 H (70-110) mg/dL Total Protein (6.3-8.2) g/dL Albumin (3.5-5.0) g/dL Crossmatch 11/24/23 11/24/23 Range/Units 15:00 16:16 WBC 14.3 H (3.8-10.6) k/uL RBC (4.30-5.90) m/uL Hgb (13.0-17.5) gm/dL Hct 38.8 L (39.0-53.0) % Plt Count (150-450) k/uL Neutrophils # 11.1 H (1.3-7.7) k/uL PT (10.0-12.5) sec INR (<1.2) APTT (22.0-30.0) sec ABG pO2 (83-108) mmHg ABG HCO3 (21-25) mmol/L ABG Total CO2 (19-24) mmol/L ABG O2 Saturation (94-97) % Glucose (74-99) mg/dL POC Glucose (mg/dL) 131 H (70-110) mg/dL Total Protein (6.3-8.2) g/dL Albumin (3.5-5.0) g/dL Crossmatch Assessment and Plan Assessment: Impression: Status post Off pump coronary artery bypass grafting x 2. Left internal thoracic artery (in-situ) to left anterior descending artery. Saphenous vein from aorta to distal right coronary artery. Postoperative day #0 Coronary artery disease Benign essential hypertension Lifetime nonsmoker, nondrinker Type 2 diabetes without complications Family history of early onset coronary artery disease Recommendation: Continue ventilatory support Continue drips as noted including Precedex, clevidipine, nitroglycerin, insulin, Check weaning parameters here shortly and possibly wean and extubate him in the 2 hours. Chest x-ray was reviewed ABG was reviewed Hemodynamics were all reviewed Different lines and catheters were noted We will continue to follow Critical care time is over 30 Time with Patient: Greater than 30
[2023-11-24 17:03] LABS: ABG Base Excess -1.2 mmol/L; ABG HCO3 24 mmol/L (21-25); ABG Oxygen Saturation 96.8 % (94-97); ABG PCO2 42 mmHg (35-45); ABG PH 7.37 (7.35-7.45); ABG PO2 84 mmHg (83-108); ABG TCO2 25 mmol/L (19-24)
[2023-11-24 17:04] LABS: Allen Test Performed? no
[2023-11-24 18:12] LABS: Glucose,Whole Blood 147 mg/dL (70-110)
[2023-11-24] MEDS: KETOROLAC 15 MG/ML 1 ML VIAL IVP SCH ×2 (18:20→23:53)
[2023-11-24 18:27] LABS: Basophils # (A) 0.1 k/uL (0-0.2); Basophils % (A) 0 %; Eosinophils # (A) 0.1 k/uL (0-0.7); Eosinophils % (A) 0 %; HCT 40.4 % (39.0-53.0); HGB 13.9 gm/dL (13.0-17.5); Lymphocytes # (A) 0.8 k/uL (1.0-4.8); Lymphocytes % (A) 4 %; MCH 29.7 pg (25.0-35.0); MCHC 34.5 g/dL (31.0-37.0); MCV 86.2 fL (80.0-100.0); Mean Platelet Volume 7.3; Monocytes % (A) 6 %; Neutrophils # (A) 15.9 k/uL (1.3-7.7); Neutrophils % (A) 89 %; Platelet Count 187 k/uL (150-450); RBC 4.68 m/uL (4.30-5.90); RDW 12.6 % (11.5-15.5)
[2023-11-24] MEDS ORDERED: MAGNESIUM SULFATE-D5W PMX 1 GM in DEXTROSE/WATER 1 100ML.BAG IVPB ONE (19:00)
[2023-11-24 19:06] LABS: Glucose,Whole Blood 155 mg/dL (70-110)
[2023-11-24] MEDS: ATORVASTATIN 40 MG TAB PO SCH (19:54)
[2023-11-24 20:07] LABS: Glucose,Whole Blood 167 mg/dL (70-110)
[2023-11-24 20:59] LABS: Glucose,Whole Blood 170 mg/dL (70-110)
[2023-11-24] MEDS ORDERED: METOPROLOL TARTRATE 12.5 MG TAB PO STA (21:13)
[2023-11-24] MEDS ORDERED: HYDROmorphone 1 MG/ML 1 ML SYRINGE IVP STA (21:13)
[2023-11-24 22:00] LABS: Glucose,Whole Blood 157 mg/dL (70-110)
[2023-11-24 23:01] LABS: Glucose,Whole Blood 147 mg/dL (70-110)
[2023-11-24 23:53] LABS: Glucose,Whole Blood 138 mg/dL (70-110)
[2023-11-25] MEDS: CLEVIDIPINE BUTYRATE 25 MG in EMPTY BAG 1 BAG IV SCH ×2 (00:07→03:01)
[2023-11-25 00:54] LABS: Glucose,Whole Blood 138 mg/dL (70-110)
[2023-11-25 02:00] LABS: Glucose,Whole Blood 149 mg/dL (70-110)
[2023-11-25] MEDS: AMIODARONE 450 MG in DEXTROSE 5% IN WATER 250 ML IV SCH ×2 (02:10)
[2023-11-25 02:59] LABS: Glucose,Whole Blood 132 mg/dL (70-110)
[2023-11-25 04:03] LABS: Glucose,Whole Blood 137 mg/dL (70-110)
[2023-11-25 04:21] LABS: Basophils % (A) 0 %; Eosinophils # (A) 0.1 k/uL (0-0.7); Eosinophils % (A) 1 %; HGB 13.4 gm/dL (13.0-17.5); Lymphocytes # (A) 1.4 k/uL (1.0-4.8); Lymphocytes % (A) 10 %; MCH 29.6 pg (25.0-35.0); MCHC 34.5 g/dL (31.0-37.0); Mean Platelet Volume 7.3; Monocytes % (A) 7 %; Neutrophils # (A) 11.2 k/uL (1.3-7.7); Neutrophils % (A) 80 %; Platelet Count 181 k/uL (150-450); RBC 4.53 m/uL (4.30-5.90); RDW 12.8 % (11.5-15.5)
[2023-11-25 04:45] LABS: Ionized Calcium 4.9 mg/dL (4.5-5.3)
[2023-11-25 05:02] LABS: Glucose,Whole Blood 135 mg/dL (70-110)
[2023-11-25 05:07] LABS: AST 38 U/L (17-59); African American GFR (CKD) >90 (>60 ml/min/1.73 sqM); Albumin 3.4 g/dL (3.5-5.0); Anion Gap 10 mmol/L; Blood Urea Nitrogen 14 mg/dL (9-20); Calcium 8.5 mg/dL (8.4-10.2); Carbon Dioxide 23 mmol/L (22-30); Chloride 100 mmol/L (98-107); Glucose 132 mg/dL (74-99); Magnesium 1.7 mg/dL (1.6-2.3); Non-African American GFR(CKD) 87 (>60 ml/min/1.73 sqM); Potassium 4.1 mmol/L (3.5-5.1); Sodium 133 mmol/L (137-145); Total Bilirubin 0.7 mg/dL (0.2-1.3); Total Protein 5.9 g/dL (6.3-8.2)
[2023-11-25 05:08] LABS: ALT 20 U/L (4-49); Alkaline Phosphatase 54 U/L (38-126)
[2023-11-25] MEDS: ALBUMIN HUMAN 5% 250 ML in EMPTY BAG 1 BAG IVPB PRN ×2 (05:59→06:44)
[2023-11-25] MEDS: KETOROLAC 15 MG/ML 1 ML VIAL IVP SCH ×4 (06:00→23:50)
[2023-11-25 06:08] LABS: Glucose,Whole Blood 148 mg/dL (70-110)
[2023-11-25] MEDS ORDERED: MAGNESIUM SULFATE-D5W PMX 1 GM in DEXTROSE/WATER 1 100ML.BAG IVPB ONE (06:19)
[2023-11-25] MEDS: LACTATED RINGERS 1,000 ML IV SCH (06:26)
[2023-11-25 07:05] LABS: Glucose,Whole Blood 155 mg/dL (70-110)
[2023-11-25] MEDS ORDERED: ACETAMINOPHEN IV (For NPO) 1,000 MG in EMPTY BAG 1 BAG IVPB STA (07:27)
[2023-11-25] MEDS: HEPARIN SODIUM,PORCINE 5,000 UNIT/ML 1 ML VIAL SQ SCH ×3 (07:43→23:49)
[2023-11-25] MEDS: METOPROLOL TARTRATE 25 MG TAB PO SCH ×2 (08:04→19:59)
[2023-11-25 08:18] LABS: Glucose,Whole Blood 147 mg/dL (70-110)
[2023-11-25] MEDS: IPRATROPIUM-ALBUTEROL 3 ML NEB INHALATION SCH ×4 (08:18→20:50)
[2023-11-25] MEDS: ASPIRIN 325 MG TAB PO SCH (08:20)
[2023-11-25] MEDS: CLOPIDOGREL 75 MG TAB PO SCH (08:21)
[2023-11-25] MEDS ORDERED: MAGNESIUM HYDROXIDE 2,400 MG/30 ML CUP PO PRN (09:00)
[2023-11-25] MEDS ORDERED: METOPROLOL TARTRATE 12.5 MG TAB PO SCH (09:00)
[2023-11-25] MEDS ORDERED: PANTOPRAZOLE 40 MG/10 ML VIAL IVP SCH (09:00)
[2023-11-25] MEDS ORDERED: LOSARTAN 50 MG TAB PO SCH (09:00)
[2023-11-25 09:12] LABS: Glucose,Whole Blood 138 mg/dL (70-110)
--- NOTE | 2023-11-25 09:15 | XR ---
EXAMINATION TYPE: XR chest 1V portable DATE OF EXAM: 11/25/2023 Comparison: 11/24/2023 Clinical History: 72-year-old male Post Operative Cardiac Surgery Findings: Median sternotomy wires are present. Post-CABG clips. Bilateral chest tubes are noted. There is a sma ll pneumothorax on the right measuring 1.4 cm at the apex, not previously seen. Right IJ [place]-Sean ca theter tip at the main pulmonary outflow tract. Mediastinal drain. Retained epicardial pacer leads. H eart remains mildly enlarged. Worsening aeration at the left base and retrocardiac region. Interval r emoval of ET and NG tubes. Impression: 1. Bilateral chest tubes in place. There is a 1.4 cm small right apical pneumothorax now present. 2. Increasing small left pleural effusion with increasing prominent postoperative atelectasis at the retrocardiac left base.
--- NOTE | 2023-11-25 09:22 | P.PN ---
Subjective Progress Note Date: 11/25/23 Principal diagnosis: Coronary artery disease, non-ST elevated myocardial infarction this admission. Past medical history significant for hypertension, diabetes mellitus type 2 cur rently on no diabetic treatment with a hemoglobin A1c of 7.7%, he is a lifetime nonsmoker, benign prostatic hypertrophy, obesity with a BMI of 36.9 kg/m and a family history of early onset coronary artery disease with his mother having a myocardial infarction in her late 50s. POD #1 Off pump coronary artery bypass grafting x 2. Left internal thoracic artery (in-situ) to left anterior descending artery. Saphenous vein from aorta to distal right coronary artery, Left atrial appendage ligation with #35mm AtriClip, Endoscopic left greater saphenous vein harvest, Graft flow measurements using the [employer] flow meter system, Trans-esophageal echocardiogram performed by anesthesia The patient was seen and examined in follow-up today 11/25/2023 at his bedside in the intensive care unit. He was successfully extubated at 6:25 PM last evening, is currently sitting up to the bedside chair, is awake, alert, oriented 3 and is in no acute apparent distress. Oxygen saturation are 97% on room air and he is achieving 1500 mL on his incentive spirometry with encouragement. Bedside telemetry showing normal sinus rhythm heart rate 83 BPM. He remains hemodynamically stable and is currently on no inotropic or pressor support. Right IJ Cordis and Wharton-Sean catheter remains in place with current hemodynamic showing a cardiac output 6.2, cardiac index 2.8, PA pressures 23/8 and CVP 3 mmHg. Mediastinal and right/left pleural chest tubes remain in place to low continuous wall suction -20 cm H2O. No air leak is present. Draining thin serosanguineous drainage. Mediastinal chest tube drained 95 mL output in the last 8 hours and 190 mL output since surgery. Left and right pleural chest tu bes draining thin serosanguineous drainage with 80 mL output in the last 8 hours and 700 mL output since surgery. Laboratory and chest x-ray results reviewed. Ventricular epicardial pacemaker wire remains in place and connected backup bedside pacemaker generator on a VVI of 50 BPM. Objective - Vital Signs Vital signs: Vital Signs Temp 99.3 F 11/24/23 18:00 Pulse 84 11/25/23 08:31 Resp 17 11/25/23 07:00 BP 114/73 11/25/23 07:00 Pulse Ox 97 01/06/24 07:00 FiO2 50 11/24/23 18:00 Intake & Output 11/24/23 11/25/23 11/25/23 18:59 06:59 18:59 Intake Total 591.615 0132.290 855.663 Output Total 1120 1850 180 Balance -897.108 6356.290 675.663 Weight 116.7 kg Intake: IV 607 998 248 ACETAMINOPHEN IV (For NPO 100 100 100 ) 1,000 mg In Empty Bag 1 bag @ 400 mls/hr IVPB Q6HR JESSI Rx#:[id number] CO/CI 150 140 60 Lactated Ringers 1,000 ml 300 600 70 @ 20 mls/hr IV .Q24H JESSI Rx#:[id number] Pressure 54 108 18 ceFAZolin 2 gm In Sodium 50 Chloride 0.9% 50 ml @ 100 mls/hr IVPB ONCE ONE Rx# :[id number] Intake, IV Titration 147.735 346.290 107.663 Amount Clevidipine Butyrate 25 108.899 215.267 mg In Empty Bag 1 bag @ 1 MG/HR 2 mls/hr IV .Q24H JESSI Rx#:[id number] Dexmedetomidine/0.9% NaCl 13.507 (Pmx) 400 mcg In Empty Bag 1 bag @ Titrate IV . Q0M JESSI Rx#:[id number] Insulin Regular 100 unit 5.066 31.023 5.513 In Sodium Chloride 0.9% 100 ml @ Per Protocol IV .Q0M JESSI Rx#:[id number] Magnesium Sulfate-D5w Pmx 100 1 gm In Dextrose/Water 1 100ml.bag @ 100 mls/hr IVPB ONCE ONE Rx#: [id number] Nitroglycerin-D5w Pmx 50 1.325 52.15 mg In Dextrose/Water 1 250ml.bag @ 5 MCG/MIN 1.5 mls/hr IV .Q24H JESSI Rx#: [id number] ceFAZolin 2 gm In Sodium 50 Chloride 0.9% 50 ml @ 100 mls/hr IVPB Q8HR JESSI Rx# :[id number] propofoL 1,000 mg In 18.938 Empty Bag 1 bag @ Titrate IV .Q0M JESSI Rx#: [id number] Oral 3500 500 Output: Chest Tube Drainage 475 335 60 Bilateral Pleurals 400 230 50 Mediastinal 75 105 10 Urine 645 1515 120 Other: Voiding Method Indwelling Catheter Indwelling Catheter ABP, PAP, CO, CI - Last Documented Arterial Blood Pressure 119/52 Pulmonary Artery Pressure 23/8 Cardiac Output 6.2 Cardiac Index 2.8 - Exam CONSTITUTIONAL: Sitting up to the bedside chair in the intensive care unit, appears comfortable, cooperative, no apparent acute distress. HEENT: Neck is supple, no JVD, no lymphadenopathy. Right IJ Cordis and Wharton- Sean catheter in place and functioning. RESPIRATORY: Lungs sounds essentially clear throughout, diminished to his bilateral bases. Respirations are symmetrical and nonlabored. Currently on room air with oxygen saturations 97%. Able to achieve 1500 mL on his incentive spirometry. Strong cough. CARDIOVASCULAR: Regular rhythm and rate. S1 and S2 present, negative for S3, gallop or murmur. Sternum is stable. Palpable peripheral pulses bilaterally, no calf pain or tenderness noted. Heart hugger in place with patient demonstrating appropriate use. Knee-high PADMINI hose and sequential compression devices in place to his bilateral lower extremities. GASTROINTESTINAL: Abdomen soft, nontender, nondistended. Hypoactive bowel sounds present 4 quadrants. Tolerating diet. Passing flatus. No guarding or rigidity. GENITOURINARY: Dennis present draining clear, yellow urine. Urine output 970 mL in the last 8 hours. INTEGUMENTARY: Skin is warm and dry with no evidence of clubbing or cyanosis. Midline sternal incision clean dry and well approximated, covered with dry intact dressing. Left lower extremity EVH sites well approximated without redness or drainage. NEUROLOGIC: Cranial nerves II through XII intact. No focal deficits. MUSKULOSKELETAL: Able to move all extremities, strength equal bilaterally, generalized weakness. PSYCHIATRIC: Alert and oriented to person place and time, appropriate affect, intact judgment and insight. INVASIVE LINES AND TUBES: Mediastinal/left/right pleural chest tubes present and connected to low continuous wall suction, no air leaks present. Mediastinal tube with 95 mL of thin serosanguineous drainage overnight, 190 mL output in the last 24 hours. Left/right pleural chest tubes with 80 mL of thin serosanguineous drainage overnight, 700 mL output in the last 24 hours. Ventricular epicardial pacemaker wires present, connected to generator, VVI backup rate 50 bpm. Right internal jugular Wharton/Cordis, right radial arterial line present. Last CO 6.2, CI 2.8, PA 23/8 and CVP 3 mmHg. - Allied health notes Allied health notes reviewed: nursing - Labs CBC & Chem 7: 11/25/23 04:05 11/25/23 04:05 Labs: Abnormal Lab Results - Last 24 Hours (Table) 11/23/23 11/24/23 11/24/23 Range/Units 08:11 12:41 12:41 WBC 11.4 H (3.8-10.6) k/uL RBC 4.26 L (4.30-5.90) m/uL Hgb 12.5 L (13.0-17.5) gm/dL Hct 36.6 L (39.0-53.0) % Plt Count 148 L (150-450) k/uL Neutrophils # 8.9 H (1.3-7.7) k/uL Lymphocytes # (1.0-4.8) k/uL PT 13.3 H (10.0-12.5) sec INR 1.3 H (<1.2) APTT 30.1 H (22.0-30.0) sec ABG pO2 (83-108) mmHg ABG HCO3 (21-25) mmol/L ABG Total CO2 (19-24) mmol/L ABG O2 Saturation (94-97) % Sodium (137-145) mmol/L Glucose (74-99) mg/dL POC Glucose (mg/dL) (70-110) mg/dL Total Protein (6.3-8.2) g/dL Albumin (3.5-5.0) g/dL Crossmatch See Detail 11/24/23 11/24/23 11/24/23 Range/Units 12:41 12:42 13:13 WBC (3.8-10.6) k/uL RBC (4.30-5.90) m/uL Hgb (13.0-17.5) gm/dL Hct (39.0-53.0) % Plt Count (150-450) k/uL Neutrophils # (1.3-7.7) k/uL Lymphocytes # (1.0-4.8) k/uL PT (10.0-12.5) sec INR (<1.2) APTT (22.0-30.0) sec ABG pO2 193 H (83-108) mmHg ABG HCO3 26 H (21-25) mmol/L ABG Total CO2 27 H (19-24) mmol/L ABG O2 Saturation 99.3 H (94-97) % Sodium (137-145) mmol/L Glucose 122 H (74-99) mg/dL POC Glucose (mg/dL) 129 H (70-110) mg/dL Total Protein 5.8 L (6.3-8.2) g/dL Albumin 3.4 L (3.5-5.0) g/dL Crossmatch 11/24/23 11/24/23 11/24/23 Range/Units 14:02 14:58 15:00 WBC 14.3 H (3.8-10.6) k/uL RBC (4.30-5.90) m/uL Hgb (13.0-17.5) gm/dL Hct 38.8 L (39.0-53.0) % Plt Count (150-450) k/uL Neutrophils # 11.1 H (1.3-7.7) k/uL Lymphocytes # (1.0-4.8) k/uL PT (10.0-12.5) sec INR (<1.2) APTT (22.0-30.0) sec ABG pO2 (83-108) mmHg ABG HCO3 (21-25) mmol/L ABG Total CO2 (19-24) mmol/L ABG O2 Saturation (94-97) % Sodium (137-145) mmol/L Glucose (74-99) mg/dL POC Glucose (mg/dL) 130 H 147 H (70-110) mg/dL Total Protein (6.3-8.2) g/dL Albumin (3.5-5.0) g/dL Crossmatch 11/24/23 11/24/23 11/24/23 Range/Units 16:16 16:55 17:02 WBC (3.8-10.6) k/uL RBC (4.30-5.90) m/uL Hgb (13.0-17.5) gm/dL Hct (39.0-53.0) % Plt Count (150-450) k/uL Neutrophils # (1.3-7.7) k/uL Lymphocytes # (1.0-4.8) k/uL PT (10.0-12.5) sec INR (<1.2) APTT (22.0-30.0) sec ABG pO2 (83-108) mmHg ABG HCO3 (21-25) mmol/L ABG Total CO2 25 H (19-24) mmol/L ABG O2 Saturation (94-97) % Sodium (137-145) mmol/L Glucose (74-99) mg/dL POC Glucose (mg/dL) 131 H 156 H (70-110) mg/dL Total Protein (6.3-8.2) g/dL Albumin (3.5-5.0) g/dL Crossmatch 11/24/23 11/24/23 11/24/23 Range/Units 18:09 18:10 19:03 WBC 18.0 H (3.8-10.6) k/uL RBC (4.30-5.90) m/uL Hgb (13.0-17.5) gm/dL Hct (39.0-53.0) % Plt Count (150-450) k/uL Neutrophils # 15.9 H (1.3-7.7) k/uL Lymphocytes # 0.8 L (1.0-4.8) k/uL PT (10.0-12.5) sec INR (<1.2) APTT (22.0-30.0) sec ABG pO2 (83-108) mmHg ABG HCO3 (21-25) mmol/L ABG Total CO2 (19-24) mmol/L ABG O2 Saturation (94-97) % Sodium (137-145) mmol/L Glucose (74-99) mg/dL POC Glucose (mg/dL) 147 H 155 H (70-110) mg/dL Total Protein (6.3-8.2) g/dL Albumin (3.5-5.0) g/dL Crossmatch 11/24/23 11/24/23 11/24/23 Range/Units 20:05 20:58 21:59 WBC (3.8-10.6) k/uL RBC (4.30-5.90) m/uL Hgb (13.0-17.5) gm/dL Hct (39.0-53.0) % Plt Count (150-450) k/uL Neutrophils # (1.3-7.7) k/uL Lymphocytes # (1.0-4.8) k/uL PT (10.0-12.5) sec INR (<1.2) APTT (22.0-30.0) sec ABG pO2 (83-108) mmHg ABG HCO3 (21-25) mmol/L ABG Total CO2 (19-24) mmol/L ABG O2 Saturation (94-97) % Sodium (137-145) mmol/L Glucose (74-99) mg/dL POC Glucose (mg/dL) 167 H 170 H 157 H (70-110) mg/dL Total Protein (6.3-8.2) g/dL Albumin (3.5-5.0) g/dL Crossmatch 11/24/23 11/24/23 11/25/23 Range/Units 23:00 23:51 00:52 WBC (3.8-10.6) k/uL RBC (4.30-5.90) m/uL Hgb (13.0-17.5) gm/dL Hct (39.0-53.0) % Plt Count (150-450) k/uL Neutrophils # (1.3-7.7) k/uL Lymphocytes # (1.0-4.8) k/uL PT (10.0-12.5) sec INR (<1.2) APTT (22.0-30.0) sec ABG pO2 (83-108) mmHg ABG HCO3 (21-25) mmol/L ABG Total CO2 (19-24) mmol/L ABG O2 Saturation (94-97) % Sodium (137-145) mmol/L Glucose (74-99) mg/dL POC Glucose (mg/dL) 147 H 138 H 138 H (70-110) mg/dL Total Protein (6.3-8.2) g/dL Albumin (3.5-5.0) g/dL Crossmatch 11/25/23 11/25/23 11/25/23 Range/Units 01:59 02:58 04:02 WBC (3.8-10.6) k/uL RBC (4.30-5.90) m/uL Hgb (13.0-17.5) gm/dL Hct (39.0-53.0) % Plt Count (150-450) k/uL Neutrophils # (1.3-7.7) k/uL Lymphocytes # (1.0-4.8) k/uL PT (10.0-12.5) sec INR (<1.2) APTT (22.0-30.0) sec ABG pO2 (83-108) mmHg ABG HCO3 (21-25) mmol/L ABG Total CO2 (19-24) mmol/L ABG O2 Saturation (94-97) % Sodium (137-145) mmol/L Glucose (74-99) mg/dL POC Glucose (mg/dL) 149 H 132 H 137 H (70-110) mg/dL Total Protein (6.3-8.2) g/dL Albumin (3.5-5.0) g/dL Crossmatch 11/25/23 11/25/23 11/25/23 Range/Units 04:05 04:05 05:00 WBC 14.0 H (3.8-10.6) k/uL RBC (4.30-5.90) m/uL Hgb (13.0-17.5) gm/dL Hct (39.0-53.0) % Plt Count (150-450) k/uL Neutrophils # 11.2 H (1.3-7.7) k/uL Lymphocytes # (1.0-4.8) k/uL PT (10.0-12.5) sec INR (<1.2) APTT (22.0-30.0) sec ABG pO2 (83-108) mmHg ABG HCO3 (21-25) mmol/L ABG Total CO2 (19-24) mmol/L ABG O2 Saturation (94-97) % Sodium 133 L (137-145) mmol/L Glucose 132 H (74-99) mg/dL POC Glucose (mg/dL) 135 H (70-110) mg/dL Total Protein 5.9 L (6.3-8.2) g/dL Albumin 3.4 L (3.5-5.0) g/dL Crossmatch 11/25/23 11/25/23 11/25/23 Range/Units 06:06 07:04 08:17 WBC (3.8-10.6) k/uL RBC (4.30-5.90) m/uL Hgb (13.0-17.5) gm/dL Hct (39.0-53.0) % Plt Count (150-450) k/uL Neutrophils # (1.3-7.7) k/uL Lymphocytes # (1.0-4.8) k/uL PT (10.0-12.5) sec INR (<1.2) APTT (22.0-30.0) sec ABG pO2 (83-108) mmHg ABG HCO3 (21-25) mmol/L ABG Total CO2 (19-24) mmol/L ABG O2 Saturation (94-97) % Sodium (137-145) mmol/L Glucose (74-99) mg/dL POC Glucose (mg/dL) 148 H 155 H 147 H (70-110) mg/dL Total Protein (6.3-8.2) g/dL Albumin (3.5-5.0) g/dL Crossmatch - Imaging and Cardiology Chest x-ray: report reviewed, image reviewed Assessment and Plan Assessment: Coronary artery disease, status post CABG 2 Hypertension Hyperlipidemia, cholesterol 218 and triglycerides 247 Diabetes mellitus type 2, currently on no treatment as an outpatient, preoperative hemoglobin A1c of 7.7% Benign prostatic hypertrophy Lifetime nonsmoker Obesity with a BMI of 36.9 kg/m Early onset family history of coronary artery disease with his mother having a myocardial infarction in her late 50s Plan: Continue to maximize medical therapy with aspirin, statin, plavix, and beta jesse. Will increase metoprolol tartrate 25 mg by mouth twice a day with hold parameters. Discontinue nitroglycerin drip. Continue amiodarone 400 mg by mouth twice a day for atrial fibrillation prophylaxis. Encourage incentive spirometry use 10 times every hour while awake. Bronchodilators per pulmonology. Will monitor daily labs and chest x-rays, electrolyte replacement protocol. Increase activity as tolerated. PT/OT/cardiac rehab consulted. GI/DVT prophylaxis. Pain control with current medication regimen. We will add acetaminophen 1000 mg by mouth every 6 hours when necessary pain Ofirmev 1000 mg IV piggyback 1 now. Insulin management per internal medicine. Preoperative hemoglobin A1c 7.7%. Patient should remain on insulin drip for 48 hours, then may transition to sliding scale coverage per protocol. Discontinue Wharton. Connect Cordis to continuous CVP monitoring. Continue mediastinal/left/right pleural chest tubes for another 24 hours, monitor output. Continue dennis catheter for another 24 hours, continue to record strict accurate intake and output. Daily weights. More recommendations to follow based on patient's clinical course. Time with Patient: Greater than 30
[2023-11-25 10:07] LABS: Glucose,Whole Blood 140 mg/dL (70-110)
[2023-11-25] MEDS: AMIODARONE 200 MG TAB PO SCH ×2 (10:47→19:59)
[2023-11-25] MEDS ORDERED: POTASSIUM CHLORIDE ER 10 MEQ TAB.ER.PRT PO STA (10:56)
[2023-11-25] MEDS ORDERED: FUROSEMIDE 10 MG/ML 2 ML VIAL IV STA (10:56)
[2023-11-25 11:04] LABS: Glucose,Whole Blood 129 mg/dL (70-110)
[2023-11-25 12:09] LABS: Glucose,Whole Blood 130 mg/dL (70-110)
--- NOTE | 2023-11-25 13:00 | P.PN ---
Subjective Progress Note Date: 11/25/23 This is Anthony Frederick NP, I'm dictating on behalf of Dr. Fuentes's H&P and A&P. Patient was interviewed and examined. Patient is a pleasant 72-year-old male who presented to the hospital with an NSTEMI, and underwent coronary artery bypass grafting of left internal thoracic artery to left anterior descending artery, and aorta to distal right coronary artery. Patient is doing well today. He reports that he is breathing okay. He has expected midsternal chest pain secondary to the surgery. Patient is artery been up and walking hallways. Vital signs are stable. Patient is in normal sinus rhythm with a heart rate 74. GENERAL: Well-appearing, well-nourished and in no acute distress. NECK: Supple without JVD or thyromegaly. LUNGS: Breath sounds clear to auscultation bilaterally. Respiration equal and unlabored. No wheezes, rales or rhonchi. HEART: Regular rate and rhythm without murmurs, rubs or gallops. S1 and S2 heard. EXTREMITIES: Normal range of motion, no edema. No clubbing or cyanosis. Peripheral pulses intact and strong. VITALS: Temp 100.4, pulse 81, respirations 13, blood pressure 141/57, O2 saturation 97% on 4 L via nasal cannula TELEMETRY: Normal sinus rhythm LABS: White count 14, hemoglobin 13.4, platelets 181, sodium 133, potassium 4.1, B1 14, creatinine 0.82, magnesium 1.7 IMPRESSION: 1. N STEMI 2. Substernal chest pain with exertion, relieved with nitro 3. Essential hypertension 4. BPH 5. Obesity PLAN: Continue current management. No medication changes at this time. Patient is status post CABG 2. Continue management via cardiothoracic surgery. Further recommendations based on patient's clinical course. Objective - Vital Signs Vital signs: Vital Signs Temp 100.4 F H 11/25/23 08:00 Pulse 75 11/25/23 11:45 Resp 17 11/25/23 11:30 BP 105/59 11/25/23 09:00 Pulse Ox 97 11/25/23 10:30 FiO2 50 11/24/23 18:00 Intake & Output 11/24/23 11/25/23 11/25/23 18:59 06:59 18:59 Intake Total 120.753 4769.290 962.481 Output Total 1120 1850 350 Balance -892.381 9368.290 612.481 Weight 116.7 kg Intake: IV 607 998 353 ACETAMINOPHEN IV (For NPO 100 100 100 ) 1,000 mg In Empty Bag 1 bag @ 400 mls/hr IVPB Q6HR JESSI Rx#:[id number] CO/CI 150 140 60 Lactated Ringers 1,000 ml 300 600 160 @ 20 mls/hr IV .Q24H JESSI Rx#:[id number] Pressure 54 108 33 ceFAZolin 2 gm In Sodium 50 Chloride 0.9% 50 ml @ 100 mls/hr IVPB ONCE ONE Rx# :[id number] Intake, IV Titration 147.735 346.290 109.481 Amount Clevidipine Butyrate 25 108.899 215.267 mg In Empty Bag 1 bag @ 1 MG/HR 2 mls/hr IV .Q24H JESSI Rx#:[id number] Dexmedetomidine/0.9% NaCl 13.507 (Pmx) 400 mcg In Empty Bag 1 bag @ Titrate IV . Q0M JESSI Rx#:[id number] Insulin Regular 100 unit 5.066 31.023 7.331 In Sodium Chloride 0.9% 100 ml @ Per Protocol IV .Q0M JESSI Rx#:[id number] Magnesium Sulfate-D5w Pmx 100 1 gm In Dextrose/Water 1 100ml.bag @ 100 mls/hr IVPB ONCE ONE Rx#: [id number] Nitroglycerin-D5w Pmx 50 1.325 52.15 mg In Dextrose/Water 1 250ml.bag @ 5 MCG/MIN 1.5 mls/hr IV .Q24H JESSI Rx#: [id number] ceFAZolin 2 gm In Sodium 50 Chloride 0.9% 50 ml @ 100 mls/hr IVPB Q8HR JESSI Rx# :[id number] propofoL 1,000 mg In 18.938 Empty Bag 1 bag @ Titrate IV .Q0M JESSI Rx#: [id number] Oral 3500 500 Output: Chest Tube Drainage 475 335 100 Bilateral Pleurals 400 230 70 Mediastinal 75 105 30 Urine 645 1515 250 Other: Voiding Method Indwelling Catheter Indwelling Catheter ABP, PAP, CO, CI - Last Documented Arterial Blood Pressure 112/51 Pulmonary Artery Pressure 29/10 Cardiac Output 6.4 Cardiac Index 2.8 - Labs CBC & Chem 7: 11/25/23 04:05 11/25/23 04:05 Labs: Abnormal Lab Results - Last 24 Hours (Table) 11/23/23 11/24/23 11/24/23 Range/Units 08:11 12:41 12:41 WBC (3.8-10.6) k/uL Hct (39.0-53.0) % Neutrophils # (1.3-7.7) k/uL Lymphocytes # (1.0-4.8) k/uL PT 13.3 H (10.0-12.5) sec INR 1.3 H (<1.2) APTT 30.1 H (22.0-30.0) sec ABG pO2 (83-108) mmHg ABG HCO3 (21-25) mmol/L ABG Total CO2 (19-24) mmol/L ABG O2 Saturation (94-97) % Sodium (137-145) mmol/L Glucose 122 H (74-99) mg/dL POC Glucose (mg/dL) (70-110) mg/dL Total Protein 5.8 L (6.3-8.2) g/dL Albumin 3.4 L (3.5-5.0) g/dL Crossmatch See Detail 11/24/23 11/24/23 11/24/23 Range/Units 13:13 14:02 14:58 WBC (3.8-10.6) k/uL Hct (39.0-53.0) % Neutrophils # (1.3-7.7) k/uL Lymphocytes # (1.0-4.8) k/uL PT (10.0-12.5) sec INR (<1.2) APTT (22.0-30.0) sec ABG pO2 193 H (83-108) mmHg ABG HCO3 26 H (21-25) mmol/L ABG Total CO2 27 H (19-24) mmol/L ABG O2 Saturation 99.3 H (94-97) % Sodium (137-145) mmol/L Glucose (74-99) mg/dL POC Glucose (mg/dL) 130 H 147 H (70-110) mg/dL Total Protein (6.3-8.2) g/dL Albumin (3.5-5.0) g/dL Crossmatch 11/24/23 11/24/23 11/24/23 Range/Units 15:00 16:16 16:55 WBC 14.3 H (3.8-10.6) k/uL Hct 38.8 L (39.0-53.0) % Neutrophils # 11.1 H (1.3-7.7) k/uL Lymphocytes # (1.0-4.8) k/uL PT (10.0-12.5) sec INR (<1.2) APTT (22.0-30.0) sec ABG pO2 (83-108) mmHg ABG HCO3 (21-25) mmol/L ABG Total CO2 (19-24) mmol/L ABG O2 Saturation (94-97) % Sodium (137-145) mmol/L Glucose (74-99) mg/dL POC Glucose (mg/dL) 131 H 156 H (70-110) mg/dL Total Protein (6.3-8.2) g/dL Albumin (3.5-5.0) g/dL Crossmatch 11/24/23 11/24/23 11/24/23 Range/Units 17:02 18:09 18:10 WBC 18.0 H (3.8-10.6) k/uL Hct (39.0-53.0) % Neutrophils # 15.9 H (1.3-7.7) k/uL Lymphocytes # 0.8 L (1.0-4.8) k/uL PT (10.0-12.5) sec INR (<1.2) APTT (22.0-30.0) sec ABG pO2 (83-108) mmHg ABG HCO3 (21-25) mmol/L ABG Total CO2 25 H (19-24) mmol/L ABG O2 Saturation (94-97) % Sodium (137-145) mmol/L Glucose (74-99) mg/dL POC Glucose (mg/dL) 147 H (70-110) mg/dL Total Protein (6.3-8.2) g/dL Albumin (3.5-5.0) g/dL Crossmatch 11/24/23 11/24/23 11/24/23 Range/Units 19:03 20:05 20:58 WBC (3.8-10.6) k/uL Hct (39.0-53.0) % Neutrophils # (1.3-7.7) k/uL Lymphocytes # (1.0-4.8) k/uL PT (10.0-12.5) sec INR (<1.2) APTT (22.0-30.0) sec ABG pO2 (83-108) mmHg ABG HCO3 (21-25) mmol/L ABG Total CO2 (19-24) mmol/L ABG O2 Saturation (94-97) % Sodium (137-145) mmol/L Glucose (74-99) mg/dL POC Glucose (mg/dL) 155 H 167 H 170 H (70-110) mg/dL Total Protein (6.3-8.2) g/dL Albumin (3.5-5.0) g/dL Crossmatch 11/24/23 11/24/23 11/24/23 Range/Units 21:59 23:00 23:51 WBC (3.8-10.6) k/uL Hct (39.0-53.0) % Neutrophils # (1.3-7.7) k/uL Lymphocytes # (1.0-4.8) k/uL PT (10.0-12.5) sec INR (<1.2) APTT (22.0-30.0) sec ABG pO2 (83-108) mmHg ABG HCO3 (21-25) mmol/L ABG Total CO2 (19-24) mmol/L ABG O2 Saturation (94-97) % Sodium (137-145) mmol/L Glucose (74-99) mg/dL POC Glucose (mg/dL) 157 H 147 H 138 H (70-110) mg/dL Total Protein (6.3-8.2) g/dL Albumin (3.5-5.0) g/dL Crossmatch 11/25/23 11/25/23 11/25/23 Range/Units 00:52 01:59 02:58 WBC (3.8-10.6) k/uL Hct (39.0-53.0) % Neutrophils # (1.3-7.7) k/uL Lymphocytes # (1.0-4.8) k/uL PT (10.0-12.5) sec INR (<1.2) APTT (22.0-30.0) sec ABG pO2 (83-108) mmHg ABG HCO3 (21-25) mmol/L ABG Total CO2 (19-24) mmol/L ABG O2 Saturation (94-97) % Sodium (137-145) mmol/L Glucose (74-99) mg/dL POC Glucose (mg/dL) 138 H 149 H 132 H (70-110) mg/dL Total Protein (6.3-8.2) g/dL Albumin (3.5-5.0) g/dL Crossmatch 11/25/23 11/25/23 11/25/23 Range/Units 04:02 04:05 04:05 WBC 14.0 H (3.8-10.6) k/uL Hct (39.0-53.0) % Neutrophils # 11.2 H (1.3-7.7) k/uL Lymphocytes # (1.0-4.8) k/uL PT (10.0-12.5) sec INR (<1.2) APTT (22.0-30.0) sec ABG pO2 (83-108) mmHg ABG HCO3 (21-25) mmol/L ABG Total CO2 (19-24) mmol/L ABG O2 Saturation (94-97) % Sodium 133 L (137-145) mmol/L Glucose 132 H (74-99) mg/dL POC Glucose (mg/dL) 137 H (70-110) mg/dL Total Protein 5.9 L (6.3-8.2) g/dL Albumin 3.4 L (3.5-5.0) g/dL Crossmatch 11/25/23 11/25/23 11/25/23 Range/Units 05:00 06:06 07:04 WBC (3.8-10.6) k/uL Hct (39.0-53.0) % Neutrophils # (1.3-7.7) k/uL Lymphocytes # (1.0-4.8) k/uL PT (10.0-12.5) sec INR (<1.2) APTT (22.0-30.0) sec ABG pO2 (83-108) mmHg ABG HCO3 (21-25) mmol/L ABG Total CO2 (19-24) mmol/L ABG O2 Saturation (94-97) % Sodium (137-145) mmol/L Glucose (74-99) mg/dL POC Glucose (mg/dL) 135 H 148 H 155 H (70-110) mg/dL Total Protein (6.3-8.2) g/dL Albumin (3.5-5.0) g/dL Crossmatch 11/25/23 11/25/23 11/25/23 Range/Units 08:17 09:10 10:06 WBC (3.8-10.6) k/uL Hct (39.0-53.0) % Neutrophils # (1.3-7.7) k/uL Lymphocytes # (1.0-4.8) k/uL PT (10.0-12.5) sec INR (<1.2) APTT (22.0-30.0) sec ABG pO2 (83-108) mmHg ABG HCO3 (21-25) mmol/L ABG Total CO2 (19-24) mmol/L ABG O2 Saturation (94-97) % Sodium (137-145) mmol/L Glucose (74-99) mg/dL POC Glucose (mg/dL) 147 H 138 H 140 H (70-110) mg/dL Total Protein (6.3-8.2) g/dL Albumin (3.5-5.0) g/dL Crossmatch 11/25/23 11/25/23 Range/Units 11:02 11:59 WBC (3.8-10.6) k/uL Hct (39.0-53.0) % Neutrophils # (1.3-7.7) k/uL Lymphocytes # (1.0-4.8) k/uL PT (10.0-12.5) sec INR (<1.2) APTT (22.0-30.0) sec ABG pO2 (83-108) mmHg ABG HCO3 (21-25) mmol/L ABG Total CO2 (19-24) mmol/L ABG O2 Saturation (94-97) % Sodium (137-145) mmol/L Glucose (74-99) mg/dL POC Glucose (mg/dL) 129 H 130 H (70-110) mg/dL Total Protein (6.3-8.2) g/dL Albumin (3.5-5.0) g/dL Crossmatch
[2023-11-25 13:14] LABS: Glucose,Whole Blood 161 mg/dL (70-110)
--- NOTE | 2023-11-25 13:39 | P.PN ---
Subjective Progress Note Date: 11/25/23 Principal diagnosis: Acute non-ST elevation myocardial infarction and coronary arteriosclerosis This is a very pleasant 72-year-old male patient with history of diabetes mellitus, hypertension who presented here to the emergency room on 11/20/2023 with complaints of chest discomfort. He had been having symptoms on and off 2-3 weeks prior. Mostly exertional. EGD revealed some mild ST segment abnormalities. Initial troponin was negative subsequent troponins were 0.08, 0.24, 0.14. Chest x-ray revealed no acute pulmonary process. Echocardiogram revealed preserved left ventricular systolic function with ejection fraction 55- 60%. CT angiogram revealed no evidence of pulmonary embolism. Lung noble were clear. He did undergo cardiac catheterization on 11/21/2023 which revealed 80% diffuse calcified proximal LAD disease and 80-90% calcified mid RCA disease. He was recommended coronary artery bypass grafting. We are seeing the patient today in consultation. He is a lifelong nonsmoker. Pulmonary function testing reveals an FEV1 value 2.53 L or 86% of predicted. He currently denies any shortness of breath, cough or congestion. Maintaining good O2 saturations in the mid 90s on room air. I count 7.8. Hemoglobin 14.2. Platelets 198. Sodium 139. Potassium 4.2. Bicarb 25. BUN 17. Creatinine 0.78. Glucose 170. Cholesterol 188. Triglycerides 171. LDL 106. HDL 48. Hepatitis screen negative. He's been afebrile. Hemodynamically stable. He is able to pull 3 L on the incentive spirometer. He has remained quite active throughout his career and into custodial. He is up ambulating in his room. He denies any chest discomfort currently. The plan is for bypass grafting on 11/24/2023. He remains on a heparin drip. Reevaluated today on 11/23/23, patient is doing great, asymptomatic, patient is ambulating in his own room, he is on room air, denies any shortness of breath or chest pain, remains on heparin, he is in sinus rhythm, hemodynamically stable, not in any distress and he is scheduled for off-pump myocardial revascularization surgery with left internal mammary artery, endoscopic vein harvest, intraoperative transesophageal echocardiogram and exclusion of left atrial appendage to be completed by Dr. Quintanilla tomorrow 11/24/2023. Patient was seen today on 11/24/2023, patient is now status post off-pump coronary artery bypass grafting 2Left internal thoracic artery (in-situ) to left anterior descending artery. Saphenous vein from aorta to distal right coronary artery. , Patient also had left atrial appendage ligation, postoperatively patient was sent to the ICU he is now on mechanical ventilation, intubated, mechanically ventilated. Patient was on assist control rate of 14 tidal volume 550 FiO2 on the percent and PEEP of 10 ABG showed a pO2 of 193 pCO2 45 pH of 7.39. Since then his FiO2 was titrated down to 50%, and his PEEP is now down to 5, and he is on a pressure support of 8 with CPAP. Drips-merchant the patient is on clevidipine X at 4 mg/h he is on insulin 1 unit per hour patient is also on Precedex at 0.4 mcg/kg/h, and nitroglycerin at 10 units per minute patient seems to be calm, not in any distress, hemodynamics-merchant his cardiac output is 8.7 cardiac index is 3.9 blood pressure is 139/63. Chest x-ray showed mostly postoperative changes, endotracheal tube is above the thanh, [place]-Sean catheter is present in the main pulmonary artery region, left sided chest tube seems to be in proper positioning. Orogastric tube is also in proper position. Patient was reevaluated today on 11/25/2023, patient was extubated today uneventfully, he is now postoperative day #1Off pump coronary artery bypass grafting x 2. Left internal thoracic artery (in-situ) to left anterior descending artery. Saphenous vein from aorta to distal right coronary artery, Left atrial appendage ligation with #35mm AtriClip, Endoscopic left greater saphenous vein harvest, Graft flow measurements using the Medi-Stim flow meter system, Trans-esophageal echocardiogram performed by anesthesia patient was extubated last night at 6:25 PM, patient is resting in bed, alert oriented 3, O2 saturation is 97% however he is on 5 L nasal cannula. Remains on insulin drip at 2.5 units per hour, he has lactated Ringer's running at 50 mL per hour. Cardiac output is 6.4 cardiac index is 2.8, patient is also receiving albumin, pulmonary pressure is 23/8. CVP is 3. Mediastinal and right left pleural chest tubes remain in place, no air leak. Chest x-ray showed left basilar atelectasis and possibly a small pleural effusion. Radiologists is raising the possibility of small right-sided pleural effusion, it is minimal and very atypical. Not clinically significant at this point. Objective - Vital Signs Vital signs: Vital Signs Temp 100.4 F H 11/25/23 08:00 Pulse 79 11/25/23 12:30 Resp 20 11/25/23 12:30 BP 114/62 11/25/23 12:30 Pulse Ox 93 L 11/25/23 12:30 FiO2 50 11/24/23 18:00 Intake & Output 11/24/23 11/25/23 11/25/23 18:59 06:59 18:59 Intake Total 753.571 3817.290 1060.465 Output Total 1120 1850 515 Balance -371.514 5645.290 545.465 Weight 116.7 kg Intake: IV 607 998 445 ACETAMINOPHEN IV (For NPO 100 100 100 ) 1,000 mg In Empty Bag 1 bag @ 400 mls/hr IVPB Q6HR JESSI Rx#:[id number] CO/CI 150 140 60 Lactated Ringers 1,000 ml 300 600 240 @ 20 mls/hr IV .Q24H JESSI Rx#:[id number] Pressure 54 108 45 ceFAZolin 2 gm In Sodium 50 Chloride 0.9% 50 ml @ 100 mls/hr IVPB ONCE ONE Rx# :[id number] Intake, IV Titration 147.735 346.290 115.465 Amount Clevidipine Butyrate 25 108.899 215.267 mg In Empty Bag 1 bag @ 1 MG/HR 2 mls/hr IV .Q24H JESSI Rx#:[id number] Dexmedetomidine/0.9% NaCl 13.507 (Pmx) 400 mcg In Empty Bag 1 bag @ Titrate IV . Q0M JESSI Rx#:[id number] Insulin Regular 100 unit 5.066 31.023 13.315 In Sodium Chloride 0.9% 100 ml @ Per Protocol IV .Q0M JESSI Rx#:[id number] Magnesium Sulfate-D5w Pmx 100 1 gm In Dextrose/Water 1 100ml.bag @ 100 mls/hr IVPB ONCE ONE Rx#: [id number] Nitroglycerin-D5w Pmx 50 1.325 52.15 mg In Dextrose/Water 1 250ml.bag @ 5 MCG/MIN 1.5 mls/hr IV .Q24H JESSI Rx#: [id number] ceFAZolin 2 gm In Sodium 50 Chloride 0.9% 50 ml @ 100 mls/hr IVPB Q8HR JESSI Rx# :[id number] propofoL 1,000 mg In 18.938 Empty Bag 1 bag @ Titrate IV .Q0M JESSI Rx#: [id number] Oral 3500 500 Output: Chest Tube Drainage 475 335 140 Bilateral Pleurals 400 230 70 Mediastinal 75 105 70 Urine 645 1515 375 Other: Voiding Method Indwelling Catheter Indwelling Catheter ABP, PAP, CO, CI - Last Documented Arterial Blood Pressure 114/53 Pulmonary Artery Pressure 29/10 Cardiac Output 6.4 Cardiac Index 2.8 - Exam Physical Exam: Revealed 72-year-old white male , in no distress on nasal cannula Head: Atraumatic, normocephalic. HEENT:[Neck is supple.] [No neck masses.] [No thyromegaly.] [No JVD.] Right IJ Cord[place] and [place]-Sean catheter noted Chest: [Diminished breath sounds at the bases no crackles or rhonchi or wheezes , chest tubes noted. Cardiac Exam: [Normal S1 and S2, no S3 gallop, no murmur.] Positive pericardial rub Abdomen: [Soft, nontender, no megaly, no rebound, no guarding, normal bowel sounds.] Extremities: [No clubbing, no edema, no cyanosis.] Neurological Exam: Awake alert oriented 3 no gross focal deficit Psychiatric: Normal mood, affect and normal mental status examination Skin: No rashes. Musculoskeletal: No deformities and no limitation in range of motion - Labs CBC & Chem 7: 11/25/23 04:05 11/25/23 04:05 Labs: Abnormal Lab Results - Last 24 Hours (Table) 11/23/23 11/24/23 11/24/23 Range/Units 08:11 14:02 14:58 WBC (3.8-10.6) k/uL Hct (39.0-53.0) % Neutrophils # (1.3-7.7) k/uL Lymphocytes # (1.0-4.8) k/uL ABG Total CO2 (19-24) mmol/L Sodium (137-145) mmol/L Glucose (74-99) mg/dL POC Glucose (mg/dL) 130 H 147 H (70-110) mg/dL Total Protein (6.3-8.2) g/dL Albumin (3.5-5.0) g/dL Crossmatch See Detail 11/24/23 11/24/23 11/24/23 Range/Units 15:00 16:16 16:55 WBC 14.3 H (3.8-10.6) k/uL Hct 38.8 L (39.0-53.0) % Neutrophils # 11.1 H (1.3-7.7) k/uL Lymphocytes # (1.0-4.8) k/uL ABG Total CO2 (19-24) mmol/L Sodium (137-145) mmol/L Glucose (74-99) mg/dL POC Glucose (mg/dL) 131 H 156 H (70-110) mg/dL Total Protein (6.3-8.2) g/dL Albumin (3.5-5.0) g/dL Crossmatch 11/24/23 11/24/23 11/24/23 Range/Units 17:02 18:09 18:10 WBC 18.0 H (3.8-10.6) k/uL Hct (39.0-53.0) % Neutrophils # 15.9 H (1.3-7.7) k/uL Lymphocytes # 0.8 L (1.0-4.8) k/uL ABG Total CO2 25 H (19-24) mmol/L Sodium (137-145) mmol/L Glucose (74-99) mg/dL POC Glucose (mg/dL) 147 H (70-110) mg/dL Total Protein (6.3-8.2) g/dL Albumin (3.5-5.0) g/dL Crossmatch 11/24/23 11/24/23 11/24/23 Range/Units 19:03 20:05 20:58 WBC (3.8-10.6) k/uL Hct (39.0-53.0) % Neutrophils # (1.3-7.7) k/uL Lymphocytes # (1.0-4.8) k/uL ABG Total CO2 (19-24) mmol/L Sodium (137-145) mmol/L Glucose (74-99) mg/dL POC Glucose (mg/dL) 155 H 167 H 170 H (70-110) mg/dL Total Protein (6.3-8.2) g/dL Albumin (3.5-5.0) g/dL Crossmatch 11/24/23 11/24/23 11/24/23 Range/Units 21:59 23:00 23:51 WBC (3.8-10.6) k/uL Hct (39.0-53.0) % Neutrophils # (1.3-7.7) k/uL Lymphocytes # (1.0-4.8) k/uL ABG Total CO2 (19-24) mmol/L Sodium (137-145) mmol/L Glucose (74-99) mg/dL POC Glucose (mg/dL) 157 H 147 H 138 H (70-110) mg/dL Total Protein (6.3-8.2) g/dL Albumin (3.5-5.0) g/dL Crossmatch 11/25/23 11/25/23 11/25/23 Range/Units 00:52 01:59 02:58 WBC (3.8-10.6) k/uL Hct (39.0-53.0) % Neutrophils # (1.3-7.7) k/uL Lymphocytes # (1.0-4.8) k/uL ABG Total CO2 (19-24) mmol/L Sodium (137-145) mmol/L Glucose (74-99) mg/dL POC Glucose (mg/dL) 138 H 149 H 132 H (70-110) mg/dL Total Protein (6.3-8.2) g/dL Albumin (3.5-5.0) g/dL Crossmatch 11/25/23 11/25/23 11/25/23 Range/Units 04:02 04:05 04:05 WBC 14.0 H (3.8-10.6) k/uL Hct (39.0-53.0) % Neutrophils # 11.2 H (1.3-7.7) k/uL Lymphocytes # (1.0-4.8) k/uL ABG Total CO2 (19-24) mmol/L Sodium 133 L (137-145) mmol/L Glucose 132 H (74-99) mg/dL POC Glucose (mg/dL) 137 H (70-110) mg/dL Total Protein 5.9 L (6.3-8.2) g/dL Albumin 3.4 L (3.5-5.0) g/dL Crossmatch 11/25/23 11/25/23 11/25/23 Range/Units 05:00 06:06 07:04 WBC (3.8-10.6) k/uL Hct (39.0-53.0) % Neutrophils # (1.3-7.7) k/uL Lymphocytes # (1.0-4.8) k/uL ABG Total CO2 (19-24) mmol/L Sodium (137-145) mmol/L Glucose (74-99) mg/dL POC Glucose (mg/dL) 135 H 148 H 155 H (70-110) mg/dL Total Protein (6.3-8.2) g/dL Albumin (3.5-5.0) g/dL Crossmatch 11/25/23 11/25/23 11/25/23 Range/Units 08:17 09:10 10:06 WBC (3.8-10.6) k/uL Hct (39.0-53.0) % Neutrophils # (1.3-7.7) k/uL Lymphocytes # (1.0-4.8) k/uL ABG Total CO2 (19-24) mmol/L Sodium (137-145) mmol/L Glucose (74-99) mg/dL POC Glucose (mg/dL) 147 H 138 H 140 H (70-110) mg/dL Total Protein (6.3-8.2) g/dL Albumin (3.5-5.0) g/dL Crossmatch 11/25/23 11/25/23 11/25/23 Range/Units 11:02 11:59 13:10 WBC (3.8-10.6) k/uL Hct (39.0-53.0) % Neutrophils # (1.3-7.7) k/uL Lymphocytes # (1.0-4.8) k/uL ABG Total CO2 (19-24) mmol/L Sodium (137-145) mmol/L Glucose (74-99) mg/dL POC Glucose (mg/dL) 129 H 130 H 161 H (70-110) mg/dL Total Protein (6.3-8.2) g/dL Albumin (3.5-5.0) g/dL Crossmatch Assessment and Plan Assessment: Impression: Status post Off pump coronary artery bypass grafting x 2. Left internal thoracic artery (in-situ) to left anterior descending artery. Saphenous vein from aorta to distal right coronary artery. Postoperative day #1 Coronary artery disease Benign essential hypertension Lifetime nonsmoker, nondrinker Type 2 diabetes without complications Family history of early onset coronary artery disease Recommendation: Maximal medical therapy including aspirin statins and Plavix and beta blockers Continue GI and DVT prophylaxis Incentive spirometry Early ambulation Continue bronchodilators Continue insulin and transition to subcu insulin Discontinue unnecessary lines and catheters Daily weights Hemodynamics were all reviewed We'll continue to fall Time with Patient: Less than 30
[2023-11-25 14:18] LABS: Glucose,Whole Blood 174 mg/dL (70-110)
--- NOTE | 2023-11-25 14:46 | P.PN ---
Subjective Progress Note Date: 11/25/23 Patient evaluated today standing at the bedside. No reports of chest pain or shortness of breath. He is scheduled to undergo coronary bypass tomorrow. Discussed with patient hemoglobin A1C of 7.7. states he has been told he was prediabetic in the past and has been on metformin in the past which caused alot of GI symptoms additonally he was started on a different oral medication which caused urinary frequency. He states he has been controlling his sugar with dietary changes. For now he will be continued on accuchecks ACHS will add in 2 am and scheduled insulin and monitor blood glucose closely. Will made adjustments as needed. All questions answered and reinforced using the IS. Today his CBC is unremarkable and his renal function and electrolytes are WNL. 11/24/2023 Patient scheduled to undergo coronary artery bypass today. On sliding scale and scheduled insulin. His blood glucose has trended down slightly overnight to the 130-140s. He will be monitored in the ICU post procedure today. 11/25/2023 Patient evaluated today in the intensive care unit. He is status post 2 vessel cabg. He has been extubated and currently on 3L of of oxygen. Awake and alert x 3. He is on insulin gtt blood sugar in the 140s. Chest xray showing 1.4 cm small right apical pneumothorax with increasing small left pleural effusion with increasing prominent postoperative atelectasis at the retrocardiac left base. Chest tube x3 in place. Epicardial pacemaker wires in place. On nitro gtt and received a dose of IV lasix x 1 today. He will be getting up with physical therapy. Review of Systems Constitutional: Denied any fatigue denied any fever. Cardio vascular: denied any chest pain, palpitations Gastrointestinal: denied any nausea, vomiting, diarrhea Pulmonary: Denied any shortness of breath cough Neurologic denied any new focal deficits All inpatient medications were reviewed and appropriate changes in these medications as dictated in the interval history and assessment and plan PHYSICAL EXAMINATION: GENERAL: The patient is alert and oriented x3, not in any acute distress. Well developed, well nourished. HEENT: Pupils are round and equally reacting to light. EOMI. No scleral icterus. No conjunctival pallor. Normocephalic, atraumatic. No pharyngeal erythema. No thyromegaly. CARDIOVASCULAR: S1 and S2 present. No murmurs, rubs, or gallops. PULMONARY: Chest is clear to auscultation, no wheezing or crackles. ABDOMEN: Soft, nontender, nondistended, normoactive bowel sounds. No palpable or ganomegaly. Obese. MUSCULOSKELETAL: No joint swelling or deformity. EXTREMITIES: No cyanosis, clubbing, or pedal edema. NEUROLOGICAL: Gross neurological examination did not reveal any focal deficits. SKIN: No rashes. Assessment Significant coronary artery disease with 80% stenosis of LAD and 90% of RCA patient is status post 2 vessel CABG Uncontrolled hypertension on admission improved now 90-100s systolic postoperatively Hx hypertension Dysplipidemia Hx BPH Non smoker Obesity with BMI of 36.9 Diabetes Mellitus type 2 with hyperglycemia previously told he was pre diabetic; hemoglobin A1C 7.7. GI prophylaxis DVT prophylaxis Full Code Plan Continues accuchecks ACHS 2am and scheduled insulin will adjust as needed once postoperative and tolerating diet consider adding levemir if blood glucose remains elevated Continue aspirin, lipitor, losartan, lopressor and flomax. lopressor was increased today by CT surgery Nitroglycerin gtt being discontinued PT/OT consultation in place. Chest tubes ton continue for another 24 hours Patient is on insulin gtt for another 24 hours and than will transition back to sliding scale insulin and will titrate for elevated blood glucose if needed. Monitor labs The impression and plan of care has been dictated by Deborah Yates, Nurse Practitioner as directed. Dr. Orlando MD I have performed a history and physical examination and medical decision making of this patient, discussed the same with the dictator, and agree with the dictators assessment and plan as written, documented as a scribe. Based on total visit time, I have performed more than 50% of this visit. Objective - Vital Signs Vital signs: Vital Signs Temp 99.3 F 11/24/23 18:00 Pulse 84 11/25/23 08:31 Resp 17 11/25/23 07:00 BP 114/73 11/25/23 07:00 Pulse Ox 97 11/25/23 07:00 FiO2 50 11/24/23 18:00 Intake & Output 11/24/23 11/25/23 11/25/23 18:59 06:59 18:59 Intake Total 718.151 8828.290 855.663 Output Total 1120 1850 180 Balance -791.446 1588.290 675.663 Weight 116.7 kg Intake: IV 607 998 248 ACETAMINOPHEN IV (For NPO 100 100 100 ) 1,000 mg In Empty Bag 1 bag @ 400 mls/hr IVPB Q6HR JESSI Rx#:[id number] CO/CI 150 140 60 Lactated Ringers 1,000 ml 300 600 70 @ 20 mls/hr IV .Q24H JESSI Rx#:[id number] Pressure 54 108 18 ceFAZolin 2 gm In Sodium 50 Chloride 0.9% 50 ml @ 100 mls/hr IVPB ONCE ONE Rx# :[id number] Intake, IV Titration 147.735 346.290 107.663 Amount Clevidipine Butyrate 25 108.899 215.267 mg In Empty Bag 1 bag @ 1 MG/HR 2 mls/hr IV .Q24H JESSI Rx#:[id number] Dexmedetomidine/0.9% NaCl 13.507 (Pmx) 400 mcg In Empty Bag 1 bag @ Titrate IV . Q0M JESSI Rx#:[id number] Insulin Regular 100 unit 5.066 31.023 5.513 In Sodium Chloride 0.9% 100 ml @ Per Protocol IV .Q0M JESSI Rx#:[id number] Magnesium Sulfate-D5w Pmx 100 1 gm In Dextrose/Water 1 100ml.bag @ 100 mls/hr IVPB ONCE ONE Rx#: [id number] Nitroglycerin-D5w Pmx 50 1.325 52.15 mg In Dextrose/Water 1 250ml.bag @ 5 MCG/MIN 1.5 mls/hr IV .Q24H JESSI Rx#: [id number] ceFAZolin 2 gm In Sodium 50 Chloride 0.9% 50 ml @ 100 mls/hr IVPB Q8HR JESSI Rx# :[id number] propofoL 1,000 mg In 18.938 Empty Bag 1 bag @ Titrate IV .Q0M JESSI Rx#: [id number] Oral 3500 500 Output: Chest Tube Drainage 475 335 60 Bilateral Pleurals 400 230 50 Mediastinal 75 105 10 Urine 645 1515 120 Other: Voiding Method Indwelling Catheter Indwelling Catheter ABP, PAP, CO, CI - Last Documented Arterial Blood Pressure 119/52 Pulmonary Artery Pressure 23/8 Cardiac Output 6.2 Cardiac Index 2.8 - Labs CBC & Chem 7: 11/25/23 04:05 11/25/23 04:05 Labs: Abnormal Lab Results - Last 24 Hours (Table) 11/23/23 11/24/23 11/24/23 Range/Units 08:11 12:41 12:41 WBC 11.4 H (3.8-10.6) k/uL RBC 4.26 L (4.30-5.90) m/uL Hgb 12.5 L (13.0-17.5) gm/dL Hct 36.6 L (39.0-53.0) % Plt Count 148 L (150-450) k/uL Neutrophils # 8.9 H (1.3-7.7) k/uL Lymphocytes # (1.0-4.8) k/uL PT 13.3 H (10.0-12.5) sec INR 1.3 H (<1.2) APTT 30.1 H (22.0-30.0) sec ABG pO2 (83-108) mmHg ABG HCO3 (21-25) mmol/L ABG Total CO2 (19-24) mmol/L ABG O2 Saturation (94-97) % Sodium (137-145) mmol/L Glucose (74-99) mg/dL POC Glucose (mg/dL) (70-110) mg/dL Total Protein (6.3-8.2) g/dL Albumin (3.5-5.0) g/dL Crossmatch See Detail 11/24/23 11/24/23 11/24/23 Range/Units 12:41 12:42 13:13 WBC (3.8-10.6) k/uL RBC (4.30-5.90) m/uL Hgb (13.0-17.5) gm/dL Hct (39.0-53.0) % Plt Count (150-450) k/uL Neutrophils # (1.3-7.7) k/uL Lymphocytes # (1.0-4.8) k/uL PT (10.0-12.5) sec INR (<1.2) APTT (22.0-30.0) sec ABG pO2 193 H (83-108) mmHg ABG HCO3 26 H (21-25) mmol/L ABG Total CO2 27 H (19-24) mmol/L ABG O2 Saturation 99.3 H (94-97) % Sodium (137-145) mmol/L Glucose 122 H (74-99) mg/dL POC Glucose (mg/dL) 129 H (70-110) mg/dL Total Protein 5.8 L (6.3-8.2) g/dL Albumin 3.4 L (3.5-5.0) g/dL Crossmatch 11/24/23 11/24/23 11/24/23 Range/Units 14:02 14:58 15:00 WBC 14.3 H (3.8-10.6) k/uL RBC (4.30-5.90) m/uL Hgb (13.0-17.5) gm/dL Hct 38.8 L (39.0-53.0) % Plt Count (150-450) k/uL Neutrophils # 11.1 H (1.3-7.7) k/uL Lymphocytes # (1.0-4.8) k/uL PT (10.0-12.5) sec INR (<1.2) APTT (22.0-30.0) sec ABG pO2 (83-108) mmHg ABG HCO3 (21-25) mmol/L ABG Total CO2 (19-24) mmol/L ABG O2 Saturation (94-97) % Sodium (137-145) mmol/L Glucose (74-99) mg/dL POC Glucose (mg/dL) 130 H 147 H (70-110) mg/dL Total Protein (6.3-8.2) g/dL Albumin (3.5-5.0) g/dL Crossmatch 11/24/23 11/24/23 11/24/23 Range/Units 16:16 16:55 17:02 WBC (3.8-10.6) k/uL RBC (4.30-5.90) m/uL Hgb (13.0-17.5) gm/dL Hct (39.0-53.0) % Plt Count (150-450) k/uL Neutrophils # (1.3-7.7) k/uL Lymphocytes # (1.0-4.8) k/uL PT (10.0-12.5) sec INR (<1.2) APTT (22.0-30.0) sec ABG pO2 (83-108) mmHg ABG HCO3 (21-25) mmol/L ABG Total CO2 25 H (19-24) mmol/L ABG O2 Saturation (94-97) % Sodium (137-145) mmol/L Glucose (74-99) mg/dL POC Glucose (mg/dL) 131 H 156 H (70-110) mg/dL Total Protein (6.3-8.2) g/dL Albumin (3.5-5.0) g/dL Crossmatch 11/24/23 11/24/23 11/24/23 Range/Units 18:09 18:10 19:03 WBC 18.0 H (3.8-10.6) k/uL RBC (4.30-5.90) m/uL Hgb (13.0-17.5) gm/dL Hct (39.0-53.0) % Plt Count (150-450) k/uL Neutrophils # 15.9 H (1.3-7.7) k/uL Lymphocytes # 0.8 L (1.0-4.8) k/uL PT (10.0-12.5) sec INR (<1.2) APTT (22.0-30.0) sec ABG pO2 (83-108) mmHg ABG HCO3 (21-25) mmol/L ABG Total CO2 (19-24) mmol/L ABG O2 Saturation (94-97) % Sodium (137-145) mmol/L Glucose (74-99) mg/dL POC Glucose (mg/dL) 147 H 155 H (70-110) mg/dL Total Protein (6.3-8.2) g/dL Albumin (3.5-5.0) g/dL Crossmatch 11/24/23 11/24/23 11/24/23 Range/Units 20:05 20:58 21:59 WBC (3.8-10.6) k/uL RBC (4.30-5.90) m/uL Hgb (13.0-17.5) gm/dL Hct (39.0-53.0) % Plt Count (150-450) k/uL Neutrophils # (1.3-7.7) k/uL Lymphocytes # (1.0-4.8) k/uL PT (10.0-12.5) sec INR (<1.2) APTT (22.0-30.0) sec ABG pO2 (83-108) mmHg ABG HCO3 (21-25) mmol/L ABG Total CO2 (19-24) mmol/L ABG O2 Saturation (94-97) % Sodium (137-145) mmol/L Glucose (74-99) mg/dL POC Glucose (mg/dL) 167 H 170 H 157 H (70-110) mg/dL Total Protein (6.3-8.2) g/dL Albumin (3.5-5.0) g/dL Crossmatch 11/24/23 11/24/23 11/25/23 Range/Units 23:00 23:51 00:52 WBC (3.8-10.6) k/uL RBC (4.30-5.90) m/uL Hgb (13.0-17.5) gm/dL Hct (39.0-53.0) % Plt Count (150-450) k/uL Neutrophils # (1.3-7.7) k/uL Lymphocytes # (1.0-4.8) k/uL PT (10.0-12.5) sec INR (<1.2) APTT (22.0-30.0) sec ABG pO2 (83-108) mmHg ABG HCO3 (21-25) mmol/L ABG Total CO2 (19-24) mmol/L ABG O2 Saturation (94-97) % Sodium (137-145) mmol/L Glucose (74-99) mg/dL POC Glucose (mg/dL) 147 H 138 H 138 H (70-110) mg/dL Total Protein (6.3-8.2) g/dL Albumin (3.5-5.0) g/dL Crossmatch 11/25/23 11/25/23 11/25/23 Range/Units 01:59 02:58 04:02 WBC (3.8-10.6) k/uL RBC (4.30-5.90) m/uL Hgb (13.0-17.5) gm/dL Hct (39.0-53.0) % Plt Count (150-450) k/uL Neutrophils # (1.3-7.7) k/uL Lymphocytes # (1.0-4.8) k/uL PT (10.0-12.5) sec INR (<1.2) APTT (22.0-30.0) sec ABG pO2 (83-108) mmHg ABG HCO3 (21-25) mmol/L ABG Total CO2 (19-24) mmol/L ABG O2 Saturation (94-97) % Sodium (137-145) mmol/L Glucose (74-99) mg/dL POC Glucose (mg/dL) 149 H 132 H 137 H (70-110) mg/dL Total Protein (6.3-8.2) g/dL Albumin (3.5-5.0) g/dL Crossmatch 11/25/23 11/25/23 11/25/23 Range/Units 04:05 04:05 05:00 WBC 14.0 H (3.8-10.6) k/uL RBC (4.30-5.90) m/uL Hgb (13.0-17.5) gm/dL Hct (39.0-53.0) % Plt Count (150-450) k/uL Neutrophils # 11.2 H (1.3-7.7) k/uL Lymphocytes # (1.0-4.8) k/uL PT (10.0-12.5) sec INR (<1.2) APTT (22.0-30.0) sec ABG pO2 (83-108) mmHg ABG HCO3 (21-25) mmol/L ABG Total CO2 (19-24) mmol/L ABG O2 Saturation (94-97) % Sodium 133 L (137-145) mmol/L Glucose 132 H (74-99) mg/dL POC Glucose (mg/dL) 135 H (70-110) mg/dL Total Protein 5.9 L (6.3-8.2) g/dL Albumin 3.4 L (3.5-5.0) g/dL Crossmatch 11/25/23 11/25/23 11/25/23 Range/Units 06:06 07:04 08:17 WBC (3.8-10.6) k/uL RBC (4.30-5.90) m/uL Hgb (13.0-17.5) gm/dL Hct (39.0-53.0) % Plt Count (150-450) k/uL Neutrophils # (1.3-7.7) k/uL Lymphocytes # (1.0-4.8) k/uL PT (10.0-12.5) sec INR (<1.2) APTT (22.0-30.0) sec ABG pO2 (83-108) mmHg ABG HCO3 (21-25) mmol/L ABG Total CO2 (19-24) mmol/L ABG O2 Saturation (94-97) % Sodium (137-145) mmol/L Glucose (74-99) mg/dL POC Glucose (mg/dL) 148 H 155 H 147 H (70-110) mg/dL Total Protein (6.3-8.2) g/dL Albumin (3.5-5.0) g/dL Crossmatch Assessment and Plan Time with Patient: Less than 30
[2023-11-25 15:07] LABS: Glucose,Whole Blood 148 mg/dL (70-110)
[2023-11-25 16:13] LABS: Glucose,Whole Blood 182 mg/dL (70-110)
[2023-11-25 16:47] LABS: Appearance,Urine Clear (Clear); Bilirubin,Urine Negative (Negative); Blood,Urine Large (Negative); Color,Urine Light Yellow; Glucose,Urine (UA) Negative (Negative); Ketones,Urine Negative (Negative); Leukocyte Esterase,Urine Small (Negative); Mucus,Urine Rare /hpf; Nitrite,Urine Negative (Negative); Protein,Urine Negative (Negative); RBC,Urine 64 /hpf (0-5); Specific Gravity,Urine 1.012 (1.001-1.035); Squamous Epithelial Cell,Urine 1 /hpf (0-4); Urobilinogen,Urine <2.0 mg/dL (<2.0); WBC,Urine 4 /hpf (0-5)
[2023-11-25 17:09] LABS: Glucose,Whole Blood 139 mg/dL (70-110)
[2023-11-25 18:24] LABS: Glucose,Whole Blood 155 mg/dL (70-110)
[2023-11-25 19:05] LABS: Glucose,Whole Blood 126 mg/dL (70-110)
[2023-11-25] MEDS: INSULIN REGULAR 100 UNIT in SODIUM CHLORIDE 0.9% 100 ML IV SCH (19:05)
[2023-11-25 19:55] LABS: Glucose,Whole Blood 167 mg/dL (70-110)
[2023-11-25] MEDS: SENNOSIDES-DOCUSATE SODIUM 1 EACH TAB PO SCH (19:59)
[2023-11-25] MEDS: ATORVASTATIN 40 MG TAB PO SCH (19:59)
[2023-11-25 21:04] LABS: Glucose,Whole Blood 148 mg/dL (70-110)
[2023-11-25 22:06] LABS: Glucose,Whole Blood 146 mg/dL (70-110)
[2023-11-25 23:56] LABS: Glucose,Whole Blood 134 mg/dL (70-110)
[2023-11-26 01:52] LABS: Glucose,Whole Blood 146 mg/dL (70-110)
[2023-11-26] MEDS: ACETAMINOPHEN TAB 500 MG TAB PO PRN (03:25)
[2023-11-26] MEDS: LACTATED RINGERS 1,000 ML IV SCH (03:53)
[2023-11-26 04:04] LABS: Glucose,Whole Blood 157 mg/dL (70-110)
[2023-11-26 04:12] LABS: Basophils % (A) 0 %; Eosinophils # (A) 0.1 k/uL (0-0.7); Eosinophils % (A) 1 %; HCT 35.3 % (39.0-53.0); HGB 12.2 gm/dL (13.0-17.5); Lymphocytes # (A) 1.4 k/uL (1.0-4.8); Lymphocytes % (A) 9 %; MCH 29.7 pg (25.0-35.0); MCHC 34.6 g/dL (31.0-37.0); MCV 85.9 fL (80.0-100.0); Monocytes # (A) 1.2 k/uL (0-1.0); Monocytes % (A) 8 %; Neutrophils # (A) 12.2 k/uL (1.3-7.7); Neutrophils % (A) 80 %; Platelet Count 143 k/uL (150-450); RBC 4.11 m/uL (4.30-5.90); RDW 12.9 % (11.5-15.5); WBC 15.2 k/uL (3.8-10.6)
[2023-11-26 04:28] LABS: Ionized Calcium 4.9 mg/dL (4.5-5.3)
[2023-11-26 04:38] LABS: ALT 18 U/L (4-49); AST 42 U/L (17-59); African American GFR (CKD) 85 (>60 ml/min/1.73 sqM); Albumin 3.1 g/dL (3.5-5.0); Alkaline Phosphatase 56 U/L (38-126); Anion Gap 9 mmol/L; Blood Urea Nitrogen 16 mg/dL (9-20); Calcium 8.4 mg/dL (8.4-10.2); Carbon Dioxide 23 mmol/L (22-30); Chloride 98 mmol/L (98-107); Glucose 147 mg/dL (74-99); Magnesium 1.8 mg/dL (1.6-2.3); Non-African American GFR(CKD) 74 (>60 ml/min/1.73 sqM); Potassium 4.3 mmol/L (3.5-5.1); Sodium 130 mmol/L (137-145); Total Bilirubin 1.1 mg/dL (0.2-1.3); Total Protein 5.7 g/dL (6.3-8.2)
[2023-11-26] MEDS ORDERED: MAGNESIUM SULFATE-D5W PMX 1 GM in DEXTROSE/WATER 1 100ML.BAG IVPB ONE (05:53)
[2023-11-26] MEDS: PANTOPRAZOLE 40 MG TABLET PO SCH (05:56)
[2023-11-26] MEDS: KETOROLAC 15 MG/ML 1 ML VIAL IVP SCH ×4 (05:56→23:42)
[2023-11-26 05:59] LABS: Glucose,Whole Blood 142 mg/dL (70-110)
[2023-11-26 06:58] LABS: Glucose,Whole Blood 149 mg/dL (70-110)
--- NOTE | 2023-11-26 07:46 | P.PN ---
Subjective Progress Note Date: 11/26/23 Principal diagnosis: Coronary artery disease, non-ST elevated myocardial infarction this admission. Past medical history significant for hypertension, diabetes mellitus type 2 cur rently on no diabetic treatment with a hemoglobin A1c of 7.7%, he is a lifetime nonsmoker, benign prostatic hypertrophy, obesity with a BMI of 36.9 kg/m and a family history of early onset coronary artery disease with his mother having a myocardial infarction in her late 50s. POD #2 Off pump coronary artery bypass grafting x 2. Left internal thoracic artery (in-situ) to left anterior descending artery. Saphenous vein from aorta to distal right coronary artery, Left atrial appendage ligation with #35mm AtriClip, Endoscopic left greater saphenous vein harvest, Graft flow measurements using the [employer] flow meter system, Trans-esophageal echocardiogram performed by anesthesia The patient was seen and examined in follow-up today 11/26/2023 at his bedside in the intensive care unit. He is currently sitting up to the bedside chair, is awake, alert, oriented 3 and is in no acute apparent distress. Denies any complaints of shortness of breath although was complaining of some surgical type pain to his chest tube insertion sites and with taking a deep breath. Oxygen saturations are 98% on 2 L nasal cannula and he is achieving 1500 mL on his incentive spirometry with encouragement. Right IJ Bow[place]s-Sean catheter was removed yesterday without incident, right IJ Cordis remains in place with continuous CVP monitoring, current CVP Pressure 7 mmHg. He remains hemodynamically stable and is currently on no on typical pressure support. Bedside telemetry showing normal sinus rhythm heart rate 72 BPM. Mediastinal, right/left pleural chest tubes remain in place to low continuous wall suction - 20 cm H2O. No air leak is present. Draining thin serosanguineous drainage. Mediastinal chest tube drained 90 mL output in the last 8 hours and 270 mL output in the last 24 hours. Left/right pleural chest tubes draining thin serosanguineous drainage with 150 mL output in the last 8 hours and 300 mL in the last 24 hours. T-max temperature the last 24 hours was 100.4F, and the patient has been encouraged to continue to ambulate and use his incentive spirometry as instructed. Laboratory and chest x-ray results reviewed. Objective - Vital Signs Vital signs: Vital Signs Temp 98.5 F 11/26/23 06:30 Pulse 70 11/26/23 07:00 Resp 25 H 11/26/23 07:00 BP 113/63 11/26/23 07:00 Pulse Ox 97 11/26/23 07:00 FiO2 50 11/24/23 18:00 Intake & Output 11/25/23 11/26/23 11/26/23 18:59 06:59 18:59 Intake Total 1752.306 666.650 Output Total 1580 1575 Balance 172.306 -908.350 Weight 118.6 kg Intake: IV 721 628 ACETAMINOPHEN IV (For NPO 100 ) 1,000 mg In Empty Bag 1 bag @ 400 mls/hr IVPB Q6HR [facility] Rx#:[id number] CO/CI 60 Lactated Ringers 1,000 ml 480 450 @ 20 mls/hr IV .Q24H [facility] Rx#:[id number] Magnesium Sulfate-D5w Pmx 100 1 gm In Dextrose/Water 1 100ml.bag @ 100 mls/hr IVPB ONCE ONE Rx#: [id number] Pressure 81 78 Intake, IV Titration 131.306 38.650 Amount Insulin Regular 100 unit 29.156 38.650 In Sodium Chloride 0.9% 100 ml @ Per Protocol IV .Q0M [facility] Rx#:[id number] Nitroglycerin-D5w Pmx 50 52.15 mg In Dextrose/Water 1 250ml.bag @ 5 MCG/MIN 1.5 mls/hr IV .Q24H [facility] Rx#: [id number] ceFAZolin 2 gm In Sodium 50 Chloride 0.9% 50 ml @ 100 mls/hr IVPB Q8HR [facility] Rx# :[id number] Oral 900 Output: Chest Tube Drainage 250 390 Bilateral Pleurals 160 210 Mediastinal 90 180 Urine 1330 1185 Other: Voiding Method Indwelling Catheter Indwelling Catheter ABP, PAP, CO, CI - Last Documented Arterial Blood Pressure 121/50 Pulmonary Artery Pressure 29/10 Cardiac Output 6.4 Cardiac Index 2.8 - Exam CONSTITUTIONAL: Sitting up to the bedside chair in the intensive care unit, appears comfortable, cooperative, no apparent acute distress. HEENT: Neck is supple, no JVD, no lymphadenopathy. Right IJ Cordis in place and functioning. RESPIRATORY: Lungs sounds essentially clear throughout, diminished to his bilateral bases. Respirations are symmetrical and nonlabored. Currently on 2 L nasal cannula with oxygen saturations 98%. Able to achieve 1500 mL on his incentive spirometry. Strong cough. CARDIOVASCULAR: Regular rhythm and rate. S1 and S2 present, negative for S3, gallop or murmur. Bedside telemetry showing normal sinus rhythm heart rate 72 BPM. Sternum is stable. Palpable peripheral pulses bilaterally, no calf pain or tenderness noted. Heart hugger in place with patient demonstrating appropriate use. Knee-high PADMINI hose and sequential compression devices in place to his bilateral lower extremities. GASTROINTESTINAL: Abdomen soft, nontender, nondistended. Active bowel sounds present 4 quadrants. Tolerating diet. Passing flatus. No guarding or rigidity. GENITOURINARY: Dennis present draining clear, yellow urine. Urine output 750 mL in the last 8 hours. INTEGUMENTARY: Skin is warm and dry with no evidence of clubbing or cyanosis. Midline sternal incision clean dry and well approximated, covered with dry intact dressing. Left lower extremity EVH sites well approximated without redness or drainage. NEUROLOGIC: Cranial nerves II through XII intact. No focal deficits. MUSKULOSKELETAL: Able to move all extremities, strength equal bilaterally, generalized weakness. PSYCHIATRIC: Alert and oriented to person place and time, appropriate affect, intact judgment and insight. INVASIVE LINES AND TUBES: Mediastinal/left/right pleural chest tubes present and connected to low continuous wall suction, no air leaks present. Mediastinal tube with 90 mL of thin serosanguineous drainage overnight, 270 mL output in the last 24 hours. Left/right pleural chest tubes with 150 mL of thin serosanguineous drainage overnight, 300 mL output in the last 24 hours. Ventricular epicardial pacemaker wires present, connected to generator, VVI backup rate 50 bpm. Right internal jugular Cordis, right radial arterial line present. Current CVP 7 mmHg. - Allied health notes Allied health notes reviewed: nursing - Labs CBC & Chem 7: 11/26/23 04:05 11/26/23 04:05 Labs: Abnormal Lab Results - Last 24 Hours (Table) 11/25/23 11/25/23 11/25/23 Range/Units 08:17 09:10 10:06 WBC (3.8-10.6) k/uL RBC (4.30-5.90) m/uL Hgb (13.0-17.5) gm/dL Hct (39.0-53.0) % Plt Count (150-450) k/uL Neutrophils # (1.3-7.7) k/uL Monocytes # (0-1.0) k/uL Sodium (137-145) mmol/L Glucose (74-99) mg/dL POC Glucose (mg/dL) 147 H 138 H 140 H (70-110) mg/dL Total Protein (6.3-8.2) g/dL Albumin (3.5-5.0) g/dL Urine Blood (Negative) Ur Leukocyte Esterase (Negative) Urine RBC (0-5) /hpf Urine Mucus (None) /hpf 11/25/23 11/25/23 11/25/23 Range/Units 11:02 11:59 13:10 WBC (3.8-10.6) k/uL RBC (4.30-5.90) m/uL Hgb (13.0-17.5) gm/dL Hct (39.0-53.0) % Plt Count (150-450) k/uL Neutrophils # (1.3-7.7) k/uL Monocytes # (0-1.0) k/uL Sodium (137-145) mmol/L Glucose (74-99) mg/dL POC Glucose (mg/dL) 129 H 130 H 161 H (70-110) mg/dL Total Protein (6.3-8.2) g/dL Albumin (3.5-5.0) g/dL Urine Blood (Negative) Ur Leukocyte Esterase (Negative) Urine RBC (0-5) /hpf Urine Mucus (None) /hpf 11/25/23 11/25/23 11/25/23 Range/Units 14:16 15:06 16:10 WBC (3.8-10.6) k/uL RBC (4.30-5.90) m/uL Hgb (13.0-17.5) gm/dL Hct (39.0-53.0) % Plt Count (150-450) k/uL Neutrophils # (1.3-7.7) k/uL Monocytes # (0-1.0) k/uL Sodium (137-145) mmol/L Glucose (74-99) mg/dL POC Glucose (mg/dL) 174 H 148 H 182 H (70-110) mg/dL Total Protein (6.3-8.2) g/dL Albumin (3.5-5.0) g/dL Urine Blood (Negative) Ur Leukocyte Esterase (Negative) Urine RBC (0-5) /hpf Urine Mucus (None) /hpf 11/25/23 11/25/23 11/25/23 Range/Units 16:20 17:07 18:22 WBC (3.8-10.6) k/uL RBC (4.30-5.90) m/uL Hgb (13.0-17.5) gm/dL Hct (39.0-53.0) % Plt Count (150-450) k/uL Neutrophils # (1.3-7.7) k/uL Monocytes # (0-1.0) k/uL Sodium (137-145) mmol/L Glucose (74-99) mg/dL POC Glucose (mg/dL) 139 H 155 H (70-110) mg/dL Total Protein (6.3-8.2) g/dL Albumin (3.5-5.0) g/dL Urine Blood Large H (Negative) Ur Leukocyte Esterase Small H (Negative) Urine RBC 64 H (0-5) /hpf Urine Mucus Rare H (None) /hpf 11/25/23 11/25/23 11/25/23 Range/Units 19:03 19:54 21:03 WBC (3.8-10.6) k/uL RBC (4.30-5.90) m/uL Hgb (13.0-17.5) gm/dL Hct (39.0-53.0) % Plt Count (150-450) k/uL Neutrophils # (1.3-7.7) k/uL Monocytes # (0-1.0) k/uL Sodium (137-145) mmol/L Glucose (74-99) mg/dL POC Glucose (mg/dL) 126 H 167 H 148 H (70-110) mg/dL Total Protein (6.3-8.2) g/dL Albumin (3.5-5.0) g/dL Urine Blood (Negative) Ur Leukocyte Esterase (Negative) Urine RBC (0-5) /hpf Urine Mucus (None) /hpf 11/25/23 11/25/23 11/26/23 Range/Units 22:04 23:55 01:50 WBC (3.8-10.6) k/uL RBC (4.30-5.90) m/uL Hgb (13.0-17.5) gm/dL Hct (39.0-53.0) % Plt Count (150-450) k/uL Neutrophils # (1.3-7.7) k/uL Monocytes # (0-1.0) k/uL Sodium (137-145) mmol/L Glucose (74-99) mg/dL POC Glucose (mg/dL) 146 H 134 H 146 H (70-110) mg/dL Total Protein (6.3-8.2) g/dL Albumin (3.5-5.0) g/dL Urine Blood (Negative) Ur Leukocyte Esterase (Negative) Urine RBC (0-5) /hpf Urine Mucus (None) /hpf 11/26/23 11/26/23 11/26/23 Range/Units 04:03 04:05 04:05 WBC 15.2 H (3.8-10.6) k/uL RBC 4.11 L (4.30-5.90) m/uL Hgb 12.2 L (13.0-17.5) gm/dL Hct 35.3 L (39.0-53.0) % Plt Count 143 L (150-450) k/uL Neutrophils # 12.2 H (1.3-7.7) k/uL Monocytes # 1.2 H (0-1.0) k/uL Sodium 130 L (137-145) mmol/L Glucose 147 H (74-99) mg/dL POC Glucose (mg/dL) 157 H (70-110) mg/dL Total Protein 5.7 L (6.3-8.2) g/dL Albumin 3.1 L (3.5-5.0) g/dL Urine Blood (Negative) Ur Leukocyte Esterase (Negative) Urine RBC (0-5) /hpf Urine Mucus (None) /hpf 11/26/23 11/26/23 Range/Units 05:57 06:55 WBC (3.8-10.6) k/uL RBC (4.30-5.90) m/uL Hgb (13.0-17.5) gm/dL Hct (39.0-53.0) % Plt Count (150-450) k/uL Neutrophils # (1.3-7.7) k/uL Monocytes # (0-1.0) k/uL Sodium (137-145) mmol/L Glucose (74-99) mg/dL POC Glucose (mg/dL) 142 H 149 H (70-110) mg/dL Total Protein (6.3-8.2) g/dL Albumin (3.5-5.0) g/dL Urine Blood (Negative) Ur Leukocyte Esterase (Negative) Urine RBC (0-5) /hpf Urine Mucus (None) /hpf - Imaging and Cardiology Chest x-ray: report reviewed, image reviewed Assessment and Plan Assessment: Coronary artery disease, status post CABG 2 Non-ST elevated myocardial infarction this admission Hypertension Hyperlipidemia, cholesterol 218 and triglycerides 247 Diabetes mellitus type 2, currently on no treatment as an outpatient, preoperative hemoglobin A1c of 7.7% Benign prostatic hypertrophy Lifetime nonsmoker Obesity with a BMI of 36.9 kg/m Early onset family history of coronary artery disease with his mother having a myocardial infarction in her late 50s Plan: Continue to maximize medical therapy with aspirin, statin, plavix, and beta jesse. Will increase metoprolol tartrate 25 mg by mouth twice a day with hold parameters. Continue amiodarone 400 mg by mouth twice a day for atrial fibrillation prophylaxis. Encourage incentive spirometry use 10 times every hour while awake. Bronchodilators per pulmonology. Will monitor daily labs and chest x-rays, electrolyte replacement protocol. Increase activity as tolerated. PT/OT/cardiac rehab following. GI/DVT prophylaxis. Pain control with current medication regimen. Once his chest tubes have been removed we will discontinue the oxycodone. Insulin management per internal medicine. Preoperative hemoglobin A1c 7.7%. Patient should remain on insulin drip for 48 hours, then may transition to sliding scale coverage per protocol. Discontinue right IJ Cordis. We will move his mediastinal/left and right pleural chest tubes. Remove dennis catheter for another 24 hours, continue to record strict accurate intake and output. A bladder scan every 6 hours and when necessary postvoid residual, if greater than 300 mL of urine may straight cath. Daily weights. Continue ventricular epicardial pacemaker wires, may ground wires. Transfer orders will be placed to the third floor cardiac stepdown unit when bed available. Discharge planning is in place, plan is for discharge home with home health care. More recommendations to follow based on patient's clinical course. Time with Patient: Greater than 30
[2023-11-26 08:08] LABS: Glucose,Whole Blood 169 mg/dL (70-110)
[2023-11-26] MEDS: IPRATROPIUM-ALBUTEROL 3 ML NEB INHALATION SCH ×4 (08:16→20:43)
[2023-11-26] MEDS: HEPARIN SODIUM,PORCINE 5,000 UNIT/ML 1 ML VIAL SQ SCH ×4 (08:26→23:42)
[2023-11-26] MEDS: CLOPIDOGREL 75 MG TAB PO SCH ×2 (08:27→09:27)
[2023-11-26] MEDS: METOPROLOL TARTRATE 25 MG TAB PO SCH ×3 (08:27→20:13)
[2023-11-26] MEDS: ASPIRIN 325 MG TAB PO SCH ×2 (08:27→09:27)
[2023-11-26 09:11] LABS: Glucose,Whole Blood 149 mg/dL (70-110)
--- NOTE | 2023-11-26 09:16 | XR ---
EXAMINATION TYPE: XR chest 1V portable DATE OF EXAM: 11/26/2023 Comparison: 11/25/2023 Clinical History: 72-year-old male Post Operative Cardiac Surgery Findings: Right IJ sheath, [place]-Sean catheter removed. Left-sided chest tube. Right basilar chest tube. Mediast inal drain. Heart remains enlarged. Diffuse interstitial density. Ongoing retrocardiac opacity. Impression: 1. Developing pulmonary vascular congestion, worsened in the interval. 2. Ongoing left pleural effusion and retrocardiac atelectasis. 3. Bilateral chest tubes. The previous right pneumothorax is no longer seen. A small left apical pneu mothorax measuring 1.4 cm is new.
[2023-11-26] MEDS ORDERED: BENZOCAINE/MENTHOL LOZENG 1 EACH LOZENGE MUCOUS MEM PRN (10:34)
[2023-11-26 11:19] LABS: Glucose,Whole Blood 145 mg/dL (70-110)
[2023-11-26] MEDS: INSULIN ASPART (NovoLOG) 100 UNIT/ML VIAL SQ SCH ×5 (12:07→20:12)
--- NOTE | 2023-11-26 12:30 | P.PN ---
Subjective Progress Note Date: 11/26/23 Principal diagnosis: Acute non-ST elevation myocardial infarction and coronary arteriosclerosis This is a very pleasant 72-year-old male patient with history of diabetes mellitus, hypertension who presented here to the emergency room on 11/20/2023 with complaints of chest discomfort. He had been having symptoms on and off 2-3 weeks prior. Mostly exertional. EGD revealed some mild ST segment abnormalities. Initial troponin was negative subsequent troponins were 0.08, 0.24, 0.14. Chest x-ray revealed no acute pulmonary process. Echocardiogram revealed preserved left ventricular systolic function with ejection fraction 55- 60%. CT angiogram revealed no evidence of pulmonary embolism. Lung noble were clear. He did undergo cardiac catheterization on 11/21/2023 which revealed 80% diffuse calcified proximal LAD disease and 80-90% calcified mid RCA disease. He was recommended coronary artery bypass grafting. We are seeing the patient today in consultation. He is a lifelong nonsmoker. Pulmonary function testing reveals an FEV1 value 2.53 L or 86% of predicted. He currently denies any shortness of breath, cough or congestion. Maintaining good O2 saturations in the mid 90s on room air. I count 7.8. Hemoglobin 14.2. Platelets 198. Sodium 139. Potassium 4.2. Bicarb 25. BUN 17. Creatinine 0.78. Glucose 170. Cholesterol 188. Triglycerides 171. LDL 106. HDL 48. Hepatitis screen negative. He's been afebrile. Hemodynamically stable. He is able to pull 3 L on the incentive spirometer. 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 He is up ambulating in his room. He denies any chest discomfort currently. The plan is for bypass grafting on 11/24/2023. He remains on a heparin drip. Reevaluated today on 11/23/23, patient is doing great, asymptomatic, patient is ambulating in his own room, he is on room air, denies any shortness of breath or chest pain, remains on heparin, he is in sinus rhythm, hemodynamically stable, not in any distress and he is scheduled for off-pump myocardial revascularization surgery with left internal mammary artery, endoscopic vein harvest, intraoperative transesophageal echocardiogram and exclusion of left atrial appendage to be completed by Dr. Quintanilla tomorrow 11/24/2023. Patient was seen today on 11/24/2023, patient is now status post off-pump coronary artery bypass grafting 2Left internal thoracic artery (in-situ) to left anterior descending artery. Saphenous vein from aorta to distal right coronary artery. , Patient also had left atrial appendage ligation, postoperatively patient was sent to the ICU he is now on mechanical ventilation, intubated, mechanically ventilated. Patient was on assist control rate of 14 tidal volume 550 FiO2 on the percent and PEEP of 10 ABG showed a pO2 of 193 pCO2 45 pH of 7.39. Since then his FiO2 was titrated down to 50%, and his PEEP is now down to 5, and he is on a pressure support of 8 with CPAP. Drips-merchant the patient is on clevidipine X at 4 mg/h he is on insulin 1 unit per hour patient is also on Precedex at 0.4 mcg/kg/h, and nitroglycerin at 10 units per minute patient seems to be calm, not in any distress, hemodynamics-merchant his cardiac output is 8.7 cardiac index is 3.9 blood pressure is 139/63. Chest x-ray showed mostly postoperative changes, endotracheal tube is above the thanh, [place]-Sean catheter is present in the main pulmonary artery region, left sided chest tube seems to be in proper positioning. Orogastric tube is also in proper position. Patient was reevaluated today on 11/25/2023, patient was extubated today uneventfully, he is now postoperative day #1Off pump coronary artery bypass grafting x 2. Left internal thoracic artery (in-situ) to left anterior descending artery. Saphenous vein from aorta to distal right coronary artery, Left atrial appendage ligation with #35mm AtriClip, Endoscopic left greater saphenous vein harvest, Graft flow measurements using the Medi-Stim flow meter system, Trans-esophageal echocardiogram performed by anesthesia patient was extubated last night at 6:25 PM, patient is resting in bed, alert oriented 3, O2 saturation is 97% however he is on 5 L nasal cannula. Remains on insulin drip at 2.5 units per hour, he has lactated Ringer's running at 50 mL per hour. Cardiac output is 6.4 cardiac index is 2.8, patient is also receiving albumin, pulmonary pressure is 23/8. CVP is 3. Mediastinal and right left pleural chest tubes remain in place, no air leak. Chest x-ray showed left basilar atelectasis and possibly a small pleural effusion. Radiologists is raising the possibility of small right-sided pleural effusion, it is minimal and very atypical. Not clinically significant at this point. Reevaluated today on 11/26/2023, patient remains in the ICU, he is now postoperative day #2.Off pump coronary artery bypass grafting x 2. Left internal thoracic artery (in-situ) to left anterior descending artery. Saphenous vein from aorta to distal right coronary artery, Left atrial appendage ligation with #35mm AtriClip, Endoscopic left greater saphenous vein harvest, Graft flow measurements using the [employer]-Stim flow meter system, Trans-esophageal echo cardiogram performed by anesthesia. Patient is doing well, he is sitting in bed, awake alert oriented 3, not in any distress, his chest tubes have been removed, his right IJ Cordis and [place]-Sean catheter has been removed, Nam catheter has been removed, patient feels much better today, breathing a lot easier, and he is doing much better with incentive spirometry achieving over 1500 mL. Patient already ambulated today on the hallway with assistance. CBC is relatively normal WBC of 15.2 hemoglobin is 12.2 basic metabolic profile is normal, renal profile is normal chest x-ray showed minimal pulmonary vascular congestion, small left pleural effusion and atelectasis, complete resolution of the right-sided pneumothorax, there is a small tiny possible left apical pneumothorax noted on chest x-ray today Objective - Vital Signs Vital signs: Vital Signs Temp 98.5 F 11/26/23 06:30 Pulse 74 11/26/23 11:35 Resp 21 11/26/23 11:00 BP 120/67 11/26/23 10:30 Pulse Ox 92 L 11/26/23 11:00 FiO2 50 11/24/23 18:00 Intake & Output 11/25/23 11/26/23 11/26/23 18:59 06:59 18:59 Intake Total 1752.306 666.650 576.862 Output Total 1580 1575 150 Balance 172.306 -908.350 426.862 Weight 118.6 kg Intake: IV 721 628 69 ACETAMINOPHEN IV (For NPO 100 ) 1,000 mg In Empty Bag 1 bag @ 400 mls/hr IVPB Q6HR [facility] Rx#:[id number] CO/CI 60 Lactated Ringers 1,000 ml 480 450 60 @ 20 mls/hr IV .Q24H [facility] Rx#:[id number] Magnesium Sulfate-D5w Pmx 100 1 gm In Dextrose/Water 1 100ml.bag @ 100 mls/hr IVPB ONCE ONE Rx#: [id number] Pressure 81 78 9 Intake, IV Titration 131.306 38.650 7.862 Amount Insulin Regular 100 unit 29.156 38.650 7.862 In Sodium Chloride 0.9% 100 ml @ Per Protocol IV .Q0M [facility] Rx#:[id number] Nitroglycerin-D5w Pmx 50 52.15 mg In Dextrose/Water 1 250ml.bag @ 5 MCG/MIN 1.5 mls/hr IV .Q24H [facility] Rx#: [id number] ceFAZolin 2 gm In Sodium 50 Chloride 0.9% 50 ml @ 100 mls/hr IVPB Q8HR [facility] Rx# :[id number] Oral 900 500 Output: Chest Tube Drainage 250 390 40 Bilateral Pleurals 160 210 40 Mediastinal 90 180 0 Urine 1330 1185 110 Other: Voiding Method Indwelling Catheter Indwelling Catheter ABP, PAP, CO, CI - Last Documented Arterial Blood Pressure 121/50 Pulmonary Artery Pressure 29/10 Cardiac Output 6.4 Cardiac Index 2.8 - Exam Physical Exam: Revealed 72-year-old white male , in no distress on room air Head: Atraumatic, normocephalic. HEENT:[Neck is supple.] [No neck masses.] [No thyromegaly.] [No JVD.] Chest: [Diminished breath sounds at the bases no crackles or rhonchi or wheezes Cardiac Exam: [Normal S1 and S2, no S3 gallop, no murmur.] Positive pericardial rub Abdomen: [Soft, nontender, no megaly, no rebound, no guarding, normal bowel sounds.] Extremities: [No clubbing, no edema, no cyanosis.] Neurological Exam: Awake alert oriented 3 no gross focal deficit Psychiatric: Normal mood, affect and normal mental status examination Skin: No rashes. Musculoskeletal: No deformities and no limitation in range of motion - Labs CBC & Chem 7: 11/26/23 04:05 11/26/23 04:05 Labs: Abnormal Lab Results - Last 24 Hours (Table) 11/25/23 11/25/23 11/25/23 Range/Units 13:10 14:16 15:06 WBC (3.8-10.6) k/uL RBC (4.30-5.90) m/uL Hgb (13.0-17.5) gm/dL Hct (39.0-53.0) % Plt Count (150-450) k/uL Neutrophils # (1.3-7.7) k/uL Monocytes # (0-1.0) k/uL Sodium (137-145) mmol/L Glucose (74-99) mg/dL POC Glucose (mg/dL) 161 H 174 H 148 H (70-110) mg/dL Total Protein (6.3-8.2) g/dL Albumin (3.5-5.0) g/dL Urine Blood (Negative) Ur Leukocyte Esterase (Negative) Urine RBC (0-5) /hpf Urine Mucus (None) /hpf 11/25/23 11/25/23 11/25/23 Range/Units 16:10 16:20 17:07 WBC (3.8-10.6) k/uL RBC (4.30-5.90) m/uL Hgb (13.0-17.5) gm/dL Hct (39.0-53.0) % Plt Count (150-450) k/uL Neutrophils # (1.3-7.7) k/uL Monocytes # (0-1.0) k/uL Sodium (137-145) mmol/L Glucose (74-99) mg/dL POC Glucose (mg/dL) 182 H 139 H (70-110) mg/dL Total Protein (6.3-8.2) g/dL Albumin (3.5-5.0) g/dL Urine Blood Large H (Negative) Ur Leukocyte Esterase Small H (Negative) Urine RBC 64 H (0-5) /hpf Urine Mucus Rare H (None) /hpf 11/25/23 11/25/23 11/25/23 Range/Units 18:22 19:03 19:54 WBC (3.8-10.6) k/uL RBC (4.30-5.90) m/uL Hgb (13.0-17.5) gm/dL Hct (39.0-53.0) % Plt Count (150-450) k/uL Neutrophils # (1.3-7.7) k/uL Monocytes # (0-1.0) k/uL Sodium (137-145) mmol/L Glucose (74-99) mg/dL POC Glucose (mg/dL) 155 H 126 H 167 H (70-110) mg/dL Total Protein (6.3-8.2) g/dL Albumin (3.5-5.0) g/dL Urine Blood (Negative) Ur Leukocyte Esterase (Negative) Urine RBC (0-5) /hpf Urine Mucus (None) /hpf 11/25/23 11/25/23 11/25/23 Range/Units 21:03 22:04 23:55 WBC (3.8-10.6) k/uL RBC (4.30-5.90) m/uL Hgb (13.0-17.5) gm/dL Hct (39.0-53.0) % Plt Count (150-450) k/uL Neutrophils # (1.3-7.7) k/uL Monocytes # (0-1.0) k/uL Sodium (137-145) mmol/L Glucose (74-99) mg/dL POC Glucose (mg/dL) 148 H 146 H 134 H (70-110) mg/dL Total Protein (6.3-8.2) g/dL Albumin (3.5-5.0) g/dL Urine Blood (Negative) Ur Leukocyte Esterase (Negative) Urine RBC (0-5) /hpf Urine Mucus (None) /hpf 11/26/23 11/26/23 11/26/23 Range/Units 01:50 04:03 04:05 WBC 15.2 H (3.8-10.6) k/uL RBC 4.11 L (4.30-5.90) m/uL Hgb 12.2 L (13.0-17.5) gm/dL Hct 35.3 L (39.0-53.0) % Plt Count 143 L (150-450) k/uL Neutrophils # 12.2 H (1.3-7.7) k/uL Monocytes # 1.2 H (0-1.0) k/uL Sodium (137-145) mmol/L Glucose (74-99) mg/dL POC Glucose (mg/dL) 146 H 157 H (70-110) mg/dL Total Protein (6.3-8.2) g/dL Albumin (3.5-5.0) g/dL Urine Blood (Negative) Ur Leukocyte Esterase (Negative) Urine RBC (0-5) /hpf Urine Mucus (None) /hpf 11/26/23 11/26/23 11/26/23 Range/Units 04:05 05:57 06:55 WBC (3.8-10.6) k/uL RBC (4.30-5.90) m/uL Hgb (13.0-17.5) gm/dL Hct (39.0-53.0) % Plt Count (150-450) k/uL Neutrophils # (1.3-7.7) k/uL Monocytes # (0-1.0) k/uL Sodium 130 L (137-145) mmol/L Glucose 147 H (74-99) mg/dL POC Glucose (mg/dL) 142 H 149 H (70-110) mg/dL Total Protein 5.7 L (6.3-8.2) g/dL Albumin 3.1 L (3.5-5.0) g/dL Urine Blood (Negative) Ur Leukocyte Esterase (Negative) Urine RBC (0-5) /hpf Urine Mucus (None) /hpf 11/26/23 11/26/23 11/26/23 Range/Units 08:07 09:10 11:19 WBC (3.8-10.6) k/uL RBC (4.30-5.90) m/uL Hgb (13.0-17.5) gm/dL Hct (39.0-53.0) % Plt Count (150-450) k/uL Neutrophils # (1.3-7.7) k/uL Monocytes # (0-1.0) k/uL Sodium (137-145) mmol/L Glucose (74-99) mg/dL POC Glucose (mg/dL) 169 H 149 H 145 H (70-110) mg/dL Total Protein (6.3-8.2) g/dL Albumin (3.5-5.0) g/dL Urine Blood (Negative) Ur Leukocyte Esterase (Negative) Urine RBC (0-5) /hpf Urine Mucus (None) /hpf Assessment and Plan Assessment: Impression: Status post Off pump coronary artery bypass grafting x 2. Left internal thoracic artery (in-situ) to left anterior descending artery. Saphenous vein from aorta to distal right coronary artery. Postoperative day #2 Coronary artery disease Benign essential hypertension Lifetime nonsmoker, nondrinker Type 2 diabetes without complications Family history of early onset coronary artery disease Small tiny apical Pneumothorax, expected after surgery Recommendation: Continue medical therapy including aspirin statins and Plavix and beta blockers Continue GI and DVT prophylaxis Incentive spirometry Continue ambulation daily Continue bronchodilators All lines catheters have been removed and chest tubes have been removed Daily weights Will follow. Time with Patient: Less than 30
--- NOTE | 2023-11-26 12:42 | P.PN ---
Subjective Progress Note Date: 11/26/23 Patient evaluated today standing at the bedside. No reports of chest pain or shortness of breath. He is scheduled to undergo coronary bypass tomorrow. Discussed with patient hemoglobin A1C of 7.7. states he has been told he was prediabetic in the past and has been on metformin in the past which caused alot of GI symptoms additonally he was started on a different oral medication which caused urinary frequency. He states he has been controlling his sugar with dietary changes. For now he will be continued on accuchecks ACHS will add in 2 am and scheduled insulin and monitor blood glucose closely. Will made adjustments as needed. All questions answered and reinforced using the IS. Today his CBC is unremarkable and his renal function and electrolytes are WNL. 11/24/2023 Patient scheduled to undergo coronary artery bypass today. On sliding scale and scheduled insulin. His blood glucose has trended down slightly overnight to the 130-140s. He will be monitored in the ICU post procedure today. 11/25/2023 Patient evaluated today in the intensive care unit. He is status post 2 vessel cabg. He has been extubated and currently on 3L of of oxygen. Awake and alert x 3. He is on insulin gtt blood sugar in the 140s. Chest xray showing 1.4 cm small right apical pneumothorax with increasing small left pleural effusion with increasing prominent postoperative atelectasis at the retrocardiac left base. Chest tube x3 in place. Epicardial pacemaker wires in place. On nitro gtt and received a dose of IV lasix x 1 today. He will be getting up with physical therapy. 11/26/2023 Patient evaluated today in the ICU he is postoperative day #2, CABG x 2 vessel. Currently all chest tubes and pacemaker wires have been removed. He had chest xray today showing developing pulmonary vascular congestion, worsened in the interval. Ongoing left pleural effusion and retrocardiac atelectasis. Right pneumothorax is no longer seen. A small left apical pneumothorax measuring 1.4 cm is new. Sodium 130, blood glucose 145. Patient received a dose of IV lasix yesterday. Did have increasing white count and temperature yesterday for this reason blood culture was requested as well as urinalysis. Suspect patient needs encouragement to use the IS he does states he has incisional pain which makes it hard to take a deep breath. Encouraged to continue with pain management. Review of Systems Constitutional: Denied any fatigue denied any fever. Cardio vascular: denied any chest pain, palpitations Gastrointestinal: denied any nausea, vomiting, diarrhea Pulmonary: Denied any shortness of breath cough Neurologic denied any new focal deficits All inpatient medications were reviewed and appropriate changes in these medications as dictated in the interval history and assessment and plan PHYSICAL EXAMINATION: GENERAL: The patient is alert and oriented x3, not in any acute distress. Well developed, well nourished. HEENT: Pupils are round and equally reacting to light. EOMI. No scleral icterus. No conjunctival pallor. Normocephalic, atraumatic. No pharyngeal erythema. No thyromegaly. CARDIOVASCULAR: S1 and S2 present. No murmurs, rubs, or gallops. PULMONARY: Chest is clear to auscultation, no wheezing or crackles. Diminished. ABDOMEN: Soft, nontender, nondistended, normoactive bowel sounds. No palpable organomegaly. Obese. Chest tube sites in tact. MUSCULOSKELETAL: No joint swelling or deformity. EXTREMITIES: No cyanosis, clubbing, or pedal edema. NEUROLOGICAL: Gross neurological examination did not reveal any focal deficits. SKIN: No rashes. Assessment Significant coronary artery disease with 80% stenosis of LAD and 90% of RCA patient is status post 2 vessel CABG Uncontrolled hypertension on admission improved now 90-100s systolic postoperatively Hyponatremia hypervolemic received a dose of IV lasix yesterday sodium 130 today. Hx hypertension Dysplipidemia Hx BPH Non smoker Obesity with BMI of 36.9 Diabetes Mellitus type 2 with hyperglycemia previously told he was pre diabetic; hemoglobin A1C 7.7. He has tried multiple oral agents in the past with side effects. GI prophylaxis DVT prophylaxis Full Code Plan Continues accuchecks ACHS 2am and scheduled insulin add small amt of levemir at HS and continue to monitor blood glucose closely. Continue aspirin, lipitor, losartan, lopressor. Lopressor was increased today by CT surgery Nitroglycerin gtt being discontinued PT/OT consultation in place. Chest tubes have been removed as well as pacer wires. Patient is being downgraded to the ICU Needs encouragement to continue with IS 10 x an hour and continue with pain management for the incisional pain. Monitor labs The impression and plan of care has been dictated by Deborah Yates, Nurse Practitioner as directed. Dr. Orlando MD I have performed a history and physical examination and medical decision making of this patient, discussed the same with the dictator, and agree with the dictators assessment and plan as written, documented as a scribe. Based on total visit time, I have performed more than 50% of this visit. Objective - Vital Signs Vital signs: Vital Signs Temp 98.5 F 11/26/23 06:30 Pulse 70 11/26/23 07:00 Resp 25 H 11/26/23 07:00 BP 113/63 11/26/23 07:00 Pulse Ox 97 11/26/23 07:00 FiO2 50 11/24/23 18:00 Intake & Output 11/25/23 11/26/23 11/26/23 18:59 06:59 18:59 Intake Total 1752.306 666.650 29.687 Output Total 1580 1575 80 Balance 172.306 -908.350 -50.313 Weight 118.6 kg Intake: IV 721 628 26 ACETAMINOPHEN IV (For NPO 100 ) 1,000 mg In Empty Bag 1 bag @ 400 mls/hr IVPB Q6HR [facility] Rx#:[id number] CO/CI 60 Lactated Ringers 1,000 ml 480 450 20 @ 20 mls/hr IV .Q24H [facility] Rx#:[id number] Magnesium Sulfate-D5w Pmx 100 1 gm In Dextrose/Water 1 100ml.bag @ 100 mls/hr IVPB ONCE ONE Rx#: [id number] Pressure 81 78 6 Intake, IV Titration 131.306 38.650 3.687 Amount Insulin Regular 100 unit 29.156 38.650 3.687 In Sodium Chloride 0.9% 100 ml @ Per Protocol IV .Q0M [facility] Rx#:[id number] Nitroglycerin-D5w Pmx 50 52.15 mg In Dextrose/Water 1 250ml.bag @ 5 MCG/MIN 1.5 mls/hr IV .Q24H [facility] Rx#: [id number] ceFAZolin 2 gm In Sodium 50 Chloride 0.9% 50 ml @ 100 mls/hr IVPB Q8HR [facility] Rx# :[id number] Oral 900 Output: Chest Tube Drainage 250 390 40 Bilateral Pleurals 160 210 40 Mediastinal 90 180 0 Urine 1330 1185 40 Other: Voiding Method Indwelling Catheter Indwelling Catheter ABP, PAP, CO, CI - Last Documented Arterial Blood Pressure 121/50 Pulmonary Artery Pressure 29/10 Cardiac Output 6.4 Cardiac Index 2.8 - Labs CBC & Chem 7: 11/26/23 04:05 11/26/23 04:05 Labs: Abnormal Lab Results - Last 24 Hours (Table) 11/25/23 11/25/23 11/25/23 Range/Units 09:10 10:06 11:02 WBC (3.8-10.6) k/uL RBC (4.30-5.90) m/uL Hgb (13.0-17.5) gm/dL Hct (39.0-53.0) % Plt Count (150-450) k/uL Neutrophils # (1.3-7.7) k/uL Monocytes # (0-1.0) k/uL Sodium (137-145) mmol/L Glucose (74-99) mg/dL POC Glucose (mg/dL) 138 H 140 H 129 H (70-110) mg/dL Total Protein (6.3-8.2) g/dL Albumin (3.5-5.0) g/dL Urine Blood (Negative) Ur Leukocyte Esterase (Negative) Urine RBC (0-5) /hpf Urine Mucus (None) /hpf 11/25/23 11/25/23 11/25/23 Range/Units 11:59 13:10 14:16 WBC (3.8-10.6) k/uL RBC (4.30-5.90) m/uL Hgb (13.0-17.5) gm/dL Hct (39.0-53.0) % Plt Count (150-450) k/uL Neutrophils # (1.3-7.7) k/uL Monocytes # (0-1.0) k/uL Sodium (137-145) mmol/L Glucose (74-99) mg/dL POC Glucose (mg/dL) 130 H 161 H 174 H (70-110) mg/dL Total Protein (6.3-8.2) g/dL Albumin (3.5-5.0) g/dL Urine Blood (Negative) Ur Leukocyte Esterase (Negative) Urine RBC (0-5) /hpf Urine Mucus (None) /hpf 11/25/23 11/25/23 11/25/23 Range/Units 15:06 16:10 16:20 WBC (3.8-10.6) k/uL RBC (4.30-5.90) m/uL Hgb (13.0-17.5) gm/dL Hct (39.0-53.0) % Plt Count (150-450) k/uL Neutrophils # (1.3-7.7) k/uL Monocytes # (0-1.0) k/uL Sodium (137-145) mmol/L Glucose (74-99) mg/dL POC Glucose (mg/dL) 148 H 182 H (70-110) mg/dL Total Protein (6.3-8.2) g/dL Albumin (3.5-5.0) g/dL Urine Blood Large H (Negative) Ur Leukocyte Esterase Small H (Negative) Urine RBC 64 H (0-5) /hpf Urine Mucus Rare H (None) /hpf 11/25/23 11/25/23 11/25/23 Range/Units 17:07 18:22 19:03 WBC (3.8-10.6) k/uL RBC (4.30-5.90) m/uL Hgb (13.0-17.5) gm/dL Hct (39.0-53.0) % Plt Count (150-450) k/uL Neutrophils # (1.3-7.7) k/uL Monocytes # (0-1.0) k/uL Sodium (137-145) mmol/L Glucose (74-99) mg/dL POC Glucose (mg/dL) 139 H 155 H 126 H (70-110) mg/dL Total Protein (6.3-8.2) g/dL Albumin (3.5-5.0) g/dL Urine Blood (Negative) Ur Leukocyte Esterase (Negative) Urine RBC (0-5) /hpf Urine Mucus (None) /hpf 11/25/23 11/25/23 11/25/23 Range/Units 19:54 21:03 22:04 WBC (3.8-10.6) k/uL RBC (4.30-5.90) m/uL Hgb (13.0-17.5) gm/dL Hct (39.0-53.0) % Plt Count (150-450) k/uL Neutrophils # (1.3-7.7) k/uL Monocytes # (0-1.0) k/uL Sodium (137-145) mmol/L Glucose (74-99) mg/dL POC Glucose (mg/dL) 167 H 148 H 146 H (70-110) mg/dL Total Protein (6.3-8.2) g/dL Albumin (3.5-5.0) g/dL Urine Blood (Negative) Ur Leukocyte Esterase (Negative) Urine RBC (0-5) /hpf Urine Mucus (None) /hpf 11/25/23 11/26/23 11/26/23 Range/Units 23:55 01:50 04:03 WBC (3.8-10.6) k/uL RBC (4.30-5.90) m/uL Hgb (13.0-17.5) gm/dL Hct (39.0-53.0) % Plt Count (150-450) k/uL Neutrophils # (1.3-7.7) k/uL Monocytes # (0-1.0) k/uL Sodium (137-145) mmol/L Glucose (74-99) mg/dL POC Glucose (mg/dL) 134 H 146 H 157 H (70-110) mg/dL Total Protein (6.3-8.2) g/dL Albumin (3.5-5.0) g/dL Urine Blood (Negative) Ur Leukocyte Esterase (Negative) Urine RBC (0-5) /hpf Urine Mucus (None) /hpf 11/26/23 11/26/23 11/26/23 Range/Units 04:05 04:05 05:57 WBC 15.2 H (3.8-10.6) k/uL RBC 4.11 L (4.30-5.90) m/uL Hgb 12.2 L (13.0-17.5) gm/dL Hct 35.3 L (39.0-53.0) % Plt Count 143 L (150-450) k/uL Neutrophils # 12.2 H (1.3-7.7) k/uL Monocytes # 1.2 H (0-1.0) k/uL Sodium 130 L (137-145) mmol/L Glucose 147 H (74-99) mg/dL POC Glucose (mg/dL) 142 H (70-110) mg/dL Total Protein 5.7 L (6.3-8.2) g/dL Albumin 3.1 L (3.5-5.0) g/dL Urine Blood (Negative) Ur Leukocyte Esterase (Negative) Urine RBC (0-5) /hpf Urine Mucus (None) /hpf 11/26/23 11/26/23 Range/Units 06:55 08:07 WBC (3.8-10.6) k/uL RBC (4.30-5.90) m/uL Hgb (13.0-17.5) gm/dL Hct (39.0-53.0) % Plt Count (150-450) k/uL Neutrophils # (1.3-7.7) k/uL Monocytes # (0-1.0) k/uL Sodium (137-145) mmol/L Glucose (74-99) mg/dL POC Glucose (mg/dL) 149 H 169 H (70-110) mg/dL Total Protein (6.3-8.2) g/dL Albumin (3.5-5.0) g/dL Urine Blood (Negative) Ur Leukocyte Esterase (Negative) Urine RBC (0-5) /hpf Urine Mucus (None) /hpf Assessment and Plan Time with Patient: Less than 30
--- NOTE | 2023-11-26 14:11 | P.PN ---
Subjective Progress Note Date: 11/26/23 This is Anthony Frederick NP, I'm dictating on behalf of Dr. Fuentes's H&P and A&P. Patient was interviewed and examined. Patient is a pleasant 72-year-old male who presented to the hospital with an end STEMI and underwent coronary artery bypass grafting of left internal thoracic to left anterior descending, and aorta to distal right coronary artery. Patient is doing well. He reports that he is feeling a lot better since having his chest tubes removed. He continues to complain of midsternal chest discomfort which is expected post cardiothoracic surgery. Patient's biggest complaint today is having a dry mouth. GENERAL: Well-appearing, well-nourished and in no acute distress. NECK: Supple without JVD or thyromegaly. LUNGS: Breath sounds clear to auscultation bilaterally. Respiration equal and unlabored. No wheezes, rales or rhonchi. HEART: Regular rate and rhythm without murmurs, rubs or gallops. S1 and S2 heard. EXTREMITIES: Normal range of motion, no edema. No clubbing or cyanosis. P eripheral pulses intact and strong. VITALS: Temp 98.7, pulse 73, respirations 16, blood pressure 121/70, O2 saturation 93% on room air TELEMETRY: Normal sinus rhythm LABS: White count 15.2, hemoglobin 12.2, platelets 143, sodium 1:30, potassium 4.3, BUN 16, creatinine 1.0, calcium 8.4, magnesium 1.8 IMPRESSION: 1. NSTEMI 2. Substernal chest pain with exertion, relieved with nitro 3. Essential hypertension 4. BPH 5. Obesity PLAN: Continue current medical management. Patient may have hard candies, popsicles, or suckers as needed for dry mouth. Further recommendations based on patient's clinical course. Objective - Vital Signs Vital signs: Vital Signs Temp 98.7 F 11/26/23 12:00 Pulse 72 11/26/23 13:00 Resp 19 11/26/23 13:00 BP 121/70 11/26/23 13:00 Pulse Ox 97 11/26/23 13:00 FiO2 50 11/24/23 18:00 Intake & Output 11/25/23 11/26/23 11/26/23 18:59 06:59 18:59 Intake Total 1752.306 666.650 576.862 Output Total 1580 1575 150 Balance 172.306 -908.350 426.862 Weight 118.6 kg Intake: IV 721 628 69 ACETAMINOPHEN IV (For NPO 100 ) 1,000 mg In Empty Bag 1 bag @ 400 mls/hr IVPB Q6HR [facility] Rx#:[id number] CO/CI 60 Lactated Ringers 1,000 ml 480 450 60 @ 20 mls/hr IV .Q24H [facility] Rx#:[id number] Magnesium Sulfate-D5w Pmx 100 1 gm In Dextrose/Water 1 100ml.bag @ 100 mls/hr IVPB ONCE ONE Rx#: [id number] Pressure 81 78 9 Intake, IV Titration 131.306 38.650 7.862 Amount Insulin Regular 100 unit 29.156 38.650 7.862 In Sodium Chloride 0.9% 100 ml @ Per Protocol IV .Q0M [facility] Rx#:[id number] Nitroglycerin-D5w Pmx 50 52.15 mg In Dextrose/Water 1 250ml.bag @ 5 MCG/MIN 1.5 mls/hr IV .Q24H [facility] Rx#: [id number] ceFAZolin 2 gm In Sodium 50 Chloride 0.9% 50 ml @ 100 mls/hr IVPB Q8HR [facility] Rx# :[id number] Oral 900 500 Output: Chest Tube Drainage 250 390 40 Bilateral Pleurals 160 210 40 Mediastinal 90 180 0 Urine 1330 1185 110 Other: Voiding Method Indwelling Catheter Indwelling Catheter Indwelling Catheter ABP, PAP, CO, CI - Last Documented Arterial Blood Pressure 121/50 Pulmonary Artery Pressure 29/10 Cardiac Output 6.4 Cardiac Index 2.8 - Labs CBC & Chem 7: 11/26/23 04:05 11/26/23 04:05 Labs: Abnormal Lab Results - Last 24 Hours (Table) 11/25/23 11/25/23 11/25/23 Range/Units 14:16 15:06 16:10 WBC (3.8-10.6) k/uL RBC (4.30-5.90) m/uL Hgb (13.0-17.5) gm/dL Hct (39.0-53.0) % Plt Count (150-450) k/uL Neutrophils # (1.3-7.7) k/uL Monocytes # (0-1.0) k/uL Sodium (137-145) mmol/L Glucose (74-99) mg/dL POC Glucose (mg/dL) 174 H 148 H 182 H (70-110) mg/dL Total Protein (6.3-8.2) g/dL Albumin (3.5-5.0) g/dL Urine Blood (Negative) Ur Leukocyte Esterase (Negative) Urine RBC (0-5) /hpf Urine Mucus (None) /hpf 11/25/23 11/25/23 11/25/23 Range/Units 16:20 17:07 18:22 WBC (3.8-10.6) k/uL RBC (4.30-5.90) m/uL Hgb (13.0-17.5) gm/dL Hct (39.0-53.0) % Plt Count (150-450) k/uL Neutrophils # (1.3-7.7) k/uL Monocytes # (0-1.0) k/uL Sodium (137-145) mmol/L Glucose (74-99) mg/dL POC Glucose (mg/dL) 139 H 155 H (70-110) mg/dL Total Protein (6.3-8.2) g/dL Albumin (3.5-5.0) g/dL Urine Blood Large H (Negative) Ur Leukocyte Esterase Small H (Negative) Urine RBC 64 H (0-5) /hpf Urine Mucus Rare H (None) /hpf 11/25/23 11/25/23 11/25/23 Range/Units 19:03 19:54 21:03 WBC (3.8-10.6) k/uL RBC (4.30-5.90) m/uL Hgb (13.0-17.5) gm/dL Hct (39.0-53.0) % Plt Count (150-450) k/uL Neutrophils # (1.3-7.7) k/uL Monocytes # (0-1.0) k/uL Sodium (137-145) mmol/L Glucose (74-99) mg/dL POC Glucose (mg/dL) 126 H 167 H 148 H (70-110) mg/dL Total Protein (6.3-8.2) g/dL Albumin (3.5-5.0) g/dL Urine Blood (Negative) Ur Leukocyte Esterase (Negative) Urine RBC (0-5) /hpf Urine Mucus (None) /hpf 11/25/23 11/25/23 11/26/23 Range/Units 22:04 23:55 01:50 WBC (3.8-10.6) k/uL RBC (4.30-5.90) m/uL Hgb (13.0-17.5) gm/dL Hct (39.0-53.0) % Plt Count (150-450) k/uL Neutrophils # (1.3-7.7) k/uL Monocytes # (0-1.0) k/uL Sodium (137-145) mmol/L Glucose (74-99) mg/dL POC Glucose (mg/dL) 146 H 134 H 146 H (70-110) mg/dL Total Protein (6.3-8.2) g/dL Albumin (3.5-5.0) g/dL Urine Blood (Negative) Ur Leukocyte Esterase (Negative) Urine RBC (0-5) /hpf Urine Mucus (None) /hpf 11/26/23 11/26/23 11/26/23 Range/Units 04:03 04:05 04:05 WBC 15.2 H (3.8-10.6) k/uL RBC 4.11 L (4.30-5.90) m/uL Hgb 12.2 L (13.0-17.5) gm/dL Hct 35.3 L (39.0-53.0) % Plt Count 143 L (150-450) k/uL Neutrophils # 12.2 H (1.3-7.7) k/uL Monocytes # 1.2 H (0-1.0) k/uL Sodium 130 L (137-145) mmol/L Glucose 147 H (74-99) mg/dL POC Glucose (mg/dL) 157 H (70-110) mg/dL Total Protein 5.7 L (6.3-8.2) g/dL Albumin 3.1 L (3.5-5.0) g/dL Urine Blood (Negative) Ur Leukocyte Esterase (Negative) Urine RBC (0-5) /hpf Urine Mucus (None) /hpf 11/26/23 11/26/23 11/26/23 Range/Units 05:57 06:55 08:07 WBC (3.8-10.6) k/uL RBC (4.30-5.90) m/uL Hgb (13.0-17.5) gm/dL Hct (39.0-53.0) % Plt Count (150-450) k/uL Neutrophils # (1.3-7.7) k/uL Monocytes # (0-1.0) k/uL Sodium (137-145) mmol/L Glucose (74-99) mg/dL POC Glucose (mg/dL) 142 H 149 H 169 H (70-110) mg/dL Total Protein (6.3-8.2) g/dL Albumin (3.5-5.0) g/dL Urine Blood (Negative) Ur Leukocyte Esterase (Negative) Urine RBC (0-5) /hpf Urine Mucus (None) /hpf 11/26/23 11/26/23 Range/Units 09:10 11:19 WBC (3.8-10.6) k/uL RBC (4.30-5.90) m/uL Hgb (13.0-17.5) gm/dL Hct (39.0-53.0) % Plt Count (150-450) k/uL Neutrophils # (1.3-7.7) k/uL Monocytes # (0-1.0) k/uL Sodium (137-145) mmol/L Glucose (74-99) mg/dL POC Glucose (mg/dL) 149 H 145 H (70-110) mg/dL Total Protein (6.3-8.2) g/dL Albumin (3.5-5.0) g/dL Urine Blood (Negative) Ur Leukocyte Esterase (Negative) Urine RBC (0-5) /hpf Urine Mucus (None) /hpf
[2023-11-26 15:02] LABS: Basophils % (A) 0 %; Eosinophils # (A) 0.2 k/uL (0-0.7); Eosinophils % (A) 1 %; HCT 37.6 % (39.0-53.0); HGB 12.6 gm/dL (13.0-17.5); Lymphocytes % (A) 7 %; MCH 29.4 pg (25.0-35.0); MCHC 33.5 g/dL (31.0-37.0); MCV 87.7 fL (80.0-100.0); Mean Platelet Volume 7.6; Monocytes % (A) 7 %; Neutrophils # (A) 12.1 k/uL (1.3-7.7); Neutrophils % (A) 84 %; Platelet Count 147 k/uL (150-450); RBC 4.29 m/uL (4.30-5.90); RDW 12.7 % (11.5-15.5); WBC 14.4 k/uL (3.8-10.6)
[2023-11-26 16:47] LABS: Glucose,Whole Blood 185 mg/dL (70-110)
[2023-11-26] MEDS: bisacodyL 10 MG SUPP RECTAL PRN (16:47)
[2023-11-26] MEDS: TAMSULOSIN 0.4 MG CAP.ER.24H PO SCH (17:26)
[2023-11-26 20:02] LABS: Glucose,Whole Blood 219 mg/dL (70-110)
[2023-11-26] MEDS: SENNOSIDES-DOCUSATE SODIUM 1 EACH TAB PO SCH (20:13)
[2023-11-26] MEDS: ATORVASTATIN 40 MG TAB PO SCH (20:13)
[2023-11-26] MEDS ORDERED: INSULIN DETEMIR (LEVEMIR) 100 UNIT/ML SYR SQ SCH (21:00)
[2023-11-27] MEDS: ACETAMINOPHEN TAB 500 MG TAB PO PRN (04:19)
[2023-11-27 04:31] LABS: Basophils % (A) 0 %; Eosinophils # (A) 0.2 k/uL (0-0.7); Eosinophils % (A) 2 %; HCT 34.6 % (39.0-53.0); HGB 11.5 gm/dL (13.0-17.5); Lymphocytes # (A) 1.4 k/uL (1.0-4.8); Lymphocytes % (A) 11 %; MCH 28.8 pg (25.0-35.0); MCHC 33.3 g/dL (31.0-37.0); MCV 86.5 fL (80.0-100.0); Mean Platelet Volume 8.5; Monocytes # (A) 1.1 k/uL (0-1.0); Monocytes % (A) 9 %; Neutrophils # (A) 9.8 k/uL (1.3-7.7); Neutrophils % (A) 76 %; Platelet Count 140 k/uL (150-450); RDW 12.9 % (11.5-15.5); WBC 12.9 k/uL (3.8-10.6)
[2023-11-27 05:28] LABS: African American GFR (CKD) >90 (>60 ml/min/1.73 sqM); Anion Gap 9 mmol/L; Blood Urea Nitrogen 22 mg/dL (9-20); Calcium 8.3 mg/dL (8.4-10.2); Carbon Dioxide 23 mmol/L (22-30); Chloride 98 mmol/L (98-107); Glucose 173 mg/dL (74-99); Non-African American GFR(CKD) 83 (>60 ml/min/1.73 sqM); Potassium 4.4 mmol/L (3.5-5.1); Sodium 130 mmol/L (137-145)
[2023-11-27 05:54] LABS: Glucose,Whole Blood 220 mg/dL (70-110)
[2023-11-27] MEDS: KETOROLAC 15 MG/ML 1 ML VIAL IVP SCH ×3 (06:19→18:19)
[2023-11-27] MEDS: PANTOPRAZOLE 40 MG TABLET PO SCH (06:19)
[2023-11-27] MEDS: INSULIN ASPART (NovoLOG) 100 UNIT/ML VIAL SQ SCH ×7 (06:19→22:16)
--- NOTE | 2023-11-27 07:42 | P.PN ---
Subjective Progress Note Date: 11/27/23 Principal diagnosis: Coronary artery disease The patient is a pleasant 72-year-old gentleman who was admitted to the hospital with acute coronary syndrome and he underwent a heart catheterization and was diagnosed with severe triple-vessel coronary artery disease where he was re ferred for open heart surgery and underwent CABG 11/27/2023 The patient was seen and evaluated this morning. He is stable. He is asymptomatic. He is on maximize medical treatment. He has been maintaining normal sinus mechanism. The examination is remarkable for stable vital signs with a regular rhythm and imaged breathing sounds bilaterally and no lower extremity edema noted Assessment Acute non-ST elevation myocardial infarction Severe triple-vessel coronary artery disease Preserved LV systolic function Morbid obesity Plan Continue current medical regimen Follow-up with the patient Objective - Vital Signs Vital signs: Vital Signs Temp 99.5 F 11/27/23 04:00 Pulse 78 11/27/23 00:00 Resp 14 11/27/23 04:00 BP 119/75 11/27/23 04:00 Pulse Ox 93 L 11/27/23 04:00 FiO2 50 11/24/23 18:00 Intake & Output 11/26/23 11/27/23 11/27/23 18:59 06:59 18:59 Intake Total 1176.862 Output Total 992 1200 Balance 184.862 -1200 Weight 117.9 kg Intake: IV 69 Lactated Ringers 1,000 ml 60 @ 20 mls/hr IV .Q24H [facility] Rx#:[id number] Pressure 9 Intake, IV Titration 7.862 Amount Insulin Regular 100 unit 7.862 In Sodium Chloride 0.9% 100 ml @ Per Protocol IV .Q0M [facility] Rx#:[id number] Oral 1100 Output: Chest Tube Drainage 40 Bilateral Pleurals 40 Mediastinal 0 Urine 785 1200 Post Void Residual 167 Other: Voiding Method Indwelling Catheter Toilet ABP, PAP, CO, CI - Last Documented Arterial Blood Pressure 121/50 Pulmonary Artery Pressure 29/10 Cardiac Output 6.4 Cardiac Index 2.8 - Labs CBC & Chem 7: 11/27/23 04:18 11/27/23 04:18 Labs: Abnormal Lab Results - Last 24 Hours (Table) 11/26/23 11/26/23 11/26/23 Range/Units 08:07 09:10 11:19 WBC (3.8-10.6) k/uL RBC (4.30-5.90) m/uL Hgb (13.0-17.5) gm/dL Hct (39.0-53.0) % Plt Count (150-450) k/uL Neutrophils # (1.3-7.7) k/uL Monocytes # (0-1.0) k/uL Sodium (137-145) mmol/L BUN (9-20) mg/dL Glucose (74-99) mg/dL POC Glucose (mg/dL) 169 H 149 H 145 H (70-110) mg/dL Calcium (8.4-10.2) mg/dL 11/26/23 11/26/23 11/26/23 Range/Units 14:44 16:45 20:01 WBC 14.4 H (3.8-10.6) k/uL RBC 4.29 L (4.30-5.90) m/uL Hgb 12.6 L (13.0-17.5) gm/dL Hct 37.6 L (39.0-53.0) % Plt Count 147 L (150-450) k/uL Neutrophils # 12.1 H (1.3-7.7) k/uL Monocytes # (0-1.0) k/uL Sodium (137-145) mmol/L BUN (9-20) mg/dL Glucose (74-99) mg/dL POC Glucose (mg/dL) 185 H 219 H (70-110) mg/dL Calcium (8.4-10.2) mg/dL 11/27/23 11/27/23 11/27/23 Range/Units 04:18 04:18 05:53 WBC 12.9 H (3.8-10.6) k/uL RBC 4.00 L (4.30-5.90) m/uL Hgb 11.5 L (13.0-17.5) gm/dL Hct 34.6 L (39.0-53.0) % Plt Count 140 L (150-450) k/uL Neutrophils # 9.8 H (1.3-7.7) k/uL Monocytes # 1.1 H (0-1.0) k/uL Sodium 130 L (137-145) mmol/L BUN 22 H (9-20) mg/dL Glucose 173 H (74-99) mg/dL POC Glucose (mg/dL) 220 H (70-110) mg/dL Calcium 8.3 L (8.4-10.2) mg/dL Microbiology - Last 24 Hours (Table) 11/25/23 16:10 Blood Culture - Preliminary Blood
--- NOTE | 2023-11-27 07:54 | P.PN ---
Subjective Progress Note Date: 11/27/23 Principal diagnosis: Status post bypass surgery. Acute non-ST elevation myocardial infarction and coronary arteriosclerosis This is a very pleasant 72-year-old male patient with history of diabetes mellitus, hypertension who presented here to the emergency room on 11/20/2023 w ith complaints of chest discomfort. He had been having symptoms on and off 2-3 weeks prior. Mostly exertional. EGD revealed some mild ST segment abnormalities. Initial troponin was negative subsequent troponins were 0.08, 0.24, 0.14. Chest x-ray revealed no acute pulmonary process. Echocardiogram revealed preserved left ventricular systolic function with ejection fraction 55- 60%. CT angiogram revealed no evidence of pulmonary embolism. Lung noble were clear. He did undergo cardiac catheterization on 11/21/2023 which revealed 80% diffuse calcified proximal LAD disease and 80-90% calcified mid RCA disease. He was recommended coronary artery bypass grafting. We are seeing the patient today in consultation. He is a lifelong nonsmoker. Pulmonary function testing reveals an FEV1 value 2.53 L or 86% of predicted. He currently denies any shortness of breath, cough or congestion. Maintaining good O2 saturations in the mid 90s on room air. I count 7.8. Hemoglobin 14.2. Platelets 198. Sodium 139. Potassium 4.2. Bicarb 25. BUN 17. Creatinine 0.78. Glucose 170. Cholesterol 188. Triglycerides 171. LDL 106. HDL 48. Hepatitis screen negative. He's been afebrile. Hemodynamically stable. He is able to pull 3 L on the incentive spirometer. 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 He is up ambulating in his room. He denies any chest discomfort currently. The plan is for bypass grafting on 11/24/2023. He remains on a heparin drip. Reevaluated today on 11/23/23, patient is doing great, asymptomatic, patient is ambulating in his own room, he is on room air, denies any shortness of breath or chest pain, remains on heparin, he is in sinus rhythm, hemodynamically stable, not in any distress and he is scheduled for off-pump myocardial revascularization surgery with left internal mammary artery, endoscopic vein harvest, intraoperative transesophageal echocardiogram and exclusion of left atrial appendage to be completed by Dr. Quintanilla tomorrow 11/24/2023. Patient was seen today on 11/24/2023, patient is now status post off-pump coronary artery bypass grafting 2Left internal thoracic artery (in-situ) to left anterior descending artery. Saphenous vein from aorta to distal right coronary artery. , Patient also had left atrial appendage ligation, postoperatively patient was sent to the ICU he is now on mechanical ventilation, intubated, mechanically ventilated. Patient was on assist control rate of 14 tidal volume 550 FiO2 on the percent and PEEP of 10 ABG showed a pO2 of 193 pCO2 45 pH of 7.39. Since then his FiO2 was titrated down to 50%, and his PEEP is now down to 5, and he is on a pressure support of 8 with CPAP. Drips-merchant the patient is on clevidipine X at 4 mg/h he is on insulin 1 unit per hour patient is also on Precedex at 0.4 mcg/kg/h, and nitroglycerin at 10 units per minute patient seems to be calm, not in any distress, hemodynamics-merchant his cardiac output is 8.7 cardiac index is 3.9 blood pressure is 139/63. Chest x-ray showed mostly postoperative changes, endotracheal tube is above the thanh, [place]-Sean catheter is present in the main pulmonary artery region, left sided chest tube seems to be in proper positioning. Orogastric tube is also in proper position. Patient was reevaluated today on 11/25/2023, patient was extubated today uneventfully, he is now postoperative day #1Off pump coronary artery bypass grafting x 2. Left internal thoracic artery (in-situ) to left anterior descendin g artery. Saphenous vein from aorta to distal right coronary artery, Left atrial appendage ligation with #35mm AtriClip, Endoscopic left greater saphenous vein harvest, Graft flow measurements using the kubo financiero-Stim flow meter system, Trans- esophageal echocardiogram performed by anesthesia patient was extubated last night at 6:25 PM, patient is resting in bed, alert oriented 3, O2 saturation is 97% however he is on 5 L nasal cannula. Remains on insulin drip at 2.5 units per hour, he has lactated Ringer's running at 50 mL per hour. Cardiac output is 6.4 cardiac index is 2.8, patient is also receiving albumin, pulmonary pressure is 23/8. CVP is 3. Mediastinal and right left pleural chest tubes remain in place, no air leak. Chest x-ray showed left basilar atelectasis and possibly a small pleural effusion. Radiologists is raising the possibility of small right- sided pleural effusion, it is minimal and very atypical. Not clinically significant at this point. Reevaluated today on 11/26/2023, patient remains in the ICU, he is now postoperative day #2.Off pump coronary artery bypass grafting x 2. Left internal thoracic artery (in-situ) to left anterior descending artery. Saphenous vein from aorta to distal right coronary artery, Left atrial appendage ligation with #35mm AtriClip, Endoscopic left greater saphenous vein harvest, Graft flow measurements using the kubo financiero-Stim flow meter system, Trans-esophageal echocardiogram performed by anesthesia. Patient is doing well, he is sitting in bed, awake alert oriented 3, not in any distress, his chest tubes have been removed, his right IJ Cordis and [place]-Sean catheter has been removed, Nam catheter has been removed, patient feels much better today, breathing a lot easier, and he is doing much better with incentive spirometry achieving over 1500 mL. Patient already ambulated today on the hallway with assistance. CBC is relatively normal WBC of 15.2 hemoglobin is 12.2 basic metabolic profile is normal, renal profile is normal chest x-ray showed minimal pulmonary vascular congestion, small left pleural effusion and atelectasis, complete resolution of the right-sided pneumothorax, there is a small tiny possible left apical pneumothorax noted on chest x-ray today Progress note dated 11/27/2023. This is a 72-year-old male postoperative day #3, status post off pump two-vessel bypass grafting. The patient also underwent a left atrial appendage ligation endoscopic left greater saphenous vein harvest, graft flow measurements. The patient also had a transesophageal echocardiogram. He is currently seen today in room 265, intensive care unit. Surgery was done by Dr. Quintanilla. The patient's currently on room air. No IV fluids. He sitting in a chair next to his hospital bed. He denies any respiratory difficulty or distress. The patient is doing very well on his incentive spirometer. White count 12.9, he lobe 11.5, hematocrit 34.6, and platelet count 140,000. Sodium 130, potassium 4.4, chlorides 98, CO2 23, BUN 22, creatinine 0.91. Calcium is 8.3. Chest x-ray shows some cardiomegaly, postsurgical changes, and atelectasis and effusion, at the left lung base. Objective - Vital Signs Vital signs: Vital Signs Temp 99.5 F 11/27/23 04:00 Pulse 78 11/27/23 00:00 Resp 14 11/27/23 04:00 BP 119/75 11/27/23 04:00 Pulse Ox 93 L 11/27/23 04:00 FiO2 50 11/24/23 18:00 Intake & Output 11/26/23 11/27/23 11/27/23 18:59 06:59 18:59 Intake Total 1176.862 Output Total 992 1200 Balance 184.862 -1200 Weight 117.9 kg Intake: IV 69 Lactated Ringers 1,000 ml 60 @ 20 mls/hr IV .Q24H [facility] Rx#:[id number] Pressure 9 Intake, IV Titration 7.862 Amount Insulin Regular 100 unit 7.862 In Sodium Chloride 0.9% 100 ml @ Per Protocol IV .Q0M [facility] Rx#:[id number] Oral 1100 Output: Chest Tube Drainage 40 Bilateral Pleurals 40 Mediastinal 0 Urine 785 1200 Post Void Residual 167 Other: Voiding Method Indwelling Catheter Toilet ABP, PAP, CO, CI - Last Documented Arterial Blood Pressure 121/50 Pulmonary Artery Pressure 29/10 Cardiac Output 6.4 Cardiac Index 2.8 - Exam No acute distress, oriented 3. Currently on room air. HEENT examination is grossly unremarkable. Neck supple. Full range of motion. No adenopathy thyromegaly or neck vein distention. Cardiovascular examination reveals regular rhythm rate. S1-S2 normal. No S3 or S4. No discernible murmur noted. Heart rate 78 bpm. Lungs reveal minimal basilar crackles. No wheezes or rhonchi. Breath sounds are equal. Saturations are 93% on room air. Abdomen soft bowel sounds are heard. No masses or tenderness. Extremities are intact. No cyanosis clubbing or edema. Skin is without rash or lesion. Neurologic examination is brief but nonfocal. - Labs CBC & Chem 7: 11/27/23 04:18 11/27/23 04:18 Labs: Abnormal Lab Results - Last 24 Hours (Table) 11/26/23 11/26/23 11/26/23 Range/Units 08:07 09:10 11:19 WBC (3.8-10.6) k/uL RBC (4.30-5.90) m/uL Hgb (13.0-17.5) gm/dL Hct (39.0-53.0) % Plt Count (150-450) k/uL Neutrophils # (1.3-7.7) k/uL Monocytes # (0-1.0) k/uL Sodium (137-145) mmol/L BUN (9-20) mg/dL Glucose (74-99) mg/dL POC Glucose (mg/dL) 169 H 149 H 145 H (70-110) mg/dL Calcium (8.4-10.2) mg/dL 11/26/23 11/26/23 11/26/23 Range/Units 14:44 16:45 20:01 WBC 14.4 H (3.8-10.6) k/uL RBC 4.29 L (4.30-5.90) m/uL Hgb 12.6 L (13.0-17.5) gm/dL Hct 37.6 L (39.0-53.0) % Plt Count 147 L (150-450) k/uL Neutrophils # 12.1 H (1.3-7.7) k/uL Monocytes # (0-1.0) k/uL Sodium (137-145) mmol/L BUN (9-20) mg/dL Glucose (74-99) mg/dL POC Glucose (mg/dL) 185 H 219 H (70-110) mg/dL Calcium (8.4-10.2) mg/dL 11/27/23 11/27/23 11/27/23 Range/Units 04:18 04:18 05:53 WBC 12.9 H (3.8-10.6) k/uL RBC 4.00 L (4.30-5.90) m/uL Hgb 11.5 L (13.0-17.5) gm/dL Hct 34.6 L (39.0-53.0) % Plt Count 140 L (150-450) k/uL Neutrophils # 9.8 H (1.3-7.7) k/uL Monocytes # 1.1 H (0-1.0) k/uL Sodium 130 L (137-145) mmol/L BUN 22 H (9-20) mg/dL Glucose 173 H (74-99) mg/dL POC Glucose (mg/dL) 220 H (70-110) mg/dL Calcium 8.3 L (8.4-10.2) mg/dL Microbiology - Last 24 Hours (Table) 11/25/23 16:10 Blood Culture - Preliminary Blood Assessment and Plan Assessment: Status post off pump two-vessel bypass grafting, postop day #3. Routine postoperative ventilator management. History of coronary artery disease. Benign essential hypertension. Lifetime nonsmoker, nondrinker. Type 2 diabetes without complication. Family history of early-onset CAD. Small apical pneumothorax, expected. Plan: Plan dated 11/27/2023. The patient is postop day #3. The patient sitting in the chair, next to his hospital bed. The patient is not requiring any supplemental oxygen. The patient is not receiving any IV fluids. Labs, x-rays, medications are reviewed. The patient's doing very well on his incentive spirometer. We will continue to follow make recommendations along the way. The patient may be transferred out of the intensive care unit, in the next day or so. No additional recomme ndations are made. We will continue to follow the patient, and make recommendations where necessary. Time with Patient: Less than 30
--- NOTE | 2023-11-27 07:55 | P.PN ---
Subjective Progress Note Date: 11/27/23 Principal diagnosis: Coronary artery disease, non-ST elevated myocardial infarction this admission. Past medical history significant for hypertension, diabetes mellitus type 2 cur rently on no diabetic treatment with a hemoglobin A1c of 7.7%, he is a lifetime nonsmoker, benign prostatic hypertrophy, obesity with a BMI of 36.9 kg/m and a family history of early onset coronary artery disease with his mother having a myocardial infarction in her late 50s. POD #3 Off pump coronary artery bypass grafting x 2. Left internal thoracic artery (in-situ) to left anterior descending artery. Saphenous vein from aorta to distal right coronary artery, Left atrial appendage ligation with #35mm AtriClip, Endoscopic left greater saphenous vein harvest, Graft flow measurements using the [employer] flow meter system, Trans-esophageal echocardiogram performed by anesthesia The patient was seen and examined in follow-up today 11/27/2023 at his bedside in the intensive care unit. He is currently sitting up to the bedside chair, is awake, alert, oriented 3 and is in no acute distress. Oxygen saturation are 93% on 2 L nasal cannula and he is achieving 1500 mL on his incentive spirometry with encouragement. Bedside telemetry showing normal sinus rhythm heart rate 78 BPM. He remains hemodynamically stable and is currently on no inotropic or pressor support. His mediastinal, left and right pleural chest tubes were removed yesterday without incident. His ventricular epicardial pacemaker wires were removed yesterday without incident. He is transfer orders for the third floor cardiac stepdown unit, although due lack of bed availability on the third floor cardiac stepdown unit he remains in the intensive care unit. He reports he has been up ambulating in the intensive care unit hallway with standby assistance of nursing therapy staff and tolerating well. His T-max temperature in the last 24 hours was 99.5F. Laboratory and chest x-ray results reviewed. Objective - Vital Signs Vital signs: Vital Signs Temp 99.5 F 11/27/23 04:00 Pulse 78 11/27/23 00:00 Resp 14 11/27/23 04:00 BP 119/75 11/27/23 04:00 Pulse Ox 93 L 11/27/23 04:00 FiO2 50 11/24/23 18:00 Intake & Output 11/26/23 11/27/23 11/27/23 18:59 06:59 18:59 Intake Total 1176.862 Output Total 992 1200 Balance 184.862 -1200 Weight 117.9 kg Intake: IV 69 Lactated Ringers 1,000 ml 60 @ 20 mls/hr IV .Q24H JESSI Rx#:[id number] Pressure 9 Intake, IV Titration 7.862 Amount Insulin Regular 100 unit 7.862 In Sodium Chloride 0.9% 100 ml @ Per Protocol IV .Q0M JESSI Rx#:[id number] Oral 1100 Output: Chest Tube Drainage 40 Bilateral Pleurals 40 Mediastinal 0 Urine 785 1200 Post Void Residual 167 Other: Voiding Method Indwelling Catheter Toilet ABP, PAP, CO, CI - Last Documented Arterial Blood Pressure 121/50 Pulmonary Artery Pressure 29/10 Cardiac Output 6.4 Cardiac Index 2.8 - Exam CONSTITUTIONAL: Sitting up to the bedside chair in the intensive care unit, appears comfortable, cooperative, no apparent acute distress. HEENT: Neck is supple, no JVD, no lymphadenopathy. RESPIRATORY: Lungs sounds essentially clear throughout, diminished to his bilateral bases. Respirations are symmetrical and nonlabored. Currently on 2 L nasal cannula with oxygen saturations 93%. Able to achieve 1500 mL on his incentive spirometry. Strong cough. CARDIOVASCULAR: Regular rhythm and rate. S1 and S2 present, negative for S3, gallop or murmur. Bedside telemetry showing normal sinus rhythm heart rate 78 BPM. Sternum is stable. Palpable peripheral pulses bilaterally, no calf pain or tenderness noted. Heart hugger in place with patient demonstrating appropriate use. Knee-high PADMINI hose and sequential compression devices in place to his bilateral lower extremities. GASTROINTESTINAL: Abdomen soft, nontender, nondistended. Active bowel sounds present 4 quadrants. Tolerating diet. Passing flatus. No guarding or rigidity. GENITOURINARY: Continues to void. 1050 mL of urine output in the last 8 hours. INTEGUMENTARY: Skin is warm and dry with no evidence of clubbing or cyanosis. Midline sternal incision clean dry and well approximated, covered with dry intact dressing. Left lower extremity EVH sites well approximated without redness or drainage. NEUROLOGIC: Cranial nerves II through XII intact. No focal deficits. MUSKULOSKELETAL: Able to move all extremities, strength equal bilaterally, generalized weakness. PSYCHIATRIC: Alert and oriented to person place and time, appropriate affect, intact judgment and insight. - Allied health notes Allied health notes reviewed: nursing - Labs CBC & Chem 7: 11/27/23 04:18 11/27/23 04:18 Labs: Abnormal Lab Results - Last 24 Hours (Table) 11/26/23 11/26/23 11/26/23 Range/Units 08:07 09:10 11:19 WBC (3.8-10.6) k/uL RBC (4.30-5.90) m/uL Hgb (13.0-17.5) gm/dL Hct (39.0-53.0) % Plt Count (150-450) k/uL Neutrophils # (1.3-7.7) k/uL Monocytes # (0-1.0) k/uL Sodium (137-145) mmol/L BUN (9-20) mg/dL Glucose (74-99) mg/dL POC Glucose (mg/dL) 169 H 149 H 145 H (70-110) mg/dL Calcium (8.4-10.2) mg/dL 11/26/23 11/26/23 11/26/23 Range/Units 14:44 16:45 20:01 WBC 14.4 H (3.8-10.6) k/uL RBC 4.29 L (4.30-5.90) m/uL Hgb 12.6 L (13.0-17.5) gm/dL Hct 37.6 L (39.0-53.0) % Plt Count 147 L (150-450) k/uL Neutrophils # 12.1 H (1.3-7.7) k/uL Monocytes # (0-1.0) k/uL Sodium (137-145) mmol/L BUN (9-20) mg/dL Glucose (74-99) mg/dL POC Glucose (mg/dL) 185 H 219 H (70-110) mg/dL Calcium (8.4-10.2) mg/dL 11/27/23 11/27/23 11/27/23 Range/Units 04:18 04:18 05:53 WBC 12.9 H (3.8-10.6) k/uL RBC 4.00 L (4.30-5.90) m/uL Hgb 11.5 L (13.0-17.5) gm/dL Hct 34.6 L (39.0-53.0) % Plt Count 140 L (150-450) k/uL Neutrophils # 9.8 H (1.3-7.7) k/uL Monocytes # 1.1 H (0-1.0) k/uL Sodium 130 L (137-145) mmol/L BUN 22 H (9-20) mg/dL Glucose 173 H (74-99) mg/dL POC Glucose (mg/dL) 220 H (70-110) mg/dL Calcium 8.3 L (8.4-10.2) mg/dL Microbiology - Last 24 Hours (Table) 11/25/23 16:10 Blood Culture - Preliminary Blood - Imaging and Cardiology Chest x-ray: report reviewed, image reviewed Assessment and Plan Assessment: Coronary artery disease, status post CABG 2 Non-ST elevated myocardial infarction this admission Hypertension Hyperlipidemia, cholesterol 218 and triglycerides 247 Diabetes mellitus type 2, currently on no treatment as an outpatient, preoperative hemoglobin A1c of 7.7% Benign prostatic hypertrophy Lifetime nonsmoker Obesity with a BMI of 36.9 kg/m Early onset family history of coronary artery disease with his mother having a myocardial infarction in her late 50s Plan: Continue to maximize medical therapy with aspirin, statin, plavix, and beta jesse. Will increase metoprolol tartrate as tolerated with hold parameters. Encourage incentive spirometry use 10 times every hour while awake. Bronchodilators per pulmonology. Will monitor daily labs and chest x-rays, electrolyte replacement protocol. Increase activity as tolerated. PT/OT/cardiac rehab following. GI/DVT prophylaxis. Pain control with current medication regimen. Insulin management per internal medicine. Preoperative hemoglobin A1c 7.7%. Continue to record strict accurate intake and output. May bladder scan every 6 hours and when necessary postvoid residual, if greater than 300 mL of urine may straight cath. Daily weights. Shower daily. Transfer to the third floor cardiac stepdown unit when bed available. Discharge planning is in place, anticipate discharge home with home health care in the next 24 hours. More recommendations to follow based on patient's clinical course. Time with Patient: Greater than 30
[2023-11-27] MEDS: IPRATROPIUM-ALBUTEROL 3 ML NEB INHALATION SCH ×4 (08:12→20:49)
[2023-11-27] MEDS: HEPARIN SODIUM,PORCINE 5,000 UNIT/ML 1 ML VIAL SQ SCH ×2 (09:02→18:19)
[2023-11-27] MEDS: INSULIN DETEMIR (LEVEMIR) 100 UNIT/ML SYR SQ SCH ×2 (09:02→22:15)
[2023-11-27] MEDS: ASPIRIN 325 MG TAB PO SCH (09:02)
[2023-11-27] MEDS: bisacodyL 10 MG SUPP RECTAL PRN (09:02)
[2023-11-27] MEDS: CLOPIDOGREL 75 MG TAB PO SCH (09:02)
[2023-11-27] MEDS: METOPROLOL TARTRATE 25 MG TAB PO SCH ×2 (09:03→22:15)
[2023-11-27] MEDS ORDERED: FUROSEMIDE 10 MG/ML 2 ML VIAL IV STA (09:16)
[2023-11-27] MEDS ORDERED: POTASSIUM CHLORIDE ER 10 MEQ TAB.ER.PRT PO STA (09:55)
--- NOTE | 2023-11-27 10:03 | XR ---
EXAMINATION TYPE: XR chest 2V DATE OF EXAM: 11/27/2023 COMPARISON: 11/26/2023 HISTORY: 72-year-old male postop CABG TECHNIQUE: PA and lateral views FINDINGS: Median sternotomy wires and post-CABG clips. Heart mildly enlarged. Diffuse interstitial density pers ists. Interval removal of the patient's chest tubes. No appreciable pneumothorax. Ongoing small left pleural effusion with retrocardiac and left basilar density, slightly improved. IMPRESSION: 1. Removal of the chest tubes. No residual pneumothorax seen. 2. Ongoing mild pulmonary vascular congestion. 3. Small left pleural effusion with retrocardiac and left basilar atelectasis slightly improved.
--- NOTE | 2023-11-27 10:24 | US ---
EXAMINATION TYPE: US chest DATE OF EXAM: 11/27/2023 COMPARISON: CLINICAL INDICATION: Male, 72 years old with history of US left chest with markings; TECHNIQUE: Targeted ultrasound of the posterior lower left hemithorax EXAM MEASUREMENTS: Left Pleural Effusion pocket to lung size: 1.8 cm Left side NOT marked for possible thoracentesis outside the dept. due to small fluid pocket and lung location. Pulmonologists are able to review the images in the patient?s EMR. IMPRESSIONS: 1. Small left pleural effusion
[2023-11-27 11:23] LABS: Glucose,Whole Blood 224 mg/dL (70-110)
[2023-11-27 12:16] LABS: Glucose,Whole Blood 174 mg/dL (70-110)
[2023-11-27 16:25] LABS: Glucose,Whole Blood 151 mg/dL (70-110)
[2023-11-27] MEDS: TAMSULOSIN 0.4 MG CAP.ER.24H PO SCH (18:19)
[2023-11-27 21:07] LABS: Glucose,Whole Blood 180 mg/dL (70-110)
[2023-11-27] MEDS: SENNOSIDES-DOCUSATE SODIUM 1 EACH TAB PO SCH (22:15)
[2023-11-27] MEDS: ATORVASTATIN 40 MG TAB PO SCH (22:15)
[2023-11-28] MEDS: HEPARIN SODIUM,PORCINE 5,000 UNIT/ML 1 ML VIAL SQ SCH ×3 (00:51→17:57)
[2023-11-28] MEDS: KETOROLAC 15 MG/ML 1 ML VIAL IVP SCH ×4 (00:52→17:57)
[2023-11-28 02:06] LABS: Glucose,Whole Blood 240 mg/dL (70-110)
[2023-11-28 05:49] LABS: Glucose,Whole Blood 253 mg/dL (70-110)
[2023-11-28] MEDS: PANTOPRAZOLE 40 MG TABLET PO SCH (07:01)
[2023-11-28] MEDS: INSULIN ASPART (NovoLOG) 100 UNIT/ML VIAL SQ SCH ×8 (07:02→21:03)
[2023-11-28] MEDS: INSULIN DETEMIR (LEVEMIR) 100 UNIT/ML SYR SQ SCH ×2 (07:02→10:20)
--- NOTE | 2023-11-28 09:10 | XR ---
EXAMINATION TYPE: XR chest 2V DATE OF EXAM: 11/28/2023 COMPARISON: 11/27/2023 HISTORY: 72-year-old male postop CABG TECHNIQUE: PA and lateral views FINDINGS: Median sternotomy wires are present with post-CABG clips. Heart mildly enlarged. Diffuse interstitial density. Ongoing small left pleural effusion with adjacent left basilar opacity. Additional trace ri ght effusion on the lateral view. IMPRESSION: Overall similar exam with mild pulmonary vascular congestion. Ongoing small left and trace right pleu ral effusions with adjacent atelectasis and/or consolidation.
[2023-11-28] MEDS: IPRATROPIUM-ALBUTEROL 3 ML NEB INHALATION SCH ×4 (09:36→21:13)
[2023-11-28] MEDS: LOSARTAN 25 MG TAB PO SCH (10:17)
[2023-11-28] MEDS: CLOPIDOGREL 75 MG TAB PO SCH (10:17)
[2023-11-28] MEDS: ASPIRIN 325 MG TAB PO SCH (10:17)
[2023-11-28] MEDS: METOPROLOL TARTRATE 50 MG TAB PO SCH ×2 (10:17→21:26)
[2023-11-28 11:19] LABS: Basophils % (A) 0 %; Eosinophils # (A) 0.2 k/uL (0-0.7); Eosinophils % (A) 2 %; HCT 37.1 % (39.0-53.0); HGB 12.4 gm/dL (13.0-17.5); Lymphocytes # (A) 1.4 k/uL (1.0-4.8); Lymphocytes % (A) 12 %; MCH 29.3 pg (25.0-35.0); MCHC 33.5 g/dL (31.0-37.0); MCV 87.6 fL (80.0-100.0); Mean Platelet Volume 7.8; Monocytes # (A) 1.1 k/uL (0-1.0); Monocytes % (A) 10 %; Neutrophils # (A) 8.1 k/uL (1.3-7.7); Neutrophils % (A) 72 %; Platelet Count 237 k/uL (150-450); RBC 4.24 m/uL (4.30-5.90); RDW 12.9 % (11.5-15.5); WBC 11.2 k/uL (3.8-10.6)
[2023-11-28 11:42] LABS: African American GFR (CKD) 81 (>60 ml/min/1.73 sqM); Anion Gap 12 mmol/L; Blood Urea Nitrogen 28 mg/dL (9-20); Calcium 9.2 mg/dL (8.4-10.2); Carbon Dioxide 28 mmol/L (22-30); Chloride 95 mmol/L (98-107); Glucose 169 mg/dL (74-99); Non-African American GFR(CKD) 70 (>60 ml/min/1.73 sqM); Potassium 4.1 mmol/L (3.5-5.1); Sodium 135 mmol/L (137-145)
[2023-11-28 12:06] LABS: Glucose,Whole Blood 154 mg/dL (70-110)
[2023-11-28] MEDS: LINAGLIPTIN 5 MG TABLET PO SCH (13:04)
--- NOTE | 2023-11-28 14:00 | P.PN ---
Subjective HISTORY OF PRESENT ILLNESS: Patient is status post CABG 2 vessels. Postop day #4. Patient examined this morning at the bedside. Patient currently denies chest pain or pressure. He denies shortness of breath. Patient has been using his incentive spirometer and pulling 1500 mL. He has been up ambulating in the hallway without difficulty. Telemetry reveals sinus mechanism. Vital signs are stable. He is hoping to be discharged home this afternoon. PHYSICAL EXAM: VITAL SIGNS: Reviewed. GENERAL: Well-developed in no acute distress. NECK: Supple. No JVD or thyromegaly LUNGS: Respirations even and unlabored. Lungs essentially clear to auscultation bilaterally. HEART: Regular rate and rhythm. S1 and S2 heard. Heart hugger noted. EXTREMITIES: Normal range of motion. No clubbing or cyanosis. Peripheral pulses intact. No lower extremity edema ASSESSMENT: Coronary artery disease, status post two-vessel CABG Non-STEMI Hypertension Hyperlipidemia Diabetes PLAN: Continue postoperative management per CT surgery Encourage use of incentive spirometer Increase activity as tolerated Patient is currently stable for discharge home today from a cardiac standpoint He is to follow up in the office post discharge Nurse practitioner note has been reviewed by physician. Signing provider agrees with the documented findings, assessment, and plan of care. Objective - Vital Signs Vital signs: Vital Signs Temp 98.0 F 11/28/23 08:00 Pulse 100 11/28/23 13:20 Resp 18 11/28/23 12:00 BP 124/78 11/28/23 12:00 Pulse Ox 94 L 11/28/23 12:00 FiO2 50 11/24/23 18:00 Intake & Output 11/27/23 11/28/23 11/28/23 18:59 06:59 18:59 Intake Total 540 Output Total 800 750 1 Balance -800 -210 -1 Weight 116.6 kg Intake: Oral 540 Output: Urine 800 750 Stool 1 Other: Voiding Method Urinal Urinal # Voids 1 ABP, PAP, CO, CI - Last Documented Arterial Blood Pressure 121/50 Pulmonary Artery Pressure 29/10 Cardiac Output 6.4 Cardiac Index 2.8 - Labs CBC & Chem 7: 11/28/23 10:50 11/28/23 10:50 Labs: Abnormal Lab Results - Last 24 Hours (Table) 11/27/23 11/27/23 11/28/23 Range/Units 16:24 21:05 02:04 WBC (3.8-10.6) k/uL RBC (4.30-5.90) m/uL Hgb (13.0-17.5) gm/dL Hct (39.0-53.0) % Neutrophils # (1.3-7.7) k/uL Monocytes # (0-1.0) k/uL Sodium (137-145) mmol/L Chloride (98-107) mmol/L BUN (9-20) mg/dL Glucose (74-99) mg/dL POC Glucose (mg/dL) 151 H 180 H 240 H (70-110) mg/dL 11/28/23 11/28/23 11/28/23 Range/Units 05:46 10:50 10:50 WBC 11.2 H (3.8-10.6) k/uL RBC 4.24 L (4.30-5.90) m/uL Hgb 12.4 L (13.0-17.5) gm/dL Hct 37.1 L (39.0-53.0) % Neutrophils # 8.1 H (1.3-7.7) k/uL Monocytes # 1.1 H (0-1.0) k/uL Sodium 135 L (137-145) mmol/L Chloride 95 L (98-107) mmol/L BUN 28 H (9-20) mg/dL Glucose 169 H (74-99) mg/dL POC Glucose (mg/dL) 253 H (70-110) mg/dL 11/28/23 Range/Units 12:00 WBC (3.8-10.6) k/uL RBC (4.30-5.90) m/uL Hgb (13.0-17.5) gm/dL Hct (39.0-53.0) % Neutrophils # (1.3-7.7) k/uL Monocytes # (0-1.0) k/uL Sodium (137-145) mmol/L Chloride (98-107) mmol/L BUN (9-20) mg/dL Glucose (74-99) mg/dL POC Glucose (mg/dL) 154 H (70-110) mg/dL Microbiology - Last 24 Hours (Table) 11/25/23 16:10 Blood Culture - Preliminary Blood
--- NOTE | 2023-11-28 15:36 | P.PN ---
Subjective Progress Note Date: 11/28/23 Principal diagnosis: Coronary artery disease, non-ST elevated myocardial infarction this admission. Past medical history significant for hypertension, diabetes mellitus type 2 cur rently on no diabetic treatment with a hemoglobin A1c of 7.7%, he is a lifetime nonsmoker, benign prostatic hypertrophy, obesity with a BMI of 36.9 kg/m and a family history of early onset coronary artery disease with his mother having a myocardial infarction in her late 50s. POD #4 Off pump coronary artery bypass grafting x 2. Left internal thoracic artery (in-situ) to left anterior descending artery. Saphenous vein from aorta to distal right coronary artery, Left atrial appendage ligation with #35mm AtriClip, Endoscopic left greater saphenous vein harvest, Graft flow measurements using the [employer] flow meter system, Trans-esophageal echocardiogram performed by anesthesia The patient was seen and examined in follow-up today in December 08 at his bedside on the third floor cardiac stepdown unit. He is currently sitting up to the bedside chair, is awake, alert, oriented 3 and is in no acute apparent distress. Oxygen saturation are 94% on room air and he is achieving 1500 mL on his incentive spirometry with encouragement. Remote telemetry showing normal sinus rhythm heart rate 95 BPM. He remained hemodynamically stable and is currently on no inotropic pressor support. Primary care service has been adjusting his insulins in preparation for discharge home. The patient has been checking his own blood sugars and drawing up and injecting his insulin with instruction from nursing staff. He is been ambulating in the cardiac stepdown unit hallway with standby assistance from nursing and therapy staff and tolerating well. Discharge planning is in place. An ultrasound of his left chest was completed yesterday with a 1.8 cm left pleural effusion pocket demonstrated and the chest was not marked. Laboratory and chest x-ray results reviewed. Objective - Vital Signs Vital signs: Vital Signs Temp 98.7 F 11/28/23 04:21 Pulse 81 11/28/23 04:21 Resp 20 11/28/23 04:21 BP 140/81 11/28/23 04:21 Pulse Ox 94 L 11/28/23 04:21 FiO2 50 11/24/23 18:00 Intake & Output 11/27/23 11/28/23 11/28/23 18:59 06:59 18:59 Intake Total 540 Output Total 800 750 Balance -800 -210 Weight 116.6 kg Intake: Oral 540 Output: Urine 800 750 Other: Voiding Method Urinal Urinal # Voids 1 ABP, PAP, CO, CI - Last Documented Arterial Blood Pressure 121/50 Pulmonary Artery Pressure 29/10 Cardiac Output 6.4 Cardiac Index 2.8 - Exam CONSTITUTIONAL: Sitting up to the bedside chair on the third floor cardiac stepdown unit, appears comfortable, cooperative, no apparent acute distress. HEENT: Neck is supple, no JVD, no lymphadenopathy. RESPIRATORY: Lungs sounds essentially clear throughout, diminished to his bilateral bases, left greater than right. Respirations are symmetrical and nonlabored. Currently on room air with oxygen saturations 94%. Able to achieve 1500 mL on his incentive spirometry. Strong cough. CARDIOVASCULAR: Regular rhythm and rate. S1 and S2 present, negative for S3, gallop or murmur. Remote telemetry showing normal sinus rhythm heart rate 95 BPM. Sternum is stable. Palpable peripheral pulses bilaterally, no calf pain or tenderness noted. Heart hugger in place with patient demonstrating appropriate use. Knee-high PADMINI hose and sequential compression devices in place to his bilateral lower extremities. GASTROINTESTINAL: Abdomen soft, nontender, nondistended. Active bowel sounds present 4 quadrants. Tolerating diet. Passing flatus. No guarding or rigidity. GENITOURINARY: Continues to void. 500 mL of urine output in the last 8 hours. INTEGUMENTARY: Skin is warm and dry with no evidence of clubbing or cyanosis. Midline sternal incision clean dry and well approximated, covered with dry intact dressing. Left lower extremity EVH sites well approximated without redness or drainage. NEUROLOGIC: Cranial nerves II through XII intact. No focal deficits. MUSKULOSKELETAL: Able to move all extremities, strength equal bilaterally. PSYCHIATRIC: Alert and oriented to person place and time, appropriate affect, intact judgment and insight. - Allied health notes Allied health notes reviewed: nursing - Labs CBC & Chem 7: 11/28/23 10:50 11/28/23 10:50 Labs: Abnormal Lab Results - Last 24 Hours (Table) 11/27/23 11/27/23 11/27/23 Range/Units 11:21 12:14 16:24 POC Glucose (mg/dL) 224 H 174 H 151 H (70-110) mg/dL 11/27/23 11/28/23 11/28/23 Range/Units 21:05 02:04 05:46 POC Glucose (mg/dL) 180 H 240 H 253 H (70-110) mg/dL Microbiology - Last 24 Hours (Table) 11/25/23 16:10 Blood Culture - Preliminary Blood - Imaging and Cardiology Chest x-ray: report reviewed, image reviewed Assessment and Plan Assessment: Coronary artery disease, status post CABG 2 Non-ST elevated myocardial infarction this admission Hypertension Hyperlipidemia, cholesterol 218 and triglycerides 247 Diabetes mellitus type 2, currently on no treatment as an outpatient, preoperative hemoglobin A1c of 7.7% Benign prostatic hypertrophy Lifetime nonsmoker Obesity with a BMI of 36.9 kg/m Early onset family history of coronary artery disease with his mother having a myocardial infarction in her late 50s Plan: Continue to maximize medical therapy with aspirin, statin, plavix, and beta jesse. Will increase metoprolol tartrate to 50 mg by mouth twice a day with hold parameters. Encourage incentive spirometry use 10 times every hour while awake. Bronchodilators per pulmonology. Will monitor daily labs and chest x-rays, electrolyte replacement protocol. Increase activity as tolerated. PT/OT/cardiac rehab following. GI/DVT prophylaxis. We will start Cozaar 25 mg by mouth daily to assist with afterload reduction and blood pressure control. Pain control with current medication regimen. Insulin management per internal medicine. Preoperative hemoglobin A1c 7.7%. Diabetic teaching is in progress. We will start the patient on Januvia 5 mg by mouth daily Continue to record strict accurate intake and output. May bladder scan every 6 hours and when necessary postvoid residual, if greater than 300 mL of urine may straight cath. Daily weights. Shower daily. Discharge planning is in place, anticipate discharge home with home health care in the next 24 hours. More recommendations to follow based on patient's clinical course. Time with Patient: Greater than 30
[2023-11-28] MEDS ORDERED: DEXTROSE 5% IN WATER 100 ML with AMIODARONE 150 MG IV ONE ×2 (15:38→18:00)
[2023-11-28] MEDS ORDERED: AMIODARONE 360 MG in DEXTROSE 5% IN WATER 200 ML IV ONE ×2 (15:39)
[2023-11-28 16:44] LABS: Glucose,Whole Blood 201 mg/dL (70-110)
--- NOTE | 2023-11-28 16:47 | P.PN ---
Subjective Progress Note Date: 11/28/23 This is a very pleasant 72-year-old male patient with history of diabetes mellitus, hypertension who presented here to the emergency room on 11/20/2023 with complaints of chest discomfort. He had been having symptoms on and off 2-3 weeks prior. Mostly exertional. EGD revealed some mild ST segment abnor malities. Initial troponin was negative subsequent troponins were 0.08, 0.24, 0.14. Chest x-ray revealed no acute pulmonary process. Echocardiogram revealed preserved left ventricular systolic function with ejection fraction 55-60%. CT angiogram revealed no evidence of pulmonary embolism. Lung noble were clear. He did undergo cardiac catheterization on 11/21/2023 which revealed 80% diffuse calcified proximal LAD disease and 80-90% calcified mid RCA disease. He was recommended coronary artery bypass grafting. We are seeing the patient today in consultation. He is a lifelong nonsmoker. Pulmonary function testing reveals an FEV1 value 2.53 L or 86% of predicted. He currently denies any shortness of breath, cough or congestion. Maintaining good O2 saturations in the mid 90s on room air. I count 7.8. Hemoglobin 14.2. Platelets 198. Sodium 139. Potassium 4.2. Bicarb 25. BUN 17. Creatinine 0.78. Glucose 170. Cholesterol 188. Triglycerides 171. LDL 106. HDL 48. Hepatitis screen negative. He's been afebrile. Hemodynamically stable. He is able to pull 3 L on the incentive spirometer. He has remained quite active throughout his career and into long term. He is up ambulating in his room. He denies any chest discomfort currently. The plan is for bypass grafting on 11/24/2023. He remains on a heparin drip. Reevaluated today on 11/23/23, patient is doing great, asymptomatic, patient is ambulating in his own room, he is on room air, denies any shortness of breath or chest pain, remains on heparin, he is in sinus rhythm, hemodynamically stable, not in any distress and he is scheduled for off-pump myocardial revascularization surgery with left internal mammary artery, endoscopic vein harvest, intraoperative transesophageal echocardiogram and exclusion of left atrial appendage to be completed by Dr. Quintanilla tomorrow 11/24/2023. Patient was seen today on 11/24/2023, patient is now status post off-pump coronary artery bypass grafting 2Left internal thoracic artery (in-situ) to left anterior descending artery. Saphenous vein from aorta to distal right coronary artery. , Patient also had left atrial appendage ligation, postoperatively patient was sent to the ICU he is now on mechanical ventilation, intubated, mechanically ventilated. Patient was on assist control rate of 14 tidal volume 550 FiO2 on the percent and PEEP of 10 ABG showed a pO2 of 193 pCO2 45 pH of 7.39. Since then his FiO2 was titrated down to 50%, and his PEEP is now down to 5, and he is on a pressure support of 8 with CPAP. Drips-merchant the patient is on clevidipine X at 4 mg/h he is on insulin 1 unit per hour patient is also on Precedex at 0.4 mcg/kg/h, and nitroglycerin at 10 units per minute patient seems to be calm, not in any distress, hemodynamics-merchant his cardiac output is 8.7 cardiac index is 3.9 blood pressure is 139/63. Chest x-ray showed mostly postoperative changes, endotracheal tube is above the thanh, Bourg-Sean catheter is present in the main pulmonary artery region, left sided chest tube seems to be in proper positioning. Orogastric tube is also in proper position. Patient was reevaluated today on 11/25/2023, patient was extubated today uneventfu lly, he is now postoperative day #1Off pump coronary artery bypass grafting x 2. Left internal thoracic artery (in-situ) to left anterior descending artery. Saphenous vein from aorta to distal right coronary artery, Left atrial appendage ligation with #35mm AtriClip, Endoscopic left greater saphenous vein harvest, Graft flow measurements using the Medi-Stim flow meter system, Trans-esophageal echocardiogram performed by anesthesia patient was extubated last night at 6:25 PM, patient is resting in bed, alert oriented 3, O2 saturation is 97% however he is on 5 L nasal cannula. Remains on insulin drip at 2.5 units per hour, he has lactated Ringer's running at 50 mL per hour. Cardiac output is 6.4 cardiac index is 2.8, patient is also receiving albumin, pulmonary pressure is 23/8. CVP is 3. Mediastinal and right left pleural chest tubes remain in place, no air leak. Chest x-ray showed left basilar atelectasis and possibly a small pleural effusion. Radiologists is raising the possibility of small right-sided pleural effusion, it is minimal and very atypical. Not clinically significant at this point. Reevaluated today on 11/26/2023, patient remains in the ICU, he is now postoperat reed day #2.Off pump coronary artery bypass grafting x 2. Left internal thoracic artery (in-situ) to left anterior descending artery. Saphenous vein from aorta to distal right coronary artery, Left atrial appendage ligation with #35mm AtriClip, Endoscopic left greater saphenous vein harvest, Graft flow measurements using the AVIA-Stim flow meter system, Trans-esophageal echocardiogram performed by anesthesia. Patient is doing well, he is sitting in bed, awake alert oriented 3, not in any distress, his chest tubes have been removed, his right IJ Cordis and Bourg-Sean catheter has been removed, Nam catheter has been removed, patient feels much better today, breathing a lot easier, and he is doing much better with incentive spirometry achieving over 1500 mL. Patient already ambulated today on the hallway with assistance. CBC is relatively normal WBC of 15.2 hemoglobin is 12.2 basic metabolic profile is normal, renal profile is normal chest x-ray showed minimal pulmonary vascular congestion, small left pleural effusion and atelectasis, complete resolution of the right-sided pneumothorax, there is a small tiny possible left apical pneumothorax noted on chest x-ray today Progress note dated 11/27/2023. This is a 72-year-old male postoperative day #3, status post off pump two-vessel bypass grafting. The patient also underwent a left atrial appendage ligation endoscopic left greater saphenous vein harvest, graft flow measurements. The patient also had a transesophageal echocardiogram. He is currently seen today in room 265, intensive care unit. Surgery was done by Dr. Quintanilla. The patient's currently on room air. No IV fluids. He sitting in a chair next to his hospital bed. He denies any respiratory difficulty or distress. The patient is doing very well on his incentive spirometer. White count 12.9, he lobe 11.5, hematocrit 34.6, and platelet count 140,000. Sodium 130, potassium 4.4, chlorides 98, CO2 23, BUN 22, creatinine 0.91. Calcium is 8.3. Chest x-ray shows some cardiomegaly, postsurgical changes, and atelectasis and effusion, at the left lung base. The patient seen today 11/28/2023 in follow-up on the selective care unit. He is currently up ambulating in the hallway. Awake and alert in no acute distress. Maintaining good O2 saturations in the 90s on room air. This is postoperative day #4 of two-vessel bypass grafting. X-ray continues to show mild pulmonary vascular congestion. Trace left and right pleural effusions with adjacent atelectasis. He continues to work well with the incentive spirometer. White count 11.2. Hemoglobin 12.4. Sodium 135. Potassium 4.1. Bicarb 20. BUN 28. Creatinine 1.05. Glucose 169. He remains on bronchodilators. Heparin for DVT prophylaxis. Objective - Vital Signs Vital signs: Vital Signs Temp 98.0 F 11/28/23 08:00 Pulse 92 11/28/23 16:00 Resp 18 11/28/23 16:00 BP 118/72 11/28/23 16:00 Pulse Ox 93 L 11/28/23 16:00 FiO2 50 11/24/23 18:00 Intake & Output 11/27/23 11/28/23 11/28/23 18:59 06:59 18:59 Intake Total 540 240 Output Total 800 750 2 Balance -800 -210 238 Weight 116.6 kg Intake: Oral 540 240 Output: Urine 800 750 Stool 2 Other: Voiding Method Urinal Urinal # Voids 1 ABP, PAP, CO, CI - Last Documented Arterial Blood Pressure 121/50 Pulmonary Artery Pressure 29/10 Cardiac Output 6.4 Cardiac Index 2.8 - Exam GENERAL EXAM: Alert, active, very pleasant 72-year-old male, on 2 L, comfortable in no apparent distress. HEAD: Normocephalic. EYES: Normal reaction of pupils, equal size. NOSE: Clear with pink turbinates. THROAT: No erythema or exudates. NECK: No masses, no JVD. CHEST: Sternal dressing dry and intact. Heart Hugger in place. LUNGS: Equal air entry with faint crackles in the posterior bases. CVS: S1 and S2 normal with no audible murmur, regular rhythm. ABDOMEN: No hepatosplenomegaly, normal bowel sounds, no guarding or rigidity. SPINE: No scoliosis or deformity SKIN: No rashes CENTRAL NERVOUS SYSTEM: No focal deficits, tone is normal in all 4 extremities. EXTREMITIES: There is no peripheral edema. No clubbing, no cyanosis. Peripheral pulses are intact. - Labs CBC & Chem 7: 11/28/23 10:50 11/28/23 10:50 Labs: Abnormal Lab Results - Last 24 Hours (Table) 11/27/23 11/28/23 11/28/23 Range/Units 21:05 02:04 05:46 WBC (3.8-10.6) k/uL RBC (4.30-5.90) m/uL Hgb (13.0-17.5) gm/dL Hct (39.0-53.0) % Neutrophils # (1.3-7.7) k/uL Monocytes # (0-1.0) k/uL Sodium (137-145) mmol/L Chloride (98-107) mmol/L BUN (9-20) mg/dL Glucose (74-99) mg/dL POC Glucose (mg/dL) 180 H 240 H 253 H (70-110) mg/dL 11/28/23 11/28/23 11/28/23 Range/Units 10:50 10:50 12:00 WBC 11.2 H (3.8-10.6) k/uL RBC 4.24 L (4.30-5.90) m/uL Hgb 12.4 L (13.0-17.5) gm/dL Hct 37.1 L (39.0-53.0) % Neutrophils # 8.1 H (1.3-7.7) k/uL Monocytes # 1.1 H (0-1.0) k/uL Sodium 135 L (137-145) mmol/L Chloride 95 L (98-107) mmol/L BUN 28 H (9-20) mg/dL Glucose 169 H (74-99) mg/dL POC Glucose (mg/dL) 154 H (70-110) mg/dL Microbiology - Last 24 Hours (Table) 11/25/23 16:10 Blood Culture - Preliminary Blood Assessment and Plan Assessment: Non-ST segment elevation myocardial infarction in a patient found to have 80% diffuse proximal LAD disease and 80-90% mid RCA disease. He did undergo off- pump coronary artery bypass grafting 2 on 11/24/2023 History of diabetes mellitus History of hypertension Hyperlipidemia Benign prostatic hyperplasia Obesity with a BMI of 36.9 kg per metered squared Family history of early coronary artery disease Lifelong nonsmoker Plan: The patient was seen and evaluated Chest x-ray, labs and medications reviewed Working very well with the incentive spirometer Remains stable and on room air Home once cleared by CT services I have personally seen and examined the patient, performed the documentation and the assessment and plan as written. Number of minutes spent on the visit: 10.
[2023-11-28] MEDS: TAMSULOSIN 0.4 MG CAP.ER.24H PO SCH (18:06)
[2023-11-28 20:56] LABS: Glucose,Whole Blood 116 mg/dL (70-110)
[2023-11-28] MEDS ORDERED: MELATONIN 5 MG TABLET PO SCH (21:00)
[2023-11-28] MEDS: ATORVASTATIN 40 MG TAB PO SCH (21:26)
[2023-11-28] MEDS: SENNOSIDES-DOCUSATE SODIUM 1 EACH TAB PO SCH (21:26)
[2023-11-29] MEDS: KETOROLAC 15 MG/ML 1 ML VIAL IVP SCH ×3 (00:01→11:25)
[2023-11-29] MEDS: HEPARIN SODIUM,PORCINE 5,000 UNIT/ML 1 ML VIAL SQ SCH ×2 (00:02→08:49)
[2023-11-29] MEDS: AMIODARONE 450 MG in DEXTROSE 5% IN WATER 250 ML IV SCH ×4 (01:11→07:10)
[2023-11-29 05:53] VITALS: TEMP 97.9
[2023-11-29 06:28] LABS: Glucose,Whole Blood 170 mg/dL (70-110)
[2023-11-29] MEDS: PANTOPRAZOLE 40 MG TABLET PO SCH (06:43)
[2023-11-29] MEDS: INSULIN ASPART (NovoLOG) 100 UNIT/ML VIAL SQ SCH ×4 (06:44→11:28)
[2023-11-29] MEDS: IPRATROPIUM-ALBUTEROL 3 ML NEB INHALATION SCH ×2 (08:45→11:33)
[2023-11-29] MEDS: LOSARTAN 25 MG TAB PO SCH (08:49)
[2023-11-29] MEDS: CLOPIDOGREL 75 MG TAB PO SCH (08:50)
[2023-11-29] MEDS: METOPROLOL TARTRATE 50 MG TAB PO SCH (08:50)
[2023-11-29] MEDS: ASPIRIN 325 MG TAB PO SCH (08:50)
[2023-11-29] MEDS: LINAGLIPTIN 5 MG TABLET PO SCH (08:50)
[2023-11-29 08:56] LABS: HCT 34.3 % (39.0-53.0); HGB 11.3 gm/dL (13.0-17.5); MCH 28.7 pg (25.0-35.0); MCHC 32.8 g/dL (31.0-37.0); MCV 87.5 fL (80.0-100.0); Mean Platelet Volume 7.5; Platelet Count 256 k/uL (150-450); RBC 3.93 m/uL (4.30-5.90); RDW 12.7 % (11.5-15.5); WBC 10.9 k/uL (3.8-10.6)
[2023-11-29] MEDS ORDERED: AMIODARONE 200 MG TAB PO SCH (09:00)
[2023-11-29 09:41] LABS: African American GFR (CKD) 83 (>60 ml/min/1.73 sqM); Anion Gap 11 mmol/L; Blood Urea Nitrogen 32 mg/dL (9-20); Calcium 8.9 mg/dL (8.4-10.2); Carbon Dioxide 25 mmol/L (22-30); Chloride 98 mmol/L (98-107); Glucose 146 mg/dL (74-99); Magnesium 2.1 mg/dL (1.6-2.3); Non-African American GFR(CKD) 72 (>60 ml/min/1.73 sqM); Sodium 134 mmol/L (137-145)
--- NOTE | 2023-11-29 09:52 | XR ---
EXAMINATION TYPE: XR chest 2V DATE OF EXAM: 11/29/2023 COMPARISON: 11/28/2023 HISTORY: 72-year-old male postop CABG TECHNIQUE: PA and lateral views FINDINGS: Median sternotomy wires are present with post-CABG clips. Heart borderline enlarged. Diffuse intersti tial density is similar. Ongoing small to moderate left effusion with patchy left basilar retrocardia c opacity. IMPRESSION: Correlate for ongoing mild pulmonary vascular congestion. Ongoing [id number] left effusion wit h adjacent atelectasis.
--- NOTE | 2023-11-29 09:58 | P.DS ---
Providers Date of admission: 11/21/23 13:14 Expected date of discharge: 11/29/23 Attending physician: Milton Schulz MD Consults: 11/20/23 11:10 Consult Physician Urgent Consulting Provider: Sergio Dickerson Consult Reason/Comments: cp Do you want consulting provider notified?: Yes 11/21/23 08:32 Consult Physician Routine Consulting Provider: Leonard Quintanilla Consult Reason/Comments: nstemi, DM, RCA and LAD 90% Do you want consulting provider notified?: Yes 11/22/23 12:04 Consult Physician Routine Consulting Provider: Tera Ibrahim Consult Reason/Comments: pulm clearence Do you want consulting provider notified?: Already Contacted Consult to Anesthesia Routine Consulting Provider: Anesthesia,Services Consult Reason/Comments: Cardiac Surgery Pre-Op 11/24/23 11:56 Consult Physician Routine Consulting Provider: Milton Schulz Consult Reason/Comments: med mgmt Do you want consulting provider notified?: Already Contacted Primary care physician: Saad Rene [facility] Course: FINAL DIAGNOSIS: Coronary artery disease, Non-ST elevated myocardial infarction this admission Hypertension Hyperlipidemia, cholesterol 218 and triglycerides 247 Diabetes mellitus type 2, currently on no treatment as an outpatient, preoperative hemoglobin A1c of 7.7% Benign prostatic hypertrophy Lifetime nonsmoker Obesity with a BMI of 36.9 kg/m Family history of premature coronary artery disease PRINCIPAL PROCEDURE: Off pump coronary artery bypass grafting x 2, left internal thoracic artery (in- situ) to left anterior descending artery, saphenous vein from aorta to distal right coronary artery Left atrial appendage ligation with #35mm AtriClip Endoscopic left greater saphenous vein harvest Graft flow measurements using the Medi-Stim flow meter system Trans-esophageal echocardiogram performed by anesthesia HISTORY OF PRESENT ILLNESS: This is a 72-year-old gentleman who follows outpatient with Dr Rene for primary care. He had been experiencing chest heaviness associated with shortness of breath over a 2-3 week period. He presented to [facility] emergency room for evaluation and treatment, EKG demonstrated sinus rhythm with no significant ischemic changes, troponins were elevated and he was ruled in for non-STEMI. He underwent heart catheterization demonstrating proximal LAD stenosis 70-80%, mid LAD stenosis 60-70%, positive iFr at 0.3, diffuse disease in the right coronary artery with 80-90% stenosis to the mid RCA, and nonobstructive disease in the first and second obtuse marginal coronary arteries. For completeness transthoracic echocardiogram was completed demonstrating normal left ventricular systolic function with EF of 55%, and mild tricuspid regurgitation. Consultation was placed to Dr. Quintanilla from cardiothoracic surgery. He was recommended to undergo urgent coronary artery bypass surgery. The usual perioperative course was discussed in detail with the patient and his family, all risks and benefits were explained, all questions were answered, and consent was obtained to proceed with surgery. The patient was kept inpatient due to the nature of his disease process. HOSPITAL COURSE: The patient was brought to the preoperative area 11/24/2023, prepared in the usual fashion, and subsequently taken to the operating room where Dr. Quintanilla performed two-vessel off-pump CABG. Upon completion of surgery the patient was transferred to the cardiovascular intensive care unit where he was recovered and monitored hemodynamically. He was extubated, all lines, tubes , and drips were discontinued when appropriate, and he was transferred to 3 S. cardiac stepdown unit for further monitoring and rehabilitation. His oxygen was titrated down, he continued to work with physical and occupational therapy, he was tolerating oral diet, his pain was controlled, he was given education regarding diabetes and blood sugar monitoring, and he was ready to be discharged to home with [facility] on postoperative day #5. He received written and verbal instruction regarding his medications, activity restrictions, signs and symptoms requiring physician notification, and follow-up appointments. Patient Condition at Discharge: Stable Plan - Discharge Summary New Discharge Prescriptions: New Atorvastatin [Lipitor] 40 mg PO HS #30 tab Clopidogrel [Plavix] 75 mg PO DAILY #30 tab Sennosides-Docusate Sodium [Senokot-S] 2 each PO HS PRN 10 Days #20 tab PRN Reason: Constipation Insulin Detemir (Levemir) [Levemir] 20 unit SQ DAILY #3 pen INSULIN ASPART (NovoLOG) [NovoLOG (formulary)] 7 unit SQ AC-TID #3 pen Amiodarone [Cordarone] 400 mg PO BID #50 tab Melatonin 5 mg PO HS tab Losartan [Cozaar] 25 mg PO DAILY #30 tab Metoprolol Tartrate [Lopressor] 50 mg PO BID #60 tab Pantoprazole [Protonix] 40 mg PO AC-BRKFST #30 tab Acetaminophen Tab [Tylenol] 1,000 mg PO Q6HR PRN tab PRN Reason: Fever And/ Or Pain Aspirin 325 mg PO DAILY #30 tab Linagliptin [Tradjenta] 5 mg PO DAILY #30 tab Continue Tamsulosin [Flomax] 0.4 mg PO BID diphenhydrAMINE [Benadryl] 50 mg PO HS Discontinued Naproxen Sodium [Aleve] 220 mg PO BID Losartan [Cozaar] 50 mg PO DAILY Discharge Medication List Tamsulosin [Flomax] 0.4 mg PO BID 12/14/20 [History] diphenhydrAMINE [Benadryl] 50 mg PO HS 11/20/23 [History] Acetaminophen Tab [Tylenol] 1,000 mg PO Q6HR PRN tab 11/28/23 [Rx] Atorvastatin [Lipitor] 40 mg PO HS #30 tab 11/28/23 [Rx] Clopidogrel [Plavix] 75 mg PO DAILY #30 tab 11/28/23 [Rx] INSULIN ASPART (NovoLOG) [NovoLOG (formulary)] 7 unit SQ AC-TID #3 pen 11/28/23 [Rx] Insulin Detemir (Levemir) [Levemir] 20 unit SQ DAILY #3 pen 11/28/23 [Rx] Losartan [Cozaar] 25 mg PO DAILY #30 tab 11/28/23 [Rx] Metoprolol Tartrate [Lopressor] 50 mg PO BID #60 tab 11/28/23 [Rx] Pantoprazole [Protonix] 40 mg PO AC-BRKFST #30 tab 11/28/23 [Rx] Sennosides-Docusate Sodium [Senokot-S] 2 each PO HS PRN 10 Days #20 tab 11/28/23 [Rx] Amiodarone [Cordarone] 400 mg PO BID #50 tab 11/29/23 [Rx] Aspirin 325 mg PO DAILY #30 tab 11/29/23 [Rx] Linagliptin [Tradjenta] 5 mg PO DAILY #30 tab 11/29/23 [Rx] Melatonin 5 mg PO HS tab 11/29/23 [Rx] Follow up Appointment(s)/Referral(s): Tera Ibrahim MD [STAFF PHYSICIAN] - 12/20/23 1:00 pm Karel Odom MD [Medical Doctor] - 12/15/23 2:30 pm Indira Aceves NPC [Nurse Practitioner] - 12/05/23 11:00 am (You will be seen in the surgeon's office behind the hospital in [facility], [address] Office phone number is ) Rehab Lucia MEDEL,Cardiac [NON-STAFF] - 4 Weeks (You will receive a phone call in approximately 4-6 weeks for evaluation for cardiac rehab) Saad Rene [Primary Care Provider] - 11/30/23 2:45 pm [facility] [NON-STAFF] - 1-2 Days ([facility] will call you to arrange a visit. You should be seen the day after discharge then 2-3 times per week until you start cardiac rehab) Leonard Quintanilla MD [STAFF PHYSICIAN] - 12/15/23 10:00 am Ambulatory/Diagnostic Orders: Complete Blood Count w/diff [LAB.AMB] Time Frame: 3 Days, Location: None Selected Comprehensive Metabolic Panel [LAB.AMB] Time Frame: 3 Days, Location: None Selected Activity/Diet/Wound Care/Special Instructions: DISCHARGE INSTRUCTIONS: 1. No driving for 4 weeks, or until physician gives their ok. 2. The patient should sleep in their own bed, no medical bed needed. 3. Stairs are not an issue. If the bedroom is upstairs, it is advised that the patient go up at night and down in the morning for the first week. Go slowly, using handrail and take 1 step at a time. 4. PADMINI hose are to be worn for 30 days post surgery or until physician discontinues. 5. Heart hugger is to be worn 100% of the time until physician discontinues.(except when showering) 6. No lifting, pushing, or pulling more than 10 pounds for 12 weeks. The physician will advise of any restriction changes. 7. The patient is expected to continue the prescribed walking program. 8. Continue pain control per as needed orders. 9. Continue with incentive spirometry and splinting/heart hugger until otherwise directed by the physician. 10. Must shower daily using liquid antibacterial soap 11. Routine sternal incision care. No powders, lotions, ointments on incisions. No dressings are necessary on incisions unless they are draining. Dermabond tape is to remain on sternal incision until surgeon follow-up. 12. Please call surgeon/LAY OUT HELPER for temp greater than 101 F or purulent drainage from incisions. 13. You should weigh yourself daily, record and bring log with you to follow up appointments. 14. All prescriptions given by surgeon for 30 days. Refills need to be filled through instrument fitter/primary care physician. 15. A Red armband has been placed on the patient. It should be worn for 30 days post discharge from surgery and will be removed by the cardiac surgeons. If an ER visit is necessary, please make sure the number on the Red armband is called before going to ER. 16. You have been referred to and are expected to begin Cardiac Rehab in approximately 4-6 weeks 17. Please check your blood sugars before meals and at bedtime, make a log of your blood sugars and bring to your follow-up appointments. HOME HEALTH SERVICES UPON [place] FROM [facility] TO PROVIDE: RN SKILLED HOME CARE SERVICES FOR POST-OP SURGICAL PATIENTS WITH THE FOLLOWING: Coronary Artery Bypass Surgery (CABG), Mitral Valve Replacement/Repair ( MVR), Aortic Valve Replacement/Repair (AVR) RN TO CONTINUE EDUCATION FROM ``ROAD TO A HEALTH HEART PATIENT EDUCATION MANUAL (GIVEN TO PATIENT IN THE HOSPITAL) MEDICATION RECONCILIATION WITH EDUCATION NEEDED ON FIRST HOME VISIT EMPHASIZE IMPORTANCE OF WEARING BREAST SUPPORT/HEART HUGGER ENCOURAGE USE OF INCENTIVE SPIROMETER 10 X EVERY HOUR WHILE AWAKE ENCOURAGE UTILIZATION OF LOWER EXTREMITY COMPRESSION STOCKINGS/PADMINI HOSE and ELEVATE LEGS ABOVE LEVEL OF HEART WHILE AT REST. ENCOURAGE AMBULATION 3-5x/day INCREASING TOLERATES, WHILE AVOIDING EXTREMES IN TEMPERATURE FREQUENCY: RN TO OPEN THE PATIENT WITHIN 24 HOURS OF DISCHARGE FROM [facility] WITH [facility] [place] [facility] [place] TO VISIT 2-3 X A WEEK FOR 4 WEEKS ESTABLISHED BY PATIENT NEEDS. LABORATORY: CBC, CMP TO BE DRAWN ON THE THIRD DAY HOME, (RAN STAT) FAX RESULTS TO [phone]. TELEHEALTH PARAMETERS: WEIGHT: NOTIFY MD OF WEIGHT GAIN OF 2 LBS IN 24 HOURS OR 5 LBS IN ONE WEEK HR: NOTIFY MD OF HR <55 BPM OR HR>100 BPM BP: NOTIFY MD IF BP <90/55 OR BP>140/100 O2 SAT: NOTIFY MD IF PO2<93% ON ROOM AIR SEND TELEHEALTH REPORT TO SIDEHAND AND CARDIOVASCULAR SURGEON THE FIRST WEEK OF CARE AND THEN BI-WEEKLY. PLEASE ADDITIONALLY COMMUNICATE ANY ABNORMALS AND NEW FINDINGS TO THE SURGEONS OFFICE. heart healthy low carbohydrate diet 1800k fernando per day Activities restricted till you see your doctors We recommend to check her glucoses 4 times a day before each meal and at bedtime, gave the results in the log book and bring continue her doctor on your appointment date if your glucose less than 70 or more than 400 , then call 911 and come to e mergency room Discharge Disposition: HOME WITH HOME HEALTH SERVICES
[2023-11-29] MEDS: INSULIN DETEMIR (LEVEMIR) 100 UNIT/ML SYR SQ SCH (10:09)
[2023-11-29 11:11] LABS: Glucose,Whole Blood 125 mg/dL (70-110)
[2023-11-29 11:28] VITALS: BP 154/92; PULSE 64; RESP 16
--- NOTE | 2023-11-29 12:22 | P.PN ---
Subjective HISTORY OF PRESENT ILLNESS: Patient is status post CABG 2 vessels. Postop day #4. Patient examined this morning at the bedside. Patient currently denies chest pain or pressure. He denies shortness of breath. Patient has been using his incentive spirometer and pulling 1500 mL. He has been up ambulating in the hallway without difficulty. Telemetry reveals sinus mechanism. Vital signs are stable. He is hoping to be discharged home this afternoon. 11/29/2023 Patient examined this morning. Patient denies any chest pain or pressure. He denies any shortness of breath. Patient has been up ambulating in the hallway this morning. Patient went into A. fib with RVR yesterday. He is maintaining sinus mechanism this morning. He has been started on oral amiodarone. Vital signs are stable. Blood pressure 141/85. PHYSICAL EXAM: VITAL SIGNS: Reviewed. GENERAL: Well-developed in no acute distress. NECK: Supple. No JVD or thyromegaly LUNGS: Respirations even and unlabored. Lungs essentially clear to auscultation bilaterally. HEART: Regular rate and rhythm. S1 and S2 heard. Heart hugger noted. EXTREMITIES: Normal range of motion. No clubbing or cyanosis. Peripheral pulses intact. No lower extremity edema ASSESSMENT: Coronary artery disease, status post two-vessel CABG Non-STEMI Hypertension Hyperlipidemia Diabetes Postoperative paroxysmal atrial fibrillation with RVR, currently maintaining sinus mechanism PLAN: Continue postoperative management per CT surgery Encourage use of incentive spirometer Increase activity as tolerated Patient is currently stable for discharge home today from a cardiac standpoint He is to follow up in the office post discharge Nurse practitioner note has been reviewed by physician. Signing provider agrees with the documented findings, assessment, and plan of care. Objective - Vital Signs Vital signs: Vital Signs Temp 97.9 F 11/29/23 08:46 Pulse 64 11/29/23 11:27 Resp 16 11/29/23 11:27 BP 154/92 11/29/23 11:27 Pulse Ox 97 11/29/23 11:27 FiO2 50 11/24/23 18:00 Intake & Output 11/28/23 11/29/23 11/29/23 18:59 06:59 18:59 Intake Total 960 540 180 Output Total 2 400 200 Balance 958 140 -20 Weight 116.3 kg Intake: Oral 960 540 180 Output: Urine 400 200 Stool 2 Other: Voiding Method Urinal Toilet Urinal # Voids 3 1 1 ABP, PAP, CO, CI - Last Documented Arterial Blood Pressure 121/50 Pulmonary Artery Pressure 29/10 Cardiac Output 6.4 Cardiac Index 2.8 - Labs CBC & Chem 7: 11/29/23 08:13 11/29/23 08:13 Labs: Abnormal Lab Results - Last 24 Hours (Table) 11/28/23 11/28/23 11/29/23 Range/Units 16:43 20:55 06:27 WBC (3.8-10.6) k/uL RBC (4.30-5.90) m/uL Hgb (13.0-17.5) gm/dL Hct (39.0-53.0) % Sodium (137-145) mmol/L BUN (9-20) mg/dL Glucose (74-99) mg/dL POC Glucose (mg/dL) 201 H 116 H 170 H (70-110) mg/dL 11/29/23 11/29/23 11/29/23 Range/Units 08:13 08:13 11:09 WBC 10.9 H (3.8-10.6) k/uL RBC 3.93 L (4.30-5.90) m/uL Hgb 11.3 L (13.0-17.5) gm/dL Hct 34.3 L (39.0-53.0) % Sodium 134 L (137-145) mmol/L BUN 32 H (9-20) mg/dL Glucose 146 H (74-99) mg/dL POC Glucose (mg/dL) 125 H (70-110) mg/dL Microbiology - Last 24 Hours (Table) 11/25/23 16:10 Blood Culture - Preliminary Blood
--- NOTE | 2023-11-29 14:28 | P.PN ---
Subjective Progress Note Date: 11/29/23 Principal diagnosis: Status post bypass surgery. Acute non-ST elevation myocardial infarction and coronary arteriosclerosis This is a very pleasant 72-year-old male patient with history of diabetes mellitus, hypertension who presented here to the emergency room on 11/20/2023 w ith complaints of chest discomfort. He had been having symptoms on and off 2-3 weeks prior. Mostly exertional. EGD revealed some mild ST segment abnormalities. Initial troponin was negative subsequent troponins were 0.08, 0.24, 0.14. Chest x-ray revealed no acute pulmonary process. Echocardiogram revealed preserved left ventricular systolic function with ejection fraction 55- 60%. CT angiogram revealed no evidence of pulmonary embolism. Lung noble were clear. He did undergo cardiac catheterization on 11/21/2023 which revealed 80% diffuse calcified proximal LAD disease and 80-90% calcified mid RCA disease. He was recommended coronary artery bypass grafting. We are seeing the patient today in consultation. He is a lifelong nonsmoker. Pulmonary function testing reveals an FEV1 value 2.53 L or 86% of predicted. He currently denies any shortness of breath, cough or congestion. Maintaining good O2 saturations in the mid 90s on room air. I count 7.8. Hemoglobin 14.2. Platelets 198. Sodium 139. Potassium 4.2. Bicarb 25. BUN 17. Creatinine 0.78. Glucose 170. Cholesterol 188. Triglycerides 171. LDL 106. HDL 48. Hepatitis screen negative. He's been afebrile. Hemodynamically stable. He is able to pull 3 L on the incentive spirometer. 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 He is up ambulating in his room. He denies any chest discomfort currently. The plan is for bypass grafting on 11/24/2023. He remains on a heparin drip. Reevaluated today on 11/23/23, patient is doing great, asymptomatic, patient is ambulating in his own room, he is on room air, denies any shortness of breath or chest pain, remains on heparin, he is in sinus rhythm, hemodynamically stable, not in any distress and he is scheduled for off-pump myocardial revascularization surgery with left internal mammary artery, endoscopic vein harvest, intraoperative transesophageal echocardiogram and exclusion of left atrial appendage to be completed by Dr. Quintanilla tomorrow 11/24/2023. Patient was seen today on 11/24/2023, patient is now status post off-pump coronary artery bypass grafting 2Left internal thoracic artery (in-situ) to left anterior descending artery. Saphenous vein from aorta to distal right coronary artery. , Patient also had left atrial appendage ligation, postoperatively patient was sent to the ICU he is now on mechanical ventilation, intubated, mechanically ventilated. Patient was on assist control rate of 14 tidal volume 550 FiO2 on the percent and PEEP of 10 ABG showed a pO2 of 193 pCO2 45 pH of 7.39. Since then his FiO2 was titrated down to 50%, and his PEEP is now down to 5, and he is on a pressure support of 8 with CPAP. Drips-merchant the patient is on clevidipine X at 4 mg/h he is on insulin 1 unit per hour patient is also on Precedex at 0.4 mcg/kg/h, and nitroglycerin at 10 units per minute patient seems to be calm, not in any distress, hemodynamics-merchant his cardiac output is 8.7 cardiac index is 3.9 blood pressure is 139/63. Chest x-ray showed mostly postoperative changes, endotracheal tube is above the thanh, Roberts-Sean catheter is present in the main pulmonary artery region, left sided chest tube seems to be in proper positioning. Orogastric tube is also in proper position. Patient was reevaluated today on 11/25/2023, patient was extubated today uneventfully, he is now postoperative day #1Off pump coronary artery bypass grafting x 2. Left internal thoracic artery (in-situ) to left anterior descendin g artery. Saphenous vein from aorta to distal right coronary artery, Left atrial appendage ligation with #35mm AtriClip, Endoscopic left greater saphenous vein harvest, Graft flow measurements using the [employer]-Stim flow meter system, Trans- esophageal echocardiogram performed by anesthesia patient was extubated last night at 6:25 PM, patient is resting in bed, alert oriented 3, O2 saturation is 97% however he is on 5 L nasal cannula. Remains on insulin drip at 2.5 units per hour, he has lactated Ringer's running at 50 mL per hour. Cardiac output is 6.4 cardiac index is 2.8, patient is also receiving albumin, pulmonary pressure is 23/8. CVP is 3. Mediastinal and right left pleural chest tubes remain in place, no air leak. Chest x-ray showed left basilar atelectasis and possibly a small pleural effusion. Radiologists is raising the possibility of small right- sided pleural effusion, it is minimal and very atypical. Not clinically significant at this point. Reevaluated today on 11/26/2023, patient remains in the ICU, he is now postoperative day #2.Off pump coronary artery bypass grafting x 2. Left internal thoracic artery (in-situ) to left anterior descending artery. Saphenous vein from aorta to distal right coronary artery, Left atrial appendage ligation with #35mm AtriClip, Endoscopic left greater saphenous vein harvest, Graft flow measurements using the [employer]-Stim flow meter system, Trans-esophageal echocardiogram performed by anesthesia. Patient is doing well, he is sitting in bed, awake alert oriented 3, not in any distress, his chest tubes have been removed, his right IJ Cordis and Roberts-Sean catheter has been removed, Nam catheter has been removed, patient feels much better today, breathing a lot easier, and he is doing much better with incentive spirometry achieving over 1500 mL. Patient already ambulated today on the hallway with assistance. CBC is relatively normal WBC of 15.2 hemoglobin is 12.2 basic metabolic profile is normal, renal profile is normal chest x-ray showed minimal pulmonary vascular congestion, small left pleural effusion and atelectasis, complete resolution of the right-sided pneumothorax, there is a small tiny possible left apical pneumothorax noted on chest x-ray today Progress note dated 11/27/2023. This is a 72-year-old male postoperative day #3, status post off pump two-vessel bypass grafting. The patient also underwent a left atrial appendage ligation endoscopic left greater saphenous vein harvest, graft flow measurements. The patient also had a transesophageal echocardiogram. He is currently seen today in room 265, intensive care unit. Surgery was done by Dr. Quintanilla. The patient's currently on room air. No IV fluids. He sitting in a chair next to his hospital bed. He denies any respiratory difficulty or distress. The patient is doing very well on his incentive spirometer. White count 12.9, he lobe 11.5, hematocrit 34.6, and platelet count 140,000. Sodium 130, potassium 4.4, chlorides 98, CO2 23, BUN 22, creatinine 0.91. Calcium is 8.3. Chest x-ray shows some cardiomegaly, postsurgical changes, and atelectasis and effusion, at the left lung base. Progress note dated 11/29/2023. 72-year-old male, postop day #5, status post off pump two-vessel bypass grafting. The patient was hoping to be able to go home yesterday. They kept him overnight. Currently, he seen in room 380. He is currently on no supplemental oxygen, and not receiving any IV fluids the patient is hoping to be discharged home today. Objective - Vital Signs Vital signs: Vital Signs Temp 97.9 F 11/29/23 08:46 Pulse 64 11/29/23 11:27 Resp 16 11/29/23 11:27 BP 154/92 11/29/23 11:27 Pulse Ox 97 11/29/23 11:27 FiO2 50 11/24/23 18:00 Intake & Output 11/28/23 11/29/23 11/29/23 18:59 06:59 18:59 Intake Total 960 540 720 Output Total 2 400 200 Balance 958 140 520 Weight 116.3 kg Intake: Oral 960 540 720 Output: Urine 400 200 Stool 2 Other: Voiding Method Urinal Toilet Urinal # Voids 3 1 1 ABP, PAP, CO, CI - Last Documented Arterial Blood Pressure 121/50 Pulmonary Artery Pressure 29/10 Cardiac Output 6.4 Cardiac Index 2.8 - Exam No acute distress, oriented 3. Currently on room air. HEENT examination is grossly unremarkable. Neck supple. Full range of motion. No adenopathy thyromegaly or neck vein distention. Cardiovascular examination reveals regular rhythm rate. S1-S2 normal. No S3 or S4. No discernible murmur noted. Heart rate 70 bpm. Lungs reveal minimal basilar crackles. No wheezes or rhonchi. Breath sounds are equal. Saturations are 95 % on room air. Abdomen soft bowel sounds are heard. No masses or tenderness. Extremities are intact. No cyanosis clubbing or edema. Skin is without rash or lesion. Neurologic examination is brief but nonfocal. - Labs CBC & Chem 7: 11/29/23 08:13 11/29/23 08:13 Labs: Abnormal Lab Results - Last 24 Hours (Table) 11/28/23 11/28/23 11/29/23 Range/Units 16:43 20:55 06:27 WBC (3.8-10.6) k/uL RBC (4.30-5.90) m/uL Hgb (13.0-17.5) gm/dL Hct (39.0-53.0) % Sodium (137-145) mmol/L BUN (9-20) mg/dL Glucose (74-99) mg/dL POC Glucose (mg/dL) 201 H 116 H 170 H (70-110) mg/dL 11/29/23 11/29/23 11/29/23 Range/Units 08:13 08:13 11:09 WBC 10.9 H (3.8-10.6) k/uL RBC 3.93 L (4.30-5.90) m/uL Hgb 11.3 L (13.0-17.5) gm/dL Hct 34.3 L (39.0-53.0) % Sodium 134 L (137-145) mmol/L BUN 32 H (9-20) mg/dL Glucose 146 H (74-99) mg/dL POC Glucose (mg/dL) 125 H (70-110) mg/dL Microbiology - Last 24 Hours (Table) 11/25/23 16:10 Blood Culture - Preliminary Blood Assessment and Plan Assessment: Status post off pump two-vessel bypass grafting, postop day #5. Routine postoperative ventilator management. History of coronary artery disease. Benign essential hypertension. Lifetime nonsmoker, nondrinker. Type 2 diabetes without complication. Family history of early-onset CAD. Small apical pneumothorax, expected. Plan: Plan dated 11/27/2023. The patient is postop day #3. The patient sitting in the chair, next to his hospital bed. The patient is not requiring any supplemental oxygen. The patient is not receiving any IV fluids. Labs, x-rays, medications are reviewed. The patient's doing very well on his incentive spirometer. We will continue to follow make recommendations along the way. The patient may be transferred out of the intensive care unit, in the next day or so. No additional gemma mmendations are made. We will continue to follow the patient, and make recommendations where necessary. Plan dated 11/29/2023. The patient is postop day #5. The patient is doing well, and not requiring any supplemental oxygen, or IV fluids. Labs, x-rays, and medications are all reviewed. We do one him to continue to use incentive spirometer, every hour while awake. He should take it home with him. No additional recommendations are made. He will follow-up in the office. Prognosis is thought to be generally good. Time with Patient: Less than 30
--- NOTE | 2023-11-29 14:34 | P.PN ---
Subjective Progress Note Date: 11/29/23 Patient evaluated today standing at the bedside. No reports of chest pain or shortness of breath. He is scheduled to undergo coronary bypass tomorrow. Discussed with patient hemoglobin A1C of 7.7. states he has been told he was prediabetic in the past and has been on metformin in the past which caused alot of GI symptoms additonally he was started on a different oral medication which caused urinary frequency. He states he has been controlling his sugar with dietary changes. For now he will be continued on accuchecks ACHS will add in 2 am and scheduled insulin and monitor blood glucose closely. Will made adjustments as needed. All questions answered and reinforced using the IS. Today his CBC is unremarkable and his renal function and electrolytes are WNL. 11/24/2023 Patient scheduled to undergo coronary artery bypass today. On sliding scale and scheduled insulin. His blood glucose has trended down slightly overnight to the 130-140s. He will be monitored in the ICU post procedure today. 11/25/2023 Patient evaluated today in the intensive care unit. He is status post 2 vessel cabg. He has been extubated and currently on 3L of of oxygen. Awake and alert x 3. He is on insulin gtt blood sugar in the 140s. Chest xray showing 1.4 cm small right apical pneumothorax with increasing small left pleural effusion with increasing prominent postoperative atelectasis at the retrocardiac left base. Chest tube x3 in place. Epicardial pacemaker wires in place. On nitro gtt and received a dose of IV lasix x 1 today. He will be getting up with physical therapy. 11/29. Patient seen and examined. Patient is being discharged home with homecare. All discharge prescriptions were done by CT surgery team REVIEW OF SYSTEMS: CONSTITUTIONAL: No fever, no malaise,. CARDIOVASCULAR: No chest pain, no palpitations, no syncope. PULMONARY: No shortness of breath, no cough, GASTROINTESTINAL: No diarrhea, no nausea, no vomiting, no abdominal pain. NEUROLOGICAL: No headaches, no weakness, PHYSICAL EXAMINATION: GENERAL: The patient is alert and oriented x3, not in any acute distress. Well developed, well nourished. HEENT: Pupils are round and equally reacting to light. EOMI. No scleral icterus. No conjunctival pallor. Normocephalic, atraumatic. No pharyngeal erythema. No thyromegaly. CARDIOVASCULAR: S1 and S2 present. No murmurs, rubs, or gallops. PULMONARY: Chest is clear to auscultation, no wheezing or crackles. ABDOMEN: Soft, nontender, nondistended, normoactive bowel sounds. No palpable organomegaly. MUSCULOSKELETAL: No joint swelling or deformity. EXTREMITIES: No cyanosis, clubbing, or pedal edema. NEUROLOGICAL: Gross neurological examination did not reveal any focal deficits. SKIN: No rashes. Assessment and plan Significant coronary artery disease with 80% stenosis of LAD and 90% of RCA patient is status post 2 vessel CABG Uncontrolled hypertension on admission improved now 90-100s systolic postoperatively Hx hypertension Dysplipidemia Hx BPH Non smoker Obesity with BMI of 36.9 Diabetes Mellitus type 2 with hyperglycemia previously told he was pre diabetic; hemoglobin A1C 7.7. Monitor vital signs Monitor CBC Monitor CMP Continue aspirin and Lipitor Continue Plavix Continue current insulin regimen CT surgery following Labs and medication were reviewed.. Continue same treatment. Continue with symptomatic treatment. Resume home medication. Monitor labs and vitals. DVT and GI prophylaxis. Further recommendations as per clinical course of the patient Dictation was produced using [employer] dictation software. please excuse any grammatical, word or spelling errors. Objective - Vital Signs Vital signs: Vital Signs Temp 97.9 F 11/29/23 08:46 Pulse 75 11/29/23 08:56 Resp 17 11/29/23 08:46 BP 141/85 11/29/23 08:46 Pulse Ox 95 11/29/23 08:46 FiO2 50 11/24/23 18:00 Intake & Output 11/28/23 11/29/23 11/29/23 18:59 06:59 18:59 Intake Total 960 540 180 Output Total 2 400 200 Balance 958 140 -20 Weight 116.3 kg Intake: Oral 960 540 180 Output: Urine 400 200 Stool 2 Other: Voiding Method Urinal Toilet Urinal # Voids 3 1 1 ABP, PAP, CO, CI - Last Documented Arterial Blood Pressure 121/50 Pulmonary Artery Pressure 29/10 Cardiac Output 6.4 Cardiac Index 2.8 - Labs CBC & Chem 7: 11/29/23 08:13 11/29/23 08:13 Labs: Abnormal Lab Results - Last 24 Hours (Table) 11/28/23 11/28/23 11/28/23 Range/Units 10:50 10:50 12:00 WBC 11.2 H (3.8-10.6) k/uL RBC 4.24 L (4.30-5.90) m/uL Hgb 12.4 L (13.0-17.5) gm/dL Hct 37.1 L (39.0-53.0) % Neutrophils # 8.1 H (1.3-7.7) k/uL Monocytes # 1.1 H (0-1.0) k/uL Sodium 135 L (137-145) mmol/L Chloride 95 L (98-107) mmol/L BUN 28 H (9-20) mg/dL Glucose 169 H (74-99) mg/dL POC Glucose (mg/dL) 154 H (70-110) mg/dL 11/28/23 11/28/23 11/29/23 Range/Units 16:43 20:55 06:27 WBC (3.8-10.6) k/uL RBC (4.30-5.90) m/uL Hgb (13.0-17.5) gm/dL Hct (39.0-53.0) % Neutrophils # (1.3-7.7) k/uL Monocytes # (0-1.0) k/uL Sodium (137-145) mmol/L Chloride (98-107) mmol/L BUN (9-20) mg/dL Glucose (74-99) mg/dL POC Glucose (mg/dL) 201 H 116 H 170 H (70-110) mg/dL 11/29/23 11/29/23 Range/Units 08:13 08:13 WBC 10.9 H (3.8-10.6) k/uL RBC 3.93 L (4.30-5.90) m/uL Hgb 11.3 L (13.0-17.5) gm/dL Hct 34.3 L (39.0-53.0) % Neutrophils # (1.3-7.7) k/uL Monocytes # (0-1.0) k/uL Sodium 134 L (137-145) mmol/L Chloride (98-107) mmol/L BUN 32 H (9-20) mg/dL Glucose 146 H (74-99) mg/dL POC Glucose (mg/dL) (70-110) mg/dL Microbiology - Last 24 Hours (Table) 11/25/23 16:10 Blood Culture - Preliminary Blood
== END 2023-11-29 13:58 | disposition home health service (06) | DRG 234 ==
LOC: EC 09:49 → 6NMEDSUR 11:10 → 3SCARD 15:19 → OBSVTOIN 11-21 13:14 → 2SICU 11-24 07:46 → 3SCARD 11-27 19:36
PROVIDERS: ADMIT Internal Medicine; ATTEND Internal Medicine
PROC: 4A023N7 Measurement of Cardiac Sampling and Pressure, Left Heart, Percutaneous Approach (ICD-10-PCS; 2023-11-21 13:00)
PROC: B2111ZZ Fluoroscopy of Multiple Coronary Arteries using Low Osmolar Contrast (ICD-10-PCS; 2023-11-21 13:00)
PROC: 0W9B30Z Drainage of Left Pleural Cavity with Drainage Device, Percutaneous Approach (ICD-10-PCS; principal; 2023-11-24 08:00)
PROC: 06BQ3ZZ Excision of Left Saphenous Vein, Percutaneous Approach (ICD-10-PCS; principal; 2023-11-24 08:00)
PROC: 02L70CK Occlusion of Left Atrial Appendage with Extraluminal Device, Open Approach (ICD-10-PCS; principal; 2023-11-24 08:00)
PROC: 02100ZC Bypass Coronary Artery, One Artery from Thoracic Artery, Open Approach (ICD-10-PCS; principal; 2023-11-24 08:00)
PROC: 021009W Bypass Coronary Artery, One Artery from Aorta with Autologous Venous Tissue, Open Approach (ICD-10-PCS; principal; 2023-11-24 08:00)
PROC: B24BZZ4 Ultrasonography of Heart with Aorta, Transesophageal (ICD-10-PCS; principal; 2023-11-24 08:00)
DX: I21.4 Non-ST elevation (NSTEMI) myocardial infarction (principal); E87.1 Hypo-osmolality and hyponatremia; J90 Pleural effusion, not elsewhere classified; J98.11 Atelectasis; J93.83 Other pneumothorax; I25.10 Atherosclerotic heart disease of native coronary artery without angina pectoris; E87.70 Fluid overload, unspecified; E66.01 Morbid (severe) obesity due to excess calories; Z68.36 Body mass index [BMI] 36.0-36.9, adult; E78.5 Hyperlipidemia, unspecified; I07.1 Rheumatic tricuspid insufficiency; I10 Essential (primary) hypertension; Z28.21 Immunization not carried out because of patient refusal; G47.00 Insomnia, unspecified; Z71.3 Dietary counseling and surveillance; I48.0 Paroxysmal atrial fibrillation; N40.0 Benign prostatic hyperplasia without lower urinary tract symptoms; Z79.02 Long term (current) use of antithrombotics/antiplatelets; Z79.4 Long term (current) use of insulin; Z79.899 Other long term (current) drug therapy; Z82.49 Family history of ischemic heart disease and other diseases of the circulatory system; Z83.3 Family history of diabetes mellitus; Z79.1 Long term (current) use of non-steroidal anti-inflammatories (NSAID)
CPT/HCPCS: 36415; 71045; 71046; 71275; 76604; 76937; 80048; 80053; 80061; 80074; 81001; 81003; 82330; 82805; 83036; 83735; 84132; 84443; 84484; 85025; 85027; 85379; 85610; 85730; 86850; 86900; 86901; 86920; 87040; 87070; 93005; 93306; 93458; 93799; 93880; 93922; 93970; 94002; 94150; 94640; 94760; 99285